=== PATIENT | male | born 1960 | race Caucasian/White ===

== ENCOUNTER 2024-05-13 05:55 | Emergency (ER) | payer OTHER, SELFPAY ==
[2024-05-13 05:58] VITALS: BP 131/62
[2024-05-13 06:08] VITALS: BMI 36.0
--- NOTE | 2024-05-13 06:24 | ED.GENMED ---
History of Present Illness
<Kal Mott MD, Resident - Last Filed: 05/13/24 13:54>
General
Chief Complaint: Abnormal Lab Value
Source: patient and spouse
Time Seen by Provider: 05/13/24 06:24
Nursing documentation reviewed up to this point in time: agreed with
Travel History
Have you traveled to any high risk areas for coronavirus over the past 14 days?: No
Have you had any contact with someone who has COVID-19?: No
Do you have any symptoms of coronavirus? Fever > 100 degrees, chills, cough, shortness of breath, sore throat, loss of taste or smell, muscle aches, or headache?: No
History of Present Illness
History of Present Illness:
63-year-old male with PMH of ESRD (on HD MWF), T2DM, HARMAN, essential hypertension, GERD, MDD who presented to the emergency department with complaints of left jaw pain rated 2/10. Patient describes a dull pain at the left mandibular joint, does not
radiate, worse with opening his mouth. He was seen by a nurse practitioner at [facility] and was directed to come to the ED due to concerns of GCA. Patient reports that symptoms started a long time ago, occurs once or twice a year and resolves
on its own without any intervention. Patient is anxious and wants to know the cause of the pain. He denies trauma, swelling, trouble breathing, fever, chills, headaches, chest pain, abdominal pain, urinary symptoms.
Past History
<Kal Mott MD, Resident - Last Filed: 05/13/24 13:54>
Past History
ED Past Medical History: Asthma, GERD, HTN, Hypercholesterolemia, IDDM, Renal failure and Psychiatric
Patient has exhibited threatening behavior?: No
Social History
Tobacco: Non-smoker
Alcohol: None
Drug: None
Personal:
Living: with family
Family History
Family History: Diabetes and Hypertension
Review of Systems
<Kal Mott MD, Resident - Last Filed: 05/13/24 13:54>
Review of Systems
All Other Systems: ROS reviewed and negative except as documented in HPI and ROS
Phy Exam
<Kal Mott MD, Resident - Last Filed: 05/13/24 13:54>
Physical Exam
Physical Exam:
GENERAL: Alert and oriented x 3, NAD. Afebrile
HEAD: NC/AT, mild tenderness in left temporomandibular joint
OROPHARYNX: no exudate or ulcers.
EYE: pupils equal and reactive extraocular muscles
NECK: Supple, no significant adenopathy.
CARDIAC: Regular rate and rhythm without any obvious murmurs.
LUNGS: Normal breath sounds,normal-no rhonchi. Not bronchospastic.
ABDOMEN: Soft, NT, ND, no peritoneal signs.
NEUROLOGICAL: Alert and oriented x 3. No focal neurological deficit.
SKIN: Warm and dry, no rash or lesion, no discoloration, skin intact.
MUSCULOSKELETAL: Full range of motion of extremities.
LYMPHATIC:No lymph nodes on his neck or supraclavicular area.
PSYCH: Normal and appropriate interaction.
General Physical Exam
General Presentation: well appearing and no apparent distress
General age: appears stated age
General Skin: warm and dry
ENT Exam
ENT Exam: EOMI, TM's normal and pharynx normal
Course
<Kal Mott MD, Resident - Last Filed: 05/13/24 13:54>
Orders/Labs/Results
Orders:
Orders
05/13/24 06:22
Complete Blood Count/With Diff Urgent
Comprehensive Metabolic Panel Urgent
ESR [Erythrocyte Sed Rate] Urgent
05/13/24 07:10
Vital Signs- Treatment ONCE
Frequency: Once
Abnormal Lab Results
05/13/24
06:22
WBC 13.8 H 10^3/uL
(4.8-10.8)
RBC 3.25 L 10^6/uL
(4.70-6.10)
Hgb 9.3 L g/dL
(13.0-18.0)
Hct 27.5 L %
(39.0-52.0)
Abs Immat Gran (auto) 0.2 H 10^3/uL
(0-0.05)
Absolute Neuts (auto) 12.3 H 10^3/uL
(1.4-6.5)
Absolute Lymphs (auto) 0.9 L 10^3/uL
(1.2-3.4)
Immature Gran % 1.1 H %
(0-0.5)
Neutrophils % 89.3 H %
(42.2-75.2)
Lymphocytes % 6.2 L %
(20.5-51.1)
ESR 86 H mm/hour
(0-20)
Sodium 134 L mmol/L
(135-145)
BUN 30 H mg/dl
(9-20)
Creatinine 1.8 H mg/dL
(0.7-1.3)
Glucose 307 H mg/dl
(70-99)
Albumin 3.1 L g/dl
(3.5-5.0)
05/13/24 06:22
05/13/24 06:22
Vital Signs
Initial and Last Documented VS:
Initial Vital Signs
Pulse BP Pulse Ox
50 131/62 97
05/13/24 05:58 05/13/24 05:58 05/13/24 05:58
Last Documented Vital Signs
Temp Pulse BP Pulse Ox
98.2 F 50 138/60 96
05/13/24 10:11 05/13/24 05:58 05/13/24 10:00 05/13/24 10:00
<James Arteaga, - Last Filed: 05/13/24 13:04>
Orders/Labs/Results
Orders:
Orders
05/13/24 06:22
Complete Blood Count/With Diff Urgent
Comprehensive Metabolic Panel Urgent
ESR [Erythrocyte Sed Rate] Urgent
05/13/24 07:10
Vital Signs- Treatment ONCE
Frequency: Once
Abnormal Lab Results
05/13/24
06:22
WBC 13.8 H 10^3/uL
(4.8-10.8)
RBC 3.25 L 10^6/uL
(4.70-6.10)
Hgb 9.3 L g/dL
(13.0-18.0)
Hct 27.5 L %
(39.0-52.0)
Abs Immat Gran (auto) 0.2 H 10^3/uL
(0-0.05)
Absolute Neuts (auto) 12.3 H 10^3/uL
(1.4-6.5)
Absolute Lymphs (auto) 0.9 L 10^3/uL
(1.2-3.4)
Immature Gran % 1.1 H %
(0-0.5)
Neutrophils % 89.3 H %
(42.2-75.2)
Lymphocytes % 6.2 L %
(20.5-51.1)
ESR 86 H mm/hour
(0-20)
Sodium 134 L mmol/L
(135-145)
BUN 30 H mg/dl
(9-20)
Creatinine 1.8 H mg/dL
(0.7-1.3)
Glucose 307 H mg/dl
(70-99)
Albumin 3.1 L g/dl
(3.5-5.0)
05/13/24 06:22
05/13/24 06:22
Vital Signs
Initial and Last Documented VS:
Initial Vital Signs
Pulse BP Pulse Ox
50 131/62 97
05/13/24 05:58 05/13/24 05:58 05/13/24 05:58
Last Documented Vital Signs
Temp Pulse BP Pulse Ox
98.2 F 50 138/60 96
05/13/24 10:11 05/13/24 05:58 05/13/24 10:00 05/13/24 10:00
<Kal Mott MD, Resident - Last Filed: 05/13/24 13:54>
MDM/Problems Addressed
MDM/Problems Addressed:
63-year-old male with PMH of ESRD, type II DM, HARMAN, GERD who presented to the emergency department with left jaw pain that started yesterday. Pain is rated 2/10 and does not radiate. Suspect temporomandibular joint dysfunction vs sialolithiasis,
eustachian tube dysfunction. Periodontal infection less likely given no fever or other systemic symptoms, glossopharyngeal neuralgia also less likely given the nature of the pain, GCA less likely in a 63-year-old male with no history of no headaches
or temporal arteritis. CBC, CMP, ESR pending. Patient not willing to take Tylenol, said pain not unbearable.
Chronic conditions affecting care: Kidney disease
<Kal Mott MD, Resident - Last Filed: 05/13/24 13:54>
*Critical Care Note
Total Time (30-74mins, 75-104mins- exclusive of procedures): Not Applicable
<Kal Mott MD, Resident - Last Filed: 05/13/24 13:54>
Update Note
Update Note:
7: 30 CBC with mild leukocytosis 13.8, Hb 9.3, ESR 86. Chemistry with sodium 134, glucose 307, BUN 30, creatinine 1.8, glucose 307. Patient reports he took 40 mg prednisone yesterday morning which explains his mild leukocytosis. He does not
remember if he took his long-acting insulin last night. An ESR of 86 may be expected in a patient on dialysis. He is due for dialysis today. He stated that his fasting glucose is usually in the 100s at home but did not remember if he got his
long-acting insulin last night. He will get his 40 units NovoLog with breakfast.
8: 10 patient reevaluated, reports no pain and minimal pain with mouth opening. Refused Tylenol seen pain is not unbearable. Patient is hemodynamically stable and is medically stable for discharge to follow-up with primary care physician.
Encouraged to attend his dialysis today.
ED Attending Note
<Kal Mott MD, Resident - Last Filed: 05/13/24 13:54>
-
Portions of this chart may have been created with voice recognition software.� Occasional wrong word or��sound alike� substitutions may have occurred due to the inherent limitations of voice recognition software.
<James Arteaga DO - Last Filed: 05/13/24 13:04>
ED Attending Note
Patient seen and examined by attending physician: Yes
I performed the substantive portion of visit, reviewed & personally made and approve the management plan that is documented in note by myself or LIGIA.: Yes
I performed a history and physical exam of patient and discussed management with resident, I reviewed resident's note and agree with documented findings and plan of care.: Yes
ED Attending Note:
63-year-old male with left jaw pain. My evaluation patient states pain is better. He was sent because of elevated CRP and sed rate. Denies fevers. Reports that he has had this pain 1-3 times a year. He states he did not think it was much of a
big deal. He is not sure if he grinds his teeth. Patient denies fevers. Is on dialysis. Exam: Very minor tenderness left noted the left TMJ. No left temporal artery tenderness. No signs of dental infection. No abscess. No signs of parotitis.
Patient advised to follow-up with [facility] if symptoms persist. Also advised to watch for fevers or swelling or any other symptoms.
Discharge Plan
Departure
Patient Disposition: Home (Routine Discharge)
Date of Disposition: 05/13/24
Time of Disposition: 10:09
Patient with high blood pressure during this ER visit?: Yes
Condition: Good
Covid-19: Not Applicable
Discharge Problem:
TMJ (temporomandibular joint disorder), End stage renal disease, Essential hypertension, Acute hyponatremia
Instructions: Dehydration, Adult (DC), Temporomandibular Joint (TMJ) Disorders (DC)
Prescriptions:
No Action
prednisone 20 mg Tablet
40 mg PO DAILY
povidone-iodine [Betadine] 10 % Solution
1 applic TOPICAL DAILY
atorvastatin [Lipitor] 40 mg Tablet
40 mg PO QPM
acetaminophen [Tylenol] 325 mg Tablet
650 mg PO Q6HPRN PRN (Reason: mild pain)
carvedilol [Coreg] 12.5 mg Tablet
12.5 mg PO BID
polyethylene glycol 3350 [Miralax] 17 gram Powder In Packet
17 g PO DAILY
sennosides-docusate sodium [Senna-S] 8.6-50 mg Tablet
2 tab-cap PO HS
cyanocobalamin (vitamin B-12) 1,000 mcg Tablet
1,000 mcg PO DAILY
clopidogrel [Plavix] 75 mg Tablet
75 mg PO DAILY
aspirin 81 mg Tablet,Delayed Release (Dr/Ec)
81 mg PO DAILY
acetaminophen [Tylenol Extra Strength] 500 mg Tablet
1,000 mg PO TID
oxycodone 15 mg Tablet
15 mg PO Q12H
amlodipine [Norvasc] 10 mg Tablet
10 mg PO DAILY
bisacodyl [Dulcolax (bisacodyl)] 10 mg Suppository
10 mg RI DAILYPRN PRN (Reason: if no bm aftr mom)
omeprazole 20 mg Capsule,Delayed Release(Dr/Ec)
20 mg PO DAILY
gabapentin 100 mg Capsule
100 mg PO TID
fluticasone propionate [Flonase] 50 mcg/actuation [place],Suspension
2 spray INTRANASAL DAILY
simethicone [Gas-X] 80 mg Tablet,Chewable
160 mg PO Q6HPRN PRN (Reason: gas pains)
insulin aspart U-100 [Novolog FlexPen U-100 Insulin] 100 unit/mL (3 mL) Insulin Pen
4 unit SC AC
insulin glargine [Lantus Solostar U-100 Insulin] 100 unit/mL (3 mL) Insulin Pen
8 unit SC HS
sevelamer carbonate 800 mg Tablet
800 mg PO TID
duloxetine 20 mg Capsule, Delayed Rel Sprinkle
20 mg PO BID
Referrals:
[facility] [Outside] - Follow up in 5-7 days
UNKNOWN - PT DOES,NOT KNOW [Family Provider] -
Activity Restrictions/Additional Instructions:
It was a pleasure meeting you and taking part in your care. We hope for your continued healing and wellness.
Please read discharge instructions in their entirety. However, they are for general education and may not describe your exact diagnosis at discharge. Information on your ER visit and medical conditions were discussed with you along with appropriate
follow up information.
You came to the emergency department with left jaw pain. Physical exam did not show any temporal artery tenderness. Your CBC and chemistry did not show any significant cause of your jaw pain and your ESR was a little bit elevated which may be
normal given to receiving hemodialysis. Your symptoms are most likely due to temporomandibular joint dysfunction. You may take Tylenol for pain. If pain persists, consider seeing an oral maxillofacial surgeon for further evaluation and possible
bite guards fitting.
Please follow up with your primary care provider and/or other healthcare provider involved in your care for any further adjustments to your medication regimen as necessary. Also follow-up with your hemodialysis as scheduled. Please schedule a
follow up appointment as directed. Call to schedule an appointment.
Please return to the emergency department with ANY change in, persisting, or worsening of symptoms. If any of your symptoms do not improve, or persist, or become more severe within 6-12 hours, please return to the emergency department for further
care. You may also return to the emergency department if you develop a headache, neck pain/stiffness, fever greater than 100.4F, chest pain, shortness of breath, persistent nausea, vomiting, slurred speech, difficulty walking, numbness/tingling,
weakness, signs of infection or any other symptoms that are worrisome to you.
If you have any questions or concerns please do not hesitate to call the Hospital at .
Interventions
Interventions:
*Risk Screen - Suicide Last Done: 05/13/24 05:59
*General Assessment Last Done: 05/13/24 05:59
*Neglect/Abuse Screening Last Done: 05/13/24 05:59
ED- Fall Risk Assessment Last Done: 05/13/24 11:08
*ED COVID-19 Vaccine History Last Done: 05/13/24 05:59
*Nursing Disposition Last Done: 05/13/24 11:08
Discharge Date and Time
Discharge Date/Time: 05/13/24 11:09
Print Language: IRISH
[2024-05-13 06:30] LABS: % Basophils 0.1 % (0-2); % Immature Granulocytes 1.1 % (0-0.5); % Lymphocytes 6.2 % (20.5-51.1); % Monocytes 3.3 % (1.7-9.3); % Neutrophils 89.3 % (42.2-75.2); Absolute Immature Granulocytes 0.2 10^3/uL (0-0.05); Absolute Lymphocytes 0.9 10^3/uL (1.2-3.4); Absolute Monocytes 0.5 10^3/uL (0.1-0.6); Absolute Neutrophils 12.3 10^3/uL (1.4-6.5); Hematocrit 27.5 % (39.0-52.0); Hemoglobin 9.3 g/dL (13.0-18.0); Mean Corp Hgb Conc. 33.8 g/dL (33.0-37.0); Mean Corpuscular Hgb 28.6 pg (27.0-31.0); Mean Corpuscular Volume 84.6 fL (80.0-94.0); Mean Platelet Volume 9.2 fL (7.4-10.4); Nucleated Red Blood Cells % 0 % (-); Platelet Count 331 10^3/uL (130-400); Red Blood Cell Count 3.25 10^6/uL (4.70-6.10); Red Cell Dist. Width 13.9 % (11.5-14.5); White Blood Cell Count 13.8 10^3/uL (4.8-10.8)
[2024-05-13 06:59] LABS: Erythrocyte Sed Rate 86 mm/hour (0-20)
[2024-05-13 07:00] VITALS: BP 129/61
[2024-05-13 07:01] LABS: ALT (SGPT) 29 U/L (0-50); AST (SGOT) 32 U/L (17-59); Albumin 3.1 g/dl (3.5-5.0); Alkaline Phosphatase 109 U/L (38-126); Blood Urea Nitrogen 30 mg/dl (9-20); Calcium 9.3 mg/dl (8.4-10.2); Carbon Dioxide 24 mmol/L (22-30); Chloride 101 mmol/L (98-107); Estimated Creatinine Clearance 47 ml/min; Glucose 307 mg/dl (70-99); Potassium 4.5 mmol/L (3.5-5.1); Sodium 134 mmol/L (135-145); Total Bilirubin 0.3 mg/dl (0.2-1.3); Total Protein 7.1 g/dl (6.3-8.2); eGFR 42.03
[2024-05-13 08:00] VITALS: BP 131/59
[2024-05-13 09:00] VITALS: BP 129/58
[2024-05-13 10:00] VITALS: BP 138/60
== END 2024-05-13 11:09 | disposition home or self-care (01) ==
LOC: EMR 05:55
PROVIDERS: EMERGENCY PHYSICIAN Emergency Medicine
DX: M26.609 Unspecified temporomandibular joint disorder, unspecified side (principal); E87.1 Hypo-osmolality and hyponatremia; I12.0 Hypertensive chronic kidney disease with stage 5 chronic kidney disease or end stage renal disease; N18.6 End stage renal disease
CPT/HCPCS: 99283; 80053; 85025; 85652

== ENCOUNTER 2024-05-30 18:22 | Inpatient (IN) | payer BC, SELFPAY ==
[2024-05-30] VITALS (29 sets, daily range): BP systolic 77–102; BP diastolic 45–74; BMI 37.3
[2024-05-30 15:32] LABS: Glucose - Point of Care 231 mg/dl (70-99)
--- NOTE | 2024-05-30 15:34 | ED.GENMED ---
History of Present Illness
General
Chief Complaint: Change Level of Consciousness
Source: patient and ambulance crew
Time Seen by Provider: 05/30/24 15:31
History of Present Illness
History of Present Illness:
This pt is a 64 yr old female who was brought to ED by medics after physical therapist noted pt to be drowsy (but not confused). Blood sugar approx 200. EMS was concerned re:?widened QRS, no prior for comparison. Pt typically get HD M/W/F, did
not get HD today. Pt denies any complaints except, when asked, mild sob. No cp, abd pain/vomiting/headache or other complaints.
Past History
Past History
ED Past Medical History: Asthma, GERD, HTN, Hypercholesterolemia, IDDM, Renal failure and Psychiatric
Patient has exhibited threatening behavior?: No
Social History
Tobacco: Non-smoker
Alcohol: None
Drug: None
Personal:
Living: with family
Family History
Family History: Diabetes and Hypertension
Phy Exam
Physical Exam
Physical Exam:
GENERAL: awake but drowsy, in no apparent distress
EYE: pupils equal and reactive
NECK: Supple, no significant adenopathy.
ENT: o/p clr, mmm.
CARDIAC: Regular rate and rhythm .
LUNGS: Clear breath sounds bilaterally, no acute respiratory distress, no wheezes/rales/rhonchi
ABDOMEN: Soft, diffuse nonspecific tenderness, no r/g
NEUROLOGICAL: awake but drowsy, oriented, le weakness but maee, neuro intact otherwise
SKIN: Warm and dry, skin intact.
MUSCULOSKELETAL: 1+ bilate le edema, well perfused. R foot with dressing intact
PSYCH: Normal and appropriate interaction.
Sepsis
Sepsis Screening
Sepsis Assessment: Severe Sepsis
Sepsis Screening: Hypotension, Worsening O2 Saturation and Vasopressor support required
Sepsis Screen
Sepsis Screen: Severe Sepsis
Date: 05/31/24
Time: 13:09
Course
Orders/Labs/Results
Orders:
Orders
05/30/24 15:27
Electrocardiogram (*1) Urgent
Reason for Study: Shortness of Breath
CXR [CR Chest Portable - 1 View] Urgent
Comment:
Reason For Exam: shortness of breath
Reason Study Needs to be Portable: Patient Unstable
05/30/24 15:28
EKG- Treatment ONCE
05/30/24 15:31
Complete Blood Count/With Diff Urgent
Comprehensive Metabolic Panel Urgent
Magnesium Urgent
NT-proBNP Urgent
Serum Osmolality Urgent
Comment: ADDON
Troponin I Urgent
Venous Blood Gas Urgent
%Oxygen/Room Air: 96% on 6L NC
05/30/24 15:32
Cardiac Monitoring- Treatment ONCE
Pulse Ox/cont/shift [RESP] Urgent
Quantity: 1
05/30/24 15:42
Lactic Acid Q4H
Comment: CANCEL 2nd LACTIC ACID IF 1st LACTIC ACID IS LESS THAN 2
Urinalysis Reflex To Culture Urgent
Date Specimen was Collected: 05/30/24
Time Specimen was Collected: 15:34
Urine Microscopic Reflex Cult Urgent
Blood Culture Q30M
LANRE Source: Blood/Venous
Specimen Description:
Blood Culture Q30M
LANRE Source: Blood/Venous
Specimen Description:
Influenza A+B Rapid Molecular Urgent
LANRE Source: Nasal Swab
Specimen Description:
Urine Culture Urgent
LANRE Source: U
Specimen Description:
Date Specimen was Collected: 05/30/24
Time Specimen was Collected: 15:34
05/30/24 15:49
Straight cath- Treatment ONCE
05/30/24 16:43
WOUND/OSTOMY CONSULT Routine
Reason for Consult: R foot wound
05/30/24 16:44
0.9% Sodium Chloride 250 ml [Nss] 250 ml IV BOLUS
Piperacillin/Tazo 4.5 Gram [Zosyn] 4.5 gram in 100 ml IV NOW
Vancomycin 1 Gram/200 ml [Vancocin] 1 gram in 200 ml IV NOW
05/30/24 16:46
Foot, Right 3 View [CR Foot - Right Min 3 Views] Urgent
Comment:
Reason For Exam: infection
US Abdomen Complete/Upper Urgent
Comment:
Reason For Exam: abd pain
05/30/24 16:52
COVID-19 Antigen Urgent
Source: Nasal Swab
Wound Culture [Wound/Abscess/Other Culture] Urgent
LANRE Source: Foot
Specimen Description: Right
Date Specimen was Collected: 05/30/24
Time Specimen was Collected: 16:46
05/30/24 17:21
0.9% Sodium Chloride 250 ml [Nss] 250 ml IV BOLUS
05/30/24 17:30
NORepinephrine 4 MG/250 ML [Levophed] 4 mg in 250 ml IV PER PROTOCOL
Initial dose in mcg/min, then titrate:: 4
Titrate to keep:: Other
Titrate to keep other:: MAP>60
Titrate by mcg/min:: 1-2 mcg/min
Frequency of titrations (minutes):: 5
Maximum dose in ICU in mcg/min:: 30
Maximum dose in IMU in mcg/min:: 8
Maximum dose in IVU in mcg/min:: 4
Begin to taper infusion when:: Remained at goal for 4hrs
Taper by mcg/min:: 1-2 mcg/min
Frequency of taper (minutes) if patient maintains goal:: 30
Taper to off?: Yes
If infusion off & no longer maintaining goal:: Contact Provider
05/30/24 17:42
Tree Farmer Consult Routine
Consulting Provider: Dalton Lopez
Was physician already notified: Yes
PODIATRY CONSULT Routine
Consulting Provider: Lopez Delgado
Was physician already notified: Yes
Vascular Surgery Consult Routine
Consulting Provider: Giorgi Wyatt
Was physician already notified: Yes
05/30/24 17:43
INFECTIOUS DISEASE CONSULT Routine
Consulting Provider: Pedro Ramos
Was physician already notified: Yes
05/30/24 17:44
NEPHROLOGY CONSULT Routine
Consulting Provider: Billy Hopkins V.
Was physician already notified: Yes
05/30/24 17:45
Admit/Transfer Patient As Directed
Co-Sign Provider:
Level of Care: Inpatient admission
Assign to:: ICU
Physician / Group: do
Diagnosis: septic shock
Reason for Hospitalization: septic shock
Expected length of stay greater than two midnights?: Yes
ELOS- Estimated Length of Stay in days: 3
I certify the patient meets the requirements for IP care: Yes
05/30/24 17:46
Records Request [Obtain Records] As Directed
Dates of Information to be Released: 04/06/23-present
Type of Information Requested: Consults
Discharge Summary
H&P
Radiology Results
Obtain Records from: [facility]
PRN Pain Medication Management As Directed
May give lesser potent ordered pain med per pt: Yes
preference::
Protocol:: Medication orders for pain may be administered in a
manner that supports deferring to patient preference
when the pt is:
- Requesting an ordered lesser potent pain medication.
Least to most potent pain medications are defined
as: acetaminophen < NSAID < tramadol < opioids
(morphine, oxycodone, hydromorphone).
- Requesting a lesser dose of the same medication IF
ORDERED.
- Requesting a less intrusive route of administration
if both routes are prescribed by the provider (PO <
IV).
05/30/24 17:48
Code Status As Directed
Resuscitation Status: Full Code
05/30/24 17:51
Urine Osmolality Random [Osmolality, Random Urine] Stat
Urine Sodium Stat
05/30/24 20:39
Acetaminophen [Tylenol/Feverall] 650 mg RECTAL Q4HPRN PRN
Acetaminophen [Tylenol] 650 mg PO Q4HPRN PRN
Dextrose 50%-Water [Dextrose 50% Syringe] 12.5 grams IV [id number] PRN
Glucagon [GlucaGen] 1 mg IM PRN PRN
Heparin 5,000 units SC Q12
VANCOMYCIN Pharmacy to Dose [VANCOCIN Pharmacy to Dose] 1 each Pharmacy To Prepare [Call Pharmacy To Prepare] 0 ml IV PER PROTOCOL
05/30/24 20:39
Activity As Directed
Activity Level: Out of Bed-Early Mobility
Bedside Glucose Monitoring As Directed
Frequency: Q6H
Additional Instructions:: Change to q6h if pt on TPN, tube feeding or not eating
Intake/ Output As Directed
Frequency: Per unit guidelines
Vital Signs As Directed
Frequency: Per unit guidelines
Ot Eval And Treat Routine
Pt Eval And Treat Routine
Activity Level: As Tolerated
DX Deep Vein Thrombosis Video Routine
05/30/24 20:43
Duloxetine Delayed Release [Cymbalta Delayed Release] 20 mg PO BID
05/30/24 22:00
Docusate W/Senna [Senokot-S] 2 tablet PO HS
Piperacillin/Tazo 3.375 Gram [Zosyn] 3.375 gram in 50 ml IV Q6H
05/31/24 00:00
Insulin Aspart Corrective Low [Novolog Flexpen-Low Resistance] See Protocol SC Q6
05/31/24 02:57
Basic Metabolic Panel IN AM
CRP [C-Reactive Protein] IN AM
Complete Blood Count/No Diff IN AM
Cortisol, Random IN AM
ESR [Erythrocyte Sed Rate] IN AM
Glycohemoglobin (HgbA1c) IN AM
TSH Reflex To Free T4 IN AM
05/31/24 08:00
Aspirin Low Dose EC [Aspir Low (Enteric Coated)] 81 mg PO DAILY
Pantoprazole [Protonix] 40 mg PO DAILY
Polyethylene Glycol Powder [Miralax] 17 grams PO DAILY
Sevelamer Carbonate [Renvela] 800 mg PO MEALS
06/01/24 06:00
Basic Metabolic Panel IN AM
Complete Blood Count/No Diff IN AM
06/02/24 06:00
Basic Metabolic Panel IN AM
Complete Blood Count/No Diff IN AM
06/03/24 06:00
Basic Metabolic Panel IN AM
Complete Blood Count/No Diff IN AM
06/04/24 06:00
Complete Blood Count/No Diff IN AM
Abnormal Lab Results
05/30/24 05/30/24
15:31 15:42
WBC 27.5 H 10^3/uL
(4.8-10.8)
RBC 3.07 L 10^6/uL
(4.70-6.10)
Hgb 8.6 L g/dL
(13.0-18.0)
Hct 26.8 L %
(39.0-52.0)
MCHC 32.1 L g/dL
(33.0-37.0)
RDW 15.1 H %
(11.5-14.5)
Abs Immat Gran (auto) 0.5 H 10^3/uL
(0-0.05)
Absolute Neuts (auto) 25.6 H 10^3/uL
(1.4-6.5)
Absolute Lymphs (auto) 0.7 L 10^3/uL
(1.2-3.4)
Immature Gran % 2.0 H %
(0-0.5)
Neutrophils % 93.0 H %
(42.2-75.2)
Lymphocytes % 2.7 L %
(20.5-51.1)
VBG pO2 62 H mmHg
(30-50)
Sodium 128 L mmol/L
(135-145)
Chloride 95 L mmol/L
(98-107)
BUN 47 H mg/dl
(9-20)
Creatinine 2.4 H mg/dL
(0.7-1.3)
Glucose 231 H mg/dl
(70-99)
Calcium 8.2 L mg/dl
(8.4-10.2)
AST 129 H U/L
(17-59)
ALT 91 H U/L
(0-50)
Alkaline Phosphatase 171 H U/L
(38-126)
Total Protein 5.8 L g/dl
(6.3-8.2)
Albumin 2.6 L g/dl
(3.5-5.0)
Leukocyte Esterase Rfl 1+ A
(Negative)
Urine Bacteria (Reflex) Moderate A
(Negative)
Urine Albumin (Reflex) 2+ A
(Neg - Trace)
POC Glucose 231 H mg/dl
(70-99)
05/30/24 15:31
05/30/24 15:31
Vital Signs
Initial and Last Documented VS:
Initial Vital Signs
Pulse Resp
85 25
05/30/24 15:48 05/30/24 15:48
Last Documented Vital Signs
Temp Pulse Resp BP Pulse Ox
97.8 F 62 13 125/61 95
05/31/24 11:30 05/31/24 11:00 05/31/24 11:00 05/31/24 11:00 05/31/24 11:00
*Critical Care Note
Total Time (30-74mins, 75-104mins- exclusive of procedures): 31
Update Note
Update Note:
Patient presents to the Emergency Department with ___drowsiness
Number and Complexity of Problems Addressed at the Encounter
� Chronic conditions affecting care:foot wound, HD
� Acute Exacerbation and/or Progression of Chronic Illness:
� Differential Diagnosis includes:but not limited electrolyte disorder, sepsis, medication reaction, etc etc etc.
Amount and/or Complexity of Data to be Reviewed and Analyzed
� I performed an independent evaluation of and my interpretation is:
EKG:read by me, nsr RBBB with LPFB, no aute ischemia (don't highly suspect hyperK as widened qrs most likey related to rbbb, not a sine wave appearance)
CT:
Xrays:soft tissue gas in R foot and ankle. cxr nad
Laboratory Studies: Marked white blood cell count elevation, moderate hyponatremia, nonspecific LFT elevation. Given patient's vague abdominal discomfort will obtain an ultrasound to evaluate gallbladder liver area. Chest
x-ray does not demonstrate specific pneumonia however limited study given low lung volumes.
Other:The gallbladder is distended and filled with stones and sludge. Mild gallbladder wall thickening raising the possibility for acute cholecystitis. However, no appreciable pericholecystic fluid and a reportedly negative
sonographic Bermeo's sign. Clinical correlation is recommended.
� Review of other/old records reveals:
� Clinical information was obtained by an independent historian:nivia harris RN
� Prescriptions/Medications Considered but not given:
� Further testing considered but not performed:
Risk of Complications and/or Morbidity or Mortality of Patient Management
� Social determinants of health affecting care:
� Discussion with other providers (PCP, Hospitalists, Consultants, etc):d/w hospitalist for admission, d/w irrigation pump installer when bedside
� Escalation of care including admission/observation vs risk of discharge considered: 448 pm Wound dressing removed R le...incision laterally noted to be open with purulent d/c (we cultured here)...suspect soruce of sepsis. Of
note, nonspec lft eval to be assessed with us (pending). Abx ordered. Limited IVf given HD. Pt has HD catheter, always possibility of potential source as well.
754pm Podiatry at bedside. Of note, us report with findnigs ?s/o cholecystitis...pt with nonspec abd ttp. Abx initiated, will need to follow closely as a potential compoundig factor to his illness.
ED Attending Note
-
Portions of this chart may have been created with voice recognition software.� Occasional wrong word or��sound alike� substitutions may have occurred due to the inherent limitations of voice recognition software.
Discharge Plan
Departure
Patient Disposition: Admit
Date of Disposition: 05/30/24
Time of Disposition: 16:51
Presentation/result/management discussed w/ accepting MD/DO: Hospitalist
Condition: Fair
Discharge Problem:
Severe sepsis
Interventions
Interventions:
*Risk Screen - Suicide Last Done: 05/30/24 21:19
*General Assessment Last Done: 05/30/24 15:49
*Neglect/Abuse Screening Last Done: 05/30/24 15:49
ED- Fall Risk Assessment Last Done: 05/30/24 15:49
*ED COVID-19 Vaccine History Last Done: 05/30/24 20:42
*Nursing Disposition Last Done: 05/30/24 20:35
ED- Cardiac Assessment Last Done: 05/30/24 15:49
ED- Neurological Assessment Last Done: 05/30/24 15:49
ED-Psychological Assessment Last Done: 05/30/24 15:49
ED- Pulmonary Assessment Last Done: 05/30/24 15:49
Discharge Date and Time
Discharge Date/Time: 05/30/24 20:36
[2024-05-30 15:42] LABS: Venous Blood Gas B.E. -1.3 mmol/L (-4 to +4); Venous Blood Gas HCO3 24.3 mmol/L (22-27); Venous Blood Gas O2 Sat % 91.1 %; Venous Blood Gas pCO2 44 mmHg (35-48); Venous Blood Gas pH 7.35 (7.32-7.43); Venous Blood Gas pO2 62 mmHg (30-50)
[2024-05-30 15:57] LABS: ALT (SGPT) 91 U/L (0-50); AST (SGOT) 129 U/L (17-59); Albumin 2.6 g/dl (3.5-5.0); Alkaline Phosphatase 171 U/L (38-126); Blood Urea Nitrogen 47 mg/dl (9-20); Calcium 8.2 mg/dl (8.4-10.2); Carbon Dioxide 25 mmol/L (22-30); Chloride 95 mmol/L (98-107); Estimated Creatinine Clearance 36 ml/min; Glucose 231 mg/dl (70-99); Magnesium 2.3 mg/dl (1.6-2.3); Sodium 128 mmol/L (135-145); Total Bilirubin 0.8 mg/dl (0.2-1.3); Total Protein 5.8 g/dl (6.3-8.2); eGFR 29.58
[2024-05-30 15:58] LABS: Hematocrit 26.8 % (39.0-52.0); Hemoglobin 8.6 g/dL (13.0-18.0); Mean Corp Hgb Conc. 32.1 g/dL (33.0-37.0); Mean Corpuscular Volume 87.3 fL (80.0-94.0); Mean Platelet Volume 9.5 fL (7.4-10.4); Platelet Count 349 10^3/uL (130-400); Red Blood Cell Count 3.07 10^6/uL (4.70-6.10); Red Cell Dist. Width 15.1 % (11.5-14.5); White Blood Cell Count 27.5 10^3/uL (4.8-10.8)
[2024-05-30 16:04] LABS: Urine Albumin 2+ (Neg - Trace); Urine Bilirubin Negative (Negative); Urine Character Cloudy (Clear); Urine Color Yellow; Urine Glucose Negative (Negative); Urine Ketone Negative (Negative); Urine Leukocyte 1+ (Negative); Urine Nitrite Negative (Negative); Urine Occult Blood Negative (Negative); Urine Urobilinogen Negative (Neg - 1+)
[2024-05-30 16:10] LABS: NT-proBNP 4060 pg/ml; Troponin I 0.016 ng/ml
[2024-05-30 16:17] LABS: Lactic Acid 1.2 mmol/L (0.7-2.0)
[2024-05-30 16:20] LABS: % Basophils 0.2 % (0-2); % Lymphocytes 2.7 % (20.5-51.1); % Monocytes 2.1 % (1.7-9.3); Absolute Basophils 0.1 10^3/uL (0-0.2); Absolute Immature Granulocytes 0.5 10^3/uL (0-0.05); Absolute Lymphocytes 0.7 10^3/uL (1.2-3.4); Absolute Monocytes 0.6 10^3/uL (0.1-0.6); Absolute Neutrophils 25.6 10^3/uL (1.4-6.5); Nucleated Red Blood Cells % 0 % (-)
--- NOTE | 2024-05-30 16:36 | EDRN ---
Dr. Holcomb currently at the [facility] bedside
[2024-05-30] MEDS: ZOSYN 100 IV (16:48)
[2024-05-30] MEDS: VANCOCIN 200 IV (16:48)
[2024-05-30] MEDS: NSS 250 IV ×2 (16:51→17:37)
--- NOTE | 2024-05-30 16:59 | HPS.HSE ---
Addendum entered and electronically signed by Pablo De La Torre MD 05/30/24 18:14:
64-year-old male with a past medical history of PVD, diabetes, hypertension, and hyperlipidemia presents with altered mental status, lethargy, and was found to have pus draining from his right TMA site. History is obtained from his due to
patient's lethargy. Patient had a recent TMA around March 27, 2024 at [facility]. It appears that it is infected. He is now hypotensive, with a blood pressure of 77/45. He has an HD tunneled catheter and is getting dialysis 3 times a
week.
He has received 250 cc normal saline and IV vancomycin/Zosyn.
Will give an additional 250 cc normal saline bolus, start Levophed to keep MAP greater than 65.
Continue IV antibiotics, consult education and outreach coordinator, ID, podiatry, vascular surgery, and nephrology.
Obtain records from [facility].
I have personally seen and examined the patient, and agree with the plan of care as documented by RENZO Ling.
Advance care planning discussed, patient is a full code.
All other issues as outlined by the advanced care practitioner.
Total time spent to see the patient on the floor, examine the patient, review data and lab results, discuss treatment plan with patient, nursing staff around 80 minutes.
Original Note:
Family Physician
-
Family Physician: Jorge Alberto Diaz
Chief Complaint
-
lethargy
confusion
History of Present Illness
64 yr old male with PMH for depression, end-stage renal disease next, type 2 diabetes, right foot wound, GERD, hypertension presented to us with short of breath, hallucination, confusion since this morning. saw him on Thursday. Patient was
noted very weak and tired. He did not have any appetite. he just wanted to sleep. Denied any fever or chills. Patient denied abdominal pain. Review of system is very limited as patient is very lethargic. History obtained from his . Patient
had fourth or fifth digit removed in November. He did have a wound VAC. . Patient was on antibiotics for a month. His wound got worse. He ended up getting transmetatarsal amputation on March 07. Since then he had multiple debridement. His
wounds were dehisced for which he underwent debridement again. He follows physicians from [facility].
Upon arrival he was noted in septic shock. Patient received normal saline in the ER. Miar in ER admitted for further management.
Medical History
Past Medical History
Past Medical History: Reports Other
Additional Past Medical History:
Depression
Obstructive sleep apnea
End-stage renal disease
Type 2 diabetes
Right foot wound
GERD
Hypertension
Past Surgical History: Reports None and Other
Additional Past Surgical History:
Transmetatarsal amputation
Social History
Tobacco: Non-smoker
Alcohol: None
Drug: None
Personal:
Family History
Family History: Not pertinent
Allergies / Home Medications
Allergies reflects when Allergies were last updated in [facility].
Home Medications with original date entered in [facility]
Allergy/Medication List:
Allergies
Allergy/AdvReac Type Severity Reaction Status Date / Time
No Known Allergies Allergy Unverified 05/13/24 05:59
Home Medications
acetaminophen 325 mg tablet (Tylenol) 650 mg PO Q6HPRN PRN mild pain 05/13/24
acetaminophen 500 mg tablet (Tylenol Extra Strength) 1,000 mg PO Q8HPRN PRN moderate pain 05/13/24
amlodipine 10 mg tablet (Norvasc) 10 mg PO DAILY 05/13/24
aspirin 81 mg tablet,delayed release 81 mg PO DAILY 05/13/24
atorvastatin 40 mg tablet (Lipitor) 40 mg PO HS 05/13/24
bisacodyl 10 mg rectal suppository (Dulcolax (bisacodyl)) 10 mg IN DAILYPRN PRN if no bm aftr mom 05/13/24
carvedilol 12.5 mg tablet (Coreg) 12.5 mg PO BID 05/13/24
clopidogrel 75 mg tablet (Plavix) 75 mg PO DAILY 05/13/24
cyanocobalamin (vitamin B-12) 1,000 mcg tablet 1,000 mcg PO DAILY 05/13/24
duloxetine 20 mg capsule,delayed release sprinkle 20 mg PO BID 05/13/24
fluticasone propionate 50 mcg/actuation nasal spray,suspension 2 spray intranasal DAILY 05/13/24
gabapentin 100 mg capsule 100 mg PO TID 05/13/24
insulin aspart U-100 100 unit/mL (3 mL) subcutaneous pen (Novolog FlexPen U-100 Insulin aspart) 4 unit SC AC 05/13/24
insulin glargine 100 unit/mL (3 mL) subcutaneous pen (Lantus Solostar U-100 Insulin) 10 unit SC HS 05/13/24
omeprazole 20 mg capsule,delayed release 20 mg PO DAILY 05/13/24
oxycodone 15 mg tablet 15 mg PO Q12H 05/13/24
polyethylene glycol 3350 17 gram oral powder packet (Miralax) 17 g PO DAILY 05/13/24
sennosides 8.6 mg-docusate sodium 50 mg tablet (Senna-S) 2 tab-cap PO HS 05/13/24
sevelamer carbonate 800 mg tablet 800 mg PO MEALS 05/13/24
simethicone 80 mg chewable tablet 160 mg PO Q6HPRN PRN flatulence 05/13/24
ondansetron HCl 4 mg tablet 4 mg PO Q6HPRN PRN nausea 05/30/24
oxycodone 5 mg tablet 5 mg PO Q8HPRN PRN breakthrough pain 05/30/24
Review of Systems
-
Constitutional: Reports Fatigue
EENT: Reports No Symptoms
Respiratory: Reports No Symptoms
Cardiac: Reports No Symptoms
Abdomen/GI: Reports No Symptoms
: Reports No Symptoms
Skin: Reports Other (Right metatarsal wound infection)
Neurological: Reports Weakness
Endocrine: Reports No Symptoms
Hematologic/Lymphatic: Reports No Symptoms
Psych: Reports No Symptoms
Physical Exam
Vital Signs
Vital Signs
Temp Pulse Resp BP Pulse Ox
98.5 F 66 16 102/58 96
05/30/24 15:49 05/30/24 15:49 05/30/24 15:49 05/30/24 15:49 05/30/24 15:49
Physical Exam
General: Well Developed, Well Nourished and No Apparent Distress
HEENT: NormoCephalic, Moist mucous membranes and Atraumatic
Respiratory: Clear
Cardiac: S1/S2 and Regular Rhythm; No Murmur or Rub
GI: Soft, Non Tender, Non Distended and Normal Bowel Sounds; No Organomegaly
Rectal: Deferred by Provider
Musculoskeletal: No Clubbing, No Cyanosis and No Edema
Skin: Rash and Other (right metatarsal wound )
Neuro: AO x 3 and Nonfocal/grossly intact
Psych: Calm
Laboratory Results
-
05/30/24 15:31
05/30/24 15:31
Laboratory Results
Lactic Acid Cancelled 05/30/24 19:45
Total Bilirubin 0.8 mg/dl (0.2-1.3) 05/30/24 15:31
AST 129 U/L (17-59) H 05/30/24 15:31
ALT 91 U/L (0-50) H 05/30/24 15:31
Alkaline Phosphatase 171 U/L (38-126) H 05/30/24 15:31
Troponin I 0.016 ng/ml 05/30/24 15:31
Data Reviewed
-
Diagnostic Radiology: Report Reviewed by me
Lab Data: Labs Reviewed by me
Impression/Plan
-
# Septic shock suspected from right foot wound
-WBCs 27.5, hypertension
-UA negative
-COVID negative
-Chest x-ray negative for acute disease
-Flu negative
-Wound and blood culture sent from ER
-X-ray of right foot pending
-Wound care consult
-IV Zosyn and Vanco
-ID, vascular, podiatry consulted
# Acute hypoxic respiratory failure unclear cause
Patient requiring 6 L of oxygen-
-continue supplemental oxygen
-Wean as tolerated.
-Chest x-ray, flu negative
-
# Anemia likely from chronic disease
-Hemoglobin stable at 8.6
-No active bleed
-Continue to monitor
# Acute hyponatremia/RAISSA on CKD stage IIIb
-Corrected sodium 131, creatinine 2.4
-Will obtain urine lites
# LFT elevation likely from septic shock
-AST 129, ALT 91, ALK 171
-Patient denies any abdominal pain
-Ultrasound abdomen pending
# History of hypertension
-Patient is hypotensive
-Hold Norvasc, Coreg
# Hyperlipidemia hold statin due to elevated LFTs
# Depression
-Duloxetine continued
# Neuropathy
-Gabapentin held due to lethargic
-oxy held due to lethargic
# Type 2 diabetes
-Sliding scale
-CHO diet
-Lantus 5 units at bedtime
# GERD
-PPI continued
# End-stage renal disease
-On dialysis Thursday
-Renagel continued
-hephro consulted
#hxt of PAD
-hold Plavix
-asa continued
# DVT prophylaxis
-heparin sq
# CODE STATUS
-Full code
[2024-05-30] MEDS: LEVOPHED 250 IV (17:20)
[2024-05-30 17:28] LABS: COVID-19 Antigen Negative (Negative)
[2024-05-30 17:58] LABS: Urine Bacteria Moderate (Negative); Urine Red Blood Cell 0-2 /HPF (0-2)
--- NOTE | 2024-05-30 18:32 | EDRN ---
ultrasound currently at the pts bedside
[2024-05-30] MEDS: VANCOCIN HCL 500 MG 100 IV (19:35)
--- NOTE | 2024-05-30 19:41 | EDRN ---
Report received, at bedside with nurse, we rolled and changed patient, he had a medium size soft bowl movement, replaced wound dressing on coccyx and wrapped his right foot, patient pulled up in bed and resting with family at bedside
[2024-05-30 20:29] LABS: Osmolality Serum 284 mOsm/kg (275-300)
--- NOTE | 2024-05-30 20:45 | CON.MD ---
Consultation - Medical
-
Called to the ED for urgent evaluation of 64 year old male with PMH of PAD, IDDM hypertension and hyperlipidemia presents with right foot pain and purulent drainage from right foot transmetatarsal amputation site. Patient exhibiting altered mental
status and lethargic as noted by his . Amputation was performed 03/27/24 at [facility] and he last saw the surgeon 2 weeks ago when the wound was found to be stable and granular.
PMH also includes RLE stent placement, HD scheduled M,W,F but did not have dialysis today.
On examination, pedal pulses absent bilaterally. Right TMA site with necrosis and purulent drainage. Dorsal wound new according to his locally edematous and boggy on palpation. This corresponds to radiographic finding right foot of gas in
the soft tissue dorsal aspect extending from forefoot to ankle joint. WBC 27.5 and patient is afebrile.
Purulence, necrosis and radiographic findings of gas in the dorsal foot requires immediate surgical incision and drainage of the right dorsal foot. Discussed urgency with patient as well as and daughter who are present. Explained the need for
surgical I and D and that additional surgery will be necessary. 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 Once local infection is debrided, vascular consult needed to assess
patient's distal arterial perfusion and affect on wound healing.
--- NOTE | 2024-05-30 21:00 | PTCARENOTE ---
Received pt via transfer from ED. Pt lethargic but able to answer questions appropriately. Afebrile, SR w/ palpable pulses in upper extremities, doppler in the left lower. 95% on 6L NC, diminished lung sounds throughout. Hypoactive bowel sounds in
all 4Q. Pt able to urinate in urinal. Skin CDI aside form right foot TMA. Levo gtt running see flowsheet. Call goetz and family at bedside.
--- NOTE | 2024-05-30 21:15 | PTCARENOTE ---
Pt transported to OR for I&D of right foot.
--- NOTE | 2024-05-30 22:14 | W.PN.UPDATE ---
Update Note
Progress Note Update
Incision and drainage of right foot performed. Distal surgical sight opened proximal and dorsal to the level of the talus. Significant amount of purulence expressed with malodor. Infection extended along the extensor tendons proximally as well as
laterally across the tarsometatarsal joint. Surrounding soft tissue non viable and distal metatarsal stump exposed. Poor arterial perfusion noted. Pulse lavage performed and wound packed open. Will continue to monitor and await vascular surgery
assessment.
[2024-05-30] MEDS: HEPARIN 5000 UNITS SC (22:19)
[2024-05-30 22:29] LABS: Glucose - Point of Care 290 mg/dl (70-99)
[2024-05-30] MEDS: LANTUS 0.05 UNITS SC (23:42)
[2024-05-30] MEDS: CYMBALTA DELAYED RELEASE 20 MG PO (23:43)
[2024-05-30] MEDS: SENOKOT-S 2 TABLET PO (23:43)
[2024-05-31] VITALS (60 sets, daily range): BP systolic 69–129; BP diastolic 36–68; BMI 36.6
[2024-05-31] MEDS: NOVOLOG FLEXPEN-HIGH RESISTANCE 10 UNITS SC (00:12)
[2024-05-31 00:22] LABS: Glucose - Point of Care 312 mg/dl (70-99)
[2024-05-31] MEDS: ZOSYN 50 IV ×3 (00:24→23:11)
--- NOTE | 2024-05-31 00:45 | PTCARENOTE ---
All systems reassessed. Pt returned from OR on NRB. Call goetz and family at bedside.
[2024-05-31] MEDS: LEVOPHED 250 IV ×6 (02:46→15:51)
[2024-05-31 03:15] LABS: Hematocrit 25.1 % (39.0-52.0); Mean Corp Hgb Conc. 31.9 g/dL (33.0-37.0); Mean Corpuscular Volume 87.8 fL (80.0-94.0); Mean Platelet Volume 9.8 fL (7.4-10.4); Platelet Count 398 10^3/uL (130-400); Red Blood Cell Count 2.86 10^6/uL (4.70-6.10); Red Cell Dist. Width 15.2 % (11.5-14.5)
[2024-05-31 03:23] LABS: Blood Urea Nitrogen 55 mg/dl (9-20); Calcium 8.2 mg/dl (8.4-10.2); Carbon Dioxide 22 mmol/L (22-30); Chloride 92 mmol/L (98-107); Estimated Creatinine Clearance 32 ml/min; Glucose 285 mg/dl (70-99); PT 17.4 Sec (11.4-14.6); Potassium 4.7 mmol/L (3.5-5.1); Sodium 129 mmol/L (135-145); eGFR 25.68
[2024-05-31 03:24] LABS: APTT 33.6 Sec (23.4-35.0)
[2024-05-31 03:28] LABS: Vancomycin Random 14.5 ug/ml
[2024-05-31 03:41] LABS: C-Reactive Protein > 270.00 mg/L (0.0-10.00)
[2024-05-31 03:58] LABS: TSH Reflex To Free T4 0.29 uIU/ml (0.47-4.68)
[2024-05-31 04:29] LABS: Free T4 1.36 ng/dl (0.78-2.19)
[2024-05-31 05:23] LABS: Cortisol, Random 64.1 ug/dl
--- NOTE | 2024-05-31 05:32 | PTCARENOTE ---
Pt bladder scanned for 31mLs.
[2024-05-31] MEDS: NSS 250 IV (05:48)
[2024-05-31] MEDS: NOVOLOG FLEXPEN-HIGH RESISTANCE 7 UNITS SC (05:52)
[2024-05-31 06:02] LABS: Glucose - Point of Care 298 mg/dl (70-99)
[2024-05-31 06:28] LABS: Erythrocyte Sed Rate 70 mm/hour (0-20)
[2024-05-31] MEDS: PROTONIX 40 MG PO (08:00)
[2024-05-31] MEDS: ASPIR LOW (ENTERIC COATED) 81 MG PO (08:00)
[2024-05-31] MEDS: CYMBALTA DELAYED RELEASE 20 MG PO (08:01)
[2024-05-31] MEDS: HEPARIN 5000 UNITS SC (08:02)
[2024-05-31] MEDS: ZOSYN IV (08:02)
--- NOTE | 2024-05-31 08:05 | W.CON.NEPH ---
Consultation
-
Date/Time Consultation Requested: 05/30/2024 6:00 PM
Date/Time Consultation Performed: 05/31/2024 8:00 AM
Requesting Provider: Dr. Aviles
Performing Provider: Dr. Hopkins
Reason for Consultation: ESRD/Sepsis
Medical History
-
Chief Complaint: ESRD/Sepsis
History of Present Illness:
64 yr old male with PMH for depression, end-stage renal disease (maintained on MWF HD via tunneled catheter), type 2 diabetes maintained on insulin, right foot wound, GERD (on PPI), hypertension presented to ER with shortness of breath,
hallucination, and confusion since morning. saw him on Thursday. Patient was noted very weak and tired. He did not have any appetite. he just wanted to sleep. Denied any fever or chills. Patient denied abdominal pain. History obtained
from his . Patient had fourth or fifth digit removed in November. He did have a wound VAC. . Patient was on antibiotics for a month. His wound got worse. He ended up getting transmetatarsal amputation in 03/29. Since then he had multiple
debridements. His wounds were dehisced for which he underwent debridement again. He follows physicians from [facility].
Upon arrival he was noted in septic shock and now in respiratory failure. Patient received normal saline in the ER as well as Vanco and Zosyn. The patient is now in the intensive care unit and nephrology was consulted for ESRD management in the
setting of sepsis.
Past Medical History
Depression
Obstructive sleep apnea
End-stage renal disease
Type 2 diabetes
Right foot wound
GERD
Hypertension
Past Surgical History: Reports None and Other
Additional Past Surgical History:
Transmetatarsal amputation
Social History
Tobacco: Non-Smoker
Alcohol: None
Living: Snf
Family History
no ESRD
Family History: Not Pertinent
Allergies / Home Medications
Allergy/AdvReac Type Severity Reaction Status Date / Time
No Known Allergies Allergy Unverified 05/13/24 05:59
�Medication �Instructions �Recorded �Confirmed �Type
acetaminophen 325 mg tablet 650 mg PO Q6HPRN PRN mild pain 05/13/24 05/30/24 History
(Tylenol)
acetaminophen 500 mg tablet 1,000 mg PO Q8HPRN PRN moderate 05/13/24 05/30/24 History
(Tylenol Extra Strength) pain
amlodipine 10 mg tablet (Norvasc) 10 mg PO DAILY 05/13/24 05/30/24 History
aspirin 81 mg tablet,delayed 81 mg PO DAILY 05/13/24 05/30/24 History
release
atorvastatin 40 mg tablet (Lipitor) 40 mg PO HS 05/13/24 05/30/24 History
bisacodyl 10 mg rectal suppository 10 mg [place] DAILYPRN PRN if no bm 05/13/24 05/30/24 History
(Dulcolax (bisacodyl)) aftr mom
carvedilol 12.5 mg tablet (Coreg) 12.5 mg PO BID 05/13/24 05/30/24 History
clopidogrel 75 mg tablet (Plavix) 75 mg PO DAILY 05/13/24 05/30/24 History
cyanocobalamin (vitamin B-12) 1,000 mcg PO DAILY 05/13/24 05/30/24 History
1,000 mcg tablet
duloxetine 20 mg capsule,delayed 20 mg PO BID 05/13/24 05/30/24 History
release sprinkle
fluticasone propionate 50 2 spray intranasal DAILY 05/13/24 05/30/24 History
mcg/actuation nasal
spray,suspension
gabapentin 100 mg capsule 100 mg PO TID 05/13/24 05/30/24 History
insulin aspart U-100 100 unit/mL 4 unit SC AC 05/13/24 05/30/24 History
(3 mL) subcutaneous pen (Novolog
FlexPen U-100 Insulin aspart)
insulin glargine 100 unit/mL (3 10 unit SC HS 05/13/24 05/30/24 History
mL) subcutaneous pen (Lantus
Solostar U-100 Insulin)
omeprazole 20 mg capsule,delayed 20 mg PO DAILY 05/13/24 05/30/24 History
release
oxycodone 15 mg tablet 15 mg PO Q12H 05/13/24 05/30/24 History
polyethylene glycol 3350 17 gram 17 g PO DAILY 05/13/24 05/30/24 History
oral powder packet (Miralax)
sennosides 8.6 mg-docusate sodium 2 tab-cap PO HS 05/13/24 05/30/24 History
50 mg tablet (Senna-S)
sevelamer carbonate 800 mg tablet 800 mg PO MEALS 05/13/24 05/30/24 History
simethicone 80 mg chewable tablet 160 mg PO Q6HPRN PRN flatulence 05/13/24 05/30/24 History
ondansetron HCl 4 mg tablet 4 mg PO Q6HPRN PRN nausea 05/30/24 05/30/24 History
oxycodone 5 mg tablet 5 mg PO Q8HPRN PRN breakthrough 05/30/24 05/30/24 History
pain
Review of Systems
-
Unable to obtain full review of systems at this time due to: Acuity
History Source: Patient
All other systems: Negative unless noted
Respiratory: Trouble Breathing
: Other (condom catheter)
Musculoskeletal: Edema
Neurological: Other (altered mental status)
Physical Exam
Vital Signs
Vital Signs
Temp Pulse Resp BP Pulse Ox
99.8 F 76 12 76/51 94
05/31/24 05:14 05/31/24 05:00 05/31/24 05:00 05/31/24 05:00 05/31/24 05:00
Lab Results
WBC 42.0 10^3/uL (4.8-10.8) H* 05/31/24 02:57
RBC 2.86 10^6/uL (4.70-6.10) L 05/31/24 02:57
Hgb 8.0 g/dL (13.0-18.0) L 05/31/24 02:57
Hct 25.1 % (39.0-52.0) L 05/31/24 02:57
Plt Count 398 10^3/uL (130-400) 05/31/24 02:57
Sodium 129 mmol/L (135-145) L 05/31/24 02:57
Potassium 4.7 mmol/L (3.5-5.1) 05/31/24 02:57
Chloride 92 mmol/L (98-107) L 05/31/24 02:57
Carbon Dioxide 22 mmol/L (22-30) 05/31/24 02:57
BUN 55 mg/dl (9-20) H 05/31/24 02:57
Creatinine 2.7 mg/dL (0.7-1.3) H 05/31/24 02:57
eGFR 25.68 05/31/24 02:57
Glucose 285 mg/dl (70-99) H 05/31/24 02:57
Calcium 8.2 mg/dl (8.4-10.2) L 05/31/24 02:57
Eho-A-Jkbiajhnkcl Pept 4060 pg/ml 05/30/24 15:31
Albumin 2.6 g/dl (3.5-5.0) L 05/30/24 15:31
Physical Exam
General: AOx3 and Other (appears acutely ill, lethargic, weakly answers questions)
HEENT: EOMI, Anicteric, Conjunctivae Clear, Ear/Nose Intact, Hearing Normal, Oropharynx Clear/Moist (dry), Dentition Intact, Facial Symmetry, Neck Supple, Trachea Midline, No JVD and No Thyromegaly
Respiratory: Other (Coarse breath sounds with labored respiratory excursion)
Cardiac: S1/S2 and Regular Rate/Rhythm
Breast: Deferred by me
Abdomen: Soft, Nontender, Nondistended, Normal Bowel Sounds and No Hepatosplenomegaly
Rectal: Deferred by Provider
Genito-urinary: No Costovertebral Tender, Clear Urine and Other (Condom catheter)
Musculoskeletal: Edema (+1 pretibial pitting edema) and Other (Right TMA site surgically dressed)
Skin: No Rash, Warm and Dry
Neuro: Other (Difficult to ascertain as patient has compromised mental status but moves all 4 extremities independently and attempts to answer question)
Hematologic/Lymphatic: No Cervical Lymphadenopathy, No Submandibular Lymphadenopathy and No Supraclavicular Lymphadenopathy
Psych: Other (Lethargic attempts to answer questions oriented to self and time)
Vascular Access: CVC (right IJ)
Data Reviewed
-
Radiology: Image Personally Visualized and interpreted (Chest x-ray personally reviewed tunneled right IJ catheter low lung volumes possible bilateral interstitial changes)
Medical Tests (Nuc Med, Echo etc): Other (EKG report reviewed sinus rhythm with first-degree AV block right bundle branch block left posterior fascicular block inferior infarct at 65 bpm per report)
Labs: Labs Reviewed by me (BMP CBC)
Old Records: Requested (Dialysis records from [facility] dialysis unit)
Assessment/Plan
-
Impression:
ESRD MWF ([facility])
Sepsis/leukocytosis with hemodynamic compromise
Hypoxic Respiratory failure
Diabetes
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
History of hypertension
Anemia
PAD
Plan:
-Will attempt conventional dialysis as hemodynamically tolerated,orders provided
-May need to change to CRRT modality as patient already on 2 pressor support (levophed, added tor) to maintain MAP of 65 or greater
-Zosyn and vancomycin renally dosed
-KATHIE provided for anemia
-HD again tomorrow as hemodynamically tolerated
-Cultures pending but suspect infection locus likely related to right TMA site
-Patient is critically ill with hypoxic respiratory failure hemodynamic instability on 2 pressor support in the setting of evolving sepsis
Total Time Spent with Patient (in minutes): 40 minutes critical care time spent with patient
--- NOTE | 2024-05-31 08:24 | CON.VAS ---
Addendum entered and electronically signed by Juanpablo Holcomb III, MD 05/31/24 14:25:
This patient was seen and examined in collaboration with RENZO Gray. I agree with the history and physical exam as well as the assessment and plan. I have the following additions:
Patient was seen and examined earlier this morning in the ICU as well as in follow-up just now with and daughter at bedside
He has significant leukocytosis and extensive necrotic tissue involving the right foot.
Has a chronic nonhealing transmetatarsal amputation wound
Significant medical comorbidities as detailed.
Clinically he is septic appearing. Hypotensive and on pressors
He is lethargic
Right foot with extensive tissue loss
Foul-smelling necrotic tissue throughout the mid and forefoot
Boggy soft tissue circumferentially
He is nontender at the distal calf
There does not appear to be any ascending cellulitis at the calf or ankle
I do not believe we have adequate source control
My recommendation is for guillotine amputation of the right lower extremity above the ankle for aggressive source control
I explained my recommendation to his and his daughter as well as the patient in detail
The technical aspects of guillotine amputation were discussed with them in detail. The benefits and rationale for this approach were discussed with them in detail. Operative risks were discussed with them in detail including but not limited to
bleeding, infection, need for additional surgery (at a minimum formal below the knee amputation), wound healing complications, heart attack, stroke, .
They expressed a clear understanding of our conversation and agreed to proceed with surgery as detailed above.
Signed:
Juanpablo Holcomb III, MD
[facility] V[facility] Surgery
[phone] (cnly)
Original Note:
Consultation
Consultation Request
Date/Time Consultation Performed: 05/31/24 0820
Requesting Provider: Hospitalist
Performing Provider: Melissa Wylie, MODELING DIRECTOR-C for Juanpablo Holcomb III, MD
Reason for Consultation: Right lower extremity foot wound
Medical History
-
Chief Complaint: Right lower extremity foot wound
History of Present Illness:
This is a 64-year-old male with significant past medical history for ESRD (MWF HD via tunneled catheter), diabetes, right foot wound, GERD, hypertension, and peripheral arterial disease who presented to [place] ED on 07/28/2024 with reports of
shortness of breath, hallucinations, confusion, and lethargy per chart review. Patient currently lethargic and minimally responsive to questions, he is arousable but only moans thus HPI is contributed by chart review. Per EMS records patient was
at physical therapy when therapist noted that he was drowsy prompting EMS activation. ED evaluation significant for marked leukocytosis, radiographic finding of gas in the dorsal foot, lethargy, and foul-smelling odor from recently amputated site
of right foot prompting admission for sepsis and urgent OR by podiatry for incision and drainage. Currently patient is in intensive care unit requiring Levophed infusion for hemodynamic stability, he does moan and can move bilateral upper and lower
extremities spontaneously. He does moan and state yes to pain at right foot and indicated pain with palpation to right foot area with dressing change. There is a mention of right lower extremity endovascular intervention via chart review but
patient currently cannot recall any history.
Past Medical History
Past Medical History: GERD, HTN, IDDM, Renal Failure (HD via tunneled catheter MWF, obstructive sleep apnea) and Other (Right foot wound, peripheral arterial disease)
Past Surgical History: Other (Transmetatarsal amputation)
Social History
Tobacco: Non-Smoker
Alcohol: None
Allergies / Home Medications
Allergy/AdvReac Type Severity Reaction Status Date / Time
No Known Allergies Allergy Unverified 05/13/24 05:59
�Medication �Instructions �Recorded �Confirmed �Type
acetaminophen 325 mg tablet 650 mg PO Q6HPRN PRN mild pain 05/13/24 05/30/24 History
(Tylenol)
acetaminophen 500 mg tablet 1,000 mg PO Q8HPRN PRN moderate 05/13/24 05/30/24 History
(Tylenol Extra Strength) pain
amlodipine 10 mg tablet (Norvasc) 10 mg PO DAILY 05/13/24 05/30/24 History
aspirin 81 mg tablet,delayed 81 mg PO DAILY 05/13/24 05/30/24 History
release
atorvastatin 40 mg tablet (Lipitor) 40 mg PO HS 05/13/24 05/30/24 History
bisacodyl 10 mg rectal suppository 10 mg [place] DAILYPRN PRN if no bm 05/13/24 05/30/24 History
(Dulcolax (bisacodyl)) aftr mom
carvedilol 12.5 mg tablet (Coreg) 12.5 mg PO BID 05/13/24 05/30/24 History
clopidogrel 75 mg tablet (Plavix) 75 mg PO DAILY 05/13/24 05/30/24 History
cyanocobalamin (vitamin B-12) 1,000 mcg PO DAILY 05/13/24 05/30/24 History
1,000 mcg tablet
duloxetine 20 mg capsule,delayed 20 mg PO BID 05/13/24 05/30/24 History
release sprinkle
fluticasone propionate 50 2 spray intranasal DAILY 05/13/24 05/30/24 History
mcg/actuation nasal
spray,suspension
gabapentin 100 mg capsule 100 mg PO TID 05/13/24 05/30/24 History
insulin aspart U-100 100 unit/mL 4 unit SC AC 05/13/24 05/30/24 History
(3 mL) subcutaneous pen (Novolog
FlexPen U-100 Insulin aspart)
insulin glargine 100 unit/mL (3 10 unit SC HS 05/13/24 05/30/24 History
mL) subcutaneous pen (Lantus
Solostar U-100 Insulin)
omeprazole 20 mg capsule,delayed 20 mg PO DAILY 05/13/24 05/30/24 History
release
oxycodone 15 mg tablet 15 mg PO Q12H 05/13/24 05/30/24 History
polyethylene glycol 3350 17 gram 17 g PO DAILY 05/13/24 05/30/24 History
oral powder packet (Miralax)
sennosides 8.6 mg-docusate sodium 2 tab-cap PO HS 05/13/24 05/30/24 History
50 mg tablet (Senna-S)
sevelamer carbonate 800 mg tablet 800 mg PO MEALS 05/13/24 05/30/24 History
simethicone 80 mg chewable tablet 160 mg PO Q6HPRN PRN flatulence 05/13/24 05/30/24 History
ondansetron HCl 4 mg tablet 4 mg PO Q6HPRN PRN nausea 05/30/24 05/30/24 History
oxycodone 5 mg tablet 5 mg PO Q8HPRN PRN breakthrough 05/30/24 05/30/24 History
pain
Review of Systems
-
Unable to obtain full review of systems at this time due to: Acuity
Physical Exam
Vital Signs
Temp Pulse Resp BP Pulse Ox
98.6 F 76 12 76/51 94
05/31/24 08:09 05/31/24 05:00 05/31/24 05:00 05/31/24 05:00 05/31/24 05:00
Lab Results
05/31/24 02:57
05/31/24 02:57
Troponin I 0.016 ng/ml 05/30/24 15:31
Izy-H-Smfflftaeyf Pept 4060 pg/ml 05/30/24 15:31
Physical Exam
General: No Apparent Distress
HEENT: Normocephalic, Anicteric and Atraumatic
Respiratory: Non Labored Respirations
Cardiac: Negative JVD
GI: Soft and Non Distended
Musculoskeletal: Edema (Trace edema bilateral lower extremities)
Skin: Other (Open transmetatarsal amputation of right foot, evidence of necrosis and malodorous)
Neuro: Other (Moves bilateral upper extremity and lower extremity spontaneously and moans indicating pain at right foot)
Pulses: Bilateral Femoral: +1 (Unable to palpate distal bilateral DP or PT pulse)
Assessment / Plan
-
Assessment: 64-year-old male with sepsis and right foot infected wound, status post incision and drainage urgently of right TMA site by podiatry
Plan:
Given ongoing sepsis, leukocytosis, and confusion suspect patient requires better source control of infection would recommend urgent right lower extremity guillotine ankle amputation today with eventual plans for below the knee amputation
Will plan for OR following HD
Dr. Juanpablo Holcomb III to update
Plan relayed to hospitalist and wire products inspector via [place] text
I performed this shared service with the attending. I evaluated the patient [id number] and have entered clinical documentation as shown in the encounter note. I performed the following component(s):�history and physical exam. Note that medical
decision making is not final until attested by vascular attending.
--- NOTE | 2024-05-31 08:26 | PTCARENOTE ---
pt sats dropping while in report, pt had pulled off oxygen connection to simple mask.
[2024-05-31] MEDS: NEO-SYNEPHRINE 250 IV ×2 (08:29→13:24)
--- NOTE | 2024-05-31 08:40 | W.PN.NEPH.HD ---
Assessment
-
Patient seen on hemodialysis
Systolic blood pressure of 100 on 2 pressor support
Will attempt UF 1 to 2 kg as hemodynamically tolerated given hypoxic respiratory failure
Progress Note - Hemodialysis
-
Date of Service: May 31, 2024
Duration: 45 minutes and 3 hours
Potassium Bath: 2
Calcium Bath: 2.5
Opti-Dialyzer: 160
Ultrafiltration: Other (1 to 2 kg as hemodynamically tolerated on 2 pressor support)
Blood Flow: 400
Dialysate Flow: 600
Heparin: None
EPO: 10,000
[2024-05-31] MEDS: MANNITOL 25% 12.5 GRAMS IV (08:52)
--- NOTE | 2024-05-31 08:52 | PTCARENOTE ---
Received pt on levo gtt as charted. Pt voice a whisper, c/o sob this morning with sats low 90s when placed on 4lnc from simple mask s/p OR overnight. Pt advanced to 8lmidflow and sats improved to mid 90s. Lungs decreased t/o with poor inspiratory
effort. Pt also orthopneic. Abdomen obese. C/o discomfort R abdomen, but no guarding/rebound noted. Only discomfort when moving r leg noted. Pt sbp 80s with map 60s prior to initiating HD this am. Dr Hopkins ordered to start Jarvis as well.
Peripheral sites patent. Vascular team at bedside and took down dressing to R foot and it was determined that pt would probably need amputation. They were going to call for consent. Otherwise please refer to worklist
[2024-05-31] MEDS: RETACRIT 10000 UNITS IV (08:56)
--- NOTE | 2024-05-31 08:59 | PHA.VAN.IN ---
Assessment
- Assessment
Renal Function: Patient has ESRD, on chronic Hemodialysis
Hemodialysis Schedule: MWF
Concomitant Antimicrobials: pipearcillin/tazobactam
Plan
- Plan
Initial / Loading Dose: 1500mg 05/30 (1g at 16:48 Plus 500mg at 19:35)
Maintenance Regimen: dosing by level / HD
Monitorin06/01 599
Laboratory Tests
05/31/24
02:57
Random Vancomycin 14.5
Current plan for HD today and tomorrow as tolerated
Will give 500mg at end of HD today to maintain levels since HD tentatively planned again tomorrow
Patient may require higher dosing for longer intervals in between HD
Follow plans by nephrology
Pharmacokinetics Vancomycin I
- -
Patient Age: 64
Patient Sex: Male
Vancomycin Day #: 1
Indication: Skin And Soft Tissue
Requesting Provider: Christen Hurley
Pertinent Antimicrobial Allergies:
NKDA
Height / Weight:
Height 5 ft 6 in
Actual Weight 102.9 kg
Pertinent Past Medical History: BMI ~37, ESRD on HD MWF, DM 2, PAD
- Vital Signs / Lab Results
Temp Pulse Resp BP Pulse Ox
98.6 F 60 14 84/66 94
05/31/24 08:09 05/31/24 08:45 05/31/24 08:45 05/31/24 08:45 05/31/24 08:45
Lab Results - Hematology
05/30/24 05/31/24
15:31 02:57
WBC 27.5 H 42.0 H*
Lab Results - Chemistry
05/30/24 05/31/24
15:31 02:57
BUN 47 H 55 H
Creatinine 2.4 H 2.7 H
Estimated Creat Clear 36 32
Albumin 2.6 L
05/30/24 05/30/24
15:42 19:45
Lactic Acid 1.2 Cancelled
Lab Results - Urine
05/30/24
15:42
Urine Nitrite (Reflex) Negative
Leukocyte Esterase Rfl 1+ A
Urine WBC (Reflex) 3-5
Ur Squamous Epith Cells 3-5
Urine Bacteria (Reflex) Moderate A
Microbiology Results
05/30/24 15:42 Influenza Types A & B (HOLDEN) - Final
Nasal Swab Negative for Influenza A & B, NAAT
Negative results must be combined with clinical observations
and patient history.
Nucleic Acid Amplification test (NAAT)performed on the
[employer] platform.
--- NOTE | 2024-05-31 09:09 | W.PN.ANS.POP ---
Anesthesia Post Operative
- Anesthesia Post Op Note
Vital Signs Stable-See Nursing Note: Yes (pressors)
Airway Patent: Yes
Adequate Pain Control: Yes
Change in Mental Status: No
Current Postoperative Nausea & Vomiting: No
Anesthesia Complications: No
General Anesthetic Recall: No
Unplanned Admission: No
Post Op Hydration Adequate: Yes (dialysis)
--- NOTE | 2024-05-31 09:12 | CON.INTV ---
Consultation
Consultation Request
Date/Time Consultation Requested: 05/31/2024
Date/Time Consultation Performed: 05/31/2024
Medical History
-
Chief Complaint: Septic shock requiring pressors
History of Present Illness:
Patient is a 64-year-old male with past medical history of diabetes on insulin, hypertension, CKD on hemodialysis (MWF), hyperlipidemia, PAD s/p right lower extremity stent, GERD who was brought to the ED with altered mental status and lethargy for
several days noticed by physical therapist in rehab. He was found to have purulent drainage from the right transmetatarsal amputation site (TMA was performed in March 29, 2024 in [facility]). wbc 27.5, lactic 1.2. Patient was septic in
the ED, received 500 cc normal saline bolus and was started on Vanco, Zosyn and Levophed for hemodynamic stability. Right foot x-ray showed large amount of gas in the residual soft tissues of the foot with some extension into the anterior ankle, no
osseous destructive changes, no acute fractures. Podiatry was consulted, I&D was performed.
Past Medical History
Past Medical History: GERD, HTN, Hypercholesterolemia, IDDM, Renal Failure and Valvular Disease (PAD)
Past Surgical History: Other (Right TMA, right lower extremity stent)
Social History
Tobacco: Non-smoker
Living: With Family
Allergies / Home Medications
Allergies
Allergy/AdvReac Type Severity Reaction Status Date / Time
No Known Allergies Allergy Unverified 05/13/24 05:59
Home Medications
�Medication �Instructions �Recorded �Confirmed �Last Taken �Type
acetaminophen 325 mg tablet 650 mg PO Q6HPRN PRN mild pain 05/13/24 05/30/24 Unknown History
(Tylenol)
acetaminophen 500 mg tablet 1,000 mg PO Q8HPRN PRN moderate 05/13/24 05/30/24 Unknown History
(Tylenol Extra Strength) pain
amlodipine 10 mg tablet (Norvasc) 10 mg PO DAILY 05/13/24 05/30/24 Unknown History
aspirin 81 mg tablet,delayed 81 mg PO DAILY 05/13/24 05/30/24 Unknown History
release
atorvastatin 40 mg tablet (Lipitor) 40 mg PO HS 05/13/24 05/30/24 Unknown History
bisacodyl 10 mg rectal suppository 10 mg [place] DAILYPRN PRN if no bm 05/13/24 05/30/24 Unknown History
(Dulcolax (bisacodyl)) aftr mom
carvedilol 12.5 mg tablet (Coreg) 12.5 mg PO BID 05/13/24 05/30/24 Unknown History
clopidogrel 75 mg tablet (Plavix) 75 mg PO DAILY 05/13/24 05/30/24 Unknown History
cyanocobalamin (vitamin B-12) 1,000 mcg PO DAILY 05/13/24 05/30/24 Unknown History
1,000 mcg tablet
duloxetine 20 mg capsule,delayed 20 mg PO BID 05/13/24 05/30/24 Unknown History
release sprinkle
fluticasone propionate 50 2 spray intranasal DAILY 05/13/24 05/30/24 Unknown History
mcg/actuation nasal
spray,suspension
gabapentin 100 mg capsule 100 mg PO TID 05/13/24 05/30/24 Unknown History
insulin aspart U-100 100 unit/mL 4 unit SC AC 05/13/24 05/30/24 Unknown History
(3 mL) subcutaneous pen (Novolog
FlexPen U-100 Insulin aspart)
insulin glargine 100 unit/mL (3 10 unit SC 05/13/24 05/30/24 Unknown History
mL) subcutaneous pen (Lantus
Solostar U-100 Insulin)
omeprazole 20 mg capsule,delayed 20 mg PO DAILY 05/13/24 05/30/24 Unknown History
release
oxycodone 15 mg tablet 15 mg PO Q12H 05/13/24 05/30/24 Unknown History
polyethylene glycol 3350 17 gram 17 g PO DAILY 05/13/24 05/30/24 Unknown History
oral powder packet (Miralax)
sennosides 8.6 mg-docusate sodium 2 tab-cap PO HS 05/13/24 05/30/24 Unknown History
50 mg tablet (Senna-S)
sevelamer carbonate 800 mg tablet 800 mg PO MEALS 05/13/24 05/30/24 Unknown History
simethicone 80 mg chewable tablet 160 mg PO Q6HPRN PRN flatulence 05/13/24 05/30/24 Unknown History
ondansetron HCl 4 mg tablet 4 mg PO Q6HPRN PRN nausea 05/30/24 05/30/24 Unknown History
oxycodone 5 mg tablet 5 mg PO Q8HPRN PRN breakthrough 05/30/24 05/30/24 Unknown History
pain
Review of Systems
-
History Source: Patient and Physician
Constitutional: No Symptoms
EENT: No Symptoms
Respiratory: Trouble Breathing
Cardiac: No Symptoms
Abdomen/GI: No Symptoms
: No Symptoms
Musculoskeletal: Other (Right foot pain)
Skin: No Symptoms
Neuro: No Symptoms
Endocrine: No Symptoms
Hematologic/Lymphatic: No Symptoms
Vitals / Labs / Diagnostic Testing
Vital Signs
Temp Pulse Resp BP Pulse Ox
98.6 F 60 14 84/66 94
05/31/24 08:09 05/31/24 08:45 05/31/24 08:45 05/31/24 08:45 05/31/24 08:45
Lab Data
05/31/24 02:57
05/31/24 02:57
Laboratory Results
05/31/24
02:57
PT 17.4 H
INR 1.40
APTT 33.6
Microbiology
05/30/24 15:42 Nasal Swab Influenza Types A & B (HOLDEN) - Final
Negative for Influenza A & B, NAAT
Negative results must be combined with clinical observations
and patient history.
Nucleic Acid Amplification test (NAAT)performed on the
[employer] platform.
Diagnostic Testing:
Physical Exam
-
HEENT: Normocephalic
Cardiovascular: S1/S2 and Regular Rhythm
Respiratory: Clear, Wheeze (n), Rales (n) and Other (Labored breathing)
GI: Soft, Non Distended and Tender (Diffusely tender more pronounced on the right upper quadrant, no rebound or guarding)
Neurology: Awake and Other (Lethargic but arousable to voice)
Skin: Warm and Good Color
General: Comfortable
Exam:
Bilateral lower extremity distal pulses not palpated. Femoral pulses full on both sides. Right TMA surgically dressed. Left foot not well-perfused. Bilateral pitting edema, right greater than left.
Assessment
-
64-year-old male with past medical history of PAD, diabetes, hypertension, CKD on HD, hyperlipidemia, GERD presenting with septic shock likely secondary to right foot infected wound requiring pressors.
#Septic shock secondary to right foot infected wound
- Patient had recent right TMA in March 2024 complicated by wound dehiscence requiring several debridements since then. In the ED, he was found to have purulent drainage from the TMA site. Right foot x-ray showed soft tissue gas in the foot and
ankle. He was taken to the OR for I&D, infection extended along the extensor tendons proximally as well as laterally across the tarsometatarsal joint was noted. Patient is critically ill requiring 2 pressors (levo and jarvis) for hemodynamic
stability.
- Vascular surgery is on board, plan for urgent right lower extremity ankle amputation today with eventual plans for below the knee amputation.
- wbc elevated 42.0, lactic acid normal, VBG normal
- Patient is on Zosyn and vancomycin, awaiting wound and blood cultures
- ESR and CRP elevated
#Acute hypoxic respiratory failure
- Patient is currently on 8 L oxygen nasal cannula, is not on oxygen at baseline.
- No wheezing or crackles heard on auscultation
#RAISSA on CKD
- Likely prerenal in the setting of sepsis
- Creatinine 2.7 today
- Plan for hemodialysis today and if hemodynamically stable, tomorrow
#Lower extremity pitting edema, right greater than left
- Bedside ultrasound showed a noncompressible vein superior to the right common femoral vein and a noncompressible right popliteal vein concerning for DVT
#Elevated liver enzymes
- Abdominal ultrasound showed distended gallbladder, filled with stones and sludge, mild gallbladder wall thickening concerning for acute cholecystitis, negative sonographic Bermeo sign and no pericholecystic fluid.
- Abdomen diffusely tender on exam (more pronounced on the right upper quadrant), guarding/tenderness.
- Patient is afebrile, not complaining of nausea, vomiting, abdominal pain.
#Hyponatremia
-Hemodialysis today
#Leukocytosis
- Likely secondary to sepsis
#Asymptomatic urinary tract infection
- UA showed moderate bacteria, esterase 1+, wbc 3-5
- Blood cultures pending
#Hyperglycemia
- Blood sugars elevated >200, currently on sliding scale insulin
- Patient is on 10 units insulin glargine at bedtime and 4 units aspart at home
- Hemoglobin A1c 7.8
#Anemia
- Likely in the setting of chronic kidney disease
- No active bleeding
#Abnormal thyroid function
- TSH low, T4 within normal limits
- No history of thyroid disease
- Likely in the setting of acute infection, sick euthyroid syndrome
Conditions present prior to admission
Hypertension -- Home meds currently on hold
Hyperlipidemia -- statin held due to elevated LFTs
Diabetes -- on insulin
GERD -- continue Protonix
PAD s/p right lower extremity stent
CKD -- on hemodialysis
Neuropathy -- patient takes gabapentin and oxycodone 15mg every 12h at home, currently held
Depression -- on duloxetine
Obesity due to excess calories
Plan:
RASS score -2, arousable to voice. Continue Tylenol as needed.
Currently on Levophed and Jarvis-Synephrine, MAPs in the 70s now. Wean pressors as able.
Continue to hold home meds (Coreg and Norvasc).
Patient is requiring 8 L oxygen via nasal cannula, wean as able. Maintain SpO2 > 92-94%
LFTs are elevated, abdominal ultrasound concerning for acute cholecystitis, tender on exam without rebound/guarding. Will need follow-up after right foot infection controlled. Can consider percutaneous drainage if no improvement.
Continue Protonix given history of GERD. Remains n.p.o.
Hemodialysis today. Replete lytes as needed.
Continue Zosyn and vancomycin (renally dosed) for right foot infection. Cultures pending.
Vascular surgery is on board, plan for urgent right lower extremity ankle amputation today with eventual plans for below the knee amputation. Continue to hold Plavix.
Patient is on heparin subcu every 12h for DVT prophylaxis.
Concern for right-sided DVT according to bedside ultrasound findings. If DVT is confirmed on duplex, will start heparin drip.
Trend H&H and transfuse if needed for Hb<7g/dL or plt<20k, unless there is concern for bleeding.
Trend wbc and monitor for fevers.
Glucose levels are elevated, patient was given 2 units aspart this morning. Will reassess and start insulin drip if needed. Maintain euglycemia with goal BG 140�180.
[2024-05-31 09:14] LABS: Glycohemoglobin (HgbA1c) 7.8 % (4.0-5.6)
--- NOTE | 2024-05-31 09:16 | W.PN.HOSP.TC ---
Today's Communication/Plan
-
see bold
Assessment / Plan
Assessment / Plan
HPI: 64-year-old male with a past medical history of PVD, diabetes, hypertension, and hyperlipidemia presents with altered mental status, lethargy, and was found to have pus draining from his right TMA site. History is obtained from his due to
patient's lethargy. Patient had a recent TMA around March 27, 2024 at [facility]. It appears that it is infected. He is now hypotensive, with a blood pressure of 77/45. He has an HD tunneled catheter and is getting dialysis 3 times a
week.
#Septic shock
Possible sources include right TMA infection and cholecystitis, treat as below
Appreciate computer project manager/nephro input, currently requiring both Levophed and Jarvis-Synephrine to maintain MAP greater than 65
Trend fever and white count
#Right TMA infection
#Severe PVD
Records requested from [facility] where his original surgery was done in March 2024
Plavix held for surgical intervention, continue aspirin
Appreciate podiatry, vascular surgery, ID input
Status post I&D in OR by podiatry on 05/30
Plan for right ankle amputation today 05/31
Continue IV antibiotics as per ID
#Acute hypoxic respiratory failure
Currently requiring 8 L of oxygen
Patient getting dialyzed today, wean oxygen as tolerated
#End-stage renal failure on dialysis at [place] [facility] Thursday/Thursday/Thursday
#Hyponatremia
Appreciate nephrology input, for dialysis today
Continue dialysis as per nephrology
#Possible cholecystitis
#Right upper quadrant abdominal pain
Ultrasound shows distended gallbladder with stones and sludge with mild gallbladder wall thickening
Check CT abdomen and pelvis with IV contrast
May need surgical consult
#History of essential hypertension
Hold amlodipine, hold Coreg secondary to septic shock
#Type 2 diabetes
A1C 7.8
Continue Lantus, sliding scale insulin
#Gastroesophageal reflux disease
Continue PPI
#Constipation
Continue laxatives
#Anxiety/depression
Continue duloxetine 20 mg twice a day
#Obesity due to excess calories
Affects all aspects of care
DVT prophylaxis�subcu heparin
Full code
Called to give her an update, she did not cotton picking machine operator 05/31
Total time spent to see the patient on the floor, examine the patient, review data and lab results, discuss treatment plan with patient, nursing staff around 55 minutes.
Physical Exam
General: Lethargic, no acute distress
HEENT: Normocephalic, Atraumatic, EOMI, MMM
+Hoarse voice
Respiratory: Clear to Auscultation bilaterally
Cardiac: Normal S1/S2, Regular Rate and Rhythm
GI: Soft, diffusely tender, especially at the right upper quadrant
Extremities: No Clubbing, Cyanosis
Right TMA dressed, bilateral lower extremity edema noted
Anticipated Discharge: > 48 hours
Subjective/Interval History
-
Date of Service: May 31, 2024
Patient complains of abdominal pain and right foot pain. States abdominal pain is worse. He is severely weak and lethargic. No fever, no vomiting.
Objective Data
-
Labs:
Laboratory Results
05/31/24
02:57
WBC 42.0 H*
Hgb 8.0 L
Hct 25.1 L
Plt Count 398
PT 17.4 H
INR 1.40
APTT 33.6
Sodium 129 L
Potassium 4.7
Chloride 92 L
Carbon Dioxide 22
BUN 55 H
Creatinine 2.7 H
Glucose 285 H
Calcium 8.2 L
Vital Signs:
Vital Signs
Temp Pulse Resp BP Pulse Ox
98.6 F 60 14 84/66 94
05/31/24 08:09 05/31/24 08:45 05/31/24 08:45 05/31/24 08:45 05/31/24 08:45
I&O
05/30/24 05/31/24 06/01/24
06:59 06:59 06:59
Intake Total 420.0 / 420.0
Balance 420.0 / 420.0
--- NOTE | 2024-05-31 10:35 | CON.ID ---
Consultation
-
Date/Time Consultation Requested: May 30, 2024 1743
Date/Time Consultation Performed: May 31, 2024 1040
Requesting Provider: RENZO Ling
Performing Provider: Dr. Melissa Yeboah
Reason for Consultation: Septic shock likely from foot wound
Chief Complaint / Past History
Chief Complaint
Weakness
History of Present Illness
History obtained from review medical records since patient is currently lethargic and very poor historian. He is a 64-year-old male with type 2 diabetes, end-stage renal disease on hemodialysis via HD catheter, peripheral artery disease status post
right lower extremity stent, recent right foot TMA March 27, 2024 at [facility] complicated by wound dehiscence requiring several debridement who was brought to the hospital yesterday due to several day history of weakness, confusion,
hallucination. In the ER patient's TMA site noted to have purulent drainage. His white count was 27.5, hypotensive systolic blood pressure 69 requiring 2 pressors. Right foot x-ray showed gas in the foot and ankle. He was taken to the OR right
away yesterday underwent debridement with findings of significant purulence, infection extending along the extensor tendons and tarsometatarsal joint with necrosis and distal metatarsal stump exposed. Patient remains feeling unwell. No headache.
No nausea or vomiting. No diarrhea. No cough or shortness of breath.
Past History
Additional Past Medical History:
Type 2 diabetes mellitus
End-stage renal disease on hemodialysis
Hypertension
PAD s/p RLE stent
HLD
Obstructive sleep apnea
Depression
Right foot TMA 03/27/24 [facility]
Allergy History:
No Known Allergies Allergy (Unverified 05/13/24 05:59)
Medications Reviewed: Yes
Current Antibiotics:
Zosyn
vancomycin
Social History
Tobacco: Non-Smoker
Alcohol: None
Drug: None
Personal:
Family History
Family History: Not Pertinent
Review of Systems
Review of Systems
General: Chills and Change in Appetite
HEENT: Negative Sinus Problems or Headache
Cardiovascular: Negative Chest Pain
Respiratory: Negative Dyspnea or Cough
Gasteroenterology: Negative Nausea, Vomiting or Diarrhea
Endocrine: Weakness and Fatigue
Neurological: Negative Dizziness
All systems: All other systems were reviewed and were negative
Vital Signs
Temp Pulse Resp BP Pulse Ox
98.6 F 60 14 106/60 93
05/31/24 08:09 05/31/24 09:21 05/31/24 09:21 05/31/24 09:21 05/31/24 09:21
Physical Exam
Physical Exam
Constitutional: Acutely Ill
Head: Other (No frontal or max or sinus tenderness.)
Eyes: No Conjunctival Hemorrhage and Sclera Anicteric
Cardiovascular: Regular Rate and S1/S2
Pulmonary: Clear
Gastrointestinal: Soft and Tender (Diffuse, more so RUQ)
Extremities: Edema (RLE) and Erythema (RLE above dressing)
Wound: Other (Right foot post-op dressing dry)
Neurological: Other (lethargic)
Lines: HD Cath (RCW no erythema)
Lab / Diagnostic Study Results
05/31/24 02:57
05/31/24 02:57
Abs Immat Gran (auto) 0.5 10^3/uL (0-0.05) H 05/30/24 15:31
Absolute Neuts (auto) 25.6 10^3/uL (1.4-6.5) H 05/30/24 15:31
Absolute Lymphs (auto) 0.7 10^3/uL (1.2-3.4) L 05/30/24 15:31
Absolute Monos (auto) 0.6 10^3/uL (0.1-0.6) 05/30/24 15:31
Absolute Basos (auto) 0.1 10^3/uL (0-0.2) 05/30/24 15:31
Immature Gran % 2.0 % (0-0.5) H 05/30/24 15:31
Neutrophils % 93.0 % (42.2-75.2) H 05/30/24 15:31
Lymphocytes % 2.7 % (20.5-51.1) L 05/30/24 15:31
Monocytes % 2.1 % (1.7-9.3) 05/30/24 15:31
Eosinophils % 0.0 % (0-6) 05/30/24 15:31
Basophils % 0.2 % (0-2) 05/30/24 15:31
ESR 70 mm/hour (0-20) H 05/31/24 02:57
PT 17.4 Sec (11.4-14.6) H 05/31/24 02:57
INR 1.40 05/31/24 02:57
Lactic Acid Cancelled 05/30/24 19:45
C-Reactive Protein > 270.00 mg/L (0.0-10.00) H 05/31/24 02:57
Ur Squamous Epith Cells 3-5 /LPF (Few) 05/30/24 15:42
Microbiology Results
Micro:
05/30/24 21:41 Anaerobic Culture - Pending
Abscess
05/30/24 21:41 Wound Culture - Pending
Abscess Gram Stain - Pending
05/30/24 16:52 Wound Culture - Pending
Foot - Right Gram Stain - Pending
05/30/24 15:42 Influenza Types A & B (HOLDEN) - Final
Nasal Swab Negative for Influenza A & B, NAAT
Negative results must be combined with clinical observations
and patient history.
Nucleic Acid Amplification test (NAAT)performed on the
[employer] platform.
05/30/24 15:42 Urine Culture - Pending
Urine
05/30/24 15:42 Blood Culture - Pending
Blood/Venous
05/30/24 15:42 Blood Culture - Pending
Blood/Venous
05/30/24 CXR: No acute cardiopulmonary process within the limitations of very low lung volumes.
05/30/24 ABD US: The gallbladder is distended and filled with stones and sludge. Mild gallbladder wall thickening raising the possibility for acute cholecystitis. However, no appreciable pericholecystic fluid and a reportedly negative sonographic
Bermeo's sign.
05/30/24 Foot XRAY: Soft tissue gas in the right foot and ankle most suggestive of infection
Assessment / Plan
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
# Septic shock on 2 pressors
Leukocytosis trending up
# PAD
-OR cx pending
-For BKA today per Vascular
-Follow blood cx's
- Continue Zosyn and Vancomycin
-Trend WBC/temps/BP
# Suspect acute cholecystitis
# Elevated transaminases
- ABD US: gallbladder is distended and filled with stones and sludge with gallbladder wall thickening
- RUQ abdomen tender on exam
- On Zosyn
- Consider perc nay if no improvement.
# Conditions TRIAGE CLINICIAN
Type 2 diabetes mellitus
End-stage renal disease on hemodialysis
Hypertension
PAD s/p RLE stent
HLD
Obstructive sleep apnea
Depression
Right foot TMA 03/27/24 [facility]
Care Review
Plan reviewed with: Physician (Dr. Jessica De La Torre)
--- NOTE | 2024-05-31 11:04 | PTOTSP ---
Received order for PT from the ED and reviewed chart. S/w RN and pt is currently being dialyzed then going to OR for amputation by vascular service. Pt is not appropriate for PT services today. Will need new orders for PT and OT post-op when stable
to begin activity.
[2024-05-31] MEDS: NOVOLOG FLEXPEN-HIGH RESISTANCE 2 UNITS SC (11:13)
[2024-05-31 11:14] LABS: Glucose - Point of Care 174 mg/dl (70-99)
[2024-05-31] MEDS: VANCOCIN HCL 500 MG 100 IV (11:25)
--- NOTE | 2024-05-31 11:28 | WOUNDNOTE ---
PRESTON RN NOTE: Patient admitted for severe sepsis, see chart for past medical history. Per nurse Blossom dressing changed this morning on R TMA site, patient for OR today. Reviewed Dr. Villa's note, Vascular and I&D also on consult. Will follow along
peripherally and assist as needed.
--- NOTE | 2024-05-31 12:21 | W.PN.UPDATE ---
Update Note
Progress Note Update
Bedside US performed to assess peripheral IVs to prepare for possible CVC. Upon looking at right femoral region, I saw a non-compressible vein superior to the right CFV. I looked at the right popliteal vein, and again showed a non-compressible
vein suspicious for a DVT. Hosptialist made aware, and stat LE duplex ordered. We will start heparin gtt after DVT confirmed.
--- NOTE | 2024-05-31 12:25 | PTCARENOTE ---
us made aware of order for stat US LE
[2024-05-31] MEDS: HEPARIN 4000 UNITS INTRACATH (12:28)
--- NOTE | 2024-05-31 12:35 | PTCARENOTE ---
Systems reviewed. No new changes. Attempting to wean pressors as able. Pt c/o pain to r abdomen when repositioning on that side. Once turned to L pain was improved. Otherwise please see worklist
--- NOTE | 2024-05-31 12:44 | PTCARENOTE ---
Pt has finished, HD. US currently at bedside.
--- NOTE | 2024-05-31 13:42 | PTCARENOTE ---
IV team at bedside attempting PICC
[2024-05-31 14:17] LABS: Hepatitis B Surface Antigen Negative (Negative)
--- NOTE | 2024-05-31 15:53 | VATNOTE ---
Vat: Attempted to place picc in left arm. Picc tip coiled back upon itself due to HDC. Ir consulted to redirect under fluoroscopy. Primary RN made aware.
[2024-05-31 15:57] LABS: Glucose - Point of Care 242 mg/dl (70-99)
[2024-05-31] MEDS: NOVOLIN R INSULIN INFUSION 100 IV (16:13)
[2024-05-31] MEDS: NOVOLIN R 4 UNITS IV (16:18)
--- NOTE | 2024-05-31 16:29 | PTCARENOTE ---
Addendum entered by Susan Mensah RN 05/31/24 18:36:
PICC line redirected in IR, All tubing changed per protocol. Pressors now double concentrated.
Original Note:
upon return from IR/CT anesthesia at bedside and currently attempting arterial line. Blood sugar also elevated, Glycemic protocol initiated. Report also given to Lynne in vascular OR.
[2024-05-31] MEDS: NEO-SYNEPHRINE 1% 260 MG IV ×2 (16:38→23:04)
[2024-05-31] MEDS: LEVOPHED 258 MG IV ×2 (16:43→20:43)
--- NOTE | 2024-05-31 16:50 | CM ---
Patient from [facility] with Hx ESRD on HD with Dx septic shock,s/p OR 05/30 for I&D, Plan right ankle amputation today. O2 8L. Receiving IV Abx, Levophed and Jarvis-Synephrine gtts.
Spoke with Giana, the patient resided with his in a 2 story house with 3 JOSE.
Patient has not been home since Feb 2024.
He went to [facility] in Mar for TMA then to [facility], back to [facility] then to [facility].
The patient has had HD since Mar 2024.
DME - RW, SPC, knee scooter, Dexcom
says she will not allow patient to return to [facility] for rehab.
CM continuing to follow for d/c needs.
Plan probable SNF for rehab and wound care when medically ready.
[2024-05-31] MEDS: PITRESSIN 100 IV (17:21)
--- NOTE | 2024-05-31 17:25 | PTCARENOTE ---
Systems reviewed. Periods of confusion and restlessness. 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 Oxygen high 80s on simple mask, placed on 8lmidflow with improvement to low to mid 90s. Had been weaning pressors, but maida pressures decreased. Dr Lopez
aware and orders obtained to initiate vasopressin. Otherwise please refer to worklist.
[2024-05-31 17:48] LABS: Glucose - Point of Care 229 mg/dl (70-99)
--- NOTE | 2024-05-31 18:20 | W.PN.ANS.LIN ---
Anesthesia IV & A-Line Note
- IV/Arterial Line
Left Radial Arrow 20 (06/07)
Diagnosis: hypotension
IV Line Comments: Uneventful Procedure
Allens test completed pre-procedure: Yes
A-Line Comments: Sterile technique as per standard protocol, Uneventful procedure, Seldinger technique used, Ultrasound guided insertion, Biopatch applied
A-line Insertion Start Time: 16:30
A-line Insertion Stop Time: 16:40
--- NOTE | 2024-05-31 18:28 | W.SUR.PREOP ---
Pre-Operative Surgical Note
-
I have examined this patient prior to the performance of the scheduled procedure.
The patient's condition is unchanged from the time of the current History and
Physical and the patient is able to undergo the scheduled procedure.
--- NOTE | 2024-05-31 18:31 | PTCARENOTE ---
Pt to OR for r leg amputation and nay tube.
--- NOTE | 2024-05-31 19:00 | W.IMMPOSTOP ---
Surgical Immed Post Op Note
-
Primary Surgeon: Zhang
Assisting Surgeon: Gabriela
Pre-op Diagnosis: Sepsis with necrotic R amputation
Post-op Diagnosis: Sepsis with necrotic R amputation
Procedure Performed: R below knee guillotine amputation
Anesthesia Type: General
Specimen / Cultures: None
Estimated Blood Loss: 20 cc
Complications: None
Operative Findings: R guillotine below knee amputation
[2024-05-31 19:15] LABS: Glucose - Point of Care 167 mg/dl (70-99)
--- NOTE | 2024-05-31 19:21 | W.PN.UPDATE ---
Update Note
Progress Note Update
- 8.5F nay tube placed in OR with US guidance. US images showed distended gb with mild wall thickening and gas within the fundus.
- Immediate drainage of high pressure/dark green bilious fluid. Samples sent for c/s.
- Left to gravity drainage. If output low overnight will add flushes.
-
--- NOTE | 2024-05-31 19:30 | OR.RPT ---
Operative Report
Operative Report
Date of Operation: 05/31/2024
Pre Op Diagnosis:
1. Necrotic infected right foot wound
2. Sepsis
Post Op Diagnosis:
1. Necrotic infected right foot wound
2. Sepsis
Procedure: Guillotine amputation of the right lower extremity above the ankle
Surgeon: Juanpablo Holcomb III, MD
Rn Supplemental: Glenroy Ochoa MD PGY1
Anesthesia: General
Complications: None
Estimated Blood Loss: 50 cc
History and Indications for Procedure: 64-year-old male with chronic nonhealing right foot wound. He presented to [facility] with sepsis. Physical exam revealed a severe necrotic right foot wound with associated infection.
Procedure in Detail: Samir Eason was correctly identified and placed supine on the operating table. After adequate induction of anesthesia his right lower extremity and foot below the knee were prepped and draped in the usual sterile fashion. He
received preoperative antibiotics. A timeout procedure was performed with the nursing and anesthesia staff confirming the patient's identity as well as the nature and laterality of the procedure.
I made a circumferential incision at the distal calf just above the ankle using electrocautery. This was carried down through the soft tissue. I then used a Gigli saw to amputate the lower extremity at this location. The ankle and foot were
passed off the table to be sent to pathology. Hemostasis was achieved in the wound bed using a combination of electrocautery and silk suture ligatures. Once hemostasis had been achieved we then irrigated the wound. No gross purulence was
identified at the amputation site. The muscle appeared pink and viable at this location. Sterile dressings were applied.
I then handed the case over to Dr. Tim to place a percutaneous cholecystostomy tube.
Attestation: I was present and responsible for the entire procedure
Signed:
Juanpablo Holcomb III, MD
[facility]
[phone] (echq)
[2024-05-31] MEDS: HEPARIN 25000 UNITS/250 ML IV (19:44)
[2024-05-31] MEDS: SUBLIMAZE 50 MCG IV ×3 (19:52→22:04)
[2024-05-31] MEDS: DIPRIVAN 100 IV (19:52)
[2024-05-31] MEDS: SUBLIMAZE 100 IV (19:53)
[2024-05-31 20:20] LABS: B.E. -0.8 mmol/L; HCO3 24.3 mmol/L (21-28); O2 Saturation % 96.3 % (94-98); PCO2 41 mmHg (35-48); PO2 66 mmHg (83-108); pH 7.38 (7.35-7.45)
--- NOTE | 2024-05-31 20:20 | W.PN.SEPSIS ---
Sepsis
Vital Signs
Temp Pulse Resp BP Pulse Ox
97.7 F 67 18 97/62 91
05/31/24 15:58 05/31/24 18:15 05/31/24 18:15 05/31/24 16:00 05/31/24 19:42
Physical Exam
Physical Exam:
A focused exam was performed after fluid resuscitation.
Capillary Refill
Bilateral Upper Extremity:
Renetta Time: Less than 3 sec
Pulse Evaluation
Bilateral Radial:
Pulse Evaluation: Present
Bilateral Popliteal:
Pulse Evaluation: Present
[2024-05-31 20:26] LABS: Hematocrit 25.5 % (39.0-52.0); Hemoglobin 8.2 g/dL (13.0-18.0); Mean Corp Hgb Conc. 32.2 g/dL (33.0-37.0); Mean Corpuscular Hgb 27.9 pg (27.0-31.0); Mean Corpuscular Volume 86.7 fL (80.0-94.0); Mean Platelet Volume 9.4 fL (7.4-10.4); Platelet Count 404 10^3/uL (130-400); Red Blood Cell Count 2.94 10^6/uL (4.70-6.10); Red Cell Dist. Width 15.4 % (11.5-14.5); White Blood Cell Count 39.8 10^3/uL (4.8-10.8)
[2024-05-31 20:29] LABS: Glucose - Point of Care 167 mg/dl (70-99)
[2024-05-31 20:32] LABS: APTT 39.2 Sec (23.4-35.0)
[2024-05-31 20:38] LABS: Triglycerides 123 mg/dl (10-149)
--- NOTE | 2024-05-31 21:00 | PTCARENOTE ---
1945- received pt from OR to recover. pt intubated with #8.0 ETT, 24 at lip. tube gonsalez replaced. pt on levo/tor/vaso/insulin gtts. R BKA with surgical dressing and roberto wrap c/d/i. perc nay drain to R abdomen, dressing c/d/i. L nare NGT placed
and connected to LIS, CXR done for ETT and NGT. sedation initiated with prop and fent. heparin gtt started. pressors remain maxed with MAP goal >60. pt arouses to verbal stimuli, follows commands, nods appropriately. b/l soft wrist restraints
applied. SB on monitor with BBB and 1st degree HB. vent settings AC 16/450/5/100%. CC replaced, #25 short put on, pt with no UOP, bladder scan for 99ml. L radial arterial line leveled and zeroed. R subclavian HD cath intact. GP continues. labs sent.
CHG bath and oral care provided. and daughter at bedside and updated. care continues.
[2024-05-31] MEDS: CYMBALTA DELAYED RELEASE PO (21:17)
[2024-05-31 21:22] LABS: Glucose - Point of Care 156 mg/dl (70-99)
[2024-05-31] MEDS: SENOKOT-S PO (21:46)
[2024-05-31 23:17] LABS: Glucose - Point of Care 166 mg/dl (70-99)
--- NOTE | 2024-05-31 23:54 | PTCARENOTE ---
pt reassessed. ETT pulled back to 22 cm per CXR and ICU [facility]. FiO2 decreased to 80%. pressors remain maxed. perc drain emptied for 100ml. care ongoing.
[2024-06-01] MEDS: ADRENALIN 250 IV (00:21)
--- NOTE | 2024-06-01 00:22 | PTCARENOTE ---
MAPs <60, SBP dipping into 80s continuously, ICU BUSINESS OFFICE TECHNICIAN aware, epi gtt ordered
[2024-06-01] MEDS: LEVOPHED 258 MG IV ×6 (00:38→21:49)
[2024-06-01] MEDS: PITRESSIN 100 IV ×3 (00:38→19:14)
[2024-06-01 00:47] VITALS: BP 88/41
[2024-06-01 00:52] LABS: Hematocrit 24.3 % (39.0-52.0); Hemoglobin 7.9 g/dL (13.0-18.0)
[2024-06-01 00:54] LABS: Glucose - Point of Care 163 mg/dl (70-99)
[2024-06-01 01:37] LABS: Blood Urea Nitrogen 33 mg/dl (9-20); Calcium 7.6 mg/dl (8.4-10.2); Carbon Dioxide 24 mmol/L (22-30); Chloride 96 mmol/L (98-107); Estimated Creatinine Clearance 37 ml/min; Glucose 151 mg/dl (70-99); Potassium 3.7 mmol/L (3.5-5.1); Sodium 128 mmol/L (135-145); eGFR 31.13
[2024-06-01 02:56] VITALS: BMI 36.8
[2024-06-01 03:09] LABS: B.E. -0.3 mmol/L; HCO3 23.9 mmol/L (21-28); O2 Saturation % 96.1 % (94-98); PCO2 36 mmHg (35-48); PO2 63 mmHg (83-108); pH 7.43 (7.35-7.45)
[2024-06-01 03:13] LABS: Glucose - Point of Care 147 mg/dl (70-99)
--- NOTE | 2024-06-01 03:19 | PTCARENOTE ---
AM labs sent. pt remains maxed on 3 pressors, epi gtt started and increased to maintain MAP goal. BP remains low, SR on monitor, HR 50-60s. ICU FURNACE REPAIRER HELPER aware. GP continues. repeat bladder scan for 83 ml. care ongoing.
[2024-06-01 03:30] LABS: Hematocrit 24.4 % (39.0-52.0); Hemoglobin 7.9 g/dL (13.0-18.0); Mean Corp Hgb Conc. 32.4 g/dL (33.0-37.0); Mean Corpuscular Hgb 27.6 pg (27.0-31.0); Mean Corpuscular Volume 85.3 fL (80.0-94.0); Mean Platelet Volume 9.6 fL (7.4-10.4); Platelet Count 424 10^3/uL (130-400); Red Blood Cell Count 2.86 10^6/uL (4.70-6.10); Red Cell Dist. Width 15.5 % (11.5-14.5); White Blood Cell Count 38.3 10^3/uL (4.8-10.8)
[2024-06-01 03:38] LABS: APTT 119.9 Sec (23.4-35.0)
[2024-06-01 03:44] LABS: O2 Therapy VENT
[2024-06-01] MEDS: DIPRIVAN 100 IV (03:49)
[2024-06-01 03:51] LABS: ALT (SGPT) 115 U/L (0-50); AST (SGOT) 252 U/L (17-59); Albumin 2.1 g/dl (3.5-5.0); Alkaline Phosphatase 205 U/L (38-126); Blood Urea Nitrogen 34 mg/dl (9-20); Calcium 7.5 mg/dl (8.4-10.2); Carbon Dioxide 23 mmol/L (22-30); Chloride 96 mmol/L (98-107); Direct Bilirubin 0.8 mg/dl (0.0-0.4); Estimated Creatinine Clearance 36 ml/min; Glucose 137 mg/dl (70-99); Phosphorus 3.3 mg/dl (2.5-4.5); Potassium 3.8 mmol/L (3.5-5.1); Sodium 131 mmol/L (135-145); Total Bilirubin 1.1 mg/dl (0.2-1.3); Total Protein 5.2 g/dl (6.3-8.2); eGFR 29.58
[2024-06-01] MEDS: SUBLIMAZE 50 MCG IV ×6 (03:57→22:33)
[2024-06-01 04:02] LABS: Vancomycin Random 11.8 ug/ml
[2024-06-01 05:13] LABS: Glucose - Point of Care 129 mg/dl (70-99)
[2024-06-01] MEDS: NEO-SYNEPHRINE 1% 260 MG IV ×3 (06:16→22:08)
[2024-06-01 07:20] LABS: Glucose - Point of Care 137 mg/dl (70-99)
[2024-06-01] MEDS: HEPARIN 25000 UNITS/250 ML IV ×2 (07:46→23:38)
[2024-06-01] MEDS: ZOSYN 50 IV ×4 (07:49→23:38)
--- NOTE | 2024-06-01 08:06 | W.PN.NEPH.PH ---
Today's Communication / Plan
-
CRRT
Assessment/Plan
-
Impression:
ESRD MWF ([place])
Sepsis/leukocytosis with hemodynamic compromise
Hypoxic Respiratory failure
Diabetes
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
History of hypertension
Anemia
PAD
Plan:
CRRT today
will try to keep relatively even with some UF
abx per primary team
supportive care at this time
prognosis is guarded
critical care time 35 minutes
-
-
Date of Service: June 01, 2024
CC / HPI / ROS
-
Chief Complaint:
ESRD
History of Present Illness:
remains hypotense on 4 pressors in ICU
on vent high O2 requirements
s/p right foot amputation 05/31
s/p cholecystotomy tube 05/31
Hgb low 7.9
Na low 131
Review of Systems:
intubate/sedated
Labs
-
Labs:
WBC 38.3 10^3/uL (4.8-10.8) H 06/01/24 03:00
RBC 2.86 10^6/uL (4.70-6.10) L 06/01/24 03:00
Hgb 7.9 g/dL (13.0-18.0) L 06/01/24 03:00
Hct 24.4 % (39.0-52.0) L 06/01/24 03:00
Plt Count 424 10^3/uL (130-400) H 06/01/24 03:00
Sodium 131 mmol/L (135-145) L 06/01/24 03:00
Potassium 3.8 mmol/L (3.5-5.1) 06/01/24 03:00
Chloride 96 mmol/L (98-107) L 06/01/24 03:00
Carbon Dioxide 23 mmol/L (22-30) 06/01/24 03:00
BUN 34 mg/dl (9-20) H 06/01/24 03:00
Creatinine 2.4 mg/dL (0.7-1.3) H 06/01/24 03:00
eGFR 29.58 06/01/24 03:00
Glucose 137 mg/dl (70-99) H 06/01/24 03:00
Calcium 7.5 mg/dl (8.4-10.2) L 06/01/24 03:00
Phosphorus 3.3 mg/dl (2.5-4.5) 06/01/24 03:00
Tjl-Z-Sfjordcochs Pept 4060 pg/ml 05/30/24 15:31
Albumin 2.1 g/dl (3.5-5.0) L 06/01/24 03:00
Physical Exam
-
Vital Signs:
Vital Signs
Temp Pulse Resp BP Pulse Ox
98.6 F 58 16 97/62 98
06/01/24 07:32 06/01/24 07:00 06/01/24 07:00 05/31/24 16:00 06/01/24 07:19
Cardiovascular:: Regular rate and rhythm
Respiratory:: Bilateral: Coarse
Lung Excursion:: Normal
Abdomen:: Soft and Tender
Bowel Sounds:: None
Extremity Edema:: None: Bilateral:
--- NOTE | 2024-06-01 08:07 | PN.DE.MGMTRT ---
Insulin Management
- -
06/01/2024 Diabetes Management Consult Patient on Critical Care Glycemic Protocol
Patient admitted 05/30 with change in level of consciousness. PMH PVD, asthma, GERD, HTN, HCL, diabetes, renal failure (HD 3 x per week). Patient found to be in severe sepsis with R foot wound with purulent drainage. Patient has since gone to OR
for amputation of R foot 05/31.
Prior to admission was taking 4 units novolog AC with lantus 10 units @ hs. A1C 7.8%, cr 2.4, eGFR 29.58.
Patient is intubated, critically ill. All information obtained from chart and patient nurse.
Glucose on admission as high as 312, patient started on glycemic protocol requiring 1.5 to 3 units of insulin. Glucose range 298 to 137 this AM. Will continue glycemic protocol at this time. Evaluate as needed for readiness to transition off of
insulin infusion.
Will follow
Discussed with nurse.
Diabetes History
- -
Type of Diabetes: 2
Pre-Admission Diabetes Regimen
06/01/24 06/01/24
00:43 03:00
Creatinine 2.3 H 2.4 H
Lab Results
Hemoglobin A1c 7.8 % (4.0-5.6) H 05/31/24 02:57
Insulin Pump Settings
IP Diabetes Regimen
05/31/24 05/31/24 05/31/24
11:03 15:46 17:30
Glucose
POC Glucose 174 H 242 H 229 H
05/31/24 05/31/24 05/31/24
19:03 20:13 21:11
Glucose
POC Glucose 167 H 167 H 156 H
05/31/24 06/01/24 06/01/24
23:06 00:43 03:00
Glucose 151 H 137 H
POC Glucose 166 H 163 H
06/01/24 06/01/24 06/01/24
03:01 05:02 07:09
Glucose
POC Glucose 147 H 129 H 137 H
Patient Education
[2024-06-01] MEDS: CYMBALTA DELAYED RELEASE PO (08:24)
[2024-06-01] MEDS: PROTONIX PO (08:24)
[2024-06-01] MEDS: ASPIR LOW (ENTERIC COATED) PO (08:25)
--- NOTE | 2024-06-01 08:33 | W.PN.VS ---
Addendum entered and electronically signed by Juanpablo Holcomb III, MD 06/01/24 10:24:
This patient was seen and examined in collaboration with RENZO Gray. I agree with the history and physical exam as well as the assessment and plan. I have the following additions:
Sedated but able to follow commands
Right guillotine amputation is clean and dry
WBC down compared to yesterday
Continues to be critically ill and on pressors
Continue antibiotics
Daily dressing changes to right guillotine amputation site
We will follow clinical trajectory and decide on timing for formal below-knee amputation.
Continue anticoagulation for DVT
Signed:
Juanpablo Holcomb III, MD
[facility]
[phone] (kimd)
Original Note:
Today's Communication / Plan
-
Patient seen and examined at bedside with Dr. Juanpablo Holcomb III, below plan reviewed with attending
Assessment/Plan
-
Assessment: 64-year-old male POD #1 Guillotine amputation of the right lower extremity above the ankle
Plan:
Will return tomorrow to change dressing of right lower extremity amputation site
Subjective Data
-
Date of Service: June 01, 2024
Patient intubated and sedated.
Objective Data
-
Vital Signs
Temp Pulse Resp BP Pulse Ox
98.6 F 58 16 97/62 98
06/01/24 07:32 06/01/24 07:00 06/01/24 07:00 05/31/24 16:00 06/01/24 08:00
Intake and Output
05/31/24 06/01/24 06/02/24
06:59 06:59 06:59
Intake Total 420.0 / 502.5 3096.6 / 3255.4 158.8 / 158.8
Output Total 100 / 100 0 / 0
Balance 420.0 / 502.5 2996.6 / 3155.4 158.8 / 158.8
Intake:
IV fluids (Total) 420.0 / 502.5 3016.6 / 3175.4 158.8 / 158.8
Levophed 420.0 / 502.5 1641.4 / 1697.7 56.3 / 56.3
epi 154.0 / 187.8 33.8 / 33.8
fent 60.0 / 65.0 5 / 5
heparin 203 / 220
insulin 22.7 / 24.2 1.5 / 1.5
tor 750 / 780
prop 77.5 / 83.7 6.2 / 6.2
vasopressin 108 / 117
IV piggybacks 50 / 50
Amount instilled into GI Tube (
Total)
Twiggs Sump
Output:
Urinary Drain Output (Total) 100 / 100
Right A 100 / 100
Urine, Voided 0 / 0 0 / 0
Other:
Number of approximated SMALL 1
amounts of urine
Number of approximated MODERATE 1
amounts of urine
Lab Results
06/01/24 03:00
06/01/24 03:00
Calcium 7.5 mg/dl (8.4-10.2) L 06/01/24 03:00
Phosphorus 3.3 mg/dl (2.5-4.5) 06/01/24 03:00
Magnesium 2.0 mg/dl (1.6-2.3) 06/01/24 03:00
Total Bilirubin 1.1 mg/dl (0.2-1.3) 06/01/24 03:00
Direct Bilirubin 0.8 mg/dl (0.0-0.4) H 06/01/24 03:00
AST 252 U/L (17-59) H 06/01/24 03:00
ALT 115 U/L (0-50) H 06/01/24 03:00
Alkaline Phosphatase 205 U/L (38-126) H 06/01/24 03:00
Total Protein 5.2 g/dl (6.3-8.2) L 06/01/24 03:00
Albumin 2.1 g/dl (3.5-5.0) L 06/01/24 03:00
Physical Exam
-
Patient is currently intubated and sedated appears in no distress
No tachycardia
Tolerating ventilator
Right lower extremity guillotine amp dressing CDI, no evidence of bleeding, surrounding skin intact
--- NOTE | 2024-06-01 08:35 | W.PN.INTV ---
Today's Communication / Plan
Recommendations
As above
Assessment
-
64-year-old male with past medical history of PAD, diabetes, hypertension, CKD on HD, hyperlipidemia, GERD presenting with septic shock likely secondary to right foot infected wound requiring pressors.
#Septic shock secondary to right foot infected wound
- Patient had recent right TMA in March 2024 complicated by wound dehiscence requiring several debridements since then. In the ED, he was found to have purulent drainage from the TMA site. Right foot x-ray showed soft tissue gas in the foot and
ankle. He was taken to the OR for I&D, infection extended along the extensor tendons proximally as well as laterally across the tarsometatarsal joint was noted. Patient is critically ill requiring 4 pressors (levo, vaso, jarvis and epinephrine) for
hemodynamic stability.
- Vascular surgery is on board, status post guillotine amputation of the right lower extremity above the ankle. Will decide on timing for formal below-knee amputation.
- ESR and CRP elevated
- wbc continues to be elevated 38.3, lactic acid normal, AB.43/36/63/23.9
- Patient is on Zosyn and vancomycin, awaiting wound culture, blood culture negative
#Acute hypoxic respiratory failure
- No wheezing or rhonchi heard on auscultation.
- Patient was intubated in the OR yesterday. Day 2 on ventilator. Ventilator settings (CMV): 16/450/5/80%
- Chest x-ray 06/01/2024: Persistent left basilar opacification, likely combination of small left effusion and adjacent atelectasis/consolidation.
#RAISSA on CKD
- Likely prerenal in the setting of sepsis
- Creatinine downtrending, 2.4 today
- Status post hemodialysis yesterday, plan for CRRT today
#Lower extremity pitting edema, right greater than left
- Bedside ultrasound showed a noncompressible vein superior to the right common femoral vein and a noncompressible right popliteal vein concerning for DVT
- Lower extremity ultrasound showed bilateral extensive DVT. Patient was started on heparin drip after OR yesterday.
#Elevated liver enzymes, emphysematous cholecystitis
- Abdominal ultrasound showed distended gallbladder, filled with stones and sludge, mild gallbladder wall thickening concerning for acute cholecystitis, negative sonographic Bermeo sign and no pericholecystic fluid.
- Abdomen diffusely tender on exam (more pronounced on the right upper quadrant), without guarding/tenderness.
- Patient is afebrile, not complaining of nausea, vomiting, abdominal pain.
- Likely due to septic shock and acute cholecystitis.
- Abdomen pelvis CT (05/31/2024) was concerning for emphysematous cholecystitis. IR was consulted, placed percutaneous nay tube. Bile Cx pending. Low output from the nya tube since last night.
#Hyponatremia
- Likely chronic
- CRRT today
#Leukocytosis
- Likely secondary to sepsis
- Continues to downtrend, 38.3 today
#Asymptomatic urinary tract infection
- UA showed moderate bacteria, esterase 1+, wbc 3-5
- Urine culture negative
- Blood cultures negative
#Hyperglycemia
- Blood sugars elevated (>200) yesterday, patient was started on insulin drip (1.5 units/h). Will continue to monitor Accu-Cheks and transition off insulin infusion as needed.
- Patient is on 10 units insulin glargine at bedtime and 4 units aspart at home
- Hemoglobin A1c 7.8
#Anemia
- Likely in the setting of chronic kidney disease
- No active bleeding, hemoglobin stable
#Abnormal thyroid function
- TSH low, T4 within normal limits
- No history of thyroid disease
- Likely in the setting of acute infection, sick euthyroid syndrome
#Hypoalbuminemia
Conditions present prior to admission
Hypertension -- Home meds currently on hold
Hyperlipidemia -- statin held due to elevated LFTs
Diabetes -- on insulin
GERD -- continue Protonix --> transition to IV Protonix
PAD s/p right lower extremity stent
CKD -- on hemodialysis
Neuropathy -- patient takes gabapentin and oxycodone 15mg every 12h at home, can restart gabapentin
Depression -- on duloxetine
Obesity due to excess calories
Plan:
RASS score -1, opens eyes spontaneously and follows commands. Sedated on propofol and fentanyl, wean as able. Continue Tylenol as needed and restart gabapentin.
Patient remains critically ill, currently on 4 pressors, Levophed, Jarvis-Synephrine, vasopressin and epinephrine. MAPs in the low-mid 60s. Wean pressors as able. Maintain MAP>60 or SBP>90.
Continue to hold home meds (Coreg and Norvasc).
Patient is day 2 on ventilator. Nonlabored breathing. Ventilator settings adjusted. Wean as able. Maintain SpO2 > 92-94%
s/p percutaneous nay tube, tender on exam without rebound/guarding. Minimal output on nay tube, will discuss with IR for further plans.
History of GERD. Switch po Protonix to IV given npo and no formula available via tube.
CRRT today. Replete lytes as needed.
Continue Zosyn and vancomycin (renally dosed) for right foot infection. Cultures pending.
Vascular surgery is on board, s/p guillotine of the right lower extremity above the ankle. Vascular surgery to decide on timing of formal below-knee amputation. Surgical dressings to be changed daily. Continue to hold Plavix.
Bilateral lower extremity DVT, continue heparin drip. PTT mildly elevated at 119.9, recheck and monitor closely.
Trend H&H and transfuse if needed for Hb<7g/dL or plt<20k, unless there is concern for bleeding.
Trend wbc and monitor for fevers.
Continue insulin drip, can consider transition off of insulin infusion if needed. Maintain euglycemia with goal BG 140�180, avoid hypoglycemia.
Subjective Dataa
Subjective Data
Date of Service:
Date of Service: June 01, 2024
Review of Systems
General: Fever (n), Bleeding (n) and Unobtainable - Sedation
Objective Data
Data Reviewed
Vital Signs / I&O / Oxygen:
Vital Signs
Temp Pulse Resp BP Pulse Ox
98.6 F 58 16 97/62 98
06/01/24 07:32 06/01/24 07:00 06/01/24 07:00 05/31/24 16:00 06/01/24 08:00
Intake and Output
05/31/24 06/01/24 06/02/24
06:59 06:59 06:59
Intake Total 420.0 / 502.5 3096.6 / 3255.4 158.8 / 158.8
Output Total 100 / 100 0 / 0
Balance 420.0 / 502.5 2996.6 / 3155.4 158.8 / 158.8
SaO2 [A/C] 98
SaO2 98
Nasal Cannula flow liters per 8
minute
Physical Exam
General: Comfortable and Fever (n)
HEENT: Normocephalic and Thrush
Cardiovascular: S1-S2, Regular Rhythm and Peripheral Edema
Respiratory: Crackles, Non-Labored Respirations, Accessory Resp Muscle Use (n) and Other (Intubated and mechanically ventilated)
GI: Soft and Tender (Diffusely tender without guarding or rebound)
Neurology: Awake and Other (Sedated on ventilation, follows commands and opens eyes spontaneously)
Skin: Warm and Other (Left lower extremity not well-perfused. 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 No signs of bleeding.)
Labs/Micro/Reports
Lab Data
06/01/24 03:00
06/01/24 03:00
Laboratory Results
05/31/24 05/31/24 06/01/24
20:10 20:14 03:00
APTT 39.2 H 119.9 H
pH Cancelled 7.38 7.43
pCO2 Cancelled 41 36
pO2 Cancelled 66 L 63 L
HCO3 Cancelled 24.3 23.9
O2 Delivery Level Cancelled Not Reportable Vent
Microbiology
05/30/24 15:42 Blood/Venous Blood Culture - Preliminary
No Growth in 24 hours- Final report to follow
05/30/24 15:42 Blood/Venous Blood Culture - Preliminary
No Growth in 24 hours- Final report to follow
05/30/24 21:41 Abscess Gram Stain - Preliminary
05/30/24 16:52 Foot - Right Wound Culture - Preliminary
05/30/24 16:52 Foot - Right Gram Stain - Preliminary
05/30/24 15:42 Urine Urine Culture - Final
NO GROWTH
05/30/24 15:42 Nasal Swab Influenza Types A & B (HOLDEN) - Final
Negative for Influenza A & B, NAAT
Negative results must be combined with clinical observations
and patient history.
Nucleic Acid Amplification test (NAAT)performed on the
[employer] platform.
[2024-06-01] MEDS: ADRENALIN 258 MG IV ×2 (08:47→20:17)
--- NOTE | 2024-06-01 08:55 | PHA.VAN.FU ---
Vancomycin Assessment / Plan
- Assessment
Hemodialysis Schedule: Other (patient being transitioned to CVVHD at 1.5 L/H)
WBC's are: Trending Down
In the past 24 hrs, patient has been: Afebrile
Concomitant Antimicrobials: piperacillin/tazobactam
- Assessment - Therapeutic Drug Monitoring
Random Level: 11.8 - drawn ~15.5H after previous dose of 500mg
- Dosing Plan
Dosing by Level: Re-dose today (Vanc 1250mg)
- Monitoring Plan
Random Level: 06/02 0600
- Follow Up
Pharmacy will continue to follow.
Vancomycin Follow UP
- -
Patient Age: 64
Patient Sex: Male
Vancomycin Day #: 2
Indication: Skin And Soft Tissue
Requesting Provider: Christen Hurley / Dr. Yeboah
Pertinent Antimicrobial Allergies:
NKDA
Height / Weight:
Height 5 ft 6 in
Actual Weight 103.5 kg
Pertinent Past Medical History: BMI ~37, ESRD on HD MWF, DM 2, PAD
- Vital Signs / Lab Results
Temp Pulse Resp BP Pulse Ox
98.6 F 58 16 97/62 98
06/01/24 07:32 06/01/24 07:00 06/01/24 07:00 05/31/24 16:00 06/01/24 08:00
Lab Results - Hematology
05/30/24 05/31/24 05/31/24
15:31 02:57 20:14
WBC 27.5 H 42.0 H* 39.8 H
06/01/24
03:00
WBC 38.3 H
Lab Results - Chemistry
05/30/24 05/31/24 06/01/24
15:31 02:57 00:43
BUN 47 H 55 H 33 H
Creatinine 2.4 H 2.7 H 2.3 H
Estimated Creat Clear 36 32 37
Albumin 2.6 L
06/01/24
03:00
BUN 34 H
Creatinine 2.4 H
Estimated Creat Clear 36
Albumin 2.1 L
05/30/24 05/30/24
15:42 19:45
Lactic Acid 1.2 Cancelled
Microbiology Results
05/30/24 15:42 Blood Culture - Preliminary
Blood/Venous No Growth in 24 hours- Final report to follow
05/30/24 15:42 Blood Culture - Preliminary
Blood/Venous No Growth in 24 hours- Final report to follow
05/30/24 21:41 Gram Stain - Preliminary
Abscess
05/30/24 16:52 Wound Culture - Preliminary
Foot - Right Gram Stain - Preliminary
05/30/24 15:42 Urine Culture - Final
Urine NO GROWTH
05/30/24 15:42 Influenza Types A & B (HOLDEN) - Final
Nasal Swab Negative for Influenza A & B, NAAT
Negative results must be combined with clinical observations
and patient history.
Nucleic Acid Amplification test (NAAT)performed on the
[employer] platform.
Therapeutic Drug Monitoring
Random Vancomycin 11.8 ug/ml 06/01/24 03:00
--- NOTE | 2024-06-01 09:06 | W.PN.ANS.POP ---
Anesthesia Post Operative
- Anesthesia Post Op Note
Vital Signs Stable-See Nursing Note: Yes
Airway Patent: Yes
Adequate Pain Control: Yes
Change in Mental Status: No
Current Postoperative Nausea & Vomiting: No
Anesthesia Complications: No
General Anesthetic Recall: No
Unplanned Admission: No
Post Op Hydration Adequate: Yes
[2024-06-01 09:12] LABS: Glucose - Point of Care 136 mg/dl (70-99)
[2024-06-01] MEDS: RFP-401 HD Soln (K+ 4 mEq/L) 15000 ML CRRT-IRR ×2 (09:15→17:36)
[2024-06-01] MEDS: SUBLIMAZE 100 IV ×2 (10:14→19:57)
[2024-06-01] MEDS: FLEXBUMIN 50 IV (10:19)
[2024-06-01 10:26] LABS: APTT 97.5 Sec (23.4-35.0)
[2024-06-01 11:16] LABS: Glucose - Point of Care 119 mg/dl (70-99)
--- NOTE | 2024-06-01 11:35 | PTCARENOTE ---
called in and was given update. will be in to visit in a couple of hours
[2024-06-01] MEDS: VANCOCIN 275 MG IV (11:45)
--- NOTE | 2024-06-01 11:53 | W.PN.ID1 ---
Date of Service
Date of Service: June 01, 2024
Today's Communication
Continue Zosyn/Vanco.
Assessment / Plan
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
s/p I+D 05/30
s/p guillotine amp 05/31
# Acute cholecystitis
s/p perc nay 05/31
# Septic shock
Now on 4 pressors
Significant leukocytosis
# VDRF
# ESRD on HD. Currently on CRRT
# Extensive BLE DVT
Plan:
-OR foot cx: GNR, diptheroids
- Bile cx pending
- Blood cx's neg to date
- Continue Zosyn and Vancomycin, adjust for CRRT
-Trend vitals/wbc
-Prognosis guarded
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
Type 2 diabetes mellitus
End-stage renal disease on hemodialysis
Hypertension
PAD s/p RLE stent
HLD
Obstructive sleep apnea
Depression
Right foot TMA 03/27/24 [facility]
Chief Complaint
-: Clinical Sepsis
Subjective / Review of Systems
Critically ill on vent and pressors.
Vital Signs / Physical Exam
Vital Signs
Vital Signs
Temp Pulse Resp BP Pulse Ox
97.6 F 56 21 97/62 97
06/01/24 11:18 06/01/24 11:00 06/01/24 11:00 05/31/24 16:00 06/01/24 11:30
Physical Exam
Constitutional: Acutely Ill
Eyes: Sclera Anicteric
Cardiovascular: S1/S2 and Other (bradycardic)
Pulmonary: Clear (anterior)
Gastrointestinal: Soft, Tender (RUQ), Non Distended and Other (Perc nay with brown bile)
Extremities: Negative Edema
Wound: Other (R BKA dressing dry)
Lines: PICC (LUE) and HD Cath
Objective Data
Lab Data
Lab Results
06/01/24 03:00
ESR 70 mm/hour (0-20) H 05/31/24 02:57
PT 17.4 Sec (11.4-14.6) H 05/31/24 02:57
INR 1.40 05/31/24 02:57
APTT 97.5 Sec (23.4-35.0) H 06/01/24 09:58
Estimated Creat Clear 36 ml/min 06/01/24 03:00
Lactic Acid Cancelled 05/30/24 19:45
Total Bilirubin 1.1 mg/dl (0.2-1.3) 06/01/24 03:00
AST 252 U/L (17-59) H 06/01/24 03:00
ALT 115 U/L (0-50) H 06/01/24 03:00
Alkaline Phosphatase 205 U/L (38-126) H 06/01/24 03:00
C-Reactive Protein > 270.00 mg/L (0.0-10.00) H 05/31/24 02:57
Amylase Cancelled 06/01/24 06:00
Most recent labs reviewed.
Micro Results:
05/30/24 21:41 Anaerobic Culture - Preliminary
Abscess Culture pending. Anaerobic cultures are examined after 3
days incubation. Additional information to follow.
05/30/24 21:41 Wound Culture - Preliminary
Abscess Gram Stain - Preliminary
05/30/24 16:52 Wound Culture - Preliminary
Foot - Right Gram negative bacilli
Diptheroids
Gram Stain - Preliminary
05/31/24 18:46 Body Fluid Culture - Pending
Bile Gram Stain - Pending
05/30/24 15:42 Blood Culture - Preliminary
Blood/Venous No Growth in 24 hours- Final report to follow
05/30/24 15:42 Blood Culture - Preliminary
Blood/Venous No Growth in 24 hours- Final report to follow
05/30/24 15:42 Urine Culture - Final
Urine NO GROWTH
05/30/24 15:42 Influenza Types A & B (HOLDEN) - Final
Nasal Swab Negative for Influenza A & B, NAAT
Negative results must be combined with clinical observations
and patient history.
Nucleic Acid Amplification test (NAAT)performed on the
[employer] platform.
05/30/24 CXR: No acute cardiopulmonary process within the limitations of very low lung volumes.
05/30/24 ABD US: The gallbladder is distended and filled with stones and sludge. Mild gallbladder wall thickening raising the possibility for acute cholecystitis. However, no appreciable pericholecystic fluid and a reportedly negative sonographic
Bermeo's sign.
05/30/24 Foot XRAY: Soft tissue gas in the right foot and ankle most suggestive of infection
05/31/24 Periph Vasc US: Extensive bilateral lower extremity deep venous thrombosis
Care Review
Plan reviewed with: Nurse (Emma)
--- NOTE | 2024-06-01 12:16 | PTCARENOTE ---
Systems reviewed. Pt continues of pressors/insulin/heparin/fentanyl as charted. Terry, follows commands. Otherwise please see worklist
[2024-06-01 12:17] VITALS: BMI 36.8
[2024-06-01] MEDS: LOW STRENGTH ASPIRIN 81 MG TUBE (12:55)
[2024-06-01] MEDS: NSS (PRESERVATIVE FREE) 10 ML IV (12:56)
[2024-06-01] MEDS: MYCOSTATIN ORAL SUSPENSION 5 ML PO ×3 (12:56→21:09)
[2024-06-01] MEDS: PROTONIX IV 40 MG IV (12:56)
[2024-06-01 13:20] LABS: Glucose - Point of Care 135 mg/dl (70-99)
--- NOTE | 2024-06-01 13:40 | W.PN.UPDATE ---
Update Note
Progress Note Update
RTSP. CRRT in progress. UF limited. VSS, BP improved off propofol and increased vasopressin
less O2 requirements 50% on vent
clinical status remains tenuous
--- NOTE | 2024-06-01 14:09 | CM ---
Addendum entered by Corey Soto 06/01/24 15:47:
CM met with pt's spouse who is RN and pt's daughter and had a long conversation regarding pt's current health condition and next level of care. Per spouse, pt started HD treatment at [facility] and was discharged to [facility] for a
short term rehab and HD treatment onsite. per spouse, [facility] did not initiate securing a chair at outpatient HD treatment center. Pt's spouse stated she and the pt live in [place] area and they requested a help with setting up
outpatient HD treatment in [place] area.
Both pt's spouse and daughter are aware that pt will needs a short term rehab with HD treatment onsite when medically stable. A list of SNFs with onsite HD treatment provided to pt's spouse and daughter and they will tour those SNFs. Both pt's
spouse and pt's daughter made it very clear they do not want pt returns back to [facility].
At this point, CM will make a referral to [facility] when pt is medically stable to secure an outpatient HD treatment in [place] area. Also, CM will make a referral to a preferred SNF with HD treatment onsite when pt is medically stable.
Both pt's spouse and pt's daughter are aware of pt's current health condition, prognosis and pt's spouse went to tears. Emotional support offered and provided.
D/C plan: uncertain at this time and will depend on pt's progresses.
CM will follow with discharge plan updates as hospitalization progresses
Original Note:
CM following re: discharge planning.
Discussed in rounds, reviewed pt's chart, met with pt.
Per Rounds meeting, pt is POD #1 Guillotine amputation of the right lower extremity above the ankle, remains intubated, continue supportive care. Per Surgery, return to OR tomorrow.
Per CM note, pt admitted from [facility] and family does not want pt returns back there. Pt is on HD. No potential new SNF options have been discussed and PT/OT have been recommending SNF level of care.
CM will review with the pt and his family a list of SNFs when clinically appropriate.
D/C plan: new SNF.
CM will follow to assist pt with discharge to a new preferred SNF.
[2024-06-01] MEDS: NEURONTIN 100 MG TUBE ×2 (15:05→21:08)
[2024-06-01 15:06] LABS: Glucose - Point of Care 151 mg/dl (70-99)
[2024-06-01 15:48] LABS: Ionized Calcium 1.07 mMOL/L (1.15-1.33)
[2024-06-01 15:56] LABS: APTT 130.2 Sec (23.4-35.0)
[2024-06-01 16:12] LABS: Blood Urea Nitrogen 35 mg/dl (9-20); Calcium 7.3 mg/dl (8.4-10.2); Carbon Dioxide 21 mmol/L (22-30); Chloride 98 mmol/L (98-107); Estimated Creatinine Clearance 37 ml/min; Glucose 148 mg/dl (70-99); Potassium 3.8 mmol/L (3.5-5.1); Sodium 131 mmol/L (135-145); eGFR 31.13
--- NOTE | 2024-06-01 16:15 | PTCARENOTE ---
Systems reviewed. Pt with increased pain to abdomen when laying flat to reposition, otherwise has been comfortable. Have been able to increased uf but not able to be negative given blood pressure requirement. and daughter at bedside and
updated by myself and Dr Lopez. Emotional support provided.
--- NOTE | 2024-06-01 16:17 | CHAP ---
request relayed to Monsignor Carranza. Awaiting call back. If he cannot come today we will call Fr. Robles tomorrow.
[2024-06-01] MEDS: CALCIUM GLUCONATE 130 MG IV ×2 (16:19→22:34)
--- NOTE | 2024-06-01 17:30 | W.PN.HOSP.TC ---
Today's Communication/Plan
-
see bold
Assessment / Plan
Assessment / Plan
HPI: 64-year-old male with a past medical history of PVD, diabetes, hypertension, and hyperlipidemia presents with altered mental status, lethargy, and was found to have pus draining from his right TMA site. History is obtained from his due to
patient's lethargy. Patient had a recent TMA around March 27, 2024 at [facility]. It appears that it is infected. He is now hypotensive, with a blood pressure of 77/45. He has an HD tunneled catheter and is getting dialysis 3 times a
week.
#Septic shock
Possible sources include right TMA infection and cholecystitis, treat as below
Appreciate family preservation caseworker/nephro input, currently requiring Levophed, Jarvis-Synephrine, vassopressin, and epineprhine to maintain MAP greater than 65
Trend fever and white count
#Right TMA infection
#Severe PVD
Records requested from [facility] where his original surgery was done in March 2024
Plavix held for surgical intervention, continue aspirin
Appreciate podiatry, vascular surgery, ID input
Status post I&D in OR by podiatry on 05/30
Status post right ankle amputation 05/31
Continue IV antibiotics as per ID
#Acute hypoxic respiratory failure
Remains intubated after his surgery on 05/31
Continue vent management as per nephrology
Patient getting CRRT today
#End-stage renal failure on dialysis at [facility] Thursday/Thursday/Thursday
#Hyponatremia
Appreciate nephrology input, continue CRRT as per nephrology
#Acute emphysematous cholecystitis
#Right upper quadrant abdominal pain
Ultrasound shows distended gallbladder with stones and sludge with mild gallbladder wall thickening
CT abdomen pelvis shows enlarged gallbladder with stones, sludge, air-fluid level, suspicious for emphysematous cholecystitis
Status post percutaneous cholecystostomy tube by IR on 05/31
#Incidence of bilateral deep vein thrombosis
IV heparin drip
#Thrush
Nystatin
#History of essential hypertension
Hold amlodipine, hold Coreg secondary to septic shock
#Type 2 diabetes
A1C 7.8
Continue insulin drip, Accu-Cheks
#Gastroesophageal reflux disease
Continue PPI
#Constipation
Continue laxatives when able
#Anxiety/depression
Continue duloxetine 20 mg twice a day
#Obesity due to excess calories
Affects all aspects of care
DVT prophylaxis�IV heparin
Full code
Total time spent to see the patient on the floor, examine the patient, review data and lab results, discuss treatment plan with patient, nursing staff around 54 minutes.
Physical Exam
General: Lethargic, intubated
HEENT: Normocephalic, Atraumatic, EOMI
+Hoarse voice
Respiratory: Clear to Auscultation bilaterally
Cardiac: Normal S1/S2, Regular Rate and Rhythm
GI: Soft, diffusely tender, especially at the right upper quadrant
+biliary drain
Extremities: No Clubbing, Cyanosis
Right ankle amputation dressed, bilateral lower extremity edema noted
Anticipated Discharge: > 48 hours
Subjective/Interval History
-
Date of Service: June 01, 2024
Overnight events noted. Patient remains intubated. Fever resolved. No vomiting.
Objective Data
-
Labs:
Laboratory Results
06/01/24 06/01/24 06/01/24
09:58 15:35 22:00
APTT 97.5 H 130.2 H Pending
Sodium 131 L Pending
Potassium 3.8 Pending
Chloride 98 Pending
Carbon Dioxide 21 L Pending
BUN 35 H Pending
Creatinine 2.3 H Pending
Glucose 148 H Pending
Calcium 7.3 L Pending
Vital Signs:
Vital Signs
Temp Pulse Resp BP Pulse Ox
97.6 F 49 16 97/62 96
06/01/24 16:30 06/01/24 17:15 06/01/24 17:15 05/31/24 16:00 06/01/24 17:15
I&O
05/31/24 06/01/24 06/02/24
06:59 06:59 06:59
Intake Total 420.0 / 502.5 3096.6 / 3255.4 2452.9 / 2452.9
Output Total 100 / 100 346 / 346
Balance 420.0 / 502.5 2996.6 / 3155.4 2106.9 / 2106.9
[2024-06-01 17:31] LABS: Glucose - Point of Care 152 mg/dl (70-99)
[2024-06-01 19:21] LABS: Glucose - Point of Care 134 mg/dl (70-99)
--- NOTE | 2024-06-01 20:00 | PTCARENOTE ---
rec'd patient, family at bedside and updated. pt intubated with 8.0 ETT, 22 at lip, adjusted to R side. AC 16/450/5/50%. pt with b/l wrist restraints, noddying appropriately, following commands, denies pain at this time. SB on monitor with BBB and
1st degree HB. BP maintained with pressors x4. afebrile. NGT to LIS. CC in place, no UOP. perc nay drain intact, dressing clean and dry. RLE guillotine amp with roberto wrap, no drainage noted. CRRT ongoing, 4k bath, TFR 1.5, BFR currently at 200,
running net neg 25. q6h labs. heparin gtt, glycemic protocol, fent gtt infusing. care continues.
[2024-06-01] MEDS: SENNA SYRUP 17.6 MG TUBE (21:08)
[2024-06-01] MEDS: CYMBALTA DELAYED RELEASE 20 MG TUBE (21:08)
[2024-06-01] MEDS: COLACE LIQUID 200 MG TUBE (21:08)
[2024-06-01 21:11] LABS: Glucose - Point of Care 119 mg/dl (70-99)
[2024-06-01 22:04] LABS: Ionized Calcium 1.13 mMOL/L (1.15-1.33)
[2024-06-01 22:21] LABS: APTT 149.4 Sec (23.4-35.0)
[2024-06-01 23:02] LABS: Blood Urea Nitrogen 30 mg/dl (9-20); Calcium 7.9 mg/dl (8.4-10.2); Carbon Dioxide 21 mmol/L (22-30); Chloride 102 mmol/L (98-107); Estimated Creatinine Clearance 43 ml/min; Glucose 129 mg/dl (70-99); Phosphorus 2.7 mg/dl (2.5-4.5); Potassium 3.8 mmol/L (3.5-5.1); Sodium 133 mmol/L (135-145); eGFR 36.81
[2024-06-01 23:31] LABS: Glucose - Point of Care 134 mg/dl (70-99)
[2024-06-02] VITALS (9 sets, daily range): BP systolic 95–121; BP diastolic 42–56; BMI 37.7
[2024-06-02] MEDS: SUBLIMAZE 50 MCG IV ×2 (00:28→20:59)
--- NOTE | 2024-06-02 00:30 | PTCARENOTE ---
pt reassessed. neuro status unchanged. FiO2 decreased to 40%. remains q2h on GP. CHG bath complete, bladder scan for 114ml, pt with no UOP, CC removed at this time. extremities elevated. care continues
[2024-06-02 01:23] LABS: Glucose - Point of Care 117 mg/dl (70-99)
[2024-06-02] MEDS: LEVOPHED 258 MG IV ×6 (02:11→23:24)
[2024-06-02] MEDS: PITRESSIN 100 IV ×3 (02:12→19:21)
[2024-06-02] MEDS: RFP-401 HD Soln (K+ 4 mEq/L) 15000 ML CRRT-IRR ×3 (03:10→21:59)
[2024-06-02 03:14] LABS: Glucose - Point of Care 104 mg/dl (70-99)
[2024-06-02 04:22] LABS: B.E. -1.8 mmol/L; O2 Saturation % 97.3 % (94-98); PCO2 38 mmHg (35-48); PO2 71 mmHg (83-108); pH 7.39 (7.35-7.45)
[2024-06-02 04:23] LABS: O2 Therapy VENT
[2024-06-02 04:25] LABS: Ionized Calcium 1.26 mMOL/L (1.15-1.33)
--- NOTE | 2024-06-02 04:30 | PTCARENOTE ---
AM labs sent. pressors x4 continue. small amount of serosanguineous drainage noted underneath R BKA site. CRRT ongoing. care continues
[2024-06-02 04:50] LABS: APTT 111.8 Sec (23.4-35.0)
[2024-06-02 04:56] LABS: Hematocrit 22.5 % (39.0-52.0); Hemoglobin 7.5 g/dL (13.0-18.0); Mean Corp Hgb Conc. 33.3 g/dL (33.0-37.0); Mean Corpuscular Hgb 28.1 pg (27.0-31.0); Mean Corpuscular Volume 84.3 fL (80.0-94.0); Mean Platelet Volume 9.5 fL (7.4-10.4); Platelet Count 418 10^3/uL (130-400); Red Blood Cell Count 2.67 10^6/uL (4.70-6.10); Red Cell Dist. Width 15.4 % (11.5-14.5); White Blood Cell Count 33.7 10^3/uL (4.8-10.8)
[2024-06-02] MEDS: ZOSYN 50 IV ×4 (05:07→23:24)
[2024-06-02] MEDS: SUBLIMAZE 100 IV ×2 (05:07→16:20)
[2024-06-02 05:10] LABS: Vancomycin Random 14.1 ug/ml
[2024-06-02 05:27] LABS: Glucose - Point of Care 108 mg/dl (70-99)
[2024-06-02 05:47] LABS: Blood Urea Nitrogen 28 mg/dl (9-20); Calcium 8.5 mg/dl (8.4-10.2); Carbon Dioxide 22 mmol/L (22-30); Chloride 103 mmol/L (98-107); Estimated Creatinine Clearance 45 ml/min; Glucose 101 mg/dl (70-99); Phosphorus 2.7 mg/dl (2.5-4.5); Potassium 3.9 mmol/L (3.5-5.1); Sodium 135 mmol/L (135-145); eGFR 39.15
[2024-06-02] MEDS: NEO-SYNEPHRINE 1% 260 MG IV ×2 (06:11→14:21)
[2024-06-02 07:25] LABS: Glucose - Point of Care 101 mg/dl (70-99)
--- NOTE | 2024-06-02 07:35 | PN.DE.MGMTRT ---
Insulin Management
- -
06/02/2024 Diabetes Management Consult Patient on Critical Care Glycemic Protocol
Patient admitted 05/30 with change in level of consciousness. PMH PVD, asthma, GERD, HTN, HCL, diabetes, renal failure (HD 3 x per week). Patient found to have severe sepsis with R foot wound with purulent drainage most likely source. Patient has
since gone to OR for amputation of R foot 05/31.
Prior to admission was taking 4 units novolog AC with lantus 10 units @ hs. A1C 7.8%, cr 2.4, eGFR 29.58.
Patient is intubated, remains critically ill. All information obtained from chart and patient nurse.
Patient remained on glycemic protocol overnight requiring .7 to 1.7 units of insulin per hour. Glucose range 117 to 151 06/01, 101 this AM. Will continue glycemic protocol at this time. Evaluate as needed for readiness to transition off of insulin
infusion.
Will follow
Discussed with nurse
Diabetes History
- -
Type of Diabetes: 2 requiring insulin
Pre-Admission Diabetes Regimen
06/01/24 06/01/24 06/02/24
15:35 21:53 04:12
Creatinine 2.3 H 2.0 H Cancelled
06/02/24
04:12
Creatinine 1.9 H
Lab Results
Hemoglobin A1c 7.8 % (4.0-5.6) H 05/31/24 02:57
Insulin Pump Settings
IP Diabetes Regimen
06/01/24 06/01/24 06/01/24
09:00 11:04 13:09
Glucose
POC Glucose 136 H 119 H 135 H
06/01/24 06/01/24 06/01/24
14:54 15:35 17:20
Glucose 148 H
POC Glucose 151 H 152 H
06/01/24 06/01/24 06/01/24
19:09 21:00 21:53
Glucose 129 H
POC Glucose 134 H 119 H
06/01/24 06/02/24 06/02/24
23:19 01:12 03:03
Glucose
POC Glucose 134 H 117 H 104 H
06/02/24 06/02/24 06/02/24
04:12 04:12 05:16
Glucose Cancelled 101 H
POC Glucose 108 H
06/02/24
07:13
Glucose
POC Glucose 101 H
Patient Education
--- NOTE | 2024-06-02 07:52 | W.PN.INTV ---
Today's Communication / Plan
Recommendations
As above
Assessment
-
64-year-old male with past medical history of PAD, diabetes, hypertension, CKD on HD, hyperlipidemia, GERD presenting with septic shock likely secondary to right foot infected wound requiring pressors.
#Septic shock secondary to right foot infected wound
- Patient had recent right TMA in March 2024 complicated by wound dehiscence requiring several debridements since then. In the ED, he was found to have purulent drainage from the TMA site. Right foot x-ray showed soft tissue gas in the foot and
ankle. He was taken to the OR for I&D, infection extended along the extensor tendons proximally as well as laterally across the tarsometatarsal joint was noted. Patient is critically ill requiring 4 pressors (levo, vaso, jarvis and epinephrine) for
hemodynamic stability.
- Vascular surgery is on board, status post guillotine amputation of the right lower extremity above the ankle. Will decide on timing for formal below-knee amputation.
- ESR and CRP elevated
- wbc continues to downtrend 33.7, lactic acid normal, AB.39/38/71/23
- Patient is on Zosyn and vancomycin, awaiting final wound culture, blood culture negative
#Acute hypoxic respiratory failure
- No wheezing or rhonchi heard on auscultation.
- Patient was intubated in the OR. Day 3 on ventilator. Ventilator settings (CMV): 16/450/5/40%
- Chest x-ray 06/01/2024: Persistent left basilar opacification, likely combination of small left effusion and adjacent atelectasis/consolidation.
#RAISSA on CKD
- Likely prerenal in the setting of sepsis
- Creatinine downtrending, 1.9 today
- Status post hemodialysis, continue CRRT given hemodynamic instability
#Lower extremity pitting edema, right greater than left
- Bedside ultrasound showed a noncompressible vein superior to the right common femoral vein and a noncompressible right popliteal vein concerning for DVT
- Lower extremity ultrasound showed bilateral extensive DVT. Patient was started on heparin drip after OR 05/31/2024.
#Elevated liver enzymes, emphysematous cholecystitis
- Abdominal ultrasound showed distended gallbladder, filled with stones and sludge, mild gallbladder wall thickening concerning for acute cholecystitis, negative sonographic Bermeo sign and no pericholecystic fluid.
- Abdomen diffusely tender on exam (more pronounced on the right upper quadrant), without guarding/tenderness.
- Patient is afebrile, not complaining of nausea, vomiting, abdominal pain.
- Likely due to septic shock and acute cholecystitis.
- Abdomen pelvis CT (05/31/2024) was concerning for emphysematous cholecystitis. IR was consulted, placed percutaneous nay tube. Bile Cx gram-negative. Low output from the nay tube since last night. Will need eventual outpatient follow-up with
surgery for cholecystectomy.
#Hyponatremia
- Likely chronic
- CRRT today
#Leukocytosis
- Likely secondary to sepsis
- Continues to downtrend, 33.7 today
#Asymptomatic urinary tract infection
- UA showed moderate bacteria, esterase 1+, wbc 3-5
- Urine culture negative
- Blood cultures negative
#Hyperglycemia
- Blood sugars elevated (>200), patient was started on insulin drip. Will continue to monitor Accu-Cheks and transition off insulin infusion as needed.
- Patient is on 10 units insulin glargine at bedtime and 4 units aspart at home
- Hemoglobin A1c 7.8
#Anemia
- Likely in the setting of chronic kidney disease
- No active bleeding, hemoglobin stable, 7.5 today
#Abnormal thyroid function
- TSH low, T4 within normal limits
- No history of thyroid disease
- Likely in the setting of acute infection, sick euthyroid syndrome
#Hypoalbuminemia
- s/p albumin infusion
Conditions present prior to admission
Hypertension -- Home meds currently on hold
Hyperlipidemia -- statin held due to elevated LFTs
Diabetes -- on insulin
GERD -- continue Protonix --> transition to IV Protonix
PAD s/p right lower extremity stent
CKD -- on hemodialysis
Neuropathy -- patient takes gabapentin and oxycodone 15mg every 12h at home, can restart gabapentin
Depression -- on duloxetine
Obesity due to excess calories
Plan:
RASS score -1, opens eyes spontaneously and follows commands. Sedated on fentanyl (100), wean as able. Continue Tylenol as needed and gabapentin.
Patient remains critically ill, currently on 4 pressors, Levophed 30, Jarvis-Synephrine 200, vasopressin 0.04 and epinephrine 4 mcg/min. Systolic pressures >90, diastolic pressures in the 40s -- likely in the setting of sepsis and PAD. Wean pressors
as able. Maintain MAP>60 or SBP>90.
Continue to hold home meds (Coreg and Norvasc).
Patient is day 3 on ventilator. Nonlabored breathing. Ventilator settings adjusted. Can consider trying SBT/SAT later today if hemodynamically stable. Maintain SpO2 > 92-94%
s/p percutaneous nay tube, tender on exam without rebound/guarding. Minimal output on nay tube, will discuss with IR for further plans.
History of GERD. Continue IV Protonix.
Continue CRRT. Replete lytes as needed.
Continue Zosyn and vancomycin (renally dosed) for right foot infection. Cultures pending.
Vascular surgery is on board, s/p guillotine of the right lower extremity above the ankle. Vascular surgery to decide on timing of formal below-knee amputation. Surgical dressings to be changed daily. Continue to hold Plavix.
Bilateral lower extremity DVT, continue heparin drip. PTT in the therapeutic range, continue to monitor closely.
Hemoglobin 7.5 today, can consider 1 unit PRBC transfusion. Trend H&H and transfuse if needed for Hb<7g/dL or plt<20k, unless there is concern for bleeding.
Trend wbc and monitor for fevers.
Continue insulin drip (1 unit/h), consider transition off of insulin infusion as able. Maintain euglycemia with goal BG 140�180, avoid hypoglycemia.
Subjective Dataa
Subjective Data
Date of Service:
Date of Service: June 02, 2024
Objective Data
Data Reviewed
Vital Signs / I&O / Oxygen:
Vital Signs
Temp Pulse Resp BP Pulse Ox
97.8 F 52 16 97/62 95
06/02/24 03:39 06/02/24 07:15 06/02/24 07:15 05/31/24 16:00 06/02/24 07:15
Intake and Output
06/01/24 06/02/24 06/03/24
06:59 06:59 06:59
Intake Total 3096.6 / 3255.4 4693.0 / 4813.2 120.2 / 120.2
Output Total 100 / 100 2622 / 2752 130 / 130
Balance 2996.6 / 3155.4 2071.0 / 2061.2 -9.8 / -9.8
SaO2 [A/C] 95
SaO2 95
Nasal Cannula flow liters per 8
minute
Physical Exam
General: Comfortable and Fever (n)
HEENT: Normocephalic and Thrush
Cardiovascular: S1-S2, Regular Rhythm and Peripheral Edema
Respiratory: Crackles, Non-Labored Respirations, Accessory Resp Muscle Use (n) and Other (Intubated and mechanically ventilated)
GI: Soft and Tender (Diffusely tender without guarding or rebound)
Neurology: Awake and Other (Sedated on ventilation, follows commands and opens eyes spontaneously)
Skin: Warm and Other (Left lower extremity not well-perfused. 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 No signs of bleeding.)
Labs/Micro/Reports
Lab Data
06/02/24 04:12
Laboratory Results
06/01/24 06/01/24 06/01/24
09:58 15:35 21:53
APTT 97.5 H 130.2 H 149.4 H
pH
pCO2
pO2
HCO3
O2 Delivery Level
06/02/24
04:12
APTT 111.8 H
pH 7.39
pCO2 38
pO2 71 L
HCO3 23.0
O2 Delivery Level Vent
Microbiology
05/30/24 15:42 Blood/Venous Blood Culture - Preliminary
No Growth in 48 hours- Final report to follow
05/30/24 15:42 Blood/Venous Blood Culture - Preliminary
No Growth in 48 hours- Final report to follow
05/31/24 18:46 Bile Gram Stain - Preliminary
05/30/24 21:41 Abscess Anaerobic Culture - Preliminary
Culture pending. Anaerobic cultures are examined after 3
days incubation. Additional information to follow.
05/30/24 21:41 Abscess Wound Culture - Preliminary
05/30/24 21:41 Abscess Gram Stain - Preliminary
05/30/24 16:52 Foot - Right Wound Culture - Preliminary
Gram negative bacilli
Diptheroids
05/30/24 16:52 Foot - Right Gram Stain - Preliminary
05/30/24 15:42 Urine Urine Culture - Final
NO GROWTH
05/30/24 15:42 Nasal Swab Influenza Types A & B (HOLDEN) - Final
Negative for Influenza A & B, NAAT
Negative results must be combined with clinical observations
and patient history.
Nucleic Acid Amplification test (NAAT)performed on the
[employer] platform.
[2024-06-02] MEDS: TYLENOL ORAL SOLUTION 650 MG TUBE ×3 (07:54→16:29)
[2024-06-02] MEDS: CYMBALTA DELAYED RELEASE 20 MG TUBE ×2 (07:54→21:13)
[2024-06-02] MEDS: LOW STRENGTH ASPIRIN 81 MG TUBE (07:54)
[2024-06-02] MEDS: MYCOSTATIN ORAL SUSPENSION 5 ML PO ×4 (07:54→21:13)
[2024-06-02] MEDS: NEURONTIN 100 MG TUBE ×3 (07:55→21:13)
[2024-06-02] MEDS: NSS (PRESERVATIVE FREE) 10 ML IV (07:55)
[2024-06-02] MEDS: PROTONIX IV 40 MG IV (07:55)
--- NOTE | 2024-06-02 08:32 | PHA.VAN.FU ---
Vancomycin Assessment / Plan
- Assessment
Hemodialysis Schedule: Other ([facility] at 1.5 L/H)
WBC's are: Trending Down
Concomitant Antimicrobials: piperacillin/tazobactam
- Assessment - Therapeutic Drug Monitoring
Random Level: 14.1 - drawn ~16.5H after previous dose of 1250mg
- Dosing Plan
Dosing by Level: Re-dose today (Vanc 1500mg)
Since level was drawn < 18H after prior dose, patient may have additional clearance with CRRT
However, patient may also have accumulation with repeated dosing
Will trial slightly increased dosing today and trend levels
- Monitoring Plan
Random Level: 06/03 06
- Follow Up
Pharmacy will continue to follow.
Vancomycin Follow UP
- -
Patient Age: 64
Patient Sex: Male
Vancomycin Day #: 3
Indication: Skin And Soft Tissue
Requesting Provider: Christen Hurley / Dr. Yeboah
Pertinent Antimicrobial Allergies:
NKDA
Height / Weight:
Height 5 ft 6 in
Actual Weight 105.9 kg
Pertinent Past Medical History: BMI ~37, ESRD on HD MWF, DM 2, PAD
- Vital Signs / Lab Results
Temp Pulse Resp BP Pulse Ox
97.8 F 52 16 97/62 93
06/02/24 03:39 06/02/24 07:15 06/02/24 07:15 05/31/24 16:00 06/02/24 08:00
Lab Results - Hematology
05/30/24 05/31/24 05/31/24
15:31 02:57 20:14
WBC 27.5 H 42.0 H* 39.8 H
06/01/24 06/02/24
03:00 04:12
WBC 38.3 H 33.7 H
Lab Results - Chemistry
05/30/24 05/31/24 06/01/24
15:31 02:57 00:43
BUN 47 H 55 H 33 H
Creatinine 2.4 H 2.7 H 2.3 H
Estimated Creat Clear 36 32 37
Albumin 2.6 L
06/01/24 06/01/24 06/01/24
03:00 15:35 21:53
BUN 34 H 35 H 30 H
Creatinine 2.4 H 2.3 H 2.0 H
Estimated Creat Clear 36 37 43
Albumin 2.1 L
06/02/24 06/02/24 06/02/24
04:12 04:12 04:12
BUN Cancelled 28 H
Creatinine Cancelled 1.9 H
Estimated Creat Clear Cancelled
Albumin
06/02/24
04:12
BUN
Creatinine
Estimated Creat Clear 45
Albumin
05/30/24 05/30/24
15:42 19:45
Lactic Acid 1.2 Cancelled
Microbiology Results
05/30/24 15:42 Blood Culture - Preliminary
Blood/Venous No Growth in 48 hours- Final report to follow
05/30/24 15:42 Blood Culture - Preliminary
Blood/Venous No Growth in 48 hours- Final report to follow
05/31/24 18:46 Gram Stain - Preliminary
Bile
05/30/24 21:41 Anaerobic Culture - Preliminary
Abscess Culture pending. Anaerobic cultures are examined after 3
days incubation. Additional information to follow.
05/30/24 21:41 Wound Culture - Preliminary
Abscess Gram Stain - Preliminary
05/30/24 16:52 Wound Culture - Preliminary
Foot - Right Gram negative bacilli
Diptheroids
Gram Stain - Preliminary
05/30/24 15:42 Urine Culture - Final
Urine NO GROWTH
Therapeutic Drug Monitoring
Random Vancomycin 14.1 ug/ml 06/02/24 04:12
--- NOTE | 2024-06-02 08:43 | W.PN.NEPH.PH ---
Today's Communication / Plan
-
CRRT
Assessment/Plan
-
Impression:
ESRD MWF ([place])
Sepsis/leukocytosis with hemodynamic compromise
Hypoxic Respiratory failure
Diabetes
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
History of hypertension
Anemia
PAD
Plan:
CRRT continues
will try to keep relatively even with some UF
abx per primary team
supportive care at this time
transfuse 1 unit PRBC
continues on heparin gtt fro bilateral DVT, also helping CRRT
prognosis remains guarded
critical care time 31 minutes
-
-
Date of Service: June 02, 2024
CC / HPI / ROS
-
Chief Complaint:
ESRD
History of Present Illness:
remains hypotense on 4 pressors in ICU
on vent O2 requirements better 40%
s/p right foot amputation 05/31
s/p cholecystotomy tube 05/31
Hgb lower 7.5
WBC slowly improving
Na better 135
Review of Systems:
intubated
awake. no complaints.
Labs
-
Labs:
WBC 33.7 10^3/uL (4.8-10.8) H 06/02/24 04:12
RBC 2.67 10^6/uL (4.70-6.10) L 06/02/24 04:12
Hgb 7.5 g/dL (13.0-18.0) L 06/02/24 04:12
Hct 22.5 % (39.0-52.0) L 06/02/24 04:12
Plt Count 418 10^3/uL (130-400) H 06/02/24 04:12
eGFR 39.15 06/02/24 04:12
eGFR Cancelled 06/02/24 04:12
Bgq-P-Wcnsxydvinw Pept 4060 pg/ml 05/30/24 15:31
Albumin 2.1 g/dl (3.5-5.0) L 06/01/24 03:00
Physical Exam
-
Vital Signs:
Vital Signs
Temp Pulse Resp BP Pulse Ox
97.8 F 52 16 97/62 93
06/02/24 03:39 06/02/24 07:15 06/02/24 07:15 05/31/24 16:00 06/02/24 08:00
Cardiovascular:: Regular rate and rhythm
Respiratory:: Bilateral: Coarse
Lung Excursion:: Normal
Abdomen:: Nontender and Soft
Bowel Sounds:: Normal
Extremity Edema:: +2: Bilateral:
--- NOTE | 2024-06-02 08:45 | W.PN.UPDATE ---
Update Note
Progress Note Update
CRRT in progress. no clotting issues while on heparin gtt
continue 4K bath
goal UF 25ml/hr
wean pressors as allowed
--- NOTE | 2024-06-02 09:08 | W.PN.ID1 ---
Date of Service
Date of Service: June 02, 2024
Today's Communication
Continue Vanco/Zosyn.
Assessment / Plan
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
s/p I+D 05/30. OR cx: GNR
s/p guillotine amp 05/31
# Acute cholecystitis
s/p perc nay 05/31
Gram stain: GNR, cx pending
# Septic shock
Remain on 4 pressors
Significant leukocytosis - slight improvement today
# VDRF
# ESRD on HD. Currently on CRRT
# Extensive BLE DVT
Plan:
- Blood cx's neg to date
- Continue Zosyn and Vancomycin, adjusted for CRRT per Pharmacy
-Trend vitals/wbc
-Prognosis guarded. Pt critically ill.
# Conditions OR ASSISTANT
Type 2 diabetes mellitus
End-stage renal disease on hemodialysis
Hypertension
PAD s/p RLE stent
HLD
Obstructive sleep apnea
Depression
Right foot TMA 03/27/24 [facility]
Chief Complaint
-: Clinical Sepsis
Subjective / Review of Systems
+ abd pain
Vital Signs / Physical Exam
Vital Signs
Vital Signs
Temp Pulse Resp BP Pulse Ox
98.0 F 52 16 97/62 93
06/02/24 08:00 06/02/24 07:15 06/02/24 07:15 05/31/24 16:00 06/02/24 08:00
Physical Exam
Constitutional: Acutely Ill
Eyes: Sclera Anicteric
Cardiovascular: Regular Rate and S1/S2
Pulmonary: Clear (anteriorly)
Gastrointestinal: Soft, Tender (right abd), Non Distended, Normal Bowel Sounds and Other (Perc nay dark brown bile)
Genito-Urinary: Negative CVA Tenderness
Extremities: Edema (left stump dressing clean)
Neurological: Awake
Lines: PICC (RUE) and HD Cath (No erythema)
Objective Data
Lab Data
Lab Results
06/02/24 04:12
ESR 70 mm/hour (0-20) H 05/31/24 02:57
PT 17.4 Sec (11.4-14.6) H 05/31/24 02:57
INR 1.40 05/31/24 02:57
APTT 111.8 Sec (23.4-35.0) H 06/02/24 04:12
Estimated Creat Clear 45 ml/min 06/02/24 04:12
Estimated Creat Clear Cancelled 06/02/24 04:12
Lactic Acid Cancelled 05/30/24 19:45
Total Bilirubin 1.1 mg/dl (0.2-1.3) 06/01/24 03:00
AST 252 U/L (17-59) H 06/01/24 03:00
ALT 115 U/L (0-50) H 06/01/24 03:00
Alkaline Phosphatase 205 U/L (38-126) H 06/01/24 03:00
C-Reactive Protein > 270.00 mg/L (0.0-10.00) H 05/31/24 02:57
Amylase Cancelled 06/01/24 06:00
Most recent labs reviewed.
Micro Results:
05/30/24 15:42 Blood Culture - Preliminary
Blood/Venous No Growth in 48 hours- Final report to follow
05/30/24 15:42 Blood Culture - Preliminary
Blood/Venous No Growth in 48 hours- Final report to follow
05/31/24 18:46 Body Fluid Culture - Pending
Bile Gram Stain - Preliminary
05/30/24 21:41 Anaerobic Culture - Preliminary
Abscess Culture pending. Anaerobic cultures are examined after 3
days incubation. Additional information to follow.
05/30/24 21:41 Wound Culture - Preliminary
Abscess Gram Stain - Preliminary
05/30/24 16:52 Wound Culture - Preliminary
Foot - Right Gram negative bacilli
Diptheroids
Gram Stain - Preliminary
05/30/24 15:42 Urine Culture - Final
Urine NO GROWTH
05/30/24 15:42 Influenza Types A & B (HOLDEN) - Final
Nasal Swab Negative for Influenza A & B, NAAT
Negative results must be combined with clinical observations
and patient history.
Nucleic Acid Amplification test (NAAT)performed on the
[employer] platform.
05/30/24 CXR: No acute cardiopulmonary process within the limitations of very low lung volumes.
05/30/24 ABD US: The gallbladder is distended and filled with stones and sludge. Mild gallbladder wall thickening raising the possibility for acute cholecystitis. However, no appreciable pericholecystic fluid and a reportedly negative sonographic
Bermeo's sign.
05/30/24 Foot XRAY: Soft tissue gas in the right foot and ankle most suggestive of infection
05/31/24 Periph Vasc US: Extensive bilateral lower extremity deep venous thrombosis
Care Review
Plan reviewed with: Nurse (ICU nurse Renetta)
--- NOTE | 2024-06-02 09:09 | W.PN.VS ---
Addendum entered and electronically signed by Juanpablo Holcomb III, MD 06/02/24 11:25:
This patient was seen and examined in collaboration with RENZO Gray. I agree with the history and physical exam as well as the assessment and plan. I have the following additions:
Remains critically ill
Right guillotine amputation stump clean and dry with no gross infection identified
Appears to have source control with respect to the right leg
Will follow along with medical team and determine when suitable for formal below the knee amputation based on his clinical trajectory
If wound is stable may plan for VAC dressing placement tomorrow
Signed:
Juanpablo Holcomb III, MD
[facility] Surgery
[phone] (cell)
Addendum entered and electronically signed by RENZO Wright 06/02/24 09:41:
Amputation site
Addendum entered and electronically signed by RENZO Gray 06/02/24 09:21:
Additionally we ordered 2 units packed red blood cells for drifting hemoglobin of 7.5, will continue to monitor with repeat labs
Original Note:
Today's Communication / Plan
-
Patient seen and examined at bedside with Dr. Juanpablo Holcomb III, below plan reviewed with attending.
Assessment/Plan
-
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
Plan:
Will replace dressing tomorrow with VAC dressing
Subjective Data
-
Date of Service: June 02, 2024
Patient intubated and sedated, does move bilateral upper extremities and lower extremities to command and gives thumbs up or nods head yes or no to questions appropriately.
Objective Data
-
Vital Signs
Temp Pulse Resp BP Pulse Ox
98.0 F 52 16 97/62 93
06/02/24 08:00 06/02/24 07:15 06/02/24 07:15 05/31/24 16:00 06/02/24 08:00
Intake and Output
06/01/24 06/02/24 06/03/24
06:59 06:59 06:59
Intake Total 3096.6 / 3255.4 4693.0 / 4813.2 387.3 / 387.3
Output Total 100 / 100 2622 / 2752 270 / 270
Balance 2996.6 / 3155.4 2071.0 / 2061.2 117.3 / 117.3
Intake:
IV fluids (Total) 3016.6 / 3175.4 3344.0 / 3464.2 357.3 / 357.3
Levophed 1641.4 / 1697.7 1330.0 / 1384.5 162.0 / 162.0
epi 154.0 / 187.8 406.8 / 412.1 15.0 / 15.0
fent 60.0 / 65.0 221.3 / 230.8 28.6 / 28.6
heparin 203 / 220 355.6 / 365.3 28.8 / 28.8
insulin 22.7 / 24.2 30.1 / 31.1 2.4 / 2.4
tor 750 / 780 706.0 / 734.9 86.3 / 86.3
prop 77.5 / 83.7 23.1 / 23.1
vasopressin 108 / 117 271.1 / 282.4 34.2 / 34.2
IV piggybacks 50 / 50 1020.0 / 1020.0
Feeding tube flush amount 100 / 100
Amount instilled into Drain ( 10 / 10
Total)
Right Abdomen 10 / 10
Amount instilled into GI Tube ( 30 / 30 140 / 140 30 / 30
Total)
Cassia Sump 30 / 30 140 / 140 30 / 30
Blood Products 79 / 79
Albumin 25% / 79
Output:
Drain Output (Total) 20 / 20
Right Abdomen 20 / 20
Urinary Drain Output (Total) 100 / 100 10 / 10
Right A 100 / 100 10 / 10
Gastrointestinal tube output ( 0 / 0
Total)
Cassia Sump 0 / 0
Urine, Voided 0 / 0 0 / 0 0 / 0
CRRT - Actual ultrafiltration 2592 / 2722 270 / 270
volume
Lab Results
06/02/24 04:12
Calcium 8.5 mg/dl (8.4-10.2) 06/02/24 04:12
Calcium Cancelled 06/02/24 04:12
Phosphorus 2.7 mg/dl (2.5-4.5) 06/02/24 04:12
Magnesium 2.0 mg/dl (1.6-2.3) 06/02/24 04:12
Total Bilirubin 1.1 mg/dl (0.2-1.3) 06/01/24 03:00
Direct Bilirubin 0.8 mg/dl (0.0-0.4) H 06/01/24 03:00
AST 252 U/L (17-59) H 06/01/24 03:00
ALT 115 U/L (0-50) H 06/01/24 03:00
Alkaline Phosphatase 205 U/L (38-126) H 06/01/24 03:00
Total Protein 5.2 g/dl (6.3-8.2) L 06/01/24 03:00
Albumin 2.1 g/dl (3.5-5.0) L 06/01/24 03:00
Physical Exam
-
Patient is currently intubated and sedated appears in no distress
No tachycardia
Tolerating ventilator
Right lower extremity guillotine amp dressing CDI, no evidence of bleeding, surrounding skin intact, dressing removed viable tissue, no evidence of necrosis, no evidence of active bleeding, dressing changed by this provider
--- NOTE | 2024-06-02 09:26 | W.PN.HOSP.TC ---
Today's Communication/Plan
-
see bold
Assessment / Plan
Assessment / Plan
HPI: 64-year-old male with a past medical history of PVD, diabetes, hypertension, and hyperlipidemia presents with altered mental status, lethargy, and was found to have pus draining from his right TMA site. History is obtained from his due to
patient's lethargy. Patient had a recent TMA around March 27, 2024 at [facility]. It appears that it is infected. He is now hypotensive, with a blood pressure of 77/45. He has an HD tunneled catheter and is getting dialysis 3 times a
week.
#Septic shock
Possible sources include right TMA infection and cholecystitis, treat as below
Appreciate appeals board referee/nephro input, currently requiring Levophed, Jarvis-Synephrine, vassopressin, and epineprhine to maintain MAP greater than 65
Weaning off epinephrine now, hopeful to be weaned off of vasopressin today as well
Trend fever and white count
#Right TMA infection
#Severe PVD
Records requested from [facility] where his original surgery was done in March 2024
Plavix held for surgical intervention, continue aspirin
Appreciate podiatry, vascular surgery, ID input
Status post I&D in OR by podiatry on 05/30
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
Vascular surgery plans for VAC dressing tomorrow
Continue IV vancomycin and Zosyn as per ID
#Acute hypoxic respiratory failure
Remains intubated after his surgery on 05/31
Continue vent management as per appeals board referee
Continue CRRT as per nephrology
#End-stage renal failure on dialysis at [place] [facility] Thursday/Thursday/Thursday
#Hyponatremia
Appreciate nephrology input, continue CRRT as per nephrology
#Acute emphysematous cholecystitis
#Right upper quadrant abdominal pain
Ultrasound shows distended gallbladder with stones and sludge with mild gallbladder wall thickening
CT abdomen pelvis shows enlarged gallbladder with stones, sludge, air-fluid level, suspicious for emphysematous cholecystitis
Status post percutaneous cholecystostomy tube by IR on 05/31
#Incidence of bilateral deep vein thrombosis
IV heparin drip
#Thrush
Nystatin
#History of essential hypertension
Hold amlodipine, hold Coreg secondary to septic shock
#Type 2 diabetes
A1C 7.8
Continue insulin drip, Accu-Cheks
#Gastroesophageal reflux disease
Continue PPI
#Constipation
Continue laxatives when able
#Anxiety/depression
Continue duloxetine 20 mg twice a day
#Obesity due to excess calories
Affects all aspects of care
DVT prophylaxis�IV heparin
Full code
Total time spent to see the patient on the floor, examine the patient, review data and lab results, discuss treatment plan with patient, nursing staff around 52 minutes.
Physical Exam
General: Lethargic, intubated
HEENT: Normocephalic, Atraumatic, EOMI
+Hoarse voice
Respiratory: Clear to Auscultation bilaterally
Cardiac: Normal S1/S2, Regular Rate and Rhythm
GI: Soft, diffusely tender, especially at the right upper quadrant
+biliary drain
Extremities: No Clubbing, Cyanosis
Right ankle amputation dressed, bilateral lower extremity edema noted
Anticipated Discharge: > 48 hours
Subjective/Interval History
-
Date of Service: June 02, 2024
Patient reports abdominal pain and right ankle pain. Remains intubated. No fever, no vomiting.
Objective Data
-
Labs:
Laboratory Results
06/01/24 06/02/24 06/02/24
21:53 04:12 04:12
WBC 33.7 H
Hgb 7.5 L
Hct 22.5 L
Plt Count 418 H
APTT 149.4 H 111.8 H
HCO3 23.0
Sodium 133 L Cancelled 135
Potassium 3.8 Cancelled
Chloride 102
Carbon Dioxide 21 L
BUN 30 H
Creatinine 2.0 H
Glucose 129 H
Calcium 7.9 L
06/02/24 06/02/24 06/02/24
04:12 04:12 04:12
WBC
Hgb
Hct
Plt Count
APTT
HCO3
Sodium
Potassium 3.9
Chloride Cancelled 103
Carbon Dioxide Cancelled 22
BUN Cancelled
Creatinine
Glucose
Calcium
06/02/24 06/02/24 06/02/24
04:12 04:12 04:12
WBC
Hgb
Hct
Plt Count
APTT
HCO3
Sodium
Potassium
Chloride
Carbon Dioxide
BUN 28 H
Creatinine Cancelled 1.9 H
Glucose Cancelled 101 H
Calcium Cancelled
06/02/24 06/02/24 06/02/24
04:12 10:00 16:00
WBC
Hgb
Hct
Plt Count
APTT Pending
HCO3
Sodium Pending Pending
Potassium Pending Pending
Chloride Pending Pending
Carbon Dioxide Pending Pending
BUN Pending Pending
Creatinine Pending Pending
Glucose Pending Pending
Calcium 8.5 Pending Pending
06/02/24
22:00
WBC
Hgb
Hct
Plt Count
APTT
HCO3
Sodium Pending
Potassium Pending
Chloride Pending
Carbon Dioxide Pending
BUN Pending
Creatinine Pending
Glucose Pending
Calcium Pending
Vital Signs:
Vital Signs
Temp Pulse Resp BP Pulse Ox
98.0 F 52 16 97/62 93
06/02/24 08:00 06/02/24 07:15 06/02/24 07:15 05/31/24 16:00 06/02/24 08:00
I&O
06/01/24 06/02/24 06/03/24
06:59 06:59 06:59
Intake Total 3096.6 / 3255.4 4693.0 / 4813.2 387.3 / 387.3
Output Total 100 / 100 2622 / 2752 412 / 412
Balance 2996.6 / 3155.4 2071.0 / 2061.2 -24.7 / -24.7
[2024-06-02 09:31] LABS: Glucose - Point of Care 109 mg/dl (70-99)
--- NOTE | 2024-06-02 09:34 | PTCARENOTE ---
recd 0715 handoff in room, CRRT continues, ETT to vent tolerating current settings, awakens easily, interactive, calm. art line zeroed, titrating epi for MAP >60, see intervention. turned, positioned for comfort. skin care. vascular team here,
dressing changed R upper ankle, open, minimal bloody drainage, wrapped with roberto, no further drainage at this time. heparin, fentanyl, glycemic continues as noted/ordered, see intervention. rests when undisturbed. daughter Sonia updated by phone.
oral care.
[2024-06-02] MEDS: VANCOCIN 530 MG IV (10:08)
[2024-06-02 10:15] LABS: Ionized Calcium 0.91 mMOL/L (1.15-1.33)
[2024-06-02 10:18] LABS: Glucose - Point of Care 123 mg/dl (70-99)
[2024-06-02 10:24] LABS: APTT 99.6 Sec (23.4-35.0)
[2024-06-02 10:43] LABS: Carbon Dioxide 22 mmol/L (22-30); Chloride 103 mmol/L (98-107); Estimated Creatinine Clearance 48 ml/min; Potassium 3.9 mmol/L (3.5-5.1); eGFR 41.77
[2024-06-02] MEDS: CALCIUM GLUCONATE 130 MG IV ×2 (11:12→16:50)
--- NOTE | 2024-06-02 11:53 | PTCARENOTE ---
per blood bank, [facility] is requesting sparing use of O neg blood, will release 1 unit and the second after HH/increased need. Maria E Ramos NP from vascular team aware. no other change, gently titrating epi as noted. CRRT continues.
[2024-06-02 12:05] LABS: Blood Urea Nitrogen 26 mg/dl (9-20); Calcium 8.2 mg/dl (8.4-10.2); Glucose 125 mg/dl (70-99); Phosphorus 2.5 mg/dl (2.5-4.5); Sodium 133 mmol/L (135-145)
[2024-06-02 12:13] LABS: Glucose - Point of Care 113 mg/dl (70-99)
[2024-06-02] MEDS: SODIUM PHOSPHATE 260 MEQ IV (13:22)
--- NOTE | 2024-06-02 14:04 | CHAP ---
Fr.Timothy Robles of [facility] in [place] anointed Samir, gave him Last Rites and an Apostolic Pardon.
[2024-06-02 14:24] LABS: Glucose - Point of Care 135 mg/dl (70-99)
--- NOTE | 2024-06-02 14:48 | PTCARENOTE ---
see titrations, new therapy fluid hung, resting unless disturbed, more relaxed after tylenol earlier. awaiting second unit PC, per vascular they spoke with blood bank and 2nd unit to be given with no required HH prior.
--- NOTE | 2024-06-02 14:52 | CM ---
CM following re: discharge planning.
Discussed in rounds, reviewed pt's chart, met with pt.
Per Rounds meeting, pt is POD #2 Guillotine amputation of the right lower extremity above the ankle, remains intubated, remains critically ill, continue supportive care.
Pt admitted from [facility] and family does not want pt returns back there. Pt is on HD.
D/C plan: uncertain at this time and will de[end on pt's progress.
CM will follow to assist pt with discharge to a new preferred SNF.
--- NOTE | 2024-06-02 15:24 | PTCARENOTE ---
second unit blood infusing. restarted vaso for continuing MAP <60 with almost immed effect.
[2024-06-02 16:23] LABS: Ionized Calcium 1.19 mMOL/L (1.15-1.33)
[2024-06-02 16:29] LABS: Glucose - Point of Care 137 mg/dl (70-99)
[2024-06-02] MEDS: NOVOLIN R INSULIN INFUSION 100 IV (17:01)
[2024-06-02 17:09] LABS: APTT 107.5 Sec (23.4-35.0)
[2024-06-02 17:19] LABS: Blood Urea Nitrogen 21 mg/dl (9-20); Calcium 8.1 mg/dl (8.4-10.2); Carbon Dioxide 20 mmol/L (22-30); Chloride 108 mmol/L (98-107); Estimated Creatinine Clearance 57 ml/min; Glucose 124 mg/dl (70-99); Magnesium 1.8 mg/dl (1.6-2.3); Phosphorus 3.5 mg/dl (2.5-4.5); Potassium 3.6 mmol/L (3.5-5.1); Sodium 136 mmol/L (135-145); eGFR 51.99
[2024-06-02] MEDS: MAGNESIUM SULFATE 100 IV (17:34)
--- NOTE | 2024-06-02 18:07 | PTCARENOTE ---
continuing care, labs resulting, repletions in progress or completed, see MAR. I/O tallied. R ankle now with drainage, covidien changed underneath. family bedside. repositioned. A line tubing changed.
[2024-06-02 18:25] LABS: Glucose - Point of Care 133 mg/dl (70-99)
--- NOTE | 2024-06-02 19:30 | PTCARENOTE ---
rec'd patient, family at bedside and updated. pt intubated with 8.0 ETT, 22 at lip, adjusted to center. AC 16/450/5/60%. pt with b/l wrist restraints, nodding appropriately, following commands, denies pain at this time. SB on monitor with BBB and
1st degree HB. BP maintained with pressors x3. afebrile. NGT to LIS. no UOP x multiple days. perc nay drain intact, dressing clean and dry. RLE guillotine amp with roberto wrap, dressing changed today per vascular, drainage noted. CRRT ongoing, 4k
bath, TFR 1.5, BFR currently at 270, running net neg 25. q6h labs. heparin gtt, glycemic protocol, fent gtt infusing. care continues.
[2024-06-02 20:23] LABS: Glucose - Point of Care 107 mg/dl (70-99)
[2024-06-02] MEDS: COLACE LIQUID 200 MG TUBE (21:13)
[2024-06-02] MEDS: SENNA SYRUP 17.6 MG TUBE (21:13)
[2024-06-02] MEDS: HEPARIN 25000 UNITS/250 ML IV (21:47)
[2024-06-02 22:02] LABS: Ionized Calcium 1.27 mMOL/L (1.15-1.33)
[2024-06-02 22:07] LABS: Glucose - Point of Care 110 mg/dl (70-99)
[2024-06-02 22:30] LABS: Blood Urea Nitrogen 20 mg/dl (9-20); Calcium 8.8 mg/dl (8.4-10.2); Carbon Dioxide 22 mmol/L (22-30); Chloride 104 mmol/L (98-107); Estimated Creatinine Clearance 54 ml/min; Glucose 108 mg/dl (70-99); Magnesium 2.7 mg/dl (1.6-2.3); Phosphorus 3.3 mg/dl (2.5-4.5); Potassium 3.9 mmol/L (3.5-5.1); Sodium 135 mmol/L (135-145); eGFR 48.11
--- NOTE | 2024-06-03 00:16 | PTCARENOTE ---
pt reassessed. family remains at bedside. FiO2 down to 50%. CHG bath complete. titrating pressors as able. no UOP, bladder scan for 112 ml. insulin gtt currently on hold per GP, BGM 93. care continues
[2024-06-03 00:25] LABS: Glucose - Point of Care 93 mg/dl (70-99)
[2024-06-03 01:12] LABS: Glucose - Point of Care 97 mg/dl (70-99)
[2024-06-03] MEDS: SUBLIMAZE 100 IV ×2 (01:26→17:30)
[2024-06-03 02:18] LABS: Glucose - Point of Care 114 mg/dl (70-99)
[2024-06-03] MEDS: PITRESSIN 100 IV ×3 (03:07→20:06)
[2024-06-03] MEDS: LEVOPHED 258 MG IV ×5 (03:07→21:45)
[2024-06-03 03:18] LABS: Glucose - Point of Care 127 mg/dl (70-99)
[2024-06-03 04:25] LABS: Glucose - Point of Care 144 mg/dl (70-99)
[2024-06-03 04:26] LABS: B.E. -2.8 mmol/L; HCO3 21.8 mmol/L (21-28); O2 Saturation % 96.3 % (94-98); PCO2 36 mmHg (35-48); PO2 67 mmHg (83-108); pH 7.39 (7.35-7.45)
[2024-06-03] MEDS: SUBLIMAZE 50 MCG IV ×4 (04:27→23:57)
[2024-06-03 04:28] LABS: Ionized Calcium 1.28 mMOL/L (1.15-1.33)
[2024-06-03] MEDS: ZOSYN 50 IV (04:31)
[2024-06-03 04:35] VITALS: BMI 37.6
[2024-06-03 04:40] LABS: Hematocrit 26.8 % (39.0-52.0); Hemoglobin 8.7 g/dL (13.0-18.0); Mean Corp Hgb Conc. 32.5 g/dL (33.0-37.0); Mean Corpuscular Hgb 27.9 pg (27.0-31.0); Mean Corpuscular Volume 85.9 fL (80.0-94.0); Mean Platelet Volume 9.5 fL (7.4-10.4); Platelet Count 354 10^3/uL (130-400); Red Blood Cell Count 3.12 10^6/uL (4.70-6.10)
[2024-06-03 04:48] LABS: APTT 97.7 Sec (23.4-35.0)
[2024-06-03 05:00] LABS: ALT (SGPT) 45 U/L (0-50); AST (SGOT) 125 U/L (17-59); Albumin 2.2 g/dl (3.5-5.0); Alkaline Phosphatase 478 U/L (38-126); Blood Urea Nitrogen 19 mg/dl (9-20); Carbon Dioxide 20 mmol/L (22-30); Chloride 101 mmol/L (98-107); Direct Bilirubin 0.6 mg/dl (0.0-0.4); Estimated Creatinine Clearance 51 ml/min; Glucose 143 mg/dl (70-99); Magnesium 2.4 mg/dl (1.6-2.3); Phosphorus 2.9 mg/dl (2.5-4.5); Potassium 4.1 mmol/L (3.5-5.1); Sodium 135 mmol/L (135-145); Total Protein 5.2 g/dl (6.3-8.2); eGFR 44.74
[2024-06-03] MEDS: RFP-401 HD Soln (K+ 4 mEq/L) 15000 ML CRRT-IRR (05:08)
--- NOTE | 2024-06-03 05:15 | PTCARENOTE ---
AM labs sent. no CRRT lyte repletions needed overnight. ETT gonsalez changed. remains on 50% FiO2. tor gtt currently off, titrating levo per MAP goal. perc nay drain flushed per order. care continues
[2024-06-03 05:20] LABS: Vancomycin Random 18.1 ug/ml
[2024-06-03 06:14] LABS: Glucose - Point of Care 151 mg/dl (70-99)
--- NOTE | 2024-06-03 07:52 | W.PN.NEPH.PH ---
Today's Communication / Plan
-
CRRT
pressors
Assessment/Plan
-
Impression:
ESRD MWF ([place])
Sepsis/leukocytosis with hemodynamic compromise
Hypoxic Respiratory failure
Diabetes
History of right TMA with purulent drainage from site, status post ankle amputation 05/31/2024
History of hypertension
Anemia
PAD
Plan:
CRRT continues
lytes and acidosis stable on CRRT
will try to keep relatively even with some UF ,weights unchanged
abx per primary team (renally dosed)
supportive care at this time
Maintain multiple pressors to keep MAP at 65 or greater
Anemia improved after 1 unit blood transfusion
continues on heparin gtt fro bilateral DVT, also helping CRRT
prognosis remains guarded
critical care time 31 minutes
-
-
Date of Service: June 03, 2024
CC / HPI / ROS
-
Chief Complaint:
ESRD
History of Present Illness:
remains hypotense on pressors in ICU
on vent O2 requirements better 40%
s/p right foot amputation 05/31
s/p cholecystotomy tube 05/31
Hgb >8 after transfusion
WBC slowly improving
Na better 135
Review of Systems:
no fevers
intubated on stable fio2 40%.
Labs
-
Labs:
WBC 30.0 10^3/uL (4.8-10.8) H 06/03/24 04:16
RBC 3.12 10^6/uL (4.70-6.10) L 06/03/24 04:16
Hgb 8.7 g/dL (13.0-18.0) L 06/03/24 04:16
Hct 26.8 % (39.0-52.0) L 06/03/24 04:16
Plt Count 354 10^3/uL (130-400) 06/03/24 04:16
eGFR 44.74 06/03/24 04:16
Qhl-D-Ugotghzduym Pept 4060 pg/ml 05/30/24 15:31
Albumin 2.2 g/dl (3.5-5.0) L 06/03/24 04:16
Physical Exam
-
Vital Signs:
Vital Signs
Temp Pulse Resp BP Pulse Ox
98.1 F 55 16 121/43 94
06/03/24 03:08 06/03/24 06:30 06/03/24 06:30 06/02/24 17:09 06/03/24 07:30
Cardiovascular:: Regular rate and rhythm
Respiratory:: Bilateral: Coarse
Lung Excursion:: Normal
Abdomen:: Nontender and Soft
Bowel Sounds:: Decreased
Extremity Edema:: +1: Bilateral: and None: Right: (ankle amp)
Holcomb Catheter: No
--- NOTE | 2024-06-03 08:01 | W.PN.UPDATE ---
Update Note
Progress Note Update
CRRT note
Patient seen on CRRT
Systolic blood pressure 110 on multiple pressor support
Replacement rate 1.5 L/h
4K bath
UF 25 cc/h
Remains on heparin drip
[2024-06-03 08:30] LABS: Glucose - Point of Care 168 mg/dl (70-99)
[2024-06-03] MEDS: NEURONTIN 100 MG TUBE ×3 (08:31→21:46)
[2024-06-03] MEDS: PROTONIX IV 40 MG IV (08:32)
[2024-06-03] MEDS: NSS (PRESERVATIVE FREE) 10 ML IV (08:32)
[2024-06-03] MEDS: MYCOSTATIN ORAL SUSPENSION 5 ML PO ×4 (08:32→21:46)
[2024-06-03] MEDS: LOW STRENGTH ASPIRIN 81 MG TUBE (08:32)
[2024-06-03] MEDS: CYMBALTA DELAYED RELEASE 20 MG TUBE ×2 (08:33→20:06)
--- NOTE | 2024-06-03 08:37 | PN.DE.MGMTRT ---
Insulin Management
- -
06/03/2024: Diabetes Management follow up
Patient admitted 05/30 with change in level of consciousness. PMH PVD, asthma, GERD, HTN, HCL, diabetes, renal failure (HD 3 x per week). Patient found to have severe sepsis with R foot wound with purulent drainage most likely source. Patient has
since gone to OR for amputation of R foot 05/31.
Prior to admission was taking 4 units NovoLog AC with Lantus 10 units @ hs. A1C 7.8%, cr 2.4, eGFR 29.58.
Patient remains intubated, critically ill, unable to interview at this time. All information obtained from chart and patient nurse.
He is POD #3 s/p Guillotine amputation of the right lower extremity above the ankle
Patient remained on glycemic protocol overnight requiring no insulin infusion, glucose range 93 to 168.
Will transition off glycemic protocol to low corrective insulin Q6 hrs. Give Lantus 10 units at 18:00. pt on Lantus 10 units @ hs and NovoLog 4 units AC.
Will cont to follow and add meal time insulin coverage if necessary. .
Discussed with nurse
Diabetes History
- -
Type of Diabetes: 2 requiring insulin
Pre-Admission Diabetes Regimen
06/02/24 06/02/24 06/02/24
10:01 16:13 21:55
Creatinine 1.8 H 1.5 H 1.6 H
06/03/24
04:16
Creatinine 1.7 H
Lab Results
Hemoglobin A1c 7.8 % (4.0-5.6) H 05/31/24 02:57
Insulin Pump Settings
IP Diabetes Regimen
06/02/24 06/02/24 06/02/24
09:19 09:59 10:01
Glucose 125 H
POC Glucose 109 H 123 H
06/02/24 06/02/24 06/02/24
12:01 14:07 16:13
Glucose 124 H
POC Glucose 113 H 135 H
06/02/24 06/02/24 06/02/24
16:15 18:14 20:11
Glucose
POC Glucose 137 H 133 H 107 H
06/02/24 06/03/24 06/03/24
21:55 00:14 01:00
Glucose 108 H
POC Glucose 110 H 93 97
06/03/24 06/03/24 06/03/24
02:07 03:06 04:13
Glucose
POC Glucose 114 H 127 H 144 H
06/03/24 06/03/24 06/03/24
04:16 06:03 08:19
Glucose 143 H
POC Glucose 151 H 168 H
Patient Education
--- NOTE | 2024-06-03 08:53 | W.PN.VS ---
Addendum entered and electronically signed by Juanpablo Holcomb III, MD 06/03/24 15:51:
This patient was seen and examined in collaboration with RENZO Wright. I agree with the history and physical exam as well as the assessment and plan. I have the following additions:
Will follow along and determine timing for formal below the knee amputation
Continue VAC
Please call with questions or concerns
Signed:
Juanpablo Holcomb III, MD
[facility]
[phone] (cypu)
Addendum entered and electronically signed by RENZO Wright 06/03/24 14:27:
Wound size: 9x9x0
adaptic and black foam
Original Note:
Today's Communication / Plan
-
Seen and assessed with Dr. Holcomb
Assessment/Plan
-
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
Plan:
VAC applied this morning, next dressing change Thursday
Wound care consult
Subjective Data
-
Date of Service: June 03, 2024
Patient seen at bedside this a.m. with Dr. Holcomb. Patient alert and intubated. Denies pain at this time. No events overnight. Requiring less pressors this morning
Objective Data
-
Vital Signs
Temp Pulse Resp BP Pulse Ox
98.1 F 55 16 121/43 94
06/03/24 03:08 06/03/24 06:30 06/03/24 06:30 06/02/24 17:09 06/03/24 07:30
Intake and Output
06/02/24 06/03/24 06/04/24
06:59 06:59 06:59
Intake Total 4693.0 / 4813.2 4754.0 / 4841.6 87.6 / 87.6
Output Total 2622 / 2752 5342 / 5453 224 / 224
Balance 2071.0 / 2061.2 -588.0 / -611.4 -136.4 / -136.4
Intake:
IV fluids (Total) 3344.0 / 3464.2 2586.8 / 2674.4 87.6 / 87.6
Levophed 1330.0 / 1384.5 1336.2 / 1390.7 54.5 / 54.5
epi 406.8 / 412.1 34.8 / 34.8
fent 221.3 / 230.8 237.2 / 247.6 10.4 / 10.4
heparin 355.6 / 365.3 239.4 / 249.6 10.2 / 10.2
insulin 30.1 / 31.1 21.5 / 21.5 0 / 0
tor 706.0 / 734.9 449.4 / 449.4 0 / 0
prop 23.1 / 23.1
vasopressin 271.1 / 282.4 268.3 / 280.8 12.5 / 12.5
IV piggybacks 1020.0 / 1020.0 1537.2 / 1537.2
Feeding tube flush amount 100 / 100
Amount instilled into Drain (
Total)
Right Abdomen
Amount instilled into GI Tube ( 140 / 140 120 / 120
Total)
Barton Sump 140 / 140 120 / 120
Blood Products 79 / 79
Albumin 25% 79 / 79
Blood Product Amount Infused ( 500 / 500
mL)
Packed Rbc Leukoreduced Unit 250 / 250
[id number]
Packed Rbc Leukoreduced Unit 250 / 250
[id number]
Output:
Drain Output (Total)
Right Abdomen
Urinary Drain Output (Total)
Right A 10 / 10
Gastrointestinal tube output ( 0 / 0
Total)
Barton Sump 0 / 0
Urine, Voided 0 / 0 0 / 0
CRRT - Actual ultrafiltration 2592 / 2722 5317 / 5428 224 / 224
volume
Lab Results
06/03/24 04:16
Calcium 9.0 mg/dl (8.4-10.2) 06/03/24 04:16
Phosphorus 2.9 mg/dl (2.5-4.5) 06/03/24 04:16
Magnesium 2.4 mg/dl (1.6-2.3) H 06/03/24 04:16
Total Bilirubin 1.0 mg/dl (0.2-1.3) 06/03/24 04:16
Direct Bilirubin 0.6 mg/dl (0.0-0.4) H 06/03/24 04:16
AST 125 U/L (17-59) H 06/03/24 04:16
ALT 45 U/L (0-50) 06/03/24 04:16
Alkaline Phosphatase 478 U/L (38-126) H 06/03/24 04:16
Total Protein 5.2 g/dl (6.3-8.2) L 06/03/24 04:16
Albumin 2.2 g/dl (3.5-5.0) L 06/03/24 04:16
Physical Exam
-
Remains intubated and sedated appears in no distress
No tachycardia
Tolerating ventilator
Right lower extremity guillotine amp dressing CDI, no evidence of bleeding, surrounding skin intact, dressing removed viable tissue, no evidence of necrosis, no evidence of active bleeding, dressing changed by this provider
--- NOTE | 2024-06-03 09:00 | PTCARENOTE ---
pt on vent , fentanyl for pain control , he is awake and cooperative, SB to NSR on monitor , pt on vasopressin and Levophed at 28mcg , his blood pressure goal is a map on 60 , he continues to have no urine output , he is positive for Enterobacter
and was placed on contact isolation , Obinna Rojas , he is now on Meropenem IV , he continues with CRRT as ordered
--- NOTE | 2024-06-03 09:11 | W.PN.HOSP.TC ---
Today's Communication/Plan
-
see bold
Assessment / Plan
Assessment / Plan
HPI: 64-year-old male with a past medical history of PVD, diabetes, hypertension, and hyperlipidemia presents with altered mental status, lethargy, and was found to have pus draining from his right TMA site. History is obtained from his due to
patient's lethargy. Patient had a recent TMA around March 27, 2024 at [facility]. It appears that it is infected. He is now hypotensive, with a blood pressure of 77/45. He has an HD tunneled catheter and is getting dialysis 3 times a
week.
#Septic shock
Possible sources include right TMA infection and cholecystitis, treat as below
Appreciate consultant rn/nephro input, currently requiring Levophed, and vassopressin, now off epineprhine & Jarvis-Synephrine, to maintain MAP greater than 60 as per nephro
Continue to wean pressors as tolerated
Trend fever and white count
#Right TMA infection
#Severe PVD
Records requested from [facility] where his original surgery was done in March 2024
Plavix held for surgical intervention, continue aspirin
Appreciate podiatry, vascular surgery, ID input
Status post I&D in OR by podiatry on 05/30
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
VAC applied 06/03
Bile culture and wound culture growing Enterobacter, resistant to Zosyn
Antibiotics changed to Merrem 06/03
#Acute hypoxic respiratory failure
Remains intubated after his surgery on 05/31
Continue vent management as per consultant rn
Continue CRRT as per nephrology
#End-stage renal failure on dialysis at [place] [facility] Thursday/Thursday/Thursday
#Hyponatremia
Appreciate nephrology input, continue CRRT as per nephrology
#Acute emphysematous cholecystitis
#Right upper quadrant abdominal pain
Ultrasound shows distended gallbladder with stones and sludge with mild gallbladder wall thickening
CT abdomen pelvis shows enlarged gallbladder with stones, sludge, air-fluid level, suspicious for emphysematous cholecystitis
Status post percutaneous cholecystostomy tube by IR on 05/31
#Acute on chronic anemia
#Acute blood loss anemia from surgery
Status post 2 units packed red blood cells on 06/02
Trend hemoglobin
#Incidence of bilateral deep vein thrombosis
IV heparin drip
#Thrush
Nystatin
#History of essential hypertension
Hold amlodipine, hold Coreg secondary to septic shock
#Type 2 diabetes
A1C 7.8
Off insulin drip 06/03, Accu-Cheks
#Gastroesophageal reflux disease
Continue PPI
#Constipation
Continue laxatives when able
#Anxiety/depression
Continue duloxetine 20 mg twice a day
#Obesity due to excess calories
Affects all aspects of care
DVT prophylaxis�IV heparin
Full code
Total time spent to see the patient on the floor, examine the patient, review data and lab results, discuss treatment plan with patient, nursing staff around 50 minutes.
Physical Exam
General: Lethargic, intubated
HEENT: Normocephalic, Atraumatic, EOMI
+Hoarse voice
Respiratory: Clear to Auscultation bilaterally
Cardiac: Normal S1/S2, Regular Rate and Rhythm
GI: Soft, diffusely tender, especially at the right upper quadrant
+biliary drain
Extremities: No Clubbing, Cyanosis
Right ankle amputation dressed, bilateral lower extremity edema noted
Anticipated Discharge: > 48 hours
Subjective/Interval History
-
Date of Service: June 03, 2024
Patient is alert and awake while being intubated. No fever, no vomiting.
Objective Data
-
Labs:
Laboratory Results
06/02/24 06/03/24 06/03/24
21:55 04:16 10:00
WBC 30.0 H
Hgb 8.7 L
Hct 26.8 L
Plt Count 354
APTT 97.7 H
HCO3 21.8
Sodium 135 135 Pending
Potassium 3.9 4.1 Pending
Chloride 104 101 Pending
Carbon Dioxide 22 20 L Pending
BUN 20 19 Pending
Creatinine 1.6 H 1.7 H Pending
Glucose 108 H 143 H Pending
Calcium 8.8 9.0 Pending
Total Bilirubin 1.0
AST 125 H
ALT 45
Alkaline Phosphatase 478 H
Vital Signs:
Vital Signs
Temp Pulse Resp BP Pulse Ox
98.1 F 55 16 121/43 94
06/03/24 03:08 06/03/24 06:30 06/03/24 06:30 06/02/24 17:09 06/03/24 07:30
I&O
06/02/24 06/03/24 06/04/24
06:59 06:59 06:59
Intake Total 4693.0 / 4813.2 4754.0 / 4841.6 87.6 / 87.6
Output Total 2622 / 2752 5342 / 5453 337 / 337
Balance 2071.0 / 2061.2 -588.0 / -611.4 -249.4 / -249.4
--- NOTE | 2024-06-03 09:24 | W.PN.INTV ---
Today's Communication / Plan
Recommendations
As above
Assessment
-
64-year-old male with past medical history of PAD, diabetes, hypertension, CKD on HD, hyperlipidemia, GERD presenting with septic shock likely secondary to right foot infected wound requiring pressors.
#Septic shock secondary to right foot infected wound
- Patient had recent right TMA in March 2024 complicated by wound dehiscence requiring several debridements since then. In the ED, he was found to have purulent drainage from the TMA site. Right foot x-ray showed soft tissue gas in the foot and
ankle. He was taken to the OR for I&D, infection extended along the extensor tendons proximally as well as laterally across the tarsometatarsal joint was noted. Patient is critically ill requiring 2 pressors (levo, and vaso) for hemodynamic
stability.
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 Will decide on timing for formal below-knee amputation.
- ESR and CRP elevated
- wbc continues to downtrend 30.0, lactic acid normal, AB.39/36/67/21.8
- Patient is currently on Zosyn and vancomycin, Wound culture Enterobacter cloacae multidrug-resistant resistant, blood culture negative
#Acute hypoxic respiratory failure
- No wheezing on auscultation. Coarse sounds more pronounced on the right side
- Patient was intubated in the OR. Day 4 on ventilator. Ventilator settings (CMV): 16/450/5/40%
- Chest x-ray 06/01/2024: Persistent left basilar opacification, likely combination of small left effusion and adjacent atelectasis/consolidation.
#RAISSA on CKD
- Likely prerenal in the setting of sepsis
- Creatinine downtrending, 1.7 today
- Status post hemodialysis, continue CRRT given hemodynamic instability
#Lower extremity pitting edema, right greater than left
- Bedside ultrasound showed a noncompressible vein superior to the right common femoral vein and a noncompressible right popliteal vein concerning for DVT
- Lower extremity ultrasound showed bilateral extensive DVT. Patient was started on heparin drip after OR on 05/31/2024.
#Elevated liver enzymes, emphysematous cholecystitis
- Abdominal ultrasound showed distended gallbladder, filled with stones and sludge, mild gallbladder wall thickening concerning for acute cholecystitis, negative sonographic Bermeo sign and no pericholecystic fluid.
- Abdomen diffusely tender on exam (more pronounced on the right upper quadrant), without guarding/tenderness.
- Patient is afebrile, not complaining of nausea, vomiting, abdominal pain.
- Likely due to septic shock and acute cholecystitis.
- Abdomen pelvis CT (05/31/2024) was concerning for emphysematous cholecystitis. IR was consulted, placed percutaneous nay tube. Bile Cx Enterobacter cloacae multidrug-resistant resistant. Low output from the nay tube since last night. Will
need eventual outpatient follow-up with surgery for cholecystectomy.
#Hyponatremia
- Likely chronic
- Continue CRRT
#Leukocytosis
- Likely secondary to sepsis
- Continues to downtrend, 30.0 today
#Asymptomatic urinary tract infection
- UA showed moderate bacteria, esterase 1+, wbc 3-5
- Urine culture negative
- Blood cultures negative
#Hyperglycemia
- Blood sugars elevated (>200), patient was started on insulin drip. Will continue to monitor Accu-Cheks and transition off insulin infusion as needed.
- Patient is on 10 units insulin glargine at bedtime and 4 units aspart at home
- Hemoglobin A1c 7.8
#Anemia
- Likely in the setting of chronic kidney disease
- No active bleeding, hemoglobin stable, 8.7 today status post 2 units PRBC
#Abnormal thyroid function
- TSH low, T4 within normal limits
- No history of thyroid disease
- Likely in the setting of acute infection, sick euthyroid syndrome
#Hypoalbuminemia
- s/p albumin infusion
Conditions present prior to admission
Hypertension -- Home meds currently on hold
Hyperlipidemia -- statin held due to elevated LFTs
Diabetes -- on insulin
GERD -- continue Protonix --> transition to IV Protonix
PAD s/p right lower extremity stent
CKD -- on hemodialysis
Neuropathy -- patient takes gabapentin and oxycodone 15mg every 12h at home, continue gabapentin
Depression -- on duloxetine
Obesity due to excess calories
Plan:
RASS score -1, opens eyes spontaneously and follows commands. Sedated on fentanyl (100), wean as able. Continue Tylenol as needed and gabapentin.
Patient remains critically ill, currently on 2 pressors, Levophed 28, and vasopressin 0.04 mcg/min. Systolic pressures >90, diastolic pressures in the 40s -- likely in the setting of sepsis and PAD. Wean pressors as able. Maintain MAP>60 or SBP>90.
Continue to hold home meds (Coreg and Norvasc).
Patient is day 4 on ventilator. Nonlabored breathing. Ventilator settings adjusted. Will try SBT/SAT later today if hemodynamically stable. Maintain SpO2 > 92-94%
s/p percutaneous nay tube, decreased abdominal tenderness on exam, without rebound/guarding. Minimal output on nay tube. Outpatient follow-up for eventual cholecystectomy. Bile culture Enterobacter cloacae multidrug-resistant resistant was
noted.
History of GERD. Continue IV Protonix.
Continue CRRT. Replete lytes as needed.
Wound culture and bile culture Enterobacter cloacae multidrug-resistant resistant, rivas Fan and Malia, start meropenem (dose renally adjusted)
Vascular surgery is on board, s/p guillotine of the right lower extremity above the ankle. Vascular surgery to decide on timing of formal below-knee amputation. Applied VAC this a.m. surgical dressings to be changed on Thursday. Continue to hold
Plavix.
Bilateral lower extremity DVT, continue heparin drip. PTT in the therapeutic range, continue to monitor closely.
Hemoglobin stable, 8.7 today s/p 2 units PRBC. No evidence of active bleeding. Trend H&H and transfuse if needed for Hb<7g/dL or plt<20k, unless there is concern for bleeding.
Trend wbc and monitor for fevers.
Off insulin infusion today. Maintain euglycemia with goal BG 140�180, avoid hypoglycemia.
Subjective Dataa
Subjective Data
Date of Service:
Date of Service: June 03, 2024
Objective Data
Data Reviewed
Vital Signs / I&O / Oxygen:
Vital Signs
Temp Pulse Resp BP Pulse Ox
98.1 F 55 16 121/43 94
06/03/24 03:08 06/03/24 06:30 06/03/24 06:30 06/02/24 17:09 06/03/24 07:30
Intake and Output
06/02/24 06/03/24 06/04/24
06:59 06:59 06:59
Intake Total 4693.0 / 4813.2 4754.0 / 4841.6 87.6 / 87.6
Output Total 2622 / 2752 5342 / 5453 337 / 337
Balance 2071.0 / 2061.2 -588.0 / -611.4 -249.4 / -249.4
SaO2 [A/C] 93
SaO2 94
Nasal Cannula flow liters per 8
minute
Physical Exam
General: Comfortable and Fever (n)
HEENT: Normocephalic and Thrush
Cardiovascular: S1-S2, Regular Rhythm and Peripheral Edema
Respiratory: Crackles, Non-Labored Respirations, Accessory Resp Muscle Use (n) and Other (Intubated and mechanically ventilated)
GI: Soft and Tender (Diffusely tender without guarding or rebound)
Neurology: Awake and Other (Sedated on ventilation, follows commands and opens eyes spontaneously)
Skin: Warm and Other (Left lower extremity not well-perfused. 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 No signs of bleeding.)
Labs/Micro/Reports
Lab Data
06/03/24 04:16
Laboratory Results
06/02/24 06/02/24 06/03/24
10:01 16:13 04:16
APTT 99.6 H 107.5 H 97.7 H
pH 7.39
pCO2 36
pO2 67 L
HCO3 21.8
O2 Delivery Level
Microbiology
05/31/24 18:46 Bile Body Fluid Culture - Final
Enterobacter cloacae
05/31/24 18:46 Bile Gram Stain - Final
05/30/24 21:41 Abscess Wound Culture - Preliminary
Enterobacter cloacae
Enterobacter cloacae#2
Yeast
05/30/24 21:41 Abscess Gram Stain - Preliminary
05/30/24 15:42 Blood/Venous Blood Culture - Preliminary
No Growth in 72 hours- Final report to follow
05/30/24 15:42 Blood/Venous Blood Culture - Preliminary
No Growth in 72 hours- Final report to follow
05/30/24 16:52 Foot - Right Wound Culture - Preliminary
Gram negative bacilli
Diptheroids
05/30/24 16:52 Foot - Right Gram Stain - Preliminary
05/30/24 21:41 Abscess Anaerobic Culture - Preliminary
Culture pending. Anaerobic cultures are examined after 3
days incubation. Additional information to follow.
05/30/24 15:42 Urine Urine Culture - Final
NO GROWTH
--- NOTE | 2024-06-03 10:18 | W.PN.ID1 ---
Date of Service
Date of Service: June 03, 2024
Today's Communication
DC Zosyn/Vanc.
Start meropenem.
Assessment / Plan
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
s/p I+D 05/30. OR cx: Enterobacter, yeast
s/p guillotine amp 05/31
# Acute cholecystitis
s/p perc nay 05/31
Gram stain: GNR, cx Enterobacter
# Septic shock
Off 2 of 4 pressors
Significant leukocytosis - trending down
# VDRF
# ESRD on HD. On CRRT prn
# Extensive BLE DVT
Plan:
- Blood cx's neg to date
-Enterobacter resistant to cephalosporins and beta-lactams.
- DC Zosyn.
-Start meropenem IV, renally adjust by pharmacy.
-DC Vancomycin.
-Trend vitals/wbc
-Pt remains critically ill.
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
Type 2 diabetes mellitus
End-stage renal disease on hemodialysis
Hypertension
PAD s/p RLE stent
HLD
Obstructive sleep apnea
Depression
Right foot TMA 03/27/24 [facility]
Chief Complaint
-: Clinical Sepsis
Subjective / Review of Systems
Abd pain better.
Vital Signs / Physical Exam
Vital Signs
Vital Signs
Temp Pulse Resp BP Pulse Ox
98.1 F 55 16 121/43 94
06/03/24 03:08 06/03/24 06:30 06/03/24 06:30 06/02/24 17:09 06/03/24 07:30
Physical Exam
Constitutional: Acutely Ill
Cardiovascular: Regular Rate and S1/S2
Pulmonary: Clear and Other (on vent)
Gastrointestinal: Soft, Tender (now mild RUQ ), Non Distended and Other (Perc nay brown bile)
Extremities: Negative Edema
Wound: Other (left BKA stump with wound vac)
Neurological: Awake
Lines: PICC (no erythema) and HD Cath (no erythema)
Objective Data
Lab Data
ESR 70 mm/hour (0-20) H 05/31/24 02:57
PT 17.4 Sec (11.4-14.6) H 05/31/24 02:57
INR 1.40 05/31/24 02:57
APTT 97.7 Sec (23.4-35.0) H 06/03/24 04:16
Estimated Creat Clear 51 ml/min 06/03/24 04:16
Lactic Acid Cancelled 05/30/24 19:45
Total Bilirubin 1.0 mg/dl (0.2-1.3) 06/03/24 04:16
AST 125 U/L (17-59) H 06/03/24 04:16
ALT 45 U/L (0-50) 06/03/24 04:16
Alkaline Phosphatase 478 U/L (38-126) H 06/03/24 04:16
C-Reactive Protein > 270.00 mg/L (0.0-10.00) H 05/31/24 02:57
Amylase Cancelled 06/01/24 06:00
Most recent labs reviewed.
Micro Results:
05/30/24 16:52 Wound Culture - Final
Foot - Right Enterobacter cloacae
Diptheroids
Yeast
Gram Stain - Final
05/31/24 18:46 Body Fluid Culture - Final
Bile Enterobacter cloacae
Gram Stain - Final
05/30/24 21:41 Wound Culture - Preliminary
Abscess Enterobacter cloacae
Enterobacter cloacae#2
Yeast
Gram Stain - Preliminary
05/30/24 15:42 Blood Culture - Preliminary
Blood/Venous No Growth in 72 hours- Final report to follow
05/30/24 15:42 Blood Culture - Preliminary
Blood/Venous No Growth in 72 hours- Final report to follow
05/30/24 21:41 Anaerobic Culture - Preliminary
Abscess Culture pending. Anaerobic cultures are examined after 3
days incubation. Additional information to follow.
05/30/24 15:42 Urine Culture - Final
Urine NO GROWTH
05/30/24 15:42 Influenza Types A & B (HOLDEN) - Final
Nasal Swab Negative for Influenza A & B, NAAT
Negative results must be combined with clinical observations
and patient history.
Nucleic Acid Amplification test (NAAT)performed on the
[employer] platform.
05/30/24 CXR: No acute cardiopulmonary process within the limitations of very low lung volumes.
05/30/24 ABD US: The gallbladder is distended and filled with stones and sludge. Mild gallbladder wall thickening raising the possibility for acute cholecystitis. However, no appreciable pericholecystic fluid and a reportedly negative sonographic
Bermeo's sign.
05/30/24 Foot XRAY: Soft tissue gas in the right foot and ankle most suggestive of infection
05/31/24 Periph Vasc US: Extensive bilateral lower extremity deep venous thrombosis
Care Review
Plan reviewed with: Nurse (ICU nurse Reggie) and Physician (Dr. Lopez)
[2024-06-03 10:29] LABS: Glucose - Point of Care 163 mg/dl (70-99)
[2024-06-03 10:57] LABS: Ionized Calcium 1.22 mMOL/L (1.15-1.33)
[2024-06-03 11:08] LABS: Blood Urea Nitrogen 19 mg/dl (9-20); Calcium 8.5 mg/dl (8.4-10.2); Carbon Dioxide 18 mmol/L (22-30); Chloride 103 mmol/L (98-107); Estimated Creatinine Clearance 54 ml/min; Glucose 160 mg/dl (70-99); Magnesium 2.4 mg/dl (1.6-2.3); Phosphorus 3.1 mg/dl (2.5-4.5); Potassium 4.1 mmol/L (3.5-5.1); Sodium 136 mmol/L (135-145); eGFR 48.11
[2024-06-03 11:13] VITALS: BP_SYST 107
[2024-06-03] MEDS: MERREM 500 MG IV ×3 (11:37→23:27)
[2024-06-03] MEDS: STERILE WATER FOR INJECTION 10 ML IV ×3 (11:37→23:27)
[2024-06-03] MEDS: NOVOLOG FLEXPEN-MODERATE RESISTANCE 1 UNITS SC (12:41)
[2024-06-03 12:51] LABS: Glucose - Point of Care 187 mg/dl (70-99)
--- NOTE | 2024-06-03 13:24 | CM ---
CM following re: discharge planning.
Discussed in rounds, reviewed pt's chart, met with pt.
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
Pt admitted from [facility] and family does not want pt returns back there. Pt is on HD.
D/C plan: uncertain at this time and will depend on pt's progress.
CM will follow to assist pt with discharge to a new preferred SNF.
[2024-06-03 13:34] LABS: Hemoglobin 8.1 g/dL (13.0-18.0)
--- NOTE | 2024-06-03 14:56 | PTCARENOTE ---
pt was placed on a vent wean from 11:00 to 12:00 he was doing well from a pulmonary standpoint but his vasopressor requirements increased for goal map of 60 , he was placed back on tor-synepherine , his current dose is 160mcg of , he is on maximum
dose of Levophed , and he continues on vasopressin as ordered, hes wound vac drained 250 out of serosanguineous fluid , a HH was drawn and his repeat hemoglobin 8.1 from 8.7 , his glycemic protocol was DC at 11:00 and he is now on Q6 hour accu
checks with sliding scale
[2024-06-03] MEDS: NEO-SYNEPHRINE 1% 260 MG IV ×2 (15:07→23:26)
[2024-06-03 17:07] LABS: Ionized Calcium 1.22 mMOL/L (1.15-1.33)
[2024-06-03] MEDS: RFP-401 HD Soln (K+ 4 mEq/L) 5000 ML CRRT-IRR (17:22)
[2024-06-03] MEDS: NOVOLOG FLEXPEN-MODERATE RESISTANCE 3 UNITS SC (17:53)
[2024-06-03] MEDS: LANTUS 0.1 UNITS SC (17:54)
[2024-06-03 18:04] LABS: Glucose - Point of Care 200 mg/dl (70-99)
[2024-06-03 18:17] LABS: Blood Urea Nitrogen 22 mg/dl (9-20); Calcium 8.5 mg/dl (8.4-10.2); Carbon Dioxide 14 mmol/L (22-30); Chloride 102 mmol/L (98-107); Estimated Creatinine Clearance 48 ml/min; Glucose 191 mg/dl (70-99); Magnesium 2.3 mg/dl (1.6-2.3); Phosphorus 3.6 mg/dl (2.5-4.5); Potassium 4.4 mmol/L (3.5-5.1); Sodium 134 mmol/L (135-145); eGFR 41.77
[2024-06-03 18:55] LABS: B.E. -8.7 mmol/L; HCO3 16.2 mmol/L (21-28); O2 Saturation % 98.9 % (94-98); PCO2 30 mmHg (35-48); PO2 87 mmHg (83-108); pH 7.34 (7.35-7.45)
[2024-06-03 18:56] LABS: O2 Therapy %Oxygen/Room Air 40%
[2024-06-03 18:59] LABS: Hematocrit 23.6 % (39.0-52.0); Hemoglobin 7.6 g/dL (13.0-18.0); Mean Corp Hgb Conc. 32.2 g/dL (33.0-37.0); Mean Corpuscular Hgb 27.9 pg (27.0-31.0); Mean Corpuscular Volume 86.8 fL (80.0-94.0); Mean Platelet Volume 9.3 fL (7.4-10.4); Platelet Count 332 10^3/uL (130-400); Red Blood Cell Count 2.72 10^6/uL (4.70-6.10); Red Cell Dist. Width 16.4 % (11.5-14.5); White Blood Cell Count 31.2 10^3/uL (4.8-10.8)
--- NOTE | 2024-06-03 19:37 | PTCARENOTE ---
both Dr Lopez and Kellie notified of recent labs ABG 7.34/30/87/16.2 and c02 on chemistry down to 14 from 18 , no new orders given , pt is currently drowsy and follows commands , his and son are at bedside
--- NOTE | 2024-06-03 20:30 | PTCARENOTE ---
Wound vac on RLE constantly alarming, saying blockage. Canister changed, site assessed. Order noted to utilize wet to dry dressings if VAC malfunctioning. Dressing applied as ordered. updated at bedside. hgb 7.6, 1 unit PRBC transfused without
adverse reaction. CRRT at ordered. Triple pressors maxed. Labs q6h. Will monitor.
[2024-06-03] MEDS: HEPARIN 25000 UNITS/250 ML IV (20:57)
[2024-06-03 21:12] VITALS: BP 105/41
[2024-06-03 21:29] VITALS: BP 117/43
[2024-06-03] MEDS: SENNA SYRUP 17.6 MG TUBE (21:46)
[2024-06-03] MEDS: COLACE LIQUID 200 MG TUBE (21:46)
[2024-06-03] MEDS: RFP-401 HD Soln (K+ 4 mEq/L) 2000 ML CRRT-IRR (23:46)
[2024-06-04 00:31] LABS: Blood Urea Nitrogen 23 mg/dl (9-20); Calcium 8.3 mg/dl (8.4-10.2); Carbon Dioxide 17 mmol/L (22-30); Chloride 104 mmol/L (98-107); Estimated Creatinine Clearance 54 ml/min; Glucose 207 mg/dl (70-99); Magnesium 2.2 mg/dl (1.6-2.3); Phosphorus 3.8 mg/dl (2.5-4.5); Potassium 4.3 mmol/L (3.5-5.1); Sodium 137 mmol/L (135-145); eGFR 48.11
[2024-06-04] MEDS: DIPRIVAN 100 IV ×2 (00:36→12:59)
[2024-06-04 01:00] VITALS: BP 107/41
[2024-06-04] MEDS: NOVOLOG FLEXPEN-MODERATE RESISTANCE 3 UNITS SC (01:00)
--- NOTE | 2024-06-04 01:08 | PTCARENOTE ---
Pt bucking vent & desatting, shaking head yes that he is uncomfortable. Fent bolus given and drip increased. Resp at bedside to evaluate tube/vent. No issues noted. Propofol ordered and started for comfort. Pulse ox now 98%. Pt resting comfortably.
Will monitor.
[2024-06-04] MEDS: PITRESSIN 100 IV ×3 (02:23→19:51)
[2024-06-04] MEDS: SUBLIMAZE 100 IV ×3 (02:24→23:50)
[2024-06-04] MEDS: LEVOPHED 258 MG IV ×5 (02:24→20:57)
[2024-06-04 05:20] VITALS: BMI 37.7
[2024-06-04] MEDS: MERREM 500 MG IV ×4 (05:21→23:50)
[2024-06-04] MEDS: STERILE WATER FOR INJECTION 10 ML IV ×4 (05:21→23:50)
[2024-06-04 05:40] LABS: Ionized Calcium 1.19 mMOL/L (1.15-1.33)
[2024-06-04] MEDS: RFP-401 HD Soln (K+ 4 mEq/L) 15000 ML CRRT-IRR ×2 (05:42→13:10)
[2024-06-04 06:04] LABS: APTT 106.4 Sec (23.4-35.0)
[2024-06-04 06:14] LABS: Triglycerides 155 mg/dl (10-149)
[2024-06-04 06:18] LABS: Hematocrit 25.8 % (39.0-52.0); Hemoglobin 8.4 g/dL (13.0-18.0); Mean Corp Hgb Conc. 32.6 g/dL (33.0-37.0); Mean Corpuscular Hgb 27.8 pg (27.0-31.0); Mean Corpuscular Volume 85.4 fL (80.0-94.0); Mean Platelet Volume 9.3 fL (7.4-10.4); Platelet Count 337 10^3/uL (130-400); Red Blood Cell Count 3.02 10^6/uL (4.70-6.10); Red Cell Dist. Width 16.6 % (11.5-14.5); White Blood Cell Count 37.6 10^3/uL (4.8-10.8)
[2024-06-04] MEDS: CALCIUM GLUCONATE 130 MG IV (06:23)
[2024-06-04 06:44] LABS: Blood Urea Nitrogen 22 mg/dl (9-20); Calcium 8.1 mg/dl (8.4-10.2); Carbon Dioxide 21 mmol/L (22-30); Chloride 105 mmol/L (98-107); Estimated Creatinine Clearance 57 ml/min; Glucose 161 mg/dl (70-99); Magnesium 2.1 mg/dl (1.6-2.3); Phosphorus 2.7 mg/dl (2.5-4.5); Sodium 136 mmol/L (135-145); eGFR 51.99
[2024-06-04] MEDS: NEO-SYNEPHRINE 1% 260 MG IV ×2 (07:00→16:46)
[2024-06-04] MEDS: NOVOLOG FLEXPEN-MODERATE RESISTANCE 1 UNITS SC ×3 (07:20→17:22)
--- NOTE | 2024-06-04 07:43 | W.PN.NEPH.PH ---
Today's Communication / Plan
-
Maintain CRRT
Maintain 3 pressor support to keep MAP at 65 or greater
Assessment/Plan
-
Impression:
ESRD MWF ([place])
Sepsis/leukocytosis with hemodynamic compromise
Hypoxic Respiratory failure
Diabetes
History of right TMA with purulent drainage from site, status post ankle amputation 05/31/2024
History of hypertension
Anemia
PAD
Plan:
CRRT continues
lytes and acidosis stable on CRRT
Adjusted replacement rate to 2 L/h for worsening metabolic acidosis which is now improving
will try to keep relatively even with some UF ,weights unchanged, currently at 25cc/hr negative
abx per primary team (renally dosed)
supportive care at this time
Maintain multiple pressors (3) to keep MAP at 65 or greater
continues on heparin gtt fro bilateral DVT, also helping CRRT
prognosis remains guarded
critical care time 31 minutes
-
-
Date of Service: June 04, 2024
CC / HPI / ROS
-
Chief Complaint:
ESRD
History of Present Illness:
remains hypotense on 3 pressors in ICU
on vent O2 requirements better 40%
s/p right foot amputation 05/31
s/p cholecystotomy tube 05/31
Hgb >8 after transfusion
WBC increased
=
Review of Systems:
no fevers
intubated on stable fio2 40%.
Labs
-
Labs:
WBC 37.6 10^3/uL (4.8-10.8) H 06/04/24 05:27
RBC 3.02 10^6/uL (4.70-6.10) L 06/04/24 05:27
Hgb 8.4 g/dL (13.0-18.0) L 06/04/24 05:27
Hct 25.8 % (39.0-52.0) L 06/04/24 05:27
Plt Count 337 10^3/uL (130-400) 06/04/24 05:27
eGFR 51.99 06/04/24 05:27
Zqy-Y-Rbovjzhcwda Pept 4060 pg/ml 05/30/24 15:31
Albumin 2.2 g/dl (3.5-5.0) L 06/03/24 04:16
Physical Exam
-
Vital Signs:
Vital Signs
Temp Pulse Resp BP Pulse Ox
99.2 F 59 16 107/41 97
06/04/24 07:35 06/04/24 07:15 06/04/24 07:15 06/04/24 01:00 06/04/24 07:24
Cardiovascular:: Regular rate and rhythm
Respiratory:: Bilateral: Coarse
Lung Excursion:: Normal
Abdomen:: Nontender and Soft
Bowel Sounds:: Decreased
Extremity Edema:: +1: Bilateral: and None: Right: (ankle amp)
Holcomb Catheter: No
Other Findings::
gen:intubated and sedated
[2024-06-04] MEDS: SUBLIMAZE 50 MCG IV ×2 (07:49→11:30)
[2024-06-04] MEDS: CYMBALTA DELAYED RELEASE 20 MG TUBE ×2 (07:51→21:13)
[2024-06-04] MEDS: NEURONTIN 100 MG TUBE ×3 (07:51→23:16)
[2024-06-04] MEDS: LOW STRENGTH ASPIRIN 81 MG TUBE (07:51)
[2024-06-04] MEDS: NSS (PRESERVATIVE FREE) 10 ML IV (07:51)
[2024-06-04] MEDS: PROTONIX IV 40 MG IV (07:52)
[2024-06-04] MEDS: MYCOSTATIN ORAL SUSPENSION 5 ML PO ×4 (07:52→23:16)
--- NOTE | 2024-06-04 07:52 | W.PN.UPDATE ---
Update Note
Progress Note Update
CRRT note:
Patient seen on CRRT
Systolic blood pressure around 100 and UF of 25 cc/h net negative
Patient with drops in blood pressure earlier this a.m.
Remains on 3 pressor support
Replacement fluid increased to 2 L/h for worsening metabolic acidosis
QB 300
4K bath
Catheter with good function
--- NOTE | 2024-06-04 07:55 | W.PN.INTV ---
Today's Communication / Plan
Recommendations
CRRT
CXR tomorrow
Hopefully can do SBT again tomorrow
Pain control
Antibiotics
Patient is critically ill, guarded prognosis
Assessment
-
64-year-old male with past medical history of PAD, diabetes, hypertension, CKD on HD, hyperlipidemia, GERD presenting with septic shock secondary to right foot infected wound requiring pressors.
Impression:
#Septic shock due to infected right foot s/p I&D on 05/30/2024 by podiatry as well as acute cholecystitis and possibly UTI + LLL PNA
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
#Left basilar opacification likely due to small pleural effusion versus atelectasis/pneumonia
#RUQ abdominal pain with gallstones/sludge and gallbladder distention and air-fluid levels due to suspected emphysematous acute cholecystitis
#Bilateral DVT now on heparain gtt
#Anemia
#Hypochloremic, hyponatremia - resolved
#Subclinical hyperthyroidism
#Abnormal urinalysis with + leukocyte esterase and cloudy urine suspicious for UTI
#Transaminitis likely due to cholecystitis with possible obstructive cystic duct
#PAD with history of RLE stent
#ESRD on HD via right sided chest wall permacath now on CRRT as of 06/01/2024
#DM type II c/b hyperglycemia requiring insulin gtt (now off as of 06/03)
Plan:
- Continue broad spectrum ABx --> change to meropenem s/p vanc/zosyn given the bile fluid cultures and wound cultures show MDR-Enterobacter cloacae, and has resistance to Zosyn; ID consulted --> defer Abx to them
- Follow up cultures (blood Cx X2 from 05/30 - shows NGTD; urine Cx from 05/30: NGTD; Wound Cx (R-foot 05/30: Grew diphtheroids, yeast + Enterobacter cloacae; Wound Cx (from I&D - 05/30): Enterobacter cloacae + yeast; Bile Cx 05/31: Enterobacter cloacae
- Wound care consulted
- Went to the OR on 05/31 for guillotine amputation of the right lower extremity above the ankle for a necrotic infected right foot wound with septic shock --> post-operative management as per vascular surgery
-Pain control
- Keep MAP>65 and wean down vasopressors as tolerated
- patient has acute emphysematous cholecystitis --> underwent IR perc nay on 05/31 --> follow up output and once vasopressor requirements improve then would consult general surgery to discuss cholecystectomy; of note bile culture is grew
Enterobacter cloacae a which is multidrug-resistant, including to Zosyn � changing antibiotics on 06/03 to meropenem
- Now off insulin gtt --> on 06/03 transitioned to basal�bolus insulin SQ dosing; maintain BG goal 140-180mg/dL
-Trend H/H and transfuse if needed to keep Hb>7,plt>50k (given post-operative status)-->was transfused 2 units PRBC on 06/02 and 1 U on 06/03
- Continue mechanical ventilation with daily SAT/SBT if clinically indicated; titrate PEEP + FiO2 to maintain SpO2 >90-94%
-Did not tolerate pressure support trial on 06/03/2024
- Maintain plateau pressure <30
- Continue aspiration precautions; keep HOB>30-45�
- Trend sNa with goal 135-145
- Trend LFTs
- DVT ppx: Heparin gtt
Guarded prognosis: He remains full code
IV access: PICC line
Continue ICU level of care for this critically ill patient.
Critical care statement: A total of 37 minutes of critical care time was provided for this patient today. This includes management of unstable vital signs, evaluation of the patient at bedside, reviewing the patient's pertinent medical records
including radiographs, microbiology, laboratory evaluations, and discussion with primary team, consultants, pharmacy, nutrition, physical therapy, case management, charge nurse, critical care nursing, and respiratory therapy.
Subjective Dataa
Subjective Data
Date of Service:
Date of Service: June 04, 2024
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
Subjective:
Patient seen and evaluated this morning. Remains intubated on AC/CMV at 16/450/5/40%, PIP 19 cmH2O, VTe 442 mL and breathing at 16 breaths/min. Remains on CRRT with UF 160 mL/h. Heart rate 58, BP via A-line: 107/45, and saturating 94%. Currently
on vasopressin 0.04 units/min, tor at 200mcg/min, levo at 30mcg/min. Sedated on fentanyl at 100 mcg/hr + propofol 5mcg/kg/min. He awakens when prompted.
Review of Systems
General: Unobtainable - Sedation
Objective Data
Data Reviewed
Vital Signs / I&O / Oxygen:
Vital Signs
Temp Pulse Resp BP Pulse Ox
99.2 F 64 20 107/41 96
06/04/24 07:35 06/04/24 09:00 06/04/24 09:00 06/04/24 01:00 06/04/24 09:00
Intake and Output
06/03/24 06/04/24 06/05/24
06:59 06:59 06:59
Intake Total 4754.0 / 4841.6 3259.5 / 3418.7 484.1 / 484.1
Output Total 5342 / 5453 2771 / 2873 510 / 510
Balance -588.0 / -611.4 488.5 / 545.7 -25.9 / -25.9
SaO2 [CPAP/PSV] 98
SaO2 [A/C] 97
SaO2 96
Nasal Cannula flow liters per 8
minute
Physical Exam
General: Respiratory Distress (n), Comfortable and Fever (n)
HEENT: Normocephalic, Anicteric and Thrush
Cardiovascular: S1-S2 and Peripheral Edema (+2 LLE, +1 RLE)
Respiratory: Wheeze (n), Crackles (bilateral), Rhonchi (bilateral), Non-Labored Respirations, Accessory Resp Muscle Use (n), ET Tube (Mechanical breath sounds heard bilaterally) and Other (Intubated and mechanically ventilated)
GI: Soft, Distended (Abdominal obesity) and Tender (TTP in RUQ)
Neurology: Tremors (n) and Other (Sedated on ventilation, follows commands and opens eyes spontaneously)
Skin: Warm, Dry, Cyanosis (n), Jaundice (n) and Other (Guillotine amputation of the right lower extremity above the ankle, surgical dressing intact. No signs of bleeding.)
Labs/Micro/Reports
Lab Data
06/04/24 05:27
Laboratory Results
06/03/24 06/04/24
18:48 05:27
APTT 106.4 H
pH 7.34 L
pCO2 30 L
pO2 87
HCO3 16.2 L
O2 Delivery Level %oxygen/room air 40%
Microbiology
05/30/24 21:41 Abscess Anaerobic Culture - Preliminary
Culture pending. Anaerobic cultures are examined after 3
days incubation. Additional information to follow.
05/30/24 15:42 Blood/Venous Blood Culture - Preliminary
No Growth in 4 days- Final report to follow
05/30/24 15:42 Blood/Venous Blood Culture - Preliminary
No Growth in 4 days- Final report to follow
05/30/24 16:52 Foot - Right Wound Culture - Final
Enterobacter cloacae
Diptheroids
Yeast
05/30/24 16:52 Foot - Right Gram Stain - Final
05/31/24 18:46 Bile Body Fluid Culture - Final
Enterobacter cloacae
05/31/24 18:46 Bile Gram Stain - Final
05/30/24 21:41 Abscess Wound Culture - Preliminary
Enterobacter cloacae
Enterobacter cloacae#2
Yeast
05/30/24 21:41 Abscess Gram Stain - Preliminary
--- NOTE | 2024-06-04 08:00 | W.PN.ID1 ---
Date of Service
Date of Service: June 04, 2024
Today's Communication
Continue antibiotics
Assessment / Plan
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
s/p I+D 05/30. OR cx: Enterobacter, yeast
s/p guillotine amp 05/31
# Acute cholecystitis
s/p perc nay 05/31
Gram stain: GNR, cx Enterobacter
# Septic shock
Remains on 3 pressors
Significant leukocytosis - trending down
# VDRF
# ESRD on HD. On CRRT prn
# Extensive BLE DVT
Plan:
- Blood cx's neg to date
- Enterobacter resistant to cephalosporins and beta-lactams.
- Continue meropenem IV, renally adjust by pharmacy.
-Trend vitals/wbc
-Pt remains critically ill, on vent, in ICU
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
Type 2 diabetes mellitus
End-stage renal disease on hemodialysis
Hypertension
PAD s/p RLE stent
HLD
Obstructive sleep apnea
Depression
Right foot TMA 03/27/24 [facility]
Chief Complaint
-: Clinical Sepsis
Subjective / Review of Systems
Patient seen and examined. Remains intubated at this time. Remains on CRRT. Remains on triple pressors at this time.
Review of Systems: No Fever
Vital Signs / Physical Exam
Vital Signs
Vital Signs
Temp Pulse Resp BP Pulse Ox
99.2 F 59 16 107/41 97
06/04/24 07:35 06/04/24 07:15 06/04/24 07:15 06/04/24 01:00 06/04/24 07:24
Physical Exam
Constitutional: Acutely Ill
Head: Other (ET tube in place.)
Eyes: Sclera Anicteric
Cardiovascular: Regular Rate and S1/S2; Negative S3/S4
Pulmonary: Clear and Other (on vent)
Gastrointestinal: Soft, Tender (now mild RUQ ), Non Distended, Decreased Bowel Sounds and Other (Cholecystostomy tube with brown bile in gravity bag)
Extremities: Negative Edema
Wound: Other (left BKA stump with bloody drainage. Vac now off.)
Neurological: Other (Responsive to voice and touch.)
Lines: PICC (no erythema) and HD Cath (no erythema)
Objective Data
Lab Data
Lab Results
06/04/24 05:27
ESR 70 mm/hour (0-20) H 05/31/24 02:57
PT 17.4 Sec (11.4-14.6) H 05/31/24 02:57
INR 1.40 05/31/24 02:57
APTT 106.4 Sec (23.4-35.0) H 06/04/24 05:27
Estimated Creat Clear 57 ml/min 06/04/24 05:27
Lactic Acid Cancelled 05/30/24 19:45
Total Bilirubin 1.0 mg/dl (0.2-1.3) 06/03/24 04:16
AST 125 U/L (17-59) H 06/03/24 04:16
ALT 45 U/L (0-50) 06/03/24 04:16
Alkaline Phosphatase 478 U/L (38-126) H 06/03/24 04:16
C-Reactive Protein > 270.00 mg/L (0.0-10.00) H 05/31/24 02:57
Amylase Cancelled 06/01/24 06:00
Most recent labs reviewed.
Micro Results:
05/30/24 15:42 Blood Culture - Preliminary
Blood/Venous No Growth in 4 days- Final report to follow
05/30/24 15:42 Blood Culture - Preliminary
Blood/Venous No Growth in 4 days- Final report to follow
05/30/24 21:41 Anaerobic Culture - Preliminary
Abscess Culture pending. Anaerobic cultures are examined after 3
days incubation. Additional information to follow.
06/03/24 11:41 MRSA Screen - Pending
Nose
05/30/24 16:52 Wound Culture - Final
Foot - Right Enterobacter cloacae
Diptheroids
Yeast
Gram Stain - Final
05/31/24 18:46 Body Fluid Culture - Final
Bile Enterobacter cloacae
Gram Stain - Final
05/30/24 21:41 Wound Culture - Preliminary
Abscess Enterobacter cloacae
Enterobacter cloacae#2
Yeast
Gram Stain - Preliminary
05/30/24 15:42 Urine Culture - Final
Urine NO GROWTH
05/30/24 15:42 Influenza Types A & B (HOLDEN) - Final
Nasal Swab Negative for Influenza A & B, NAAT
Negative results must be combined with clinical observations
and patient history.
Nucleic Acid Amplification test (NAAT)performed on the
[employer] platform.
05/30/24 CXR: No acute cardiopulmonary process within the limitations of very low lung volumes.
05/30/24 ABD US: The gallbladder is distended and filled with stones and sludge. Mild gallbladder wall thickening raising the possibility for acute cholecystitis. However, no appreciable pericholecystic fluid and a reportedly negative sonographic
Bermeo's sign.
05/30/24 Foot XRAY: Soft tissue gas in the right foot and ankle most suggestive of infection
05/31/24 Periph Vasc US: Extensive bilateral lower extremity deep venous thrombosis
Care Review
Plan reviewed with: Physician (Nephrology)
--- NOTE | 2024-06-04 09:11 | PTCARENOTE ---
Rec'd pt at 0700. Pt on vent, opens eyes spontaneously, nods head to questions. Pt grimacing and restless, CPOT-5, PRN Fentanyl given. SBP dropped into mid 80's after bolus given, Propofol placed on hold ~40min until SBP >100/RASS +1. Monitor SBR/SR
with 1st degree AVB. Levo/Jarvis/Vaso gtts via MICHAEL PICC for BP maintenance. Left radial a-line in place, fluid bag changed and zeroed. Lungs sct coarse, pox 95% on 40% fio2. Abd large/round, minimal bowel sounds. [place] to LIWS, clamped for 1hr after am
meds given. FMS draining liquid barrios stool. Pt anuric, CRRT continued at bedside-see flowsheet. Heparin gtts at 1000units/hr via as per protocol. Wet to dry dressing in place to RLE.
--- NOTE | 2024-06-04 09:20 | W.PN.HOSP.TC ---
Today's Communication/Plan
-
see bold
Assessment / Plan
Assessment / Plan
HPI: 64-year-old male with a past medical history of PVD, diabetes, hypertension, and hyperlipidemia presents with altered mental status, lethargy, and was found to have pus draining from his right TMA site. History is obtained from his due to
patient's lethargy. Patient had a recent TMA around March 27, 2024 at [facility]. It appears that it is infected. He is now hypotensive, with a blood pressure of 77/45. He has an HD tunneled catheter and is getting dialysis 3 times a
week.
#Septic shock
Possible sources include right TMA infection and cholecystitis, treat as below
Appreciate copyist/nephro input, currently requiring Levophed, Jarvis-Synephrine and vassopressin, off epineprhine, to maintain MAP greater than 60 as per nephro
Continue to wean pressors as tolerated
Trend fever and white count
#Right TMA infection
#Severe PVD
Records requested from [facility] where his original surgery was done in March 2024
Plavix held for surgical intervention, continue aspirin
Appreciate podiatry, vascular surgery, ID input
Status post I&D in OR by podiatry on 05/30
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 VAC applied 06/03
Bile culture and wound culture growing Enterobacter, resistant to Zosyn
Antibiotics changed to Merrem 06/03
#Acute hypoxic respiratory failure
Remains intubated after his surgery on 05/31
Continue vent management as per copyist
Continue CRRT as per nephrology
#End-stage renal failure on dialysis at [place] Thursday/Thursday/Thursday
#Hyponatremia
Appreciate nephrology input, continue CRRT as per nephrology
#Acute emphysematous cholecystitis
#Right upper quadrant abdominal pain
Ultrasound shows distended gallbladder with stones and sludge with mild gallbladder wall thickening
CT abdomen pelvis shows enlarged gallbladder with stones, sludge, air-fluid level, suspicious for emphysematous cholecystitis
Status post percutaneous cholecystostomy tube by IR on 05/31
#Acute on chronic anemia
#Acute blood loss anemia from surgery
Status post 2 units packed red blood cells on 06/02
Trend hemoglobin
#Incidence of bilateral deep vein thrombosis
IV heparin drip
#Thrush
Nystatin
#History of essential hypertension
Hold amlodipine, hold Coreg secondary to septic shock
#Type 2 diabetes
A1C 7.8
Off insulin drip 06/03, Accu-Cheks
#Gastroesophageal reflux disease
Continue PPI
#Constipation
Continue laxatives when able
#Anxiety/depression
Continue duloxetine 20 mg twice a day
#Obesity due to excess calories
Affects all aspects of care
DVT prophylaxis�IV heparin
Full code
Total time spent to see the patient on the floor, examine the patient, review data and lab results, discuss treatment plan with patient, nursing staff around 51 minutes.
Physical Exam
General: Lethargic, intubated
HEENT: Normocephalic, Atraumatic, EOMI
+Hoarse voice
Respiratory: Clear to Auscultation bilaterally
Cardiac: Normal S1/S2, Regular Rate and Rhythm
GI: Soft, diffusely tender, especially at the right upper quadrant
+biliary drain
Extremities: No Clubbing, Cyanosis
Right ankle amputation dressed, bilateral lower extremity edema noted
Anticipated Discharge: > 48 hours
Subjective/Interval History
-
Date of Service: June 04, 2024
Patient is still intubated, now requiring 3 pressors. No fever, no vomiting.
Objective Data
-
Labs:
Laboratory Results
06/03/24 06/04/24 06/04/24
23:28 05:27 11:30
WBC 37.6 H
Hgb 8.4 L
Hct 25.8 L
Plt Count 337
APTT 106.4 H
Sodium 137 136 Pending
Potassium 4.3 4.0 Pending
Chloride 104 105 Pending
Carbon Dioxide 17 L 21 L Pending
BUN 23 H 22 H Pending
Creatinine 1.6 H 1.5 H Pending
Glucose 207 H 161 H Pending
Calcium 8.3 L 8.1 L Pending
06/04/24 06/04/24
17:30 23:30
WBC
Hgb
Hct
Plt Count
APTT
Sodium Pending Pending
Potassium Pending Pending
Chloride Pending Pending
Carbon Dioxide Pending Pending
BUN Pending Pending
Creatinine Pending Pending
Glucose Pending Pending
Calcium Pending Pending
Vital Signs:
Vital Signs
Temp Pulse Resp BP Pulse Ox
99.2 F 58 16 107/41 93
06/04/24 07:35 06/04/24 08:45 06/04/24 08:45 06/04/24 01:00 06/04/24 08:50
I&O
06/03/24 06/04/24 06/05/24
06:59 06:59 06:59
Intake Total 4754.0 / 4841.6 3259.5 / 3418.7 484.1 / 484.1
Output Total 5342 / 5453 2771 / 2873 510 / 510
Balance -588.0 / -611.4 488.5 / 545.7 -25.9 / -25.9
--- NOTE | 2024-06-04 10:26 | PTCARENOTE ---
Notified Dr. Bocanegra of wound vac being removed overnight, to continue with wet to dry dressings until thursday when new wound vac will be applied per MD. RLE dressing removed and new wet to dry dressing applied.
--- NOTE | 2024-06-04 10:57 | PTCARENOTE ---
Vent alarming-pt coughing and thrashing arms up, SBP dropped into 70's and Pox in high 80's. Pt suctioned for large thick creamy barrios mucous plug. SBP returned into 100's, pt appears calm. Pt with moderate recovery time for pox to return into mid
90's.
[2024-06-04 11:28] LABS: Glucose - Point of Care 172 mg/dl (70-99)
[2024-06-04 11:47] LABS: Ionized Calcium 1.25 mMOL/L (1.15-1.33)
--- NOTE | 2024-06-04 12:17 | PTCARENOTE ---
1130-pt banging fist on siderail, nodded head 'yes' to having pain, CPOT-7, PRN Fentanyl given and gtts adjusted. ETT repositioned with resp therapist. No changes in assessment. Awaiting lab results.
[2024-06-04 12:23] LABS: Blood Urea Nitrogen 21 mg/dl (9-20); Calcium 8.8 mg/dl (8.4-10.2); Carbon Dioxide 20 mmol/L (22-30); Chloride 103 mmol/L (98-107); Estimated Creatinine Clearance 57 ml/min; Glucose 180 mg/dl (70-99); Magnesium 2.1 mg/dl (1.6-2.3); Phosphorus 2.8 mg/dl (2.5-4.5); Potassium 4.1 mmol/L (3.5-5.1); Sodium 135 mmol/L (135-145); eGFR 51.99
--- NOTE | 2024-06-04 14:17 | PTCARENOTE ---
Pt's family in to visit, updated on condition and plan of care.
[2024-06-04 17:32] LABS: Glucose - Point of Care 183 mg/dl (70-99)
[2024-06-04 17:38] LABS: Ionized Calcium 1.24 mMOL/L (1.15-1.33)
[2024-06-04 17:52] LABS: Blood Urea Nitrogen 21 mg/dl (9-20); Calcium 8.6 mg/dl (8.4-10.2); Carbon Dioxide 21 mmol/L (22-30); Chloride 104 mmol/L (98-107); Estimated Creatinine Clearance 57 ml/min; Glucose 181 mg/dl (70-99); Magnesium 2.1 mg/dl (1.6-2.3); Potassium 4.2 mmol/L (3.5-5.1); Sodium 134 mmol/L (135-145); eGFR 51.99
--- NOTE | 2024-06-04 17:55 | PTCARENOTE ---
at bedside, no changes in assessment.
[2024-06-04] MEDS: HEPARIN 25000 UNITS/250 ML IV (20:41)
[2024-06-04] MEDS: RFP-401 HD Soln (K+ 4 mEq/L) 5000 ML CRRT-IRR (20:41)
[2024-06-04] MEDS: ADRENALIN 258 MG IV (21:02)
--- NOTE | 2024-06-04 22:14 | PTCARENOTE ---
Assumed care of pt. approx 1900.
CVVHD running w.o issues, 4K bath, pulling net -25 off/hr. No current filter/Access issues at this time.
Tolerating ventilator settings, see flow sheets for setting details.
MAPS running low 60s, X2 Epi started, remains maxed on x2 Norepi, Vasopressin, X2 Phenylephrine. All titration metrics utilized through arterial line, waveform appropriate.
Normocephalic, Anicteric, responding to simple commands, calm on minimal sedation, Diprivan turned off due to decreasing maps remains on fentanyl.
Sinus Tu, moderate ectopic beats noted, pulses present w. signal, normothermic.
Anuric, Blanca drain in place w. minimal output. Hypoactive bowels, FMS in place minimal output.
Surgical site redressed per WOC orders when wound vac not in use.
bedside, all questions answered, plan of care explained.
[2024-06-04] MEDS: COLACE LIQUID TUBE (22:38)
[2024-06-04] MEDS: SENNA SYRUP TUBE (22:39)
[2024-06-04] MEDS: LANTUS 0.1 UNITS SC (23:18)
[2024-06-04 23:28] LABS: Ionized Calcium 1.19 mMOL/L (1.15-1.33)
--- NOTE | 2024-06-04 23:48 | PTCARENOTE ---
PT now maxed on Norepi, Phenyl, Epi, Vasopressin 0.04. ICU LIGIA notified.
Surgical dressing saturated, STAT H/H sent.
Rplt labs per CRRT protocol set.
[2024-06-04 23:58] LABS: Hematocrit 22.3 % (39.0-52.0); Hemoglobin 7.3 g/dL (13.0-18.0)
[2024-06-05] VITALS (7 sets, daily range): BP systolic 95–136; BP diastolic 39–51; BMI 37.7
[2024-06-05] MEDS: NEO-SYNEPHRINE 1% 260 MG IV ×3 (00:04→14:16)
[2024-06-05] MEDS: CALCIUM GLUCONATE 130 MG IV (00:04)
[2024-06-05] MEDS: LEVOPHED 258 MG IV ×6 (00:06→21:19)
[2024-06-05 00:23] LABS: Blood Urea Nitrogen 22 mg/dl (9-20); Calcium 8.5 mg/dl (8.4-10.2); Carbon Dioxide 17 mmol/L (22-30); Chloride 104 mmol/L (98-107); Estimated Creatinine Clearance 72 ml/min; Glucose 185 mg/dl (70-99); Potassium 4.4 mmol/L (3.5-5.1); Sodium 135 mmol/L (135-145); eGFR > 60.00
--- NOTE | 2024-06-05 00:42 | PTCARENOTE ---
1 G HGB drop, 1 UPRBC ordered.
[2024-06-05] MEDS: NOVOLOG FLEXPEN-MODERATE RESISTANCE 1 UNITS SC ×3 (02:07→17:13)
[2024-06-05] MEDS: PITRESSIN 100 IV ×3 (03:59→19:30)
--- NOTE | 2024-06-05 04:10 | PTCARENOTE ---
Remains quad maxed on all vasopressor therapies.
Issues maintaining map goals despite mentioned above, ICU LIGIA notified, albumin ordered.
No further changes in pt. assessment.
[2024-06-05 04:33] LABS: B.E. -7.2 mmol/L; HCO3 17.8 mmol/L (21-28); PCO2 33 mmHg (35-48); PO2 138 mmHg (83-108); pH 7.34 (7.35-7.45)
[2024-06-05 04:40] LABS: Ionized Calcium 1.32 mMOL/L (1.15-1.33)
[2024-06-05] MEDS: FLEXBUMIN 100 IV ×4 (05:00→22:19)
[2024-06-05 05:01] LABS: Hematocrit 24.8 % (39.0-52.0); Mean Corp Hgb Conc. 32.3 g/dL (33.0-37.0); Mean Corpuscular Hgb 27.9 pg (27.0-31.0); Mean Corpuscular Volume 86.4 fL (80.0-94.0); Mean Platelet Volume 9.2 fL (7.4-10.4); Platelet Count 265 10^3/uL (130-400); Red Blood Cell Count 2.87 10^6/uL (4.70-6.10); Red Cell Dist. Width 16.2 % (11.5-14.5); White Blood Cell Count 34.4 10^3/uL (4.8-10.8)
[2024-06-05 05:03] LABS: APTT 96.6 Sec (23.4-35.0)
[2024-06-05 05:45] LABS: Albumin 2.1 g/dl (3.5-5.0); Blood Urea Nitrogen 22 mg/dl (9-20); Calcium 8.8 mg/dl (8.4-10.2); Carbon Dioxide 19 mmol/L (22-30); Chloride 105 mmol/L (98-107); Estimated Creatinine Clearance 72 ml/min; Glucose 201 mg/dl (70-99); Phosphorus 3.4 mg/dl (2.5-4.5); Potassium 4.5 mmol/L (3.5-5.1); Sodium 135 mmol/L (135-145); eGFR > 60.00
--- NOTE | 2024-06-05 05:56 | PTCARENOTE ---
EPI titrated off.
No further change in pt. assessment.
[2024-06-05] MEDS: NOVOLOG FLEXPEN-MODERATE RESISTANCE 3 UNITS SC (05:57)
[2024-06-05] MEDS: MERREM 500 MG IV ×3 (05:58→17:13)
[2024-06-05] MEDS: STERILE WATER FOR INJECTION 10 ML IV ×3 (05:59→17:13)
[2024-06-05] MEDS: SUBLIMAZE 100 IV ×3 (06:13→22:20)
[2024-06-05] MEDS: CYMBALTA DELAYED RELEASE 20 MG TUBE ×2 (07:25→19:31)
[2024-06-05] MEDS: LOW STRENGTH ASPIRIN 81 MG TUBE (07:25)
[2024-06-05] MEDS: MYCOSTATIN ORAL SUSPENSION 5 ML PO ×4 (07:25→22:18)
[2024-06-05] MEDS: NEURONTIN 100 MG TUBE ×3 (07:25→22:18)
[2024-06-05] MEDS: PROTONIX IV 40 MG IV (07:26)
[2024-06-05] MEDS: NSS (PRESERVATIVE FREE) 10 ML IV (07:26)
--- NOTE | 2024-06-05 07:50 | W.PN.NEPH.PH ---
Today's Communication / Plan
-
Maintain CRRT
Increase UF to 50 cc/h as hemodynamically tolerate
Maintain multiple pressor support to keep MAP at 65 or greater or systolic 90 or greater
Assessment/Plan
-
Impression:
ESRD MWF ([place])
Sepsis/leukocytosis with hemodynamic compromise
Hypoxic Respiratory failure
Diabetes
History of right TMA with purulent drainage from site, status post ankle amputation 05/31/2024
History of hypertension
Anemia
PAD
Plan:
CRRT continues
lytes and acidosis stable on CRRT
Adjusted replacement rate to 2 L/h for worsening metabolic acidosis which is now improving
need to decrease weights will increase u/f to 50cc/hr
abx per primary team (renally dosed)
supportive care at this time
Maintain multiple pressors (3) to keep MAP at 65 or greater
continues on heparin gtt fro bilateral DVT, also helping CRRT
prognosis remains guarded
Patient critically ill on ventilator and multiple pressor support on CRRT
critical care time 31 minutes
-
-
Date of Service: June 05, 2024
CC / HPI / ROS
-
Chief Complaint:
ESRD
History of Present Illness:
remains hypotense on 3 pressors in ICU
on vent O2 requirements better 40%
s/p right foot amputation 05/31
s/p cholecystotomy tube 05/31
Hgb >8 after transfusion
WBC increased
=
Review of Systems:
no fevers
intubated on stable fio2 40%.
Weights unchanged
Labs
-
Labs:
WBC 34.4 10^3/uL (4.8-10.8) H 06/05/24 04:24
RBC 2.87 10^6/uL (4.70-6.10) L 06/05/24 04:24
Hgb 8.0 g/dL (13.0-18.0) L 06/05/24 04:24
Hct 24.8 % (39.0-52.0) L 06/05/24 04:24
Plt Count 265 10^3/uL (130-400) D 06/05/24 04:24
eGFR > 60.00 06/05/24 04:24
Zyu-J-Xerivyuhzze Pept 4060 pg/ml 05/30/24 15:31
Albumin 2.1 g/dl (3.5-5.0) L 06/05/24 04:24
Physical Exam
-
Vital Signs:
Vital Signs
Temp Pulse Resp BP Pulse Ox
96 F L 54 14 113/44 99
06/05/24 07:24 06/05/24 06:45 06/05/24 06:45 06/05/24 01:19 06/05/24 07:44
Cardiovascular:: Regular rate and rhythm
Respiratory:: Bilateral: Coarse
Lung Excursion:: Normal
Abdomen:: Nontender and Soft
Bowel Sounds:: Decreased
Extremity Edema:: +1: Bilateral: and None: Right: (ankle amp)
Holcomb Catheter: No
Other Findings::
gen:intubated and sedated
--- NOTE | 2024-06-05 07:55 | W.PN.UPDATE ---
Update Note
Progress Note Update
CRRT note
Patient seen on CRRT
Remains hemodynamically labile on multiple pressor support
Adjusting UF to 50 cc/hr negative
2 L replacement fluid
QB 300
4K bath
--- NOTE | 2024-06-05 08:07 | W.PN.INTV ---
Today's Communication / Plan
Recommendations
CRRT
Hopefully can do SBT again Thursday (06/06)
Keep MAP >60, SBP >90 with vasopressors, weaning down as tolerated
Check echo given his persistent hypotension with high pulse pressure (which I presume is due to PAD, however need to rule out concomitant cardiomyopathy/valvular heart disease)
Give additional albumin today given his albumin level was 2.1 and he usually has a favorable hemodynamic response when he receives albumin
Pain control
Antibiotics per ID
Discussed his clinical status today with his (Giana) + son (Gm) -they understand that he is very ill and they want to continue full medical management this time. They are not sure if he would want tracheostomy. This is an ongoing
discussion
Patient is critically ill, guarded prognosis
Continue ICU level of care for this critically ill patient
Assessment
-
64-year-old male with past medical history of PAD, diabetes, hypertension, CKD on HD, hyperlipidemia, GERD presenting with septic shock secondary to right foot infected wound requiring pressors.
Impression:
#Septic shock due to infected right foot s/p I&D on 05/30/2024 by podiatry as well as acute cholecystitis and possibly UTI + LLL PNA
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
#Left basilar opacification likely due to small pleural effusion versus atelectasis/pneumonia with parapneumonic effusion
#RUQ abdominal pain with gallstones/sludge and gallbladder distention and air-fluid levels due to emphysematous acute cholecystitis
#Bilateral DVT now on heparain gtt
#Anemia
#Hypochloremic, hyponatremia - resolved
#Subclinical hyperthyroidism
#Abnormal urinalysis with + leukocyte esterase and cloudy urine suspicious for UTI
#Transaminitis likely due to cholecystitis with possible obstructive cystic duct
#PAD with history of RLE stent
#ESRD on HD via right sided chest wall permacath now on CRRT as of 06/01/2024
#DM type II c/b hyperglycemia requiring insulin gtt (now off as of 06/03)
Plan:
- Continue broad spectrum ABx --> continue meropenem s/p vanc/zosyn given the bile fluid cultures and OR + I&D + abscess cultures grew MDR-Enterobacter cloacae, and has resistance to Zosyn; ID consulted --> defer Abx to them
- I&D Cx from abscess is now growing Finegoldia magna on anaerobic Cx (collected 05/30/2024)
- Follow up cultures (blood Cx X2 from 05/30 - shows NGTD; urine Cx from 05/30: NGTD; Wound Cx (R-foot 05/30: Grew diphtheroids, yeast + Enterobacter cloacae; Abscess Cx (during I&D - 05/30): Enterobacter cloacae + yeast + Finegoldia magna; Bile Cx
05/31: Enterobacter cloacae
- Wound care consulted
- Went to the OR on 05/31 for guillotine amputation of the right lower extremity above the ankle for a necrotic infected right foot wound with septic shock --> post-operative management as per vascular surgery
- There was bleeding seen overnight from 06/04 - 06/05/2024, with the dressings soaked in blood. Stat H&H showed Hb 7.3 and he was given 1 unit PRBC with improvement in Hb to 8. He also had worsening hemodynamics requiring maximum amount on Levophed,
Jarvis-Synephrine, epi + vasopressin. As of this morning on 06/05, he is now off the epinephrine and the bleeding from right postoperative site has stopped
- With next blood draw, check PT/INR, PTT and fibrinogen
- Pain control
- Keep MAP>65 and wean down vasopressors as tolerated
- Check echo to assess LV function and assess valve function, right sided pressures
- Patient has acute emphysematous cholecystitis --> underwent IR perc nay on 05/31 --> follow up output;; if vasopressor requirements improve then would consult general surgery at that time to discuss cholecystectomy; of note bile culture grew
Enterobacter cloacae, which is multidrug-resistant, including to Zosyn � changed antibiotics on 06/03 to meropenem
- Now off insulin gtt since 06/03 --> transitioned to basal�bolus insulin SQ dosing; maintain BG goal 140-180mg/dL
-Trend H/H and transfuse if needed to keep Hb>7,plt>50k (given post-operative status)-->was transfused 2 units PRBC on 06/02 and 1 U on 06/03 and 1 U PRBC this AM on 06/05/2024
- Continue mechanical ventilation with daily SAT/SBT if clinically indicated; titrate PEEP + FiO2 to maintain SpO2 >90-94%
- Did not tolerate pressure support trial on 06/03/2024
- Maintain plateau pressure <30
- Keep HOB >30-45�
- Adjust ventilator daily as per blood gas
- CXR tomorrow to assess ETT position and to assess retrocardiac opacification
- ETT with subglottic suctioning as needed
- Monitor ETT secretions
- prn albuterol MDI - not currently bronchospastic
- Trend sNa with goal 135-145
- Trend LFTs
- DVT ppx: Heparin gtt --> continue trending H&H and if Hb continues to drop requiring blood transfusions then we will need to reassess the risk versus benefit of heparin drip and discuss with family given he has bilateral LE DVTs, and would
consider lowering therapeutic PTT range at least at that point
Guarded prognosis: He remains full code
IV access: PICC line
Continue ICU level of care for this critically ill patient.
Critical care statement: A total of 42 minutes of critical care time was provided for this patient today. This includes management of unstable vital signs, evaluation of the patient at bedside, reviewing the patient's pertinent medical records
including radiographs, microbiology, laboratory evaluations, and discussion with primary team, consultants, pharmacy, nutrition, physical therapy, case management, charge nurse, critical care nursing, and respiratory therapy.
Data:
CXR 06/05/2024:
Probable elevated right hemidiaphragm with a small right pleural effusion. The effusion is progressed.
Obscuration of the left hemidiaphragm concerning for left lower lobe pneumonia and/or pleural fluid. Stable
Cardiomegaly. Stable
Subjective Dataa
Subjective Data
Date of Service:
Date of Service: June 05, 2024
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
Subjective:
Patient was seen and evaluated this morning. Patient's , Giana, and son, Gm, both at bedside. All questions were answered. Bleeding seen overnight from right lower extremity postoperative site, and Hb last night was 7.3. He was given 1
unit PRBC --> this AM Hb is 8. He is currently on Jarvis-Synephrine at 120mcg/min, Levophed at 30mcg/min, vasopressin at 0.04 units/min. Sedated on fentanyl at 125mcg/hr. Currently intubated on AC/CMV at 16/450/40%/5, with PIP: 20 cmH2O, VTe 409 mL
and breathing at 16 breaths/min. He saturating 99% with heart rate 51, BP via A-line: 107/42 and end-tidal CO2: 33. He is easily arousable, following commands and denies any pain.
Review of Systems
General: Other (Unobtainable - intubated/sedated)
Objective Data
Data Reviewed
Vital Signs / I&O / Oxygen:
Vital Signs
Temp Pulse Resp BP Pulse Ox
96 F L 53 16 113/44 99
06/05/24 07:24 06/05/24 09:45 06/05/24 09:45 06/05/24 01:19 06/05/24 09:45
Intake and Output
06/04/24 06/05/24 06/06/24
06:59 06:59 06:59
Intake Total 3259.5 / 3418.7 4068.0 / 4185.8 376.7 / 376.7
Output Total 2771 / 2873 4152 / 4277 470 / 470
Balance 488.5 / 545.7 -84.0 / -91.2 -93.3 / -93.3
SaO2 [CPAP/PSV] 98
SaO2 [A/C] 99
SaO2 99
Nasal Cannula flow liters per 8
minute
Physical Exam
General: Respiratory Distress (n), Comfortable and Fever (n)
HEENT: Normocephalic, Anicteric and Thrush
Cardiovascular: S1-S2 and Peripheral Edema (+2 left lower extremity edema, trace edema on right lower extremity)
Respiratory: Wheeze (n), Crackles (bilateral), Rhonchi (negative), Non-Labored Respirations, Accessory Resp Muscle Use (n), Stridor (negative) and ET Tube (Mechanical breath sounds heard bilaterally)
GI: Soft, Distended (Abdominal obesity), Non Tender, NG Tube (on LIWS) and Other (hypoactive BS)
Neurology: Tremors (n) and Other (Sedated but easily arousable to voice and following all commands)
Skin: Warm, Dry, Cyanosis (n), Jaundice (n) and Other (Guillotine amputation of the right lower extremity above the ankle with operative site covered with bandage --> surgical dressing intact. No signs of bleeding currently)
Labs/Micro/Reports
Lab Data
06/05/24 04:24
Laboratory Results
06/05/24
04:24
APTT 96.6 H
pH 7.34 L
pCO2 33 L
pO2 138 H
HCO3 17.8 L
O2 Delivery Level
Microbiology
05/30/24 15:42 Blood/Venous Blood Culture - Final
No Growth - Final Report
05/30/24 15:42 Blood/Venous Blood Culture - Final
No Growth - Final Report
06/03/24 11:41 Nose MRSA Screen - Final
No Methicillin Resistant Staphylococcus aureus isolated.
05/30/24 21:41 Abscess Anaerobic Culture - Preliminary
Culture pending. Anaerobic cultures are examined after 3
days incubation. Additional information to follow.
05/30/24 16:52 Foot - Right Wound Culture - Final
Enterobacter cloacae
Diptheroids
Yeast
05/30/24 16:52 Foot - Right Gram Stain - Final
05/31/24 18:46 Bile Body Fluid Culture - Final
Enterobacter cloacae
05/31/24 18:46 Bile Gram Stain - Final
05/30/24 21:41 Abscess Wound Culture - Preliminary
Enterobacter cloacae
Enterobacter cloacae#2
Yeast
05/30/24 21:41 Abscess Gram Stain - Preliminary
--- NOTE | 2024-06-05 09:07 | W.PN.HOSP.TC ---
Today's Communication/Plan
-
see bold
Assessment / Plan
Assessment / Plan
HPI: 64-year-old male with a past medical history of PVD, diabetes, hypertension, and hyperlipidemia presents with altered mental status, lethargy, and was found to have pus draining from his right TMA site. History is obtained from his due to
patient's lethargy. Patient had a recent TMA around March 27, 2024 at [facility]. It appears that it is infected. He is now hypotensive, with a blood pressure of 77/45. He has an HD tunneled catheter and is getting dialysis 3 times a
week.
#Septic shock
Possible sources include right TMA infection and cholecystitis, treat as below
Appreciate cardiovascular tech/nephro input, currently requiring Levophed, Jarvis-Synephrine and vassopressin, off epineprhine, to maintain MAP greater than 65 as per nephro
Continue to wean pressors as tolerated
Trend fever and white count
#Right TMA gas gangrene
#Severe PVD
Records requested from [facility] where his original surgery was done in March 2024
Plavix held for surgical intervention, continue aspirin
Appreciate podiatry, vascular surgery, ID input
Status post I&D in OR by podiatry on 05/30
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 VAC applied 06/03
Bile culture and wound culture growing Enterobacter, resistant to Zosyn
Antibiotics changed to Merrem 06/03
#Acute hypoxic respiratory failure
Remains intubated after his surgery on 05/31
Continue vent management as per cardiovascular tech
Continue CRRT as per nephrology
#End-stage renal failure on dialysis at [facility] Thursday/Thursday/Thursday
#Hyponatremia
Appreciate nephrology input, continue CRRT as per nephrology
#Acute emphysematous cholecystitis
#Right upper quadrant abdominal pain
Ultrasound shows distended gallbladder with stones and sludge with mild gallbladder wall thickening
CT abdomen pelvis shows enlarged gallbladder with stones, sludge, air-fluid level, suspicious for emphysematous cholecystitis
Status post percutaneous cholecystostomy tube by IR on 05/31
#Acute on chronic anemia
#Acute blood loss anemia from surgery
Status post 4 units of packed RBC total this admission (according to MAR)
Trend hemoglobin
#Incidence of bilateral deep vein thrombosis
IV heparin drip
#Thrush
Nystatin
#History of essential hypertension
Hold amlodipine, hold Coreg secondary to septic shock
#Type 2 diabetes
A1C 7.8
Off insulin drip 06/03
Continue subcu insulin, Accu-Cheks
#Gastroesophageal reflux disease
Continue PPI
#Constipation
Continue laxatives when able
#Anxiety/depression
Continue duloxetine 20 mg twice a day
#Obesity due to excess calories
Affects all aspects of care
DVT prophylaxis�IV heparin
Full code
Updated at bedside 06/05
Total time spent to see the patient on the floor, examine the patient, review data and lab results, discuss treatment plan with patient, nursing staff around 50 minutes.
Physical Exam
General: Lethargic, intubated
HEENT: Normocephalic, Atraumatic, EOMI
+Hoarse voice
Respiratory: Clear to Auscultation bilaterally
Cardiac: Normal S1/S2, Regular Rate and Rhythm
GI: Soft, diffusely tender, especially at the right upper quadrant
+biliary drain
Extremities: No Clubbing, Cyanosis
Right ankle amputation w/ wound VAC, bilateral lower extremity edema noted
Anticipated Discharge: > 48 hours
Subjective/Interval History
-
Date of Service: June 05, 2024
Patient remains intubated on 3 pressors. No fever, no vomiting.
Objective Data
-
Labs:
Laboratory Results
06/04/24 06/04/24 06/05/24
23:19 23:44 04:24
WBC 34.4 H
Hgb 7.3 L 8.0 L
Hct 22.3 L 24.8 L
Plt Count 265 D
APTT 96.6 H
HCO3 17.8 L
Sodium 135 135
Potassium 4.4 4.5
Chloride 104 105
Carbon Dioxide 17 L 19 L
BUN 22 H 22 H
Creatinine 1.2 1.2
Glucose 185 H 201 H
Calcium 8.5 8.8
06/05/24
10:30
WBC
Hgb
Hct
Plt Count
APTT
HCO3
Sodium Pending
Potassium Pending
Chloride Pending
Carbon Dioxide Pending
BUN Pending
Creatinine Pending
Glucose Pending
Calcium Pending
Vital Signs:
Vital Signs
Temp Pulse Resp BP Pulse Ox
96 F L 52 16 113/44 100
06/05/24 07:24 06/05/24 08:00 06/05/24 08:00 06/05/24 01:19 06/05/24 08:00
I&O
06/04/24 06/05/24 06/06/24
06:59 06:59 06:59
Intake Total 3259.5 / 3418.7 4068.0 / 4185.8 376.7 / 376.7
Output Total 2771 / 2873 4152 / 4277 269 / 269
Balance 488.5 / 545.7 -84.0 / -91.2 107.7 / 107.7
--- NOTE | 2024-06-05 09:14 | W.PN.ID1 ---
Date of Service
Date of Service: June 05, 2024
Today's Communication
Continue current antibiotics.
Assessment / Plan
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
s/p I+D 05/30. OR cx: Enterobacter, yeast
s/p guillotine amp 05/31
# Acute cholecystitis
s/p perc nay 05/31
Gram stain: GNR, cx Enterobacter
# Septic shock
Remains on 3 pressors
Significant leukocytosis - trending down
# VDRF
# ESRD on HD. On CRRT prn
# Extensive BLE DVT
Plan:
- Blood cx's neg to date
- Enterobacter resistant to cephalosporins and beta-lactams.
--> Continue meropenem IV, renally adjust by pharmacy.
- Trend vitals/wbc
-Pt remains critically ill, on vent, requiring triple pressor therapy, in ICU. Prognosis guarded.
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
Type 2 diabetes mellitus
End-stage renal disease on hemodialysis
Hypertension
PAD s/p RLE stent
HLD
Obstructive sleep apnea
Depression
Right foot TMA 03/27/24 [facility]
Chief Complaint
-: Clinical Sepsis
Subjective / Review of Systems
Patient seen and examined. Remains on multiple pressors (4 earlier this morning, now down to 3). Remains on vent.
Vital Signs / Physical Exam
Vital Signs
Vital Signs
Temp Pulse Resp BP Pulse Ox
96 F L 53 16 113/44 99
06/05/24 07:24 06/05/24 09:00 06/05/24 09:00 06/05/24 01:19 06/05/24 09:00
Physical Exam
Constitutional: Acutely Ill and Toxic
Head: Other (ET tube in place.)
Eyes: Sclera Anicteric
Cardiovascular: Regular Rate and S1/S2; Negative S3/S4
Pulmonary: Clear and Other (on vent)
Gastrointestinal: Soft, Tender (now mild RUQ ), Non Distended, Decreased Bowel Sounds and Other (Cholecystostomy tube with brown bile in gravity bag)
Extremities: Negative Edema
Wound: Other (left BKA stump with bloody drainage.)
Neurological: Other (Responsive to voice and touch.)
Lines: PICC (no erythema) and HD Cath (no erythema)
Objective Data
Lab Data
Lab Results
06/05/24 04:24
ESR 70 mm/hour (0-20) H 05/31/24 02:57
PT 17.4 Sec (11.4-14.6) H 05/31/24 02:57
INR 1.40 05/31/24 02:57
APTT 96.6 Sec (23.4-35.0) H 06/05/24 04:24
Estimated Creat Clear 72 ml/min 06/05/24 04:24
Lactic Acid Cancelled 05/30/24 19:45
Total Bilirubin 1.0 mg/dl (0.2-1.3) 06/03/24 04:16
AST 125 U/L (17-59) H 06/03/24 04:16
ALT 45 U/L (0-50) 06/03/24 04:16
Alkaline Phosphatase 478 U/L (38-126) H 06/03/24 04:16
C-Reactive Protein > 270.00 mg/L (0.0-10.00) H 05/31/24 02:57
Amylase Cancelled 06/01/24 06:00
Most recent labs reviewed.
Micro Results:
05/30/24 15:42 Blood Culture - Final
Blood/Venous No Growth - Final Report
05/30/24 15:42 Blood Culture - Final
Blood/Venous No Growth - Final Report
06/03/24 11:41 MRSA Screen - Final
Nose No Methicillin Resistant Staphylococcus aureus isolated.
05/30/24 21:41 Anaerobic Culture - Preliminary
Abscess Culture pending. Anaerobic cultures are examined after 3
days incubation. Additional information to follow.
05/30/24 16:52 Wound Culture - Final
Foot - Right Enterobacter cloacae
Diptheroids
Yeast
Gram Stain - Final
05/31/24 18:46 Body Fluid Culture - Final
Bile Enterobacter cloacae
Gram Stain - Final
05/30/24 21:41 Wound Culture - Preliminary
Abscess Enterobacter cloacae
Enterobacter cloacae#2
Yeast
Gram Stain - Preliminary
05/30/24 15:42 Urine Culture - Final
Urine NO GROWTH
05/30/24 15:42 Influenza Types A & B (HOLDEN) - Final
Nasal Swab Negative for Influenza A & B, NAAT
Negative results must be combined with clinical observations
and patient history.
Nucleic Acid Amplification test (NAAT)performed on the
[employer] platform.
05/30/24 CXR: No acute cardiopulmonary process within the limitations of very low lung volumes.
05/30/24 ABD US: The gallbladder is distended and filled with stones and sludge. Mild gallbladder wall thickening raising the possibility for acute cholecystitis. However, no appreciable pericholecystic fluid and a reportedly negative sonographic
Bermeo's sign.
05/30/24 Foot XRAY: Soft tissue gas in the right foot and ankle most suggestive of infection
05/31/24 Periph Vasc US: Extensive bilateral lower extremity deep venous thrombosis
[2024-06-05] MEDS: RFP-401 HD Soln (K+ 4 mEq/L) 15000 ML CRRT-IRR ×2 (09:22→16:58)
--- NOTE | 2024-06-05 09:50 | PTCARENOTE ---
Rec'd pt at 0700. Pt drowsy on vent, spontaneously opens eyes, nods head appropriately. Follows simple commands, pt assisting more this am with turning in bed. Monitor SBR with 1st degree AVB. Jarvis/Levo/Vaso gtts via MICHAEL PICC for BP maintenance. Left
radial a-line in place, zeroed. Lungs dim/sct coarse, pox 97-100% on 40% fio2. Abd large/round, few bowel sounds. [place] to LIWS with minimal drainage. FMS draining liquid barrios stool, flushed. Pt anuric. CRRT continuing at bedside without issue,
adjusted to keep pt net loss 50ml/hr at 0800 per orders. Pt repositioned/linens changed. RLE wound care/dressing change performed. Fentanyl gtts for pain/sedation management. at bedside, updated.
[2024-06-05 11:15] LABS: Glucose - Point of Care 167 mg/dl (70-99)
[2024-06-05 11:16] LABS: Ionized Calcium 1.33 mMOL/L (1.15-1.33)
--- NOTE | 2024-06-05 12:25 | PTCARENOTE ---
No changes in assessment, remains at bedside. Awaiting 1100 labs to be resulted.
[2024-06-05 12:59] LABS: Blood Urea Nitrogen 19 mg/dl (9-20); Calcium 8.6 mg/dl (8.4-10.2); Carbon Dioxide 16 mmol/L (22-30); Chloride 108 mmol/L (98-107); Estimated Creatinine Clearance 78 ml/min; Glucose 159 mg/dl (70-99); Phosphorus 2.7 mg/dl (2.5-4.5); Potassium 4.1 mmol/L (3.5-5.1); Sodium 136 mmol/L (135-145); eGFR > 60.00
--- NOTE | 2024-06-05 16:24 | PTCARENOTE ---
~1450 SBP dropping into 80-90's with MAP mid 50's. Jarvis increased to max 200mcg/min, remains on max Levo and Vaso. Dr. Lopez aware, albumin ordered and infusing at this time. SBP now up to 120's with MAP 70's.
[2024-06-05 17:12] LABS: Ionized Calcium 1.25 mMOL/L (1.15-1.33)
[2024-06-05 17:15] LABS: Glucose - Point of Care 154 mg/dl (70-99)
[2024-06-05 17:18] LABS: Hematocrit 20.7 % (39.0-52.0); Hemoglobin 6.8 g/dL (13.0-18.0); Mean Corp Hgb Conc. 32.9 g/dL (33.0-37.0); Mean Corpuscular Hgb 27.9 pg (27.0-31.0); Mean Corpuscular Volume 84.8 fL (80.0-94.0); Mean Platelet Volume 8.8 fL (7.4-10.4); Platelet Count 202 10^3/uL (130-400); Red Blood Cell Count 2.44 10^6/uL (4.70-6.10); Red Cell Dist. Width 16.9 % (11.5-14.5); White Blood Cell Count 29.1 10^3/uL (4.8-10.8)
[2024-06-05 17:26] LABS: INR 1.18; PT 15.3 Sec (11.4-14.6)
[2024-06-05 17:27] LABS: Fibrinogen 398 MG/DL (199-459)
[2024-06-05 17:28] LABS: APTT 102.1 Sec (23.4-35.0)
[2024-06-05 17:49] LABS: Blood Urea Nitrogen 18 mg/dl (9-20); Calcium 8.8 mg/dl (8.4-10.2); Carbon Dioxide 19 mmol/L (22-30); Chloride 106 mmol/L (98-107); Estimated Creatinine Clearance 72 ml/min; Glucose 147 mg/dl (70-99); Magnesium 1.9 mg/dl (1.6-2.3); Phosphorus 2.6 mg/dl (2.5-4.5); Sodium 137 mmol/L (135-145); eGFR > 60.00
[2024-06-05] MEDS: MAGNESIUM SULFATE 100 IV (18:07)
--- NOTE | 2024-06-05 18:24 | PTCARENOTE ---
Repeat HGB 6.8, Dr. Lopez notified. 1 unit PRBCs ordered. PRN Mag and Phos IVPB infusing per protocol on assessment of 1700 labs. Daughter at bedside, updated.
[2024-06-05] MEDS: SODIUM PHOSPHATE 260 MEQ IV (18:27)
--- NOTE | 2024-06-05 20:43 | PTCARENOTE ---
Addendum entered by Gordo Guerrero RN 06/05/24 21:49:
VAMP set added to arterial access due to anemia.
Original Note:
Assumed care of pt. 1900.
CVVHD running w.o issues. net -50 per hr, 4K bath remains. Lytes rplt per protocol.
Triple pressed, weaning phenylephrine down as tolerated see titration flowsheets for details.
Arterial line dampened, setup changed, now has appropriate waveforms, all titration metrics made from arterial line.
Recently discovered wound on R side of lip, WOC cunsulted, RT notified, ET gonsalez set up changed, wound care provided.
H/H 6.8 for day team, Blood products infusing.
Family bedside, all care explained, plan of care agreed upon, no further questions at this time.
[2024-06-05] MEDS: SUBLIMAZE 50 MCG IV (22:08)
[2024-06-05] MEDS: SENNA SYRUP 17.6 MG TUBE (22:18)
[2024-06-05] MEDS: COLACE LIQUID 200 MG TUBE (22:18)
[2024-06-05] MEDS: HEPARIN 25000 UNITS/250 ML IV (22:20)
[2024-06-05] MEDS: RFP-401 HD Soln (K+ 4 mEq/L) 5000 ML CRRT-IRR (22:21)
[2024-06-05] MEDS: LANTUS 0.1 UNITS SC (23:04)
[2024-06-05 23:07] LABS: Ionized Calcium 1.23 mMOL/L (1.15-1.33)
--- NOTE | 2024-06-05 23:36 | PTCARENOTE ---
Phenylephrine titrated off.
Repeat H/H pending.
No further change in pt. assessment.
[2024-06-06 00:29] LABS: Blood Urea Nitrogen 15 mg/dl (9-20); Calcium 8.1 mg/dl (8.4-10.2); Carbon Dioxide 15 mmol/L (22-30); Chloride 110 mmol/L (98-107); Estimated Creatinine Clearance 96 ml/min; Glucose 155 mg/dl (70-99); Magnesium 2.5 mg/dl (1.6-2.3); Phosphorus 3.4 mg/dl (2.5-4.5); Potassium 3.7 mmol/L (3.5-5.1); Sodium 138 mmol/L (135-145); eGFR > 60.00
[2024-06-06 00:33] LABS: Hematocrit 21.3 % (39.0-52.0)
--- NOTE | 2024-06-06 01:01 | PTCARENOTE ---
H/H repeat back at 7.0, another unit PRBC ordered.
Jarvis remains off.
No further change in assessment.
[2024-06-06] MEDS: MERREM 500 MG IV ×5 (01:14→23:49)
[2024-06-06] MEDS: STERILE WATER FOR INJECTION 10 ML IV ×5 (01:14→23:49)
[2024-06-06] MEDS: LEVOPHED 258 MG IV ×3 (01:15→16:57)
[2024-06-06] MEDS: NOVOLOG FLEXPEN-MODERATE RESISTANCE 1 UNITS SC ×2 (01:16→06:08)
[2024-06-06 02:27] VITALS: BP 140/40
--- NOTE | 2024-06-06 02:43 | PTCARENOTE ---
CRRT circuit changed.
[2024-06-06 02:44] VITALS: BP 141/40
[2024-06-06] MEDS: SUBLIMAZE 50 MCG IV ×5 (02:49→19:56)
[2024-06-06] MEDS: PITRESSIN 100 IV (03:06)
--- NOTE | 2024-06-06 04:11 | PTCARENOTE ---
Jarvis remains off, Norepi titrating down.
CRRT circuit changed, running w.o issues.
Increased RASS scores fentanyl gtt uptitrated.
No further change in assessment.
[2024-06-06 04:43] LABS: Ionized Calcium 1.15 mMOL/L (1.15-1.33)
[2024-06-06 04:45] LABS: B.E. -7.7 mmol/L; HCO3 17.1 mmol/L (21-28); O2 Saturation % 98.5 % (94-98); PCO2 31 mmHg (35-48); PO2 89 mmHg (83-108); pH 7.35 (7.35-7.45)
[2024-06-06 04:50] VITALS: BP 150/42
[2024-06-06] MEDS: SUBLIMAZE 100 IV ×3 (04:52→19:56)
[2024-06-06 05:02] VITALS: BMI 37.7
--- NOTE | 2024-06-06 05:02 | PTCARENOTE ---
R wound amputation dressing saturated, dressing changed x2 during this 12 hour period.
[2024-06-06 05:07] LABS: APTT 100.7 Sec (23.4-35.0)
[2024-06-06] MEDS: CALCIUM GLUCONATE 130 MG IV (05:20)
[2024-06-06 05:54] LABS: ALT (SGPT) 34 U/L (0-50); AST (SGOT) 76 U/L (17-59); Albumin 2.8 g/dl (3.5-5.0); Alkaline Phosphatase 533 U/L (38-126); Blood Urea Nitrogen 16 mg/dl (9-20); Calcium 8.5 mg/dl (8.4-10.2); Carbon Dioxide 13 mmol/L (22-30); Chloride 105 mmol/L (98-107); Direct Bilirubin 0.6 mg/dl (0.0-0.4); Estimated Creatinine Clearance 78 ml/min; Glucose 155 mg/dl (70-99); Magnesium 2.4 mg/dl (1.6-2.3); Phosphorus 3.2 mg/dl (2.5-4.5); Potassium 3.9 mmol/L (3.5-5.1); Sodium 136 mmol/L (135-145); Total Bilirubin 1.1 mg/dl (0.2-1.3); Total Protein 5.1 g/dl (6.3-8.2); eGFR > 60.00
[2024-06-06] MEDS: SODIUM BICARBONATE 50 MEQ IV (06:06)
--- NOTE | 2024-06-06 07:14 | W.PN.INTV ---
Today's Communication / Plan
Recommendations
-Hold aspirin and continue heparin. This is done in view of recurrent need for blood transfusion and intermittent bleeding
-Continue to wean pressors as tolerated, continue current UF with the goal of 1 to 1.5 L negative
-Start tube feeding considering pressor requirement is coming down
-Start sodium bicarbonate 650 3 times daily via tube feeding
-Continue daily SAT. Will attempt SBT once pressor need further down, otherwise on minimal vent settings
Assessment
-
64-year-old male with past medical history of PAD, diabetes, hypertension, CKD on HD, hyperlipidemia, GERD presented with septic shock secondary to right foot infected wound requiring pressors. In view of severe septic shock, patient required
intubation and mechanical ventilation. 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
#1. Septic shock due to gas gangrene of right foot & acute emphysematous cholecystitis
-Currently on Levophed and vasopressin, titrate down as tolerated, A-line in place
-PICC line in place for pressor infusion
-Patient does not appear to be hypovolemic however very low albumin puts him at risk of intravascular hypovolemia. -860 over last 24 hours, continue CRRT with UF at 200/h
-Await ECHO with wide pulse pressure
#2. 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 Patient had I&D on 05/30 and subsequent guillotine amputation on 05/2024.
-Wound cultures growing Enterobacter (resistant to cephalosporins and beta-lactam's )and yeast, currently on meropenem. ID service on case
- There was bleeding seen overnight from 06/04 - 06/05/2024, with the dressings soaked in blood. Patient required blood transfusion most recent overnight.
-Hemoglobin 7.9 this morning
-In view of intermittent bleeding, dropping hemoglobin and need for transfusion, will hold aspirin for now and continue heparin
#3. Emphysematous acute cholecystitis, status post percutaneous cholecystostomy 05/31. Also contributing to septic shock
-c/s Enterobacter, continue meropenem
#4. Acute hypoxic respiratory failure, related to severe septic shock. Currently intubated and mechanically ventilated
-ABG, 06/06, 7.35, 31, 89
-Continue current vent settings, PEEP of 5, FiO2 40%
-Daily SAT. Will start SBT once pressor need further down, failed SBT on 06/03
-No significant ET tube secretions noted
-Peak pressure 23, blood pressure 18.
#5. End-stage renal disease, on chronic hemodialysis.
-Currently on CRRT, nephrology service on case
-Access, permacath right upper chest
-Started Bicitra oral sodium bicarbonate
#6. Diabetes mellitus,
-Currently off insulin infusion.
-On glargine 12 units nightly and Aspart q 6 hrs
#4. Bilateral DVT
-Continue heparin infusion,
-If continued need for blood transfusion noted after stopping aspirin, will aim for lower target PTT goal
#5. Pyuria.
-Final urine culture do not show any growth
#6. Anemia
-Anemia multifactorial with acute critical illness, underlying end-stage renal disease on renal replacement therapy. Patient also has been on aspirin and heparin with supratherapeutic PTT
-Status post blood transfusion 06/06
-Continue to monitor
-Fibrinogen 398 on 06/05
- Trend sNa with goal 135-145
- Trend LFTs
- DVT ppx: Heparin gtt
Guarded prognosis: He remains full code
IV access: PICC line
Continue ICU level of care for this critically ill patient.
Critical care statement: A total of 42 minutes of critical care time was provided for this patient today. This includes management of unstable vital signs, evaluation of the patient at bedside, reviewing the patient's pertinent medical records
including radiographs, microbiology, laboratory evaluations, and discussion with primary team, consultants, pharmacy, nutrition, physical therapy, case management, charge nurse, critical care nursing, and respiratory therapy.
Data:
CXR 06/06/2024:
P unchanged with small bilateral pleural effusions and likely bibasilar atelectasis.
Subjective Dataa
Subjective Data
Date of Service:
Date of Service: June 06, 2024
Chief Complaint: Screw Remover Follow Up
Objective Data
Data Reviewed
Vital Signs / I&O / Oxygen:
Vital Signs
Temp Pulse Resp BP Pulse Ox
98.3 F 58 16 150/42 96
06/06/24 04:50 06/06/24 06:00 06/06/24 06:00 06/06/24 04:50 06/06/24 06:00
Intake and Output
06/05/24 06/06/24 06/07/24
06:59 06:59 06:59
Intake Total 4068.0 / 4185.8 4570.4 / 4570.4
Output Total 4152 / 4277 5066 / 5066
Balance -84.0 / -91.2 -495.6 / -495.6
SaO2 [CPAP/PSV] 98
SaO2 [A/C] 98
SaO2 96
Nasal Cannula flow liters per 8
minute
Physical Exam
General: Respiratory Distress (n), Comfortable and Fever (n)
HEENT: Normocephalic, Anicteric and Thrush
Cardiovascular: S1-S2 and Peripheral Edema (+2 left lower extremity edema, trace edema on right lower extremity)
Respiratory: Wheeze (n), Crackles (bilateral), Rhonchi (negative), Non-Labored Respirations, Accessory Resp Muscle Use (n), Stridor (negative) and ET Tube (Mechanical breath sounds heard bilaterally)
GI: Soft, Distended (Abdominal obesity), Non Tender, NG Tube (on LIWS) and Other (hypoactive BS)
Neurology: Tremors (n) and Other (Sedated but easily arousable to voice and following all commands)
Skin: Warm, Dry, Cyanosis (n), Jaundice (n) and Other (Guillotine amputation of the right lower extremity above the ankle with operative site covered with bandage --> surgical dressing intact. No signs of bleeding currently)
Labs/Micro/Reports
Laboratory Results
06/05/24 06/06/24
17:04 04:31
PT 15.3 H
INR 1.18
APTT 102.1 H 100.7 H
pH 7.35
pCO2 31 L
pO2 89
HCO3 17.1 L
O2 Delivery Level
Microbiology
05/30/24 21:41 Abscess Wound Culture - Final
Enterobacter cloacae
Enterobacter cloacae#2
Yeast
05/30/24 21:41 Abscess Gram Stain - Final
05/30/24 21:41 Abscess Anaerobic Culture - Final
Finegoldia magna
05/30/24 15:42 Blood/Venous Blood Culture - Final
No Growth - Final Report
05/30/24 15:42 Blood/Venous Blood Culture - Final
No Growth - Final Report
06/03/24 11:41 Nose MRSA Screen - Final
No Methicillin Resistant Staphylococcus aureus isolated.
05/30/24 16:52 Foot - Right Wound Culture - Final
Enterobacter cloacae
Diptheroids
Yeast
05/30/24 16:52 Foot - Right Gram Stain - Final
05/31/24 18:46 Bile Body Fluid Culture - Final
Enterobacter cloacae
05/31/24 18:46 Bile Gram Stain - Final
--- NOTE | 2024-06-06 08:03 | W.PN.HOSP.TC ---
Today's Communication/Plan
-
Wean pressors as able
SBT per [employer]
Await labs
Continue antibiotics
Assessment / Plan
Assessment / Plan
Gen-intubated, sedated, NAD
HEENT-NC, AT, anicteric
Neck-supple
CV-reg, no M, +S1/S2
Lungs-clear B/L
Abd-soft, NT, ND
Ext-right upper extremity diffuse edema, right lower extremity amputation at ankle
Musculoskeletal-no cyanosis, clubbing. Right lower extremity Asael wrap around amputation site
Skin-warm and dry
Septic shock -due to infected right TMA wound, acute calculus emphysematous cholecystitis. WBCs pending for today. Remains afebrile.
Remains on 2 vasopressors, Levophed and vasopressin. Wean down as able. Last recorded blood pressure 150/42.
Continue IV meropenem per infectious disease.
Blood cultures negative. Fluid culture from gallbladder and right TMA site both positive for Enterobacter cloacae.
Right TMA gas gangrene
Records from [facility] reviewed. Admitted 03/23/2024, discharged 04/08/2024. Primary discharge diagnosis was ESRD requiring dialysis. Secondary diagnoses included PAD and right foot infection. Primary reason for admission was for
worsening right foot wound in the setting of recent right foot gangrene, right lower extremity tibial/peroneal angioplasty, and right foot fourth metatarsal resection and bone biopsies. Podiatry performed right TMA on 03/27/2024. Postoperatively
developed acute kidney failure requiring initiation of hemodialysis. Discharged to SNF on 04/08/2024.
Plavix held for surgical intervention, continue aspirin
Status post I&D in OR by podiatry on 05/30
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 VAC applied 06/03
Acute hypoxic respiratory failure
Remains intubated after his surgery on 05/31
Continue vent management as per [employer]
ESRD - on dialysis at [place] [facility] Thursday/Thursday/Thursday. Currently getting CRRT per nephrology.
High anion gap metabolic acidosis noted, bicarbonate 13 this morning. Anion gap 18. Given 1 amp of IV sodium bicarbonate this morning. Defer to nephrology further management.
Hyponatremia -resolved.
Acute calculus emphysematous cholecystitis -Status post percutaneous cholecystostomy tube by IR on 05/31.
Ultrasound shows distended gallbladder with stones and sludge with mild gallbladder wall thickening
CT abdomen pelvis shows enlarged gallbladder with stones, sludge, air-fluid level, suspicious for emphysematous cholecystitis
Acute on chronic anemia -Acute blood loss anemia from surgery. Has had 6 units of blood transfused so far.
Acute bilateral lower extremity DVT -currently on IV heparin. Plavix discontinued.
Thrush
Nystatin
Essential hypertension -amlodipine and Coreg on hold due to septic shock.
DM2 without hyperglycemia -glucose 155 this morning. Hemoglobin A1c 7.8%. Off insulin drip 06/03. Prior to admission he was on Lantus 10 units at bedtime, NovoLog 4 units AC.
Currently on Lantus 10 units at bedtime, moderate resistance aspart scale. Diabetes [employer] managing glucoses.
Gastroesophageal reflux disease
Continue PPI
Constipation
Continue laxatives when able
Anxiety/depression
Continue duloxetine 20 mg twice a day
Obesity due to excess calories
DVT prophylaxis�IV heparin
Full code
Anticipated Discharge: > 48 hours
Subjective/Interval History
-
Date of Service: June 06, 2024
Patient seen and examined. Remains sedated, intubated. Looks comfortable.
Objective Data
-
Labs:
Laboratory Results
06/05/24 06/06/24 06/06/24
22:56 00:02 04:31
WBC
Hgb 7.0 L
Hct 21.3 L
Plt Count
APTT 100.7 H
HCO3 17.1 L
Sodium 138 136
Potassium 3.7 3.9
Chloride 110 H 105
Carbon Dioxide 15 L 13 L*
BUN 15 16
Creatinine 0.9 1.1
Glucose 155 H 155 H
Calcium 8.1 L 8.5
Total Bilirubin 1.1
AST 76 H
ALT 34
Alkaline Phosphatase 533 H
06/06/24 06/06/24
07:57 11:00
WBC Pending
Hgb Pending
Hct Pending
Plt Count Pending
APTT
HCO3
Sodium Pending
Potassium Pending
Chloride Pending
Carbon Dioxide Pending
BUN Pending
Creatinine Pending
Glucose Pending
Calcium Pending
Total Bilirubin
AST
ALT
Alkaline Phosphatase
Vital Signs:
Vital Signs
Temp Pulse Resp BP Pulse Ox
97.5 F 58 16 150/42 96
06/06/24 07:00 06/06/24 06:00 06/06/24 06:00 06/06/24 04:50 06/06/24 07:51
I&O
06/05/24 06/06/24 06/07/24
06:59 06:59 06:59
Intake Total 4068.0 / 4185.8 4570.4 / 4620.4 50.0 / 50.0
Output Total 4152 / 4277 5066 / 5394 328 / 328
Balance -84.0 / -91.2 -495.6 / -773.6 -278.0 / -278.0
Review of Systems
-
Unable to obtain full review of systems at this time due to: Acuity and Patient Intubation
--- NOTE | 2024-06-06 08:12 | PN.DE.MGMTRT ---
Insulin Management
- -
06/06/2024: Diabetes Management follow up
Patient admitted 05/30 with change in level of consciousness. PMH PVD, asthma, GERD, HTN, HCL, diabetes, renal failure (HD 3 x per week). Patient found to have severe sepsis with R foot wound with purulent drainage most likely source. Patient has
since gone to OR for amputation of R foot 05/31.
Prior to admission was taking 4 units NovoLog AC with Lantus 10 units @ hs. A1C 7.8%, cr 1.1, eGFR>60
Patient remains intubated, critically ill, unable to interview at this time. All information obtained from chart and patient nurse.
He is POD #6 s/p Guillotine amputation of the right lower extremity above the ankle
Was transitioned off insulin infusion on 06/03. Glucose stable and in range 147 to 159. FBG 155 this AM.
He has been started on tube feeds today @20cc/hr, goal 45cc/hr.
Will start NovoLog 4 units Q6 hrs and increase Lantus to 12 units daily in AM. Cont moderate corrective insulin Q6 hrs.
Will cont to follow and make further adjustments if necessary
Discussed with nurse and ICU Pharm team.
Diabetes History
- -
Type of Diabetes: 2 requiring insulin
Pre-Admission Diabetes Regimen
06/05/24 06/05/24 06/05/24
11:03 17:04 22:56
Creatinine 1.1 1.2 0.9
06/06/24
04:31
Creatinine 1.1
Lab Results
Hemoglobin A1c 7.8 % (4.0-5.6) H 05/31/24 02:57
Insulin Pump Settings
IP Diabetes Regimen
06/05/24 06/05/24 06/05/24
11:02 11:03 17:03
Glucose 159 H
POC Glucose 167 H 154 H
06/05/24 06/05/24 06/06/24
17:04 22:56 04:31
Glucose 147 H 155 H 155 H
POC Glucose
Patient Education
--- NOTE | 2024-06-06 08:13 | W.PN.VS ---
Today's Communication / Plan
-
See below.
Assessment/Plan
-
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
Plan:
Wet-to-dry dressing reapplied
Wound care consult
Will follow along and determine timing for formal below the knee amputation
Subjective Data
-
Date of Service: June 06, 2024
Patient remains intubated and sedated.
Objective Data
-
Vital Signs
Temp Pulse Resp BP Pulse Ox
97.5 F 58 16 150/42 97
06/06/24 07:00 06/06/24 06:00 06/06/24 06:00 06/06/24 04:50 06/06/24 08:00
Intake and Output
06/05/24 06/06/24 06/07/24
06:59 06:59 06:59
Intake Total 4068.0 / 4185.8 4570.4 / 4620.4 100.4 / 100.4
Output Total 4152 / 4277 5066 / 5394 436 / 436
Balance -84.0 / -91.2 -495.6 / -773.6 -335.6 / -335.6
Intake:
Oral fluids 0 / 0 0 / 0 0 / 0
IV fluids (Total) 3071.7 / 3189.5 2463.0 / 2513.0 100.4 / 100.4
Levophed 1351.3 / 1411.0 1265.2 / 1280.0 29.3 / 29.3
epi 140.9 / 140.9
fent 278.2 / 291.7 304.2 / 318.5 28.9 / 28.9
heparin 238.9 / 249.8 241.3 / 250.9 19.3 / 19.3
tor 721.0 / 742.2 365.9 / 365.9
prop 66.9 / 66.9
vasopressin 274.5 / 287.0 286.4 / 297.7 22.9 / 22.9
IV piggybacks 296.3 / 296.3 617.4 / 617.4 0 / 0
Amount instilled into GI Tube ( 100 / 100 /
Total)
Ceiba Sump 100 / 100 /
Blood Products 350 / 350 900 / 900
Albumin 25% 100 / 100 200 / 200
Packed red blood cells 250 / 250 700 / 700
Blood Product Amount Infused ( 250 / 250 500 / 500
mL)
Packed Rbc Leukoreduced Unit 250 / 250
[id number]
Packed Rbc Leukoreduced Unit 250 / 250
[id number]
Packed Rbc Leukoreduced Unit 250 / 250
[id number]
Output:
Drain Output (Total) 0 / 0
Right Abdomen 0 / 0
Gastrointestinal tube output ( 400 / 400
Total)
Ceiba Sump 400 / 400
Urine, Voided 0 / 0 0 / 0 0 / 0
CRRT - Actual ultrafiltration 4112 / 4237 4601 / 4929 436 / 436
volume
Calcium 8.5 mg/dl (8.4-10.2) 06/06/24 04:31
Phosphorus 3.2 mg/dl (2.5-4.5) 06/06/24 04:31
Magnesium 2.4 mg/dl (1.6-2.3) H 06/06/24 04:31
Total Bilirubin 1.1 mg/dl (0.2-1.3) 06/06/24 04:31
Direct Bilirubin 0.6 mg/dl (0.0-0.4) H 06/06/24 04:31
AST 76 U/L (17-59) H 06/06/24 04:31
ALT 34 U/L (0-50) 06/06/24 04:31
Alkaline Phosphatase 533 U/L (38-126) H 06/06/24 04:31
Total Protein 5.1 g/dl (6.3-8.2) L 06/06/24 04:31
Albumin 2.8 g/dl (3.5-5.0) L 06/06/24 04:31
Physical Exam
-
Remains intubated and sedated appears in no distress
No tachycardia
Tolerating ventilator
Right lower extremity guillotine amp dressing CDI, no evidence of active bleeding, surrounding skin intact, dressing removed, viable tissue, no evidence of necrosis, dressing changed by this provider
[2024-06-06] MEDS: NSS (PRESERVATIVE FREE) 10 ML IV (08:14)
[2024-06-06] MEDS: NEURONTIN 100 MG TUBE ×3 (08:14→21:03)
[2024-06-06] MEDS: CYMBALTA DELAYED RELEASE 20 MG TUBE ×2 (08:14→21:02)
[2024-06-06] MEDS: MYCOSTATIN ORAL SUSPENSION 5 ML PO (08:14)
[2024-06-06] MEDS: PROTONIX IV 40 MG IV (08:15)
[2024-06-06] MEDS: LOW STRENGTH ASPIRIN 81 MG TUBE (08:15)
--- NOTE | 2024-06-06 08:52 | W.PN.INTV ---
Today's Communication / Plan
Recommendations
As above
Assessment
-
64-year-old male with past medical history of PAD, diabetes, hypertension, CKD on HD, hyperlipidemia, GERD presented with septic shock secondary to right foot infected wound requiring pressors, intubation and mechanical ventilation.
#Septic shock secondary to right foot infected wound
- Patient had recent right TMA in March 2024 complicated by wound dehiscence requiring several debridements since then. In the ED, he was found to have purulent drainage from the TMA site. Right foot x-ray showed soft tissue gas in the foot and
ankle. He was taken to the OR for I&D, infection extended along the extensor tendons proximally as well as laterally across the tarsometatarsal joint was noted. Patient is critically ill requiring pressors (levo 14 mcg/min) for hemodynamic
stability.
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 Will decide on timing for formal below-knee amputation.
- ESR and CRP elevated
- wbc trended up over the weekend, downtrending today, 29 --> 18, AB.35/31/89/17.1, lactic acid pending
- Patient is currently on meropenem, I&D culture: Finegoldia magna, wound culture: Enterobacter cloacae multidrug-resistant resistant, blood culture negative
#Acute hypoxic respiratory failure
- No wheezing on auscultation. Decreased breath sounds bilaterally in the lung bases
- Patient was intubated in the OR. Day 7 on ventilator. Ventilator settings (CMV): 16/450/5/40%. Satting at > 96%
- Chest x-ray 06/06/2024: Low lung volumes with small bilateral pleural effusion and likely bibasilar atelectasis.
#RAISSA on CKD
- Likely prerenal in the setting of sepsis
- Creatinine continues to downtrend, 1.1 today
- Status post hemodialysis, continue CRRT given hemodynamic instability
#Lower extremity pitting edema, right greater than left
- Bedside ultrasound showed a noncompressible vein superior to the right common femoral vein and a noncompressible right popliteal vein concerning for DVT
- Lower extremity ultrasound showed bilateral extensive DVT. Patient was started on heparin drip after OR on 05/31/2024.
#Right upper extremity swelling
- Continue to monitor
- Patient is on heparin drip for bilateral LE DVT
# Metabolic acidosis, anion gap
- Patient developed metabolic acidosis over the weekend
- Likely in the setting of sepsis, lactic acid pending, bicarb 13 this a.m., repeat bicarb pending
#Elevated liver enzymes, emphysematous cholecystitis
- Abdominal ultrasound showed distended gallbladder, filled with stones and sludge, mild gallbladder wall thickening concerning for acute cholecystitis, negative sonographic Bermeo sign and no pericholecystic fluid.
- Abdomen diffusely tender on exam (more pronounced on the right upper quadrant), without guarding/tenderness.
- Patient is afebrile, not complaining of nausea, vomiting, abdominal pain.
- Likely due to septic shock and acute cholecystitis.
- Abdomen pelvis CT (05/31/2024) was concerning for emphysematous cholecystitis. IR was consulted, placed percutaneous nay tube. Bile Cx Enterobacter cloacae multidrug-resistant resistant. Low output from the nay tube since last night. Will
need eventual outpatient follow-up with surgery for cholecystectomy.
#Leukocytosis
- Likely secondary to sepsis
- wbc trended up over the weekend, downtrending today, 29 --> 18,
#Asymptomatic urinary tract infection
- UA showed moderate bacteria, esterase 1+, wbc 3-5
- Urine culture negative
- Blood cultures negative
#Hyperglycemia
- Blood sugars elevated (>200), patient was started on insulin drip. Will continue to monitor Accu-Cheks and transition off insulin infusion as needed.
- Patient is on 10 units insulin glargine at bedtime and 4 units aspart at home
- Hemoglobin A1c 7.8
#Anemia
- Likely multifactorial, in the setting of chronic kidney disease and bleeding from amputation site
- On chart review, bleeding from amputation site was noted overnight from 06/04/24 - 06/05/24, hemoglobin dropped to 6.8, s/p 6 units PRBC total
- No active bleeding currently from the amputation site/IV lines
- Hemoglobin stable at 7.9 today
#Abnormal thyroid function
- TSH low, T4 within normal limits
- No history of thyroid disease
- Likely in the setting of acute infection, sick euthyroid syndrome
#Hypoalbuminemia
- s/p albumin infusion
Conditions present prior to admission
Hypertension -- Home meds currently on hold
Hyperlipidemia -- statin held due to elevated LFTs
Diabetes -- on insulin
GERD -- continue Protonix --> transition to IV Protonix
PAD s/p right lower extremity stent
CKD -- on hemodialysis
Neuropathy -- patient takes gabapentin and oxycodone 15mg every 12h at home, continue gabapentin
Depression -- on duloxetine
Obesity due to excess calories
Plan:
RASS score -1, opens eyes spontaneously, arousable to voice and follows commands. Sedated on fentanyl (150), wean as able. Continue Tylenol as needed and gabapentin. Will try SAT today.
Patient remains critically ill, was on 2 pressors this a.m., Levophed 8 and vaso 0.04 mcg/minute. Now off vaso, on Levophed 14 mcg/min. Systolic pressures 140-150, diastolic pressures in the 40s -- wide pulse pressure likely in the setting of sepsis
and PAD. Echo ordered to rule out possible heart pathology contributing to wide pulse pressure. Wean pressors as able. Maintain MAP>60 or SBP>90.
Continue to hold home meds (Coreg and Norvasc).
Patient is day 7 on ventilator. Nonlabored breathing. Ventilator settings adjusted. Can consider SBT later today if hemodynamically stable. Maintain SpO2 > 92-94%
Chest x-ray today shows small bilateral pleural effusions and likely bibasilar atelectasis. Will repeat chest x-ray tomorrow morning.
s/p percutaneous any tube, no abdominal tenderness/rebound/guarding on exam. Minimal output on nay tube (<100cc). Outpatient follow-up for eventual cholecystectomy. Bile culture Enterobacter cloacae multidrug-resistant resistant was noted.
History of GERD. Continue IV Protonix.
Start tube feeds for nutrition.
Continue CRRT. Replete lytes as needed. Anion gap metabolic acidosis noted, continue sodium bicarb. Monitor bicarb. Lactic acid pending.
I&D culture Finegoldia magna. Wound culture and bile culture Enterobacter cloacae multidrug-resistant resistant, continue meropenem 500 mg every 6h (dose renally adjusted)
Vascular surgery is on board, s/p guillotine of the right lower extremity above the ankle. Vascular surgery to decide on timing of formal below-knee amputation. Surgical dressings changed today. Continue to hold Plavix. No active bleeding on exam.
Bilateral lower extremity DVT, continue heparin drip. PTT in therapeutic range, continue to monitor closely.
Hemoglobin 7.9 today s/p 6 units PRBC total. No evidence of active bleeding from amputation site/IV lines. Trend H&H and transfuse if needed for Hb<7g/dL or plt<20k, unless there is concern for bleeding. Fibrinogen and INR within normal limits.
Hold aspirin and consider lowering PTT target given concern for bleeding in the setting of recent hemoglobin drops.
Trend wbc and monitor for fevers.
Continue insulin aspart and Lantus at bedtime. Maintain euglycemia with goal BG 140�180, avoid hypoglycemia.
Subjective Dataa
Subjective Data
Date of Service:
Date of Service: June 06, 2024
Chief Complaint: Safe Expert Follow Up
Review of Systems
General: Unobtainable - Sedation
Cardiopulmonary: Chest Pain (n)
GI: Abdominal Pain (n)
Objective Data
Data Reviewed
Vital Signs / I&O / Oxygen:
Vital Signs
Temp Pulse Resp BP Pulse Ox
97.5 F 58 16 150/42 97
06/06/24 07:00 06/06/24 08:45 06/06/24 08:45 06/06/24 04:50 06/06/24 08:45
Intake and Output
06/05/24 06/06/24 06/07/24
06:59 06:59 06:59
Intake Total 4068.0 / 4185.8 4570.4 / 4620.4 100.4 / 100.4
Output Total 4152 / 4277 5066 / 5394 436 / 436
Balance -84.0 / -91.2 -495.6 / -773.6 -335.6 / -335.6
SaO2 [CPAP/PSV] 98
SaO2 [A/C] 97
SaO2 97
Nasal Cannula flow liters per 8
minute
Physical Exam
General: Respiratory Distress (n), Comfortable and Fever (n)
HEENT: Normocephalic, Anicteric and Thrush
Cardiovascular: Peripheral Edema (+2 left lower extremity edema, trace edema on right lower extremity, right upper extremity swelling (new)) and Other (Heart sounds are difficult to hear)
Respiratory: Wheeze (n), Crackles (bilateral), Rhonchi (n), Non-Labored Respirations, Accessory Resp Muscle Use (n), Stridor (n), ET Tube (Mechanical breath sounds heard bilaterally) and Other (Decreased breath sounds on bilateral lung bases)
GI: Soft, Distended (Abdominal obesity), Non Tender and NG Tube
Neurology: Awake, Tremors (n) and Other (Sedated, opens eyes spontaneously, arousable to voice and follows all commands)
Skin: Warm, Dry, Cyanosis (n), Jaundice (n) and Other (Guillotine amputation of the right lower extremity above the ankle with operative site covered with bandage --> surgical dressing intact. No signs of active bleeding.)
Labs/Micro/Reports
Laboratory Results
06/05/24 06/06/24
17:04 04:31
PT 15.3 H
INR 1.18
APTT 102.1 H 100.7 H
pH 7.35
pCO2 31 L
pO2 89
HCO3 17.1 L
O2 Delivery Level
Microbiology
05/30/24 21:41 Abscess Wound Culture - Final
Enterobacter cloacae
Enterobacter cloacae#2
Yeast
05/30/24 21:41 Abscess Gram Stain - Final
05/30/24 21:41 Abscess Anaerobic Culture - Final
Finegoldia magna
05/30/24 15:42 Blood/Venous Blood Culture - Final
No Growth - Final Report
05/30/24 15:42 Blood/Venous Blood Culture - Final
No Growth - Final Report
06/03/24 11:41 Nose MRSA Screen - Final
No Methicillin Resistant Staphylococcus aureus isolated.
05/30/24 16:52 Foot - Right Wound Culture - Final
Enterobacter cloacae
Diptheroids
Yeast
05/30/24 16:52 Foot - Right Gram Stain - Final
05/31/24 18:46 Bile Body Fluid Culture - Final
Enterobacter cloacae
05/31/24 18:46 Bile Gram Stain - Final
--- NOTE | 2024-06-06 08:53 | W.PN.NEPH.PH ---
Today's Communication / Plan
-
CRRT
Assessment/Plan
-
Impression:
ESRD MWF ([place])
Sepsis/leukocytosis with hemodynamic compromise
Hypoxic Respiratory failure
Diabetes
History of right TMA with purulent drainage from site, status post ankle amputation 05/31/2024
History of hypertension
Anemia
PAD
Plan:
CRRT continues
Adjusted replacement rate at 2 L/h for worsening metabolic acidosis which is now improving
u/f at 50cc/hr
abx per primary team (renally dosed)
supportive care at this time
wean vasopressin first today
continues on heparin gtt fro bilateral DVT, also helping CRRT
prognosis remains guarded
will need to consider TF
Bicarb FT
Patient critically ill on ventilator and multiple pressor support on CRRT
critical care time 31 minutes
-
-
Date of Service: June 06, 2024
CC / HPI / ROS
-
Chief Complaint:
ESRD
History of Present Illness:
remains hypotense on 2 pressors in ICU
on vent O2 requirements better = 40%
s/p right foot amputation 05/31
s/p cholecystotomy tube 05/31
Hgb stable low
worsening acidosis
Review of Systems:
no fevers
intubated on stable fio2 40%.
awake
Labs
-
Labs:
eGFR > 60.00 06/06/24 04:31
Rth-X-Gmgtexntqlx Pept 4060 pg/ml 05/30/24 15:31
Albumin 2.8 g/dl (3.5-5.0) L 06/06/24 04:31
Physical Exam
-
Vital Signs:
Vital Signs
Temp Pulse Resp BP Pulse Ox
97.5 F 58 16 150/42 97
06/06/24 07:00 06/06/24 08:45 06/06/24 08:45 06/06/24 04:50 06/06/24 08:45
Cardiovascular:: Regular rate and rhythm
Respiratory:: Bilateral: Coarse
Lung Excursion:: Normal
Abdomen:: Nontender and Soft
Bowel Sounds:: Decreased
Extremity Edema:: +3: Right:
[2024-06-06 08:56] LABS: Hematocrit 23.1 % (39.0-52.0); Hemoglobin 7.9 g/dL (13.0-18.0); Mean Corp Hgb Conc. 34.2 g/dL (33.0-37.0); Mean Corpuscular Hgb 29.2 pg (27.0-31.0); Mean Corpuscular Volume 85.2 fL (80.0-94.0); Mean Platelet Volume 9.3 fL (7.4-10.4); Platelet Count 126 10^3/uL (130-400); Red Blood Cell Count 2.71 10^6/uL (4.70-6.10); Red Cell Dist. Width 15.6 % (11.5-14.5); White Blood Cell Count 18.1 10^3/uL (4.8-10.8)
--- NOTE | 2024-06-06 08:56 | W.PN.UPDATE ---
Update Note
Progress Note Update
CRRT in progress
2L, 200Qb, UF 50ml/hr
4K
on heparin gtt for DVT
more acidosis, add po bicarb
--- NOTE | 2024-06-06 09:15 | PTCARENOTE ---
Assumed care of pt at 0700. Pt drowsy on vent, spontaneously opens eyes, nods head appropriately. Follows simple commands, pt trying to assist with turning in bed. Monitor SBR with 1deg AVB and BBB. Levo/Vaso gtts via MICHAEL PICC for BP maintenance.
Heparin gtt at therapeuticlevel. Left radial a-line in place, zeroed. Lungs dim/sct rhonchi, spontaneous cough present. SpO2 97% on 40% fio2. Abd large/round, hypoactive bowel sounds. [place] to LIWS with minimal drainage. FMS draining liquid barrios
stool, flushed. Pt anuric. CRRT continuing at bedside without issue, adjusted to keep pt net loss 50ml/hr at 0800 per orders. Pt repositioned. RLE wound care/dressing change performed by vascular NICKER. Fentanyl gtt for pain/sedation management.
[employer] Developer at bedside requesting vasopressin off and maintain BP with levophed and tor-synephrine.
[2024-06-06] MEDS: NOVOLOG FLEXPEN-MODERATE RESISTANCE SC ×2 (10:59→18:09)
[2024-06-06 11:12] LABS: Ionized Calcium 1.26 mMOL/L (1.15-1.33)
[2024-06-06 11:13] LABS: Glucose - Point of Care 131 mg/dl (70-99)
[2024-06-06 11:20] LABS: Lactic Acid < 0.5 mmol/L (0.7-2.0)
[2024-06-06 11:44] LABS: Blood Urea Nitrogen 13 mg/dl (9-20); Carbon Dioxide 15 mmol/L (22-30); Chloride 109 mmol/L (98-107); Estimated Creatinine Clearance 86 ml/min; Glucose 119 mg/dl (70-99); Magnesium 2.1 mg/dl (1.6-2.3); Phosphorus 2.2 mg/dl (2.5-4.5); Potassium 3.4 mmol/L (3.5-5.1); Sodium 139 mmol/L (135-145); eGFR > 60.00
--- NOTE | 2024-06-06 12:16 | W.PN.UPDATE ---
Update Note
Progress Note Update
Called to bedside by RN for noted saturated dressing that was changed earlier this morning, took dressing completely down and noted 2 small areas of scant venous oozing, no active evidence of bleeding. Placed pressure and hemostatic agent to 2
areas, observe for some time and noted no additional bleeding. Redressed with wet-to-dry, Randy, and Asael wrap, CDI.
[2024-06-06] MEDS: POTASSIUM PHOSPHATE 259.0909 MEQ IV (12:34)
[2024-06-06] MEDS: MYCOSTATIN ORAL SUSPENSION PO ×3 (12:43→21:04)
--- NOTE | 2024-06-06 12:49 | PTCARENOTE ---
Awaiting TF from kitchen to start TF as ordered. Diabetic LEAD HANDLER notified of TF start and insulin orders changed. Dressing on RLE saturated. Vascular LEAD HANDLER to bedside and dressing changed with surgicel added. Patient currently maintained on Levophed
only. Heparin gtt decreased as ordered to maintain patient at lower end of therapeutic rate. Assessment unchanged.
--- NOTE | 2024-06-06 12:55 | W.PN.ID1 ---
Date of Service
Date of Service: June 06, 2024
Today's Communication
Continue meropenem.
Assessment / Plan
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
s/p I+D 05/30. OR cx: Enterobacter, yeast
s/p guillotine amp 05/31
# Acute cholecystitis
s/p perc nay 05/31
cx Enterobacter
# Septic shock
Remains on 3 pressors
Significant leukocytosis - trending down
# VDRF
# ESRD on HD. On CRRT prn
# Extensive BLE DVT
Plan:
- Blood cx's neg
- Enterobacter resistant to cephalosporins and beta-lactams.
- Continue meropenem (d4), renally adjust by pharmacy.
- Trend vitals/wbc
-Pt remains critically ill, on vent, requiring triple pressor therapy, in ICU. Prognosis guarded.
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
Type 2 diabetes mellitus
End-stage renal disease on hemodialysis
Hypertension
PAD s/p RLE stent
HLD
Obstructive sleep apnea
Depression
Right foot TMA 03/27/24 [facility]
Chief Complaint
-: Clinical Sepsis
Subjective / Review of Systems
Remains on vent.
Vital Signs / Physical Exam
Vital Signs
Vital Signs
Temp Pulse Resp BP Pulse Ox
97.5 F 66 16 150/42 93
06/06/24 07:00 06/06/24 12:15 06/06/24 12:15 06/06/24 04:50 06/06/24 12:15
Physical Exam
Constitutional: Acutely Ill and Toxic
Head: Other (ET tube in place.)
Eyes: Sclera Anicteric
Cardiovascular: Regular Rate and S1/S2; Negative S3/S4
Pulmonary: Clear and Other (on vent)
Gastrointestinal: Soft, Tender (now mild RUQ ), Non Distended, Decreased Bowel Sounds and Other (Cholecystostomy tube with brown bile in gravity bag)
Extremities: Negative Edema
Skin: Negative Jaundice
Neurological: Other (Responsive to voice and touch.)
Lines: PICC (no erythema) and HD Cath (no erythema)
Objective Data
Lab Data
Lab Results
06/06/24 07:57
ESR 70 mm/hour (0-20) H 05/31/24 02:57
PT 15.3 Sec (11.4-14.6) H 06/05/24 17:04
INR 1.18 06/05/24 17:04
APTT 100.7 Sec (23.4-35.0) H 06/06/24 04:31
Estimated Creat Clear 86 ml/min 06/06/24 10:54
Lactic Acid < 0.5 mmol/L (0.7-2.0) L 06/06/24 10:54
Total Bilirubin 1.1 mg/dl (0.2-1.3) 06/06/24 04:31
AST 76 U/L (17-59) H 06/06/24 04:31
ALT 34 U/L (0-50) 06/06/24 04:31
Alkaline Phosphatase 533 U/L (38-126) H 06/06/24 04:31
C-Reactive Protein > 270.00 mg/L (0.0-10.00) H 05/31/24 02:57
Amylase Cancelled 06/01/24 06:00
Most recent labs reviewed.
Micro Results:
05/30/24 21:41 Wound Culture - Final
Abscess Enterobacter cloacae
Enterobacter cloacae#2
Yeast
Gram Stain - Final
05/30/24 21:41 Anaerobic Culture - Final
Abscess Finegoldia magna
05/30/24 15:42 Blood Culture - Final
Blood/Venous No Growth - Final Report
05/30/24 15:42 Blood Culture - Final
Blood/Venous No Growth - Final Report
06/03/24 11:41 MRSA Screen - Final
Nose No Methicillin Resistant Staphylococcus aureus isolated.
05/30/24 16:52 Wound Culture - Final
Foot - Right Enterobacter cloacae
Diptheroids
Yeast
Gram Stain - Final
05/31/24 18:46 Body Fluid Culture - Final
Bile Enterobacter cloacae
Gram Stain - Final
05/30/24 15:42 Urine Culture - Final
Urine NO GROWTH
05/30/24 15:42 Influenza Types A & B (HOLDEN) - Final
Nasal Swab Negative for Influenza A & B, NAAT
Negative results must be combined with clinical observations
and patient history.
Nucleic Acid Amplification test (NAAT)performed on the
[employer] platform.
05/30/24 CXR: No acute cardiopulmonary process within the limitations of very low lung volumes.
05/30/24 ABD US: The gallbladder is distended and filled with stones and sludge. Mild gallbladder wall thickening raising the possibility for acute cholecystitis. However, no appreciable pericholecystic fluid and a reportedly negative sonographic
Bermeo's sign.
05/30/24 Foot XRAY: Soft tissue gas in the right foot and ankle most suggestive of infection
05/31/24 Periph Vasc US: Extensive bilateral lower extremity deep venous thrombosis
[2024-06-06] MEDS: RFP-401 HD Soln (K+ 4 mEq/L) 15000 ML CRRT-IRR ×2 (13:14→19:43)
--- NOTE | 2024-06-06 13:38 | PTCARENOTE ---
Pt having echo at bedside.
--- NOTE | 2024-06-06 13:47 | WOUNDNOTE ---
WON RN: Confirmed with vascular [employer] FORCES SPECIALIST Melissa Dejan that no longer needs wound vac to R amputation. Will follow peripherally and assist as needed. Will register used wound vac machine in [facility] [employer] and asked nurse Brandon to place in soiled utility rm.
for pickup.
[2024-06-06] MEDS: SILVER NITRATE APPLICATOR 2 EACH TOPICAL (15:46)
--- NOTE | 2024-06-06 15:48 | W.PN.UPDATE ---
Addendum entered and electronically signed by RENZO Gray 06/06/24 15:58:
Instructed nursing staff to notify on-call vascular surgeon if noted to have continued drainage via right lower extremity dressing site.
Original Note:
Update Note
Progress Note Update
Reevaluated right lower extremity ankle guillotine amputation dressing site, noted some serosanguineous shadowing at base of dressing. Redressed and noted continued small area of scant oozing at surface, towards the medial middle area of open
amputation site. Applied silver nitrate stick x 2 to area and achieved hemostasis, to be cautious also applied topical Surgicel and redressed with wet-to-dry dressing. Reviewed physical exam and plan with on-call vascular surgeon Dr. Juanpablo Holcomb
III, who agreed with plan. Vascular surgical team will reevaluate and redress tomorrow. To be cautious we will obtain repeat hemoglobin at 6 PM with other scheduled lab draws, given patient's tenuous status. However, at this time no concern for
any form of severe or active bleeding given appearance of drainage to be serosanguineous and patient with decreasing needs of hemodynamic support via vasopressor medications.
[2024-06-06] MEDS: SODIUM BICARBONATE 650 MG TUBE ×2 (15:51→21:04)
--- NOTE | 2024-06-06 16:12 | PTCARENOTE ---
3rd dressing changed performed by [facility] BIS[employer] KILN PLACER with [employer]cel. Assessment unchanged. Family at bedside and updated about status and plan of care.
[2024-06-06 18:07] LABS: Hematocrit 23.3 % (39.0-52.0); Mean Corp Hgb Conc. 34.3 g/dL (33.0-37.0); Mean Corpuscular Volume 84.4 fL (80.0-94.0); Mean Platelet Volume 9.2 fL (7.4-10.4); Platelet Count 151 10^3/uL (130-400); Red Blood Cell Count 2.76 10^6/uL (4.70-6.10); Red Cell Dist. Width 15.7 % (11.5-14.5); White Blood Cell Count 22.3 10^3/uL (4.8-10.8)
[2024-06-06] MEDS: NOVOLOG FLEXPEN 4 UNITS SC (18:09)
[2024-06-06 18:21] LABS: Glucose - Point of Care 149 mg/dl (70-99)
[2024-06-06 18:22] LABS: Blood Urea Nitrogen 14 mg/dl (9-20); Calcium 8.9 mg/dl (8.4-10.2); Carbon Dioxide 17 mmol/L (22-30); Chloride 103 mmol/L (98-107); Estimated Creatinine Clearance 78 ml/min; Glucose 150 mg/dl (70-99); Magnesium 2.1 mg/dl (1.6-2.3); Phosphorus 3.6 mg/dl (2.5-4.5); Potassium 4.3 mmol/L (3.5-5.1); Sodium 136 mmol/L (135-145); eGFR > 60.00
[2024-06-06] MEDS: NSS (PRESERVATIVE FREE) 0.25 ML IV (19:28)
[2024-06-06] MEDS: ATIVAN 0.5 MG IV (19:28)
--- NOTE | 2024-06-06 20:30 | PTCARENOTE ---
rec'd patient, family at bedside and updated. pt intubated with 8.0 ETT, 22 at lip, adjusted to center. AC 16/450/5/40%. pt with b/l wrist restraints, nodding appropriately, following commands. SR on monitor with BBB and 1st degree HB. BP maintained
with norepi gtt. NGT with TF infusing. anuric. perc nay drain intact, dressing clean and dry. RLE guillotine amp with dressing, C/D/I, elevated. CRRT ongoing, 4k bath, TFR 2.0, running net neg 50. q6h labs. heparin gtt and fent gtt infusing.
Ativan x1 for increased anxiety and restlessness. CHG bath and oral care given. care continues.
[2024-06-06] MEDS: HEPARIN 25000 UNITS/250 ML IV (21:01)
[2024-06-06] MEDS: COLACE LIQUID 200 MG TUBE (21:02)
[2024-06-06] MEDS: SENNA SYRUP 17.6 MG TUBE (21:02)
[2024-06-06] MEDS: TYLENOL ORAL SOLUTION 650 MG TUBE (21:03)
[2024-06-06] MEDS: LANTUS 0.12 UNITS SC (22:03)
[2024-06-06 22:13] LABS: Glucose - Point of Care 138 mg/dl (70-99)
[2024-06-07] MEDS: NOVOLOG FLEXPEN-MODERATE RESISTANCE 3 UNITS SC
[2024-06-07] MEDS: NOVOLOG FLEXPEN 4 UNITS SC ×3 (00:01→11:59)
[2024-06-07 00:03] LABS: Ionized Calcium 1.26 mMOL/L (1.15-1.33)
[2024-06-07 00:09] LABS: Glucose - Point of Care 209 mg/dl (70-99)
[2024-06-07 00:18] LABS: APTT 101.8 Sec (23.4-35.0)
[2024-06-07 00:39] LABS: Blood Urea Nitrogen 14 mg/dl (9-20); Calcium 8.4 mg/dl (8.4-10.2); Carbon Dioxide 20 mmol/L (22-30); Chloride 106 mmol/L (98-107); Estimated Creatinine Clearance 86 ml/min; Glucose 199 mg/dl (70-99); Magnesium 1.9 mg/dl (1.6-2.3); Phosphorus 2.4 mg/dl (2.5-4.5); Potassium 3.9 mmol/L (3.5-5.1); Sodium 138 mmol/L (135-145); eGFR > 60.00
--- NOTE | 2024-06-07 00:44 | PTCARENOTE ---
labs sent. heparin gtt adjusted. oral care done. otherwise assessment unchanged
[2024-06-07] MEDS: MAGNESIUM SULFATE 100 IV (01:12)
[2024-06-07] MEDS: RFP-401 HD Soln (K+ 4 mEq/L) 15000 ML CRRT-IRR ×3 (01:13→17:30)
[2024-06-07] MEDS: SODIUM PHOSPHATE 260 MEQ IV (01:14)
[2024-06-07] MEDS: SUBLIMAZE 100 IV (02:06)
[2024-06-07 02:08] VITALS: BMI 36.8
[2024-06-07] MEDS: LEVOPHED 258 MG IV ×2 (03:01→22:05)
[2024-06-07] MEDS: MERREM 500 MG IV ×4 (05:18→23:08)
[2024-06-07] MEDS: STERILE WATER FOR INJECTION 10 ML IV ×4 (05:18→23:08)
[2024-06-07 05:41] LABS: Glucose - Point of Care 149 mg/dl (70-99)
[2024-06-07 05:42] LABS: B.E. 2.4 mmol/L; HCO3 26.2 mmol/L (21-28); O2 Saturation % 98.9 % (94-98); PCO2 36 mmHg (35-48); PO2 88 mmHg (83-108); pH 7.47 (7.35-7.45)
[2024-06-07] MEDS: NOVOLOG FLEXPEN-MODERATE RESISTANCE SC ×2 (05:44→17:42)
[2024-06-07 05:45] LABS: Ionized Calcium 1.27 mMOL/L (1.15-1.33)
[2024-06-07 05:54] LABS: APTT 81.4 Sec (23.4-35.0)
[2024-06-07 06:09] VITALS: BP_SYST 132
--- NOTE | 2024-06-07 06:10 | PTCARENOTE ---
AM labs sent. no changes in assessment noted. levo gtt titrated to maintain MAP goal. TF at goal. care ongoing
[2024-06-07 06:33] LABS: Hematocrit 22.2 % (39.0-52.0); Hemoglobin 7.6 g/dL (13.0-18.0); Mean Corp Hgb Conc. 34.2 g/dL (33.0-37.0); Mean Corpuscular Hgb 29.3 pg (27.0-31.0); Mean Corpuscular Volume 85.7 fL (80.0-94.0); Mean Platelet Volume 9.6 fL (7.4-10.4); Platelet Count 157 10^3/uL (130-400); Red Blood Cell Count 2.59 10^6/uL (4.70-6.10); Red Cell Dist. Width 15.7 % (11.5-14.5)
[2024-06-07 06:52] LABS: ALT (SGPT) 28 U/L (0-50); AST (SGOT) 55 U/L (17-59); Albumin 2.5 g/dl (3.5-5.0); Alkaline Phosphatase 599 U/L (38-126); Blood Urea Nitrogen 13 mg/dl (9-20); Calcium 8.5 mg/dl (8.4-10.2); Carbon Dioxide 25 mmol/L (22-30); Chloride 104 mmol/L (98-107); Estimated Creatinine Clearance 85 ml/min; Glucose 141 mg/dl (70-99); Magnesium 2.6 mg/dl (1.6-2.3); Phosphorus 3.8 mg/dl (2.5-4.5); Potassium 3.8 mmol/L (3.5-5.1); Sodium 138 mmol/L (135-145); Total Bilirubin 0.9 mg/dl (0.2-1.3); Total Protein 5.1 g/dl (6.3-8.2); Triglycerides 230 mg/dl (10-149); eGFR > 60.00
[2024-06-07] MEDS: SODIUM BICARBONATE 650 MG TUBE (07:45)
[2024-06-07] MEDS: NSS (PRESERVATIVE FREE) 10 ML IV (07:45)
[2024-06-07] MEDS: NEURONTIN 100 MG TUBE (07:46)
[2024-06-07] MEDS: PROTONIX IV 40 MG IV (07:46)
[2024-06-07] MEDS: CYMBALTA DELAYED RELEASE 20 MG TUBE (07:46)
[2024-06-07] MEDS: MYCOSTATIN ORAL SUSPENSION PO (07:46)
--- NOTE | 2024-06-07 08:06 | PN.DE.MGMTRT ---
Insulin Management
- -
06/07/2024: Diabetes Management follow up
Patient admitted 05/30 with change in level of consciousness. PMH PVD, asthma, GERD, HTN, HCL, diabetes, renal failure (HD 3 x per week). Patient found to have severe sepsis with R foot wound with purulent drainage most likely source. Patient has
since gone to OR for amputation of R foot 05/31.
Prior to admission was taking 4 units NovoLog AC with Lantus 10 units @ hs. A1C 7.8%, cr 1.1, eGFR>60
Patient remains intubated, critically ill, unable to interview at this time. All information obtained from chart and patient nurse.
He is POD #7 s/p Guillotine amputation of the right lower extremity above the ankle
Was transitioned off insulin infusion on 06/03. Glucose stable and in range 131 to 149. FBG 149 this AM up to 198 @ 12 noon.
He has been started on tube feeds @20cc/hr, now at goal 45cc/hr.
Currently receiving NovoLog 4 units Q6 hrs will increase to 6 units Q 6 hours and Lantus to 12 units daily @ HS with moderate corrective insulin Q6 hrs.
Will cont to follow and make further adjustments if necessary
Discussed with nurse.
Diabetes History
- -
Type of Diabetes: 2 requiring insulin
Pre-Admission Diabetes Regimen
06/06/24 06/06/24 06/06/24
10:54 17:58 23:58
Creatinine 1.0 1.1 1.0
06/07/24
05:31
Creatinine 1.0
Lab Results
Hemoglobin A1c 7.8 % (4.0-5.6) H 05/31/24 02:57
Insulin Pump Settings
IP Diabetes Regimen
06/06/24 06/06/24 06/06/24
10:54 10:57 17:58
Glucose 119 H 150 H
POC Glucose 131 H
06/06/24 06/06/24 06/06/24
18:04 22:02 23:57
Glucose
POC Glucose 149 H 138 H 209 H
06/06/24 06/07/24 06/07/24
23:58 05:30 05:31
Glucose 199 H 141 H
POC Glucose 149 H
Patient Education
--- NOTE | 2024-06-07 08:13 | W.PN.UPDATE ---
Update Note
Progress Note Update
Dressing clean and dry
Continues to make clinical improvement
Continue local wound care to RLE be stump
Will sort out appropriate timing of return to OR for formal BKA with primary team
Juanpablo Holcomb III, MD
[facility] V[facility] Surgery
[phone] (tbzz)
--- NOTE | 2024-06-07 08:15 | PTCARENOTE ---
Assumed care of pt at 0700. Pt drowsy on vent, spontaneously opens eyes, nods head appropriately. Follows simple commands, pt trying to assist with turning in bed. Monitor SR with 1deg AVB and BBB. Levo gtt via MICHAEL PICC for BP maintenance. Heparin
gtt at therapeutic\\level. Left radial a-line in place, zeroed. Lungs scattered rhonchi, spontaneous cough present. SpO2 99% on 40% fio2. Attempted SBT however volumes too small. Turned down fentanyl and will retry after rounds. Abd large/round,
hypoactive bowel sounds. Becker with Nepro at goal. FMS draining liquid barrios stool. Pt anuric. CRRT continuing at bedside without issue, adjusted to keep pt net loss 50ml/hr per orders. Pt repositioned. RLE wound dressing CDI. PerChole drain dressing
CDI.
--- NOTE | 2024-06-07 09:00 | W.PN.HOSP.TC ---
Today's Communication/Plan
-
Spontaneous breathing trial
Assessment / Plan
Assessment / Plan
Gen-intubated, sedated, NAD
HEENT-NC, AT, anicteric
Neck-supple
CV-reg, no M, +S1/S2
Lungs-clear B/L
Abd-soft, NT, ND
Ext-right upper extremity diffuse edema, right lower extremity amputation at ankle
Musculoskeletal-no cyanosis, clubbing. Right lower extremity Asael wrap around amputation site
Skin-warm and dry
Septic shock -due to infected right TMA wound, acute calculus emphysematous cholecystitis. WBCs trending down. Remains afebrile.
Remains on 2 vasopressors, Levophed and vasopressin. Wean down as able. Last recorded blood pressure 150/42.
Continue IV meropenem per infectious disease.
Blood cultures negative. Fluid culture from gallbladder and right TMA site both positive for Enterobacter cloacae.
Right TMA gas gangrene
Records from [facility] reviewed. Admitted 03/23/2024, discharged 04/08/2024. Primary discharge diagnosis was ESRD requiring dialysis. Secondary diagnoses included PAD and right foot infection. Primary reason for admission was for
worsening right foot wound in the setting of recent right foot gangrene, right lower extremity tibial/peroneal angioplasty, and right foot fourth metatarsal resection and bone biopsies. Podiatry performed right TMA on 03/27/2024. Postoperatively
developed acute kidney failure requiring initiation of hemodialysis. Discharged to SNF on 04/08/2024.
Status post I&D in OR by podiatry on 05/30
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 VAC applied 06/03
Both aspirin and Plavix were discontinued due to oozing of blood from amputation site.
Vascular surgery planning on right BKA this Thursday.
Acute hypoxic respiratory failure
Remains intubated after his surgery on 05/31
Continue vent management as per data analyst
ESRD - on dialysis at [facility] Thursday/Thursday/Thursday. Currently getting CRRT per nephrology.
High anion gap metabolic acidosis noted, bicarbonate 13 this morning. Anion gap 18. Given 1 amp of IV sodium bicarbonate this morning. Defer to nephrology further management.
Hyponatremia -resolved.
Acute calculus emphysematous cholecystitis -Status post percutaneous cholecystostomy tube by IR on 05/31.
Ultrasound shows distended gallbladder with stones and sludge with mild gallbladder wall thickening
CT abdomen pelvis shows enlarged gallbladder with stones, sludge, air-fluid level, suspicious for emphysematous cholecystitis
Acute on chronic anemia -Acute blood loss anemia from surgery. Has had 6 units of blood transfused so far. Hemoglobin 7.6 this morning. Will monitor. Admission hemoglobin was 8.6. Baseline hemoglobin unknown.
Acute bilateral lower extremity DVT -currently on IV heparin. Plavix discontinued.
Thrush
Nystatin
Essential hypertension -amlodipine and Coreg on hold due to septic shock.
DM2 without hyperglycemia -glucose 141 this morning, 209 last night. Hemoglobin A1c 7.8%. Off insulin drip 06/03. Prior to admission he was on Lantus 10 units at bedtime, NovoLog 4 units AC.
Currently on Lantus 10 units at bedtime, moderate resistance aspart scale. 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
Gastroesophageal reflux disease
Continue PPI
Constipation
Continue laxatives when able
Anxiety/depression
Continue duloxetine 20 mg twice a day
Obesity due to excess calories
DVT prophylaxis�IV heparin
Full code
Anticipated Discharge: > 48 hours
Subjective/Interval History
-
Date of Service: June 07, 2024
Patient seen and examined. Remains intubated, sedated.
Objective Data
-
Labs:
Laboratory Results
06/06/24 06/07/24 06/07/24
23:58 05:31 12:00
WBC 19.0 H
Hgb 7.6 L
Hct 22.2 L
Plt Count 157
APTT 101.8 H 81.4 H Pending
HCO3 26.2
Sodium 138 138 Pending
Potassium 3.9 3.8 Pending
Chloride 106 104 Pending
Carbon Dioxide 20 L 25 Pending
BUN 14 13 Pending
Creatinine 1.0 1.0 Pending
Glucose 199 H 141 H Pending
Calcium 8.4 8.5 Pending
Total Bilirubin 0.9
AST 55
ALT 28
Alkaline Phosphatase 599 H
Vital Signs:
Vital Signs
Temp Pulse Resp BP Pulse Ox
97.9 F 65 18 150/42 99
06/07/24 08:00 06/07/24 08:45 06/07/24 08:45 06/06/24 04:50 06/07/24 08:13
I&O
06/06/24 06/07/24 06/08/24
06:59 06:59 06:59
Intake Total 4570.4 / 4620.4 2317.1 / 2375.3 97.4 / 97.4
Output Total 5066 / 5394 3637 / 3766 239 / 239
Balance -495.6 / -773.6 -1319.9 / -1390.7 -141.6 / -141.6
Review of Systems
-
Unable to obtain full review of systems at this time due to: Acuity and Patient Intubation
--- NOTE | 2024-06-07 10:00 | W.PN.ID1 ---
Date of Service
Date of Service: June 07, 2024
Today's Communication
Continue meropenem.
Assessment / Plan
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
s/p I+D 05/30. OR cx: Enterobacter, yeast
s/p guillotine amp 05/31
Eventual formal BKA
# Acute cholecystitis
s/p perc nay 05/31
cx Enterobacter
# Septic shock
Weaned to 1 pressor
Leukocytosis - trending down
# VDRF
# ESRD on HD. On CRRT prn
# Extensive BLE DVT
Plan:
- Blood cx's neg
- Enterobacter resistant to cephalosporins and beta-lactams.
- Continue meropenem (d5), renally adjust by pharmacy.
- Trend vitals/wbc
-Pt remains critically ill, on vent, requiring pressor, in ICU.
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
Type 2 diabetes mellitus
End-stage renal disease on hemodialysis
Hypertension
PAD s/p RLE stent
HLD
Obstructive sleep apnea
Depression
Right foot TMA 03/27/24 [facility]
Chief Complaint
-: Clinical Sepsis
Subjective / Review of Systems
Remains on vent.
Vital Signs / Physical Exam
Vital Signs
Vital Signs
Temp Pulse Resp BP Pulse Ox
97.9 F 65 18 150/42 99
06/07/24 08:00 06/07/24 08:45 06/07/24 08:45 06/06/24 04:50 06/07/24 08:13
Physical Exam
Constitutional: Acutely Ill
Head: Other (ET tube in place.)
Eyes: Sclera Anicteric
Cardiovascular: Regular Rate and S1/S2; Negative S3/S4
Pulmonary: Clear and Other (on vent)
Gastrointestinal: Soft, Tender (now mild RUQ ), Non Distended, Decreased Bowel Sounds and Other (Cholecystostomy tube with brown bile in gravity bag. FMS tube feed color stool. )
Extremities: Negative Edema
Skin: Negative Jaundice
Neurological: Other (Responsive to voice and touch.)
Lines: PICC (no erythema) and HD Cath (no erythema)
Objective Data
Lab Data
Lab Results
06/07/24 05:31
ESR 70 mm/hour (0-20) H 05/31/24 02:57
PT 15.3 Sec (11.4-14.6) H 06/05/24 17:04
INR 1.18 06/05/24 17:04
APTT 81.4 Sec (23.4-35.0) H 06/07/24 05:31
Estimated Creat Clear 85 ml/min 06/07/24 05:31
Lactic Acid < 0.5 mmol/L (0.7-2.0) L 06/06/24 10:54
Total Bilirubin 0.9 mg/dl (0.2-1.3) 06/07/24 05:31
AST 55 U/L (17-59) 06/07/24 05:31
ALT 28 U/L (0-50) 06/07/24 05:31
Alkaline Phosphatase 599 U/L (38-126) H 06/07/24 05:31
C-Reactive Protein > 270.00 mg/L (0.0-10.00) H 05/31/24 02:57
Amylase Cancelled 06/01/24 06:00
Most recent labs reviewed.
Micro Results:
05/30/24 21:41 Wound Culture - Final
Abscess Enterobacter cloacae
Enterobacter cloacae#2
Yeast
Gram Stain - Final
05/30/24 21:41 Anaerobic Culture - Final
Abscess Finegoldia magna
05/30/24 15:42 Blood Culture - Final
Blood/Venous No Growth - Final Report
05/30/24 15:42 Blood Culture - Final
Blood/Venous No Growth - Final Report
06/03/24 11:41 MRSA Screen - Final
Nose No Methicillin Resistant Staphylococcus aureus isolated.
05/30/24 16:52 Wound Culture - Final
Foot - Right Enterobacter cloacae
Diptheroids
Yeast
Gram Stain - Final
05/31/24 18:46 Body Fluid Culture - Final
Bile Enterobacter cloacae
Gram Stain - Final
05/30/24 15:42 Urine Culture - Final
Urine NO GROWTH
05/30/24 15:42 Influenza Types A & B (HOLDEN) - Final
Nasal Swab Negative for Influenza A & B, NAAT
Negative results must be combined with clinical observations
and patient history.
Nucleic Acid Amplification test (NAAT)performed on the
iOculi platform.
05/30/24 CXR: No acute cardiopulmonary process within the limitations of very low lung volumes.
05/30/24 ABD US: The gallbladder is distended and filled with stones and sludge. Mild gallbladder wall thickening raising the possibility for acute cholecystitis. However, no appreciable pericholecystic fluid and a reportedly negative sonographic
Bermeo's sign.
05/30/24 Foot XRAY: Soft tissue gas in the right foot and ankle most suggestive of infection
05/31/24 Periph Vasc US: Extensive bilateral lower extremity deep venous thrombosis
06/07/24 CXR: Mild interstitial prominence, suggestive of mild pulmonary edema. Haziness of each hemidiaphragm, which may represent bibasilar airspace disease and/or small bilateral pleural effusions.
--- NOTE | 2024-06-07 10:16 | W.PN.NEPH.PH ---
Addendum entered and electronically signed by Michelle Mcgarry MD 06/07/24 11:49:
If CRRT has any issues ok to stop it
likely convert him to IHD in next 1-2days
Original Note:
Today's Communication / Plan
-
cont CRRT, increase UF goal
Assessment/Plan
-
Impression:
ESRD MWF ([facility])
Sepsis/leukocytosis with hemodynamic compromise
Hypoxic Respiratory failure
Diabetes
History of right TMA with purulent drainage from site, status post ankle amputation 05/31/2024
History of hypertension
Anemia
PAD
Plan:
CRRT continues
cont replacement rate at 2L/h , increased for met acidosis -improved now
increase u/f at 100cc/hr, increase as needed
CXR Noted mild pulm edema
abx per primary team (renally dosed)
supportive care at this time
wean pressors as able
continues on heparin gtt fro bilateral DVT, also helping CRRT
prognosis remains guarded
Bicarb PT
Patient critically ill on ventilator and pressor support on CRRT
critical care time 31 minutes
d/w nursing
-
-
Date of Service: June 07, 2024
CC / HPI / ROS
-
Chief Complaint:
ESRD
History of Present Illness:
remains hypotense on 1 pressors in ICU
on vent O2 requirements better = 40%
s/p right foot amputation 05/31
s/p cholecystotomy tube 05/31
Hgb stable low 7.6
improved acidosis
wt is down but CXR shows mild edema
Review of Systems:
no fevers
intubated on stable fio2 40%.
Labs
-
Labs:
WBC 19.0 10^3/uL (4.8-10.8) H 06/07/24 05:31
RBC 2.59 10^6/uL (4.70-6.10) L 06/07/24 05:31
Hgb 7.6 g/dL (13.0-18.0) L 06/07/24 05:31
Hct 22.2 % (39.0-52.0) L 06/07/24 05:31
Plt Count 157 10^3/uL (130-400) 06/07/24 05:31
eGFR > 60.00 06/07/24 05:31
Rzr-R-Ebccjhsulxp Pept 4060 pg/ml 05/30/24 15:31
Albumin 2.5 g/dl (3.5-5.0) L 06/07/24 05:31
Physical Exam
-
Vital Signs:
Vital Signs
Temp Pulse Resp BP Pulse Ox
97.9 F 71 17 150/42 100
06/07/24 08:00 06/07/24 10:00 06/07/24 10:00 06/06/24 04:50 06/07/24 10:00
Cardiovascular:: Regular rate and rhythm
Respiratory:: Bilateral: Coarse
Lung Excursion:: Normal
Abdomen:: Nontender and Soft
Bowel Sounds:: Decreased
Extremity Edema:: +2: Right:
Holcomb Catheter: No
[2024-06-07 10:26] VITALS: BP_SYST 129
[2024-06-07 10:38] VITALS: BP_SYST 128
--- NOTE | 2024-06-07 11:41 | W.PN.INTV ---
Today's Communication / Plan
Recommendations
As above
Assessment
-
64-year-old male with past medical history of PAD, diabetes, hypertension, CKD on HD, hyperlipidemia, GERD presented with septic shock secondary to right foot infected wound requiring pressors, intubation and mechanical ventilation.
#Septic shock secondary to right foot infected wound
- Patient had recent right TMA in March 2024 complicated by wound dehiscence requiring several debridements since then. In the ED, he was found to have purulent drainage from the TMA site. Right foot x-ray showed soft tissue gas in the foot and
ankle. He was taken to the OR for I&D, infection extended along the extensor tendons proximally as well as laterally across the tarsometatarsal joint was noted. Patient is critically ill requiring pressors (levo 8 mcg/min) for hemodynamic
stability.
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 Will decide on timing for formal below-knee amputation -- likely later this week/next week depending on clinical status.
- wbc downtrending today, 22 --> 19, AB.47/36/88/26.2 mildly alkalotic, lactic acid <0.5
- Patient is currently on meropenem, I&D culture: Finegoldia magna, wound culture: Enterobacter cloacae multidrug-resistant resistant, blood culture negative
- Patient had venous oozing from amputation site yesterday afternoon, vascular surgery applied silver nitrate and surgicel, no significant drop in hemoglobin and no active bleeding noted today.
#Acute hypoxic respiratory failure
- No wheezing on auscultation. Decreased breath sounds bilaterally at the lung bases.
- Patient was intubated in the OR. Day 8 on ventilator. Ventilator settings (CMV): 16/450/5/40%. Satting at > 99%
- Chest x-ray 06/07/2024: Mild pulmonary edema, low lung volumes with small bilateral pleural effusion and/or likely bibasilar atelectasis.
#RAISSA on CKD
- Likely prerenal in the setting of sepsis
- Creatinine continues to downtrend, 1.1 today
- Status post hemodialysis, continue CRRT given hemodynamic instability
#Lower extremity pitting edema, right greater than left
- Bedside ultrasound showed a noncompressible vein superior to the right common femoral vein and a noncompressible right popliteal vein concerning for DVT
- Lower extremity ultrasound showed bilateral extensive DVT. Patient was started on heparin drip after OR on 05/31/2024.
#Right upper extremity swelling
- Continue to monitor
- Patient is on heparin drip for bilateral LE DVT
# Metabolic alkalosis, mild
#Elevated liver enzymes, emphysematous cholecystitis
- Abdominal ultrasound showed distended gallbladder, filled with stones and sludge, mild gallbladder wall thickening concerning for acute cholecystitis, negative sonographic Bermeo sign and no pericholecystic fluid.
- Abdomen diffusely tender on exam (more pronounced on the right upper quadrant), without guarding/tenderness.
- Patient is afebrile, not complaining of nausea, vomiting, abdominal pain.
- Likely due to septic shock and acute cholecystitis.
- Abdomen pelvis CT (05/31/2024) was concerning for emphysematous cholecystitis. IR was consulted, placed percutaneous nay tube. Bile Cx Enterobacter cloacae multidrug-resistant resistant. Low output from the nay tube since last night. Will
need eventual outpatient follow-up with surgery for cholecystectomy.
#Leukocytosis
- Likely secondary to sepsis
- wbc trended up over the weekend, downtrending today, 23 --> 19
#Asymptomatic urinary tract infection
- UA showed moderate bacteria, esterase 1+, wbc 3-5
- Urine culture negative
- Blood cultures negative
#Hyperglycemia
- Blood sugars elevated (>200), patient was started on insulin drip. Will continue to monitor Accu-Cheks and transition off insulin infusion as needed.
- Patient is on 12 units insulin glargine at bedtime and 4 units aspart every 6 hours
- Hemoglobin A1c 7.8
#Anemia
- Likely multifactorial, in the setting of chronic kidney disease and bleeding from amputation site
- On chart review, bleeding from amputation site was noted overnight from 06/04/24 - 06/05/24, hemoglobin dropped to 6.8, s/p 6 units PRBC total
- Patient had venous oozing from amputation site yesterday afternoon, vascular surgery applied silver nitrate and surgicel, no significant drop in hemoglobin and no active bleeding noted today.
- Hemoglobin stable at 7.6 today
#Abnormal thyroid function
- TSH low, T4 within normal limits
- No history of thyroid disease
- Likely in the setting of acute infection, sick euthyroid syndrome
#Hypoalbuminemia
- s/p albumin infusion
Conditions present prior to admission
Hypertension -- Home meds currently on hold
Hyperlipidemia -- statin held due to elevated LFTs
Diabetes -- on insulin
GERD -- continue Protonix --> transition to IV Protonix
PAD s/p right lower extremity stent
CKD -- on hemodialysis
Neuropathy -- patient takes gabapentin and oxycodone 15mg every 12h at home, continue gabapentin
Depression -- on duloxetine
Obesity due to excess calories
Plan:
RASS score -1, opens eyes spontaneously, arousable to voice and follows commands. Sedated on fentanyl (50), wean as able. Continue Tylenol as needed and gabapentin. Continue SAT today.
Patient remains critically ill, was on 1 pressor this a.m., Levophed 8 mcg/min. Systolic pressures 130s, diastolic pressures in the 40s -- wide pulse pressure likely in the setting of sepsis and PAD. Echo 06/06/24: EF 60 to 65%, mild to moderate
ventricular hypertrophy (septum 1.4 cm), trace TR, possibly mildly dilated and hypokinetic right ventriculum. Wean pressors as able. Maintain MAP>60 or SBP>90.
Continue to hold home meds (Coreg and Norvasc).
Patient is day 8 on ventilator. Nonlabored breathing. Ventilator settings adjusted. Try SBT later today if hemodynamically stable and if able, consider extubation. Maintain SpO2 > 92-94%
Chest x-ray today shows mild pulmonary edema, and small bilateral pleural effusions and/or bibasilar atelectasis. Will repeat chest x-ray tomorrow morning. Consider increasing UF goal (100 cc/hr) given pulmonary edema on chest x-ray.
s/p percutaneous nay tube, minimal abdominal tenderness on right upper quadrant and epigastric without rebound/guarding on exam. Minimal output on nay tube (10 cc). Outpatient follow-up for eventual cholecystectomy. Bile culture Enterobacter
cloacae multidrug-resistant resistant was noted.
History of GERD. Continue IV Protonix.
Continue tube feeds for nutrition at goal rate.
Continue CRRT. Replete lytes as needed. Mild alkalotic, repeat ABG tomorrow morning. Continue to monitor closely.
I&D culture Finegoldia magna. Wound culture and bile culture Enterobacter cloacae multidrug-resistant resistant, continue meropenem 500 mg every 6h (dose renally adjusted)
Vascular surgery is on board, s/p guillotine of the right lower extremity above the ankle. Vascular surgery to decide on timing of formal below-knee amputation -- likely later this week/next week depending on clinical status. Surgical dressings
changed today. No active bleeding on exam. Continue to hold Plavix and aspirin.
Bilateral lower extremity DVT, continue heparin drip. PTT in therapeutic range, continue to monitor closely.
Hemoglobin 7.6 today s/p 6 units PRBC total. No evidence of active bleeding from amputation site/IV lines. Trend H&H and transfuse if needed for Hb<7g/dL or plt<20k, unless there is concern for bleeding. Continue to hold aspirin and consider
lowering PTT target if concern for rebleeding and further hemoglobin drop.
Trend wbc and monitor for fevers.
Continue insulin aspart every 6 and Lantus at bedtime. Maintain euglycemia with goal BG 140�180, avoid hypoglycemia.
Subjective Dataa
Subjective Data
Date of Service:
Date of Service: June 07, 2024
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
Review of Systems
General: Fever (n) and Pain (n)
GI: Tube Feeding
Objective Data
Data Reviewed
Vital Signs / I&O / Oxygen:
Vital Signs
Temp Pulse Resp BP Pulse Ox
97.9 F 73 13 150/42 99
06/07/24 08:00 06/07/24 11:00 06/07/24 11:00 06/06/24 04:50 06/07/24 10:54
Intake and Output
06/06/24 06/07/24 06/08/24
06:59 06:59 06:59
Intake Total 4570.4 / 4620.4 2317.1 / 2438.3 395.5 / 395.5
Output Total 5066 / 5394 3637 / 3766 586 / 586
Balance -495.6 / -773.6 -1319.9 / -1327.7 -190.5 / -190.5
SaO2 [CPAP/PSV] 98
SaO2 [A/C] 99
SaO2 99
Nasal Cannula flow liters per 8
minute
Physical Exam
General: Respiratory Distress (n), Comfortable and Fever (n)
HEENT: Normocephalic and Anicteric
Cardiovascular: Peripheral Edema (+2 left lower extremity edema, trace edema on right lower extremity, right upper extremity swelling) and Other (Heart sounds are difficult to hear, bradycardia)
Respiratory: Wheeze (n), Crackles (bilateral), Rhonchi (n), Non-Labored Respirations, Accessory Resp Muscle Use (n), Stridor (n), ET Tube (Mechanical breath sounds heard bilaterally) and Other (Decreased breath sounds on bilateral lung bases)
GI: Soft, Distended (Abdominal obesity), Tender (RUQ and epigastric tenderness without guarding/rebound), Normal Bowel Sounds and NG Tube
Neurology: Awake, Tremors (n) and Other (Sedated, opens eyes spontaneously, arousable to voice and follows all commands)
Skin: Warm, Dry, Cyanosis (n), Jaundice (n) and Other (Guillotine amputation of the right lower extremity above the ankle with operative site covered with bandage --> surgical dressing intact. No signs of active bleeding.)
Labs/Micro/Reports
Lab Data
06/07/24 05:31
Laboratory Results
06/06/24 06/06/24 06/07/24
17:58 23:58 05:31
APTT 100.0 H 101.8 H 81.4 H
pH 7.47 H
pCO2 36
pO2 88
HCO3 26.2
O2 Delivery Level
Microbiology
05/30/24 21:41 Abscess Wound Culture - Final
Enterobacter cloacae
Enterobacter cloacae#2
Yeast
05/30/24 21:41 Abscess Gram Stain - Final
05/30/24 21:41 Abscess Anaerobic Culture - Final
Finegoldia magna
05/30/24 15:42 Blood/Venous Blood Culture - Final
No Growth - Final Report
05/30/24 15:42 Blood/Venous Blood Culture - Final
No Growth - Final Report
06/03/24 11:41 Nose MRSA Screen - Final
No Methicillin Resistant Staphylococcus aureus isolated.
--- NOTE | 2024-06-07 11:41 | W.PN.UPDATE ---
Update Note
Progress Note Update
CRRT notes:
pt seen during CRRT
bld flow 250-300cc/min
UF 100cc/hr net neg, titrate up as needed
cont pressors for MAP >65
[2024-06-07 11:56] LABS: B.E. 1.8 mmol/L; HCO3 25.5 mmol/L (21-28); O2 Saturation % 99.8 % (94-98); PCO2 35 mmHg (35-48); PO2 156 mmHg (83-108); pH 7.47 (7.35-7.45)
[2024-06-07] MEDS: NOVOLOG FLEXPEN-MODERATE RESISTANCE 1 UNITS SC (11:58)
[2024-06-07 11:59] LABS: Ionized Calcium 1.18 mMOL/L (1.15-1.33)
[2024-06-07 12:02] LABS: Glucose - Point of Care 198 mg/dl (70-99)
[2024-06-07 12:05] LABS: APTT 60.9 Sec (23.4-35.0)
[2024-06-07 12:25] VITALS: PULSE 2; PULSE 84
--- NOTE | 2024-06-07 12:31 | RESPNOTE ---
Respiratory: patient extubated @ 1220 without incident, no stridor no wheezes. SpO2 94% on 5 LPM will transition to [place] per Physician.
[2024-06-07 12:42] LABS: Blood Urea Nitrogen 14 mg/dl (9-20); Calcium 8.4 mg/dl (8.4-10.2); Carbon Dioxide 25 mmol/L (22-30); Chloride 106 mmol/L (98-107); Estimated Creatinine Clearance 85 ml/min; Glucose 204 mg/dl (70-99); Magnesium 2.3 mg/dl (1.6-2.3); Phosphorus 2.9 mg/dl (2.5-4.5); Sodium 136 mmol/L (135-145); eGFR > 60.00
--- NOTE | 2024-06-07 12:45 | PTCARENOTE ---
Pt extubated at 1220 to bipap 12/5/5L. Pt confused and agitated, pulling at mask, nay drain, covers, and stated he wanted to go home. Believes to be in [place]. Bipap removed and 4L NC applied. NGT removed with extubation as instructed by
laborer stores. Restraints continued. Heparin subtherapeutic, dose increased.
[2024-06-07] MEDS: CALCIUM GLUCONATE 130 MG IV (13:26)
--- NOTE | 2024-06-07 15:03 | CM ---
CM following re: discharge planning.
Discussed in rounds, reviewed pt's chart, met with pt. Pt's family at bedside.
Pt extubated today to Bi-pap and after to 4L NC of O2, continue supportive care.
Pt admitted from [facility] and family does not want pt returns back there. Pt is on HD.
Options of SNFs discussed with pt's spouse and daughter. Pt does not have secured outpatient HD treatment center and family requested [facility] area. At this point, CM will make a referral to [facility] when pt is medically stable to secure an
outpatient HD treatment in [facility] area. Also, CM will make a referral to a preferred SNF with HD treatment onsite when pt is medically stable. Pt's spouse has a list of SNFs with HD onsite.
D/C plan: uncertain at this time and will depend on pt's progress.
CM will follow to assist pt with discharge to a new preferred SNF.
[2024-06-07] MEDS: SODIUM BICARBONATE TUBE (17:19)
[2024-06-07] MEDS: NEURONTIN TUBE (17:19)
--- NOTE | 2024-06-07 17:24 | PTOTSP ---
ST Acute Care Evaluation
Pt currently presents with clinical signs of mild oropharyngeal and esophageal dysphagia characterized by prolonged mastication and reduced bolus formation with solids, occasional anterior spillage from inadequate labial seal with liquids as well as
occasional coughing with thin liquid consumption. Eructation noted fairly consistently s/p ingestion of thin liquids.
Recommendations:
- Initiate PO diet of SOFT BITE SIZED SOLIDS with THIN LIQUIDS (SINGLE SIPS ONLY) with meds whole in puree.
- Aspiration and reflux precautions: HOB upright for all PO intake and for at least 60 minutes after all meals; small bites/sips; one sip at a time; slow intake rate; alternate solid/liquids; only feed when fully awake/alert.
- BRAILLE AND TALKING BOOKS CLERK to f/u re: diet tolerance, use of compensatory strategies, and to determine it pt would benefit from an instrumental swallow study.
[2024-06-07] MEDS: ROXICODONE 5 MG PO ×2 (17:26→23:08)
[2024-06-07] MEDS: SODIUM BICARBONATE 650 MG PO ×2 (17:26→21:27)
[2024-06-07] MEDS: NEURONTIN 100 MG PO ×2 (17:26→21:28)
[2024-06-07] MEDS: NOVOLOG FLEXPEN 3 UNITS SC (17:42)
[2024-06-07 17:51] LABS: Ionized Calcium 1.29 mMOL/L (1.15-1.33)
[2024-06-07 17:54] LABS: Glucose - Point of Care 128 mg/dl (70-99)
--- NOTE | 2024-06-07 18:04 | PTCARENOTE ---
Passed swallow eval-ST will follow. Able to take PO meds whole in applesauce. Gave half dose basal insulin due to no TF and small amt PO intake.
[2024-06-07 19:00] LABS: Blood Urea Nitrogen 13 mg/dl (9-20); Calcium 8.9 mg/dl (8.4-10.2); Carbon Dioxide 25 mmol/L (22-30); Chloride 103 mmol/L (98-107); Estimated Creatinine Clearance 95 ml/min; Glucose 133 mg/dl (70-99); Magnesium 2.2 mg/dl (1.6-2.3); Potassium 4.3 mmol/L (3.5-5.1); Sodium 135 mmol/L (135-145); eGFR > 60.00
--- NOTE | 2024-06-07 19:38 | PTCARENOTE ---
rec'd patient. oriented x2, forgetful, disoriented to place. SB on monitor with BBB and 1st degree HB. pt on 4L NC, denies SOB or CP. oral care provided. perc nay intact. anuric. R BKA dressing with no drainage. CRRT ongoing, 4k bath, TFR 2.0,
running net neg 100. levo and heparin gtts continue. family at bedside, updated and questions answered. call goetz in reach. care continues
[2024-06-07 20:28] LABS: APTT 134.6 Sec (23.4-35.0)
[2024-06-07] MEDS: LANTUS 0.12 UNITS SC (21:23)
[2024-06-07] MEDS: SENOKOT 17.2 MG PO (21:27)
[2024-06-07] MEDS: CYMBALTA DELAYED RELEASE 20 MG PO (21:27)
[2024-06-07] MEDS: COLACE 200 MG PO (21:28)
[2024-06-07 21:32] LABS: Glucose - Point of Care 118 mg/dl (70-99)
[2024-06-08] MEDS: RFP-401 HD Soln (K+ 4 mEq/L) 15000 ML CRRT-IRR ×2 (00:01→05:25)
[2024-06-08] MEDS: NOVOLOG FLEXPEN-MODERATE RESISTANCE SC ×2 (00:06→05:37)
[2024-06-08 00:09] LABS: Glucose - Point of Care 120 mg/dl (70-99)
--- NOTE | 2024-06-08 00:11 | PTCARENOTE ---
CRRT labs sent. full bed bath given. down to 2L NC. denies pain. otherwise assessment unchanged. care continues
[2024-06-08 00:38] LABS: Blood Urea Nitrogen 11 mg/dl (9-20); Calcium 8.5 mg/dl (8.4-10.2); Carbon Dioxide 28 mmol/L (22-30); Chloride 103 mmol/L (98-107); Estimated Creatinine Clearance 95 ml/min; Glucose 119 mg/dl (70-99); Magnesium 2.1 mg/dl (1.6-2.3); Phosphorus 2.7 mg/dl (2.5-4.5); Sodium 134 mmol/L (135-145); eGFR > 60.00
[2024-06-08 04:17] VITALS: BMI 36.3
[2024-06-08] MEDS: STERILE WATER FOR INJECTION 10 ML IV ×3 (05:26→22:04)
[2024-06-08] MEDS: MERREM 500 MG IV ×3 (05:26→22:05)
[2024-06-08 05:43] LABS: B.E. 3.9 mmol/L; HCO3 27.3 mmol/L (21-28); O2 Saturation % 98.3 % (94-98); PCO2 35 mmHg (35-48); PO2 73 mmHg (83-108)
[2024-06-08 05:44] LABS: Ionized Calcium 1.31 mMOL/L (1.15-1.33)
[2024-06-08] MEDS: TYLENOL 650 MG PO (05:46)
[2024-06-08 05:48] LABS: Glucose - Point of Care 102 mg/dl (70-99)
[2024-06-08 05:59] LABS: Hematocrit 22.8 % (39.0-52.0); Hemoglobin 7.6 g/dL (13.0-18.0); Mean Corp Hgb Conc. 33.3 g/dL (33.0-37.0); Mean Platelet Volume 9.7 fL (7.4-10.4); Platelet Count 116 10^3/uL (130-400); Red Blood Cell Count 2.62 10^6/uL (4.70-6.10); Red Cell Dist. Width 15.8 % (11.5-14.5); White Blood Cell Count 16.6 10^3/uL (4.8-10.8)
[2024-06-08 06:05] LABS: APTT 75.8 Sec (23.4-35.0)
--- NOTE | 2024-06-08 06:06 | PTCARENOTE ---
AM labs sent, CXR done. FMS removed, pt c/o pain at sacrum, PRN tylenol given, air cushion placed underneath sacrum and pt repositioned onto side. CRRT continues w/ no issue. levo gtt currently off. care ongoing
[2024-06-08 06:28] LABS: ALT (SGPT) 23 U/L (0-50); AST (SGOT) 44 U/L (17-59); Albumin 2.4 g/dl (3.5-5.0); Alkaline Phosphatase 466 U/L (38-126); Blood Urea Nitrogen 11 mg/dl (9-20); Calcium 8.7 mg/dl (8.4-10.2); Carbon Dioxide 26 mmol/L (22-30); Chloride 103 mmol/L (98-107); Estimated Creatinine Clearance 94 ml/min; Glucose 103 mg/dl (70-99); Magnesium 1.9 mg/dl (1.6-2.3); Phosphorus 2.3 mg/dl (2.5-4.5); Potassium 4.1 mmol/L (3.5-5.1); Sodium 136 mmol/L (135-145); Total Protein 5.3 g/dl (6.3-8.2); eGFR > 60.00
[2024-06-08] MEDS: MAGNESIUM SULFATE 100 IV (06:34)
[2024-06-08] MEDS: SODIUM PHOSPHATE 260 MEQ IV (07:15)
--- NOTE | 2024-06-08 07:45 | PTCARENOTE ---
Assumed care of pt. approx 0700.
Remains on CVVHD. 4K bath, 2L TF, net -100 pull. No issues w. circuit or access, alarms/codes.
Maintaining MAP goal via 2mcg Norepi, All titration metrics based upon arterial monitoring. Zerod/Calibrated.
Confused potential delirium present, medical team aware.
Normocephalic, Anicteric, follows simple commands, confused pulling at lines, restraints maintained will attempt to trial off when family is present for involvement support.
Circadian rhythm maintained via natural sunlight in room.
Normothermic, Normotensive on minimal vasopressor support. NSR w. Ectopy.
[2024-06-08] MEDS: ROXICODONE 5 MG PO ×3 (08:01→22:05)
[2024-06-08] MEDS: NEURONTIN 100 MG PO ×3 (08:01→22:08)
[2024-06-08] MEDS: SODIUM BICARBONATE 650 MG PO ×2 (08:01→16:54)
[2024-06-08] MEDS: PROTONIX IV 40 MG IV (08:01)
[2024-06-08] MEDS: NSS (PRESERVATIVE FREE) 10 ML IV (08:01)
[2024-06-08] MEDS: CYMBALTA DELAYED RELEASE 20 MG PO ×2 (08:02→22:05)
--- NOTE | 2024-06-08 08:09 | PN.DE.MGMTRT ---
Insulin Management
- -
06/08/2024: Diabetes Management follow up
Patient admitted 05/30 with change in level of consciousness. PMH PVD, asthma, GERD, HTN, HCL, diabetes, renal failure (HD 3 x per week). Patient found to have severe sepsis with R foot wound with purulent drainage most likely source. Patient has
since gone to OR for amputation of R foot 05/31.
Prior to admission was taking 4 units NovoLog AC with Lantus 10 units @ hs. A1C 7.8%, cr 1.1, eGFR>60
Patient remains intubated, critically ill, unable to interview at this time. All information obtained from chart and patient nurse.
He is POD #8 s/p Guillotine amputation of the right lower extremity above the ankle
Was transitioned off insulin infusion on 06/03. Glucose stable and in range 118 to 198. FBG 102 this AM.
Tube feeds stopped and tube discontinued. Dysphagia diet ordered. Nurse reports appetite poor to fair.
Will change novolog from Q 6 hours to AC and reduce dose to 2 units due to poor appetite. AC corrective changed from moderate to low. Will continue Lantus 12 units daily @ HS.
Will cont to follow and make further adjustments if necessary
Discussed with nurse.
Diabetes History
- -
Type of Diabetes: 2 requiring insulin
Pre-Admission Diabetes Regimen
06/07/24 06/07/24 06/07/24
11:46 17:37 23:57
Creatinine 1.0 0.9 0.9
06/08/24
05:36
Creatinine 0.9
Lab Results
Hemoglobin A1c 7.8 % (4.0-5.6) H 05/31/24 02:57
Insulin Pump Settings
IP Diabetes Regimen
06/07/24 06/07/24 06/07/24
11:46 11:50 17:37
Glucose 204 H 133 H
POC Glucose 198 H
06/07/24 06/07/24 06/07/24
17:41 21:21 23:57
Glucose 119 H
POC Glucose 128 H 118 H 120 H
06/08/24 06/08/24
05:35 05:36
Glucose 103 H
POC Glucose 102 H
Patient Education
--- NOTE | 2024-06-08 08:23 | W.PN.NEPH.PH ---
Today's Communication / Plan
-
Maintain CRRT for next 7-1/2 hours until filter life completed
Will provide conventional dialysis tomorrow
Assessment/Plan
-
Impression:
ESRD MWF ([facility])
Sepsis/leukocytosis with hemodynamic compromise
Hypoxic Respiratory failure
Diabetes
History of right TMA with purulent drainage from site, status post ankle amputation 05/31/2024
History of hypertension
Anemia
PAD
Plan:
CRRT continues
cont replacement rate at 2L/h , increased for met acidosis -improved now
Electrolytes reviewed and all within normal limits
increase u/f at 100cc/hr, increase as needed
Blood gas reviewed alkalemia noted with pH of 7.5 pCO2 35 HCO3 27 pO2 70
CXR Notes : Notes right hemidiaphragm elevation and pulmonary edema
abx per primary team (renally dosed)
supportive care at this time
wean pressors as able
continues on heparin gtt fro bilateral DVT, also helping CRRT
prognosis remains guarded
Patient critically ill on ventilator and pressor support on CRRT
We will discontinue CRRT following lifecycle of current dialysis filter and proceed towards conventional hemodialysis tomorrow
critical care time 31 minutes
d/w nursing
-
-
Date of Service: June 08, 2024
CC / HPI / ROS
-
Chief Complaint:
ESRD
History of Present Illness:
remains hypotense on 1 pressors in ICU
Patient now extubated
s/p right foot amputation 05/31
s/p cholecystotomy tube 05/31
Hgb stable low 7.6
improved acidosis
wt is down but CXR shows mild edema
Review of Systems:
no fevers
Extubate
Weights down
Labs
-
Labs:
WBC 16.6 10^3/uL (4.8-10.8) H 06/08/24 05:36
RBC 2.62 10^6/uL (4.70-6.10) L 06/08/24 05:36
Hgb 7.6 g/dL (13.0-18.0) L 06/08/24 05:36
Hct 22.8 % (39.0-52.0) L 06/08/24 05:36
Plt Count 116 10^3/uL (130-400) L D 06/08/24 05:36
eGFR > 60.00 06/08/24 05:36
Tyi-Y-Klqfqoevzms Pept 4060 pg/ml 05/30/24 15:31
Albumin 2.4 g/dl (3.5-5.0) L 06/08/24 05:36
Physical Exam
-
Vital Signs:
Vital Signs
Temp Pulse Resp BP Pulse Ox
98.6 F 74 20 150/42 98
06/08/24 07:40 06/08/24 06:45 06/08/24 06:45 06/06/24 04:50 06/08/24 07:40
Cardiovascular:: Regular rate and rhythm
Respiratory:: Bilateral: Coarse
Lung Excursion:: Normal
Abdomen:: Nontender and Soft
Bowel Sounds:: Normal
Extremity Edema:: +1: Bilateral:
[place] Catheter: No
--- NOTE | 2024-06-08 08:34 | W.PN.UPDATE ---
Update Note
Progress Note Update
CRRT note
Systolic blood pressure around 100 on pressor support
Treatment QB 250 cc/h
Replacement rate at 2 L per 4K bath
UF set to 100 cc/h negative
--- NOTE | 2024-06-08 08:48 | W.PN.HOSP.TC ---
Today's Communication/Plan
-
Continue current care
Assessment / Plan
Assessment / Plan
Gen-looks chronically ill, no acute distress
HEENT-NC, AT, anicteric
Neck-supple
CV-reg, no M, +S1/S2
Lungs-clear B/L
Abd-soft, NT, ND
Ext-right upper extremity diffuse edema, right lower extremity amputation at ankle
Musculoskeletal-no cyanosis, clubbing. Right lower extremity Asael wrap around amputation site
Skin-warm and dry
Septic shock -due to infected right TMA wound, acute calculus emphysematous cholecystitis. WBCs trending down. Remains afebrile.
Remains on Levophed, wean down as able.
Continue IV meropenem per infectious disease.
Blood cultures negative. Fluid culture from gallbladder and right TMA site both positive for Enterobacter cloacae.
Right TMA gas gangrene
Records from [facility] reviewed. Admitted 03/23/2024, discharged 04/08/2024. Primary discharge diagnosis was ESRD requiring dialysis. Secondary diagnoses included PAD and right foot infection. Primary reason for admission was for
worsening right foot wound in the setting of recent right foot gangrene, right lower extremity tibial/peroneal angioplasty, and right foot fourth metatarsal resection and bone biopsies. Podiatry performed right TMA on 03/27/2024. Postoperatively
developed acute kidney failure requiring initiation of hemodialysis. Discharged to SNF on 04/08/2024.
Status post I&D in OR by podiatry on 05/30
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 VAC applied 06/03
Both aspirin and Plavix were discontinued due to oozing of blood from amputation site.
Vascular surgery planning on right BKA this Thursday.
Acute hypoxic respiratory failure -extubated 06/07. Currently on 6 L nasal cannula, wean down as able. Chest x-ray from today shows probable small right and possible trace left pleural effusion. Very low lung volumes. No pneumothorax or
consolidation.
ESRD - on dialysis at [facility] Thursday/Thursday/Thursday. Currently getting CRRT per nephrology.
Metabolic acidosis resolved.
Hyponatremia -resolved.
Acute calculus emphysematous cholecystitis -Status post percutaneous cholecystostomy tube by IR on 05/31.
Ultrasound shows distended gallbladder with stones and sludge with mild gallbladder wall thickening
CT abdomen pelvis shows enlarged gallbladder with stones, sludge, air-fluid level, suspicious for emphysematous cholecystitis
Acute on chronic anemia -Acute blood loss anemia from surgery. Has had 6 units of blood transfused so far. Hemoglobin stable at 7.6 this morning. Will monitor. Admission hemoglobin was 8.6. Baseline hemoglobin unknown.
Acute bilateral lower extremity DVT -currently on IV heparin. Aspirin and Plavix discontinued.
Thrush
Nystatin
Essential hypertension -amlodipine and Coreg on hold due to septic shock.
DM2 without hyperglycemia -glucose 141 this morning, 209 last night. Hemoglobin A1c 7.8%. Off insulin drip 06/03. Prior to admission he was on Lantus 10 units at bedtime, NovoLog 4 units AC.
Currently on Lantus 10 units at bedtime, moderate resistance aspart scale. Diabetes [employer] managing glucoses.
Gastroesophageal reflux disease
Continue PPI
Constipation
Continue laxatives when able
Anxiety/depression
Continue duloxetine 20 mg twice a day
Obesity due to excess calories
DVT prophylaxis�IV heparin
Full code
Anticipated Discharge: > 48 hours
Subjective/Interval History
-
Date of Service: June 08, 2024
Patient seen and examined. No complaints.
Objective Data
-
Labs:
Laboratory Results
06/07/24 06/08/24 06/08/24
23:57 05:36 12:00
WBC 16.6 H
Hgb 7.6 L
Hct 22.8 L
Plt Count 116 L D
APTT 75.8 H Pending
HCO3 27.3
Sodium 134 L 136 Pending
Potassium 4.0 4.1 Pending
Chloride 103 103 Pending
Carbon Dioxide 28 26 Pending
BUN 11 11 Pending
Creatinine 0.9 0.9 Pending
Glucose 119 H 103 H Pending
Calcium 8.5 8.7 Pending
Total Bilirubin 1.0
AST 44
ALT 23
Alkaline Phosphatase 466 H
Vital Signs:
Vital Signs
Temp Pulse Resp BP Pulse Ox
98.6 F 74 20 150/42 98
06/08/24 07:40 06/08/24 06:45 06/08/24 06:45 06/06/24 04:50 06/08/24 07:40
I&O
06/07/24 06/08/24 06/09/24
06:59 06:59 06:59
Intake Total 2317.1 / 2438.3 876.1 / 913.5 168.6 / 168.6
Output Total 3637 / 3766 2744 / 2855 240 / 240
Balance -1319.9 / -1327.7 -1867.9 / -1941.5 -71.4 / -71.4
Review of Systems
-
History Source: Patient
All other systems: Reviewed and negative
--- NOTE | 2024-06-08 08:54 | PTOTSP ---
Received order for PT from night coverage. S/w RN this AM who reports that although pt is now extubated, he remains on continuous dialysis at this time and not appropriate for PT evaluation yet. Pt is scheduled to come off continuous dialysis this
afternoon and could be appropriate after that. Will follow. Needs OT orders as well, as pt has new LE amputation.
--- NOTE | 2024-06-08 08:59 | W.PN.INTV ---
Today's Communication / Plan
Recommendations
As above
Assessment
-
64-year-old male with past medical history of PAD, diabetes, hypertension, CKD on HD, hyperlipidemia, GERD presented with septic shock secondary to right foot infected wound requiring pressors, intubation and mechanical ventilation.
#Septic shock secondary to right foot infected wound
- Patient had recent right TMA in March 2024 complicated by wound dehiscence requiring several debridements since then. In the ED, he was found to have purulent drainage from the TMA site. Right foot x-ray showed soft tissue gas in the foot and
ankle. He was taken to the OR for I&D, infection extended along the extensor tendons proximally as well as laterally across the tarsometatarsal joint was noted. Patient is improving clinically requiring 1 pressor (levo 2 mcg/min) for hemodynamic
stability.
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 Tentative plan for formal below-knee amputation on 06/10/2024
- wbc downtrending today, 22 --> 19, AB.47/36/88/26.2 mildly alkalotic, lactic acid <0.5
- Patient is currently on meropenem, I&D culture: Finegoldia magna, wound culture: Enterobacter cloacae multidrug-resistant resistant, blood culture negative
- Patient had mild venous oozing from amputation site this morning, vascular surgery applied wet-to-dry dressing, hemoglobin is stable and no active monitor bleeding was noted.
#Acute hypoxic respiratory failure
- No wheezing on auscultation. Decreased breath sounds and crackles bilaterally at the lung bases.
- Patient was extubated on 06/07/2024. Tolerating well, currently on 6 L oxygen via nasal cannula. Satting at > 94%
- Chest x-ray 06/08/2024: Low lung volumes with small bilateral pleural effusion and/or likely bibasilar atelectasis. No significant change from yesterday.
#RAISSA on CKD
- Creatinine continues to downtrend, 0.9 today
- Currently on CRRT, can consider transitioning to HD given patient is hemodynamic stable on minimal pressor support
#Lower extremity pitting edema, right greater than left
- Bedside ultrasound showed a noncompressible vein superior to the right common femoral vein and a noncompressible right popliteal vein concerning for DVT
- Lower extremity ultrasound showed bilateral extensive DVT. Patient was started on heparin drip after OR on 05/31/2024.
#Right upper extremity swelling
- Continue to monitor
- Patient is on heparin drip for bilateral LE DVT
#Respiratory alkalosis, mild
#Elevated liver enzymes, emphysematous cholecystitis
- Abdominal ultrasound showed distended gallbladder, filled with stones and sludge, mild gallbladder wall thickening concerning for acute cholecystitis, negative sonographic Bermeo sign and no pericholecystic fluid.
- Abdomen diffusely tender on exam (more pronounced on the right upper quadrant), without guarding/tenderness.
- Patient is afebrile, not complaining of nausea, vomiting, abdominal pain.
- Likely due to septic shock and acute cholecystitis.
- Abdomen pelvis CT (05/31/2024) was concerning for emphysematous cholecystitis. IR was consulted, placed percutaneous nay tube. Bile Cx Enterobacter cloacae multidrug-resistant resistant. Low output from the nay tube since last night. Will
need eventual outpatient follow-up with surgery for cholecystectomy.
#Leukocytosis
- Likely secondary to sepsis
- wbc trended up over the weekend, downtrending today, 19 --> 16.6
#Asymptomatic urinary tract infection
- UA showed moderate bacteria, esterase 1+, wbc 3-5
- Urine culture negative
- Blood cultures negative
#Hyperglycemia
- Patient is on 12 units insulin glargine at bedtime and 4 units aspart every 6 hours
- Hemoglobin A1c 7.8
#Anemia
- Likely multifactorial, in the setting of chronic kidney disease and bleeding from amputation site
- s/p 6 units PRBC total
- Patient had mild venous oozing from amputation site this morning, vascular surgery applied wet-to-dry dressing, hemoglobin is stable at 7.6 and no active monitor bleeding was noted.
#Abnormal thyroid function
- TSH low, T4 within normal limits
- No history of thyroid disease
- Likely in the setting of acute infection, sick euthyroid syndrome
#Hypoalbuminemia
- s/p albumin infusion
Conditions present prior to admission
Hypertension -- Home meds currently on hold
Hyperlipidemia -- statin held due to elevated LFTs
Diabetes -- on insulin
GERD -- continue Protonix --> transition to IV Protonix
PAD s/p right lower extremity stent
CKD -- on hemodialysis
Neuropathy -- patient takes gabapentin and oxycodone 15mg every 12h at home, continue gabapentin
Depression -- on duloxetine
Obesity due to excess calories
Plan:
RASS score 0, patient is delirious. OT PT consult ordered. Continue Tylenol as needed and gabapentin.
Patient is currently on 1 pressor, Levophed 2 mcg/min. Systolic pressures 130s, diastolic pressures in the 40s -- wide pulse pressure likely in the setting of sepsis and PAD. Echo 06/06/24: EF 60 to 65%, mild to moderate ventricular hypertrophy
(septum 1.4 cm), trace TR, possibly mildly dilated and hypokinetic right ventriculum. Wean pressors as able. Maintain MAP>65.
Continue to hold home meds (Coreg and Norvasc).
Patient is tolerating extubation well. Nonlabored breathing. Is currently on 6 L oxygen via nasal cannula. Maintain SpO2 > 92-94%
Chest x-ray today shows low lung volumes and small bilateral pleural effusions and/or bibasilar atelectasis. Consider incentive spirometry and OOB to help resolve atelectasis.
s/p percutaneous nay tube, no abdominal tenderness/rebound/guarding on exam. Minimal output on nay tube (10 cc). Outpatient follow-up for eventual cholecystectomy. Bile culture Enterobacter cloacae multidrug-resistant resistant was noted.
History of GERD. Can consider transitioning to p.o. Protonix.
Speech eval yesterday recommended p.o. diet of soft and bite-size solids with thin liquids. Aspiration precautions. Continue diet and advance as able.
Continue CRRT. Consider transitioning to HD.
Replete lytes as needed.
I&D culture Finegoldia magna. Wound culture and bile culture Enterobacter cloacae multidrug-resistant resistant, continue meropenem 500 mg every 6h (dose renally adjusted)
Vascular surgery is on board, s/p guillotine of the right lower extremity above the ankle. Tentative plan for below-knee amputation on 06/10/2024. Surgical dressings changed today. No active arterial bleeding on exam. Continue to hold Plavix and
aspirin.
Bilateral lower extremity DVT, continue heparin drip. PTT in therapeutic range, continue to monitor closely.
Hemoglobin 7.6 today s/p 6 units PRBC total. No evidence of active arterial bleeding from amputation site/IV lines. Trend H&H and transfuse if needed for Hb<7g/dL or plt<20k, unless there is concern for bleeding. Continue to hold aspirin and
consider lowering PTT target if concern for rebleeding and further hemoglobin drop.
Trend wbc and monitor for fevers.
Continue insulin aspart 2 units AC and Lantus 12 units at bedtime. Maintain euglycemia with goal BG 140�180, avoid hypoglycemia.
Subjective Dataa
Subjective Data
Date of Service:
Date of Service: June 08, 2024
Chief Complaint: Review Coordinator Follow Up
Review of Systems
General: Fever (n) and Pain (n)
HEENT: Choking (n)
Cardiopulmonary: Dyspnea (n), Cough (n) and Chest Pain (n)
GI: Abdominal Pain (n), Nausea (n), Diarrhea (n) and Constipation (n)
Neuro: Headache (n)
Objective Data
Data Reviewed
Vital Signs / I&O / Oxygen:
Vital Signs
Temp Pulse Resp BP Pulse Ox
98.6 F 74 20 150/42 98
06/08/24 07:40 03/05/25 06:45 06/08/24 06:45 06/06/24 04:50 06/08/24 07:40
Intake and Output
06/07/24 06/08/24 06/09/24
06:59 06:59 06:59
Intake Total 2317.1 / 2438.3 876.1 / 913.5 168.6 / 168.6
Output Total 3637 / 3766 2744 / 2855 240 / 240
Balance -1319.9 / -1327.7 -1867.9 / -1941.5 -71.4 / -71.4
SaO2 [CPAP/PSV] 98
SaO2 [A/C] 99
SaO2 98
Nasal Cannula flow liters per 6
minute
Physical Exam
General: Respiratory Distress (negative ), Comfortable and Fever (n)
HEENT: Normocephalic and Anicteric
Cardiovascular: S1-S2, Regular Rhythm and Peripheral Edema (+2 left lower extremity edema, trace edema on right lower extremity, right upper extremity swelling)
Respiratory: Wheeze (n), Crackles (bilateral bases), Rhonchi (n), Non-Labored Respirations, Accessory Resp Muscle Use (n), Stridor (n) and Other (Decreased breath sounds on bilateral lung bases)
GI: Soft, Non Distended and Non Tender
Neurology: Awake, Alert, Tremors (n) and Other (Patient knows the time of the day, but is disoriented to place. Delirious but calm.)
Skin: Warm, Cyanosis (n), Jaundice (n) and Other (Guillotine amputation of the right lower extremity above the ankle with operative site covered with bandage. Mild venous oozing from amputation site, no signs of active arterial bleeding.)
Labs/Micro/Reports
Lab Data
06/08/24 05:36
Laboratory Results
06/07/24 06/07/24 06/07/24
11:45 11:46 20:09
APTT 60.9 H 134.6 H
pH 7.47 H
pCO2 35
pO2 156 H
HCO3 25.5
O2 Delivery Level
06/08/24
05:36
APTT 75.8 H
pH 7.50 H
pCO2 35
pO2 73 L
HCO3 27.3
O2 Delivery Level 93%
Microbiology
05/30/24 21:41 Abscess Wound Culture - Final
Enterobacter cloacae
Enterobacter cloacae#2
Yeast
05/30/24 21:41 Abscess Gram Stain - Final
05/30/24 21:41 Abscess Anaerobic Culture - Final
Finegoldia magna
--- NOTE | 2024-06-08 09:07 | W.PN.VS ---
Today's Communication / Plan
-
See below.
Assessment/Plan
-
Assessment: 64-year-old male POD # 8 Guillotine amputation of the right lower extremity above the ankle
Plan:
Continue wet-to-dry dressing to right lower extremity
Tentative plan for OR on 06/10/24 for right lower extremity BKA
Subjective Data
-
Date of Service: June 08, 2024
Patient seen and examined at bedside, extubated and off sedation. Reports adequate pain management to right amp site.
Objective Data
-
Vital Signs
Temp Pulse Resp BP Pulse Ox
98.6 F 74 20 150/42 98
06/08/24 07:40 06/08/24 06:45 06/08/24 06:45 06/06/24 04:50 06/08/24 07:40
Intake and Output
06/07/24 06/08/24 06/09/24
06:59 06:59 06:59
Intake Total 2317.1 / 2438.3 876.1 / 913.5 168.6 / 168.6
Output Total 3637 / 3766 2744 / 2855 240 / 240
Balance -1319.9 / -1327.7 -1867.9 / -1941.5 -71.4 / -71.4
Intake:
Oral fluids 50 / 50 20 / 20
IV fluids (Total) 1130.5 / 1188.7 479.1 / 490.9 23.0 / 23.0
Levophed 540.4 / 567.5 229.0 / 231.3 5.9 / 5.9
fent 355.8 / 377.0 49.7 / 49.7
heparin 201.9 / 211.8 200.4 / 209.9 17.1 / 17.1
vasopressin 32.4 / 32.4
IV piggybacks 573.6 / 573.6 103 / 128.6 125.6 / 125.6
Tube feeding 383 / 446 224 / 224
Feeding tube flush amount 110 / 110
Amount instilled into Drain (
Total)
Right Abdomen
Fecal management system 60 / 60 60 / 60
irrigation (mL)
Rectum 60 / 60 60 / 60
Output:
Drain Output (Total) 0 0
Right Abdomen 0 0
Urine, Voided 0 0 0
CRRT - Actual ultrafiltration 3627 / 3756 2744 / 2855 240 / 240
volume
Lab Results
06/08/24 05:36
Calcium 8.7 mg/dl (8.4-10.2) 06/08/24 05:36
Phosphorus 2.3 mg/dl (2.5-4.5) L 06/08/24 05:36
Magnesium 1.9 mg/dl (1.6-2.3) 06/08/24 05:36
Total Bilirubin 1.0 mg/dl (0.2-1.3) 06/08/24 05:36
Direct Bilirubin 0.6 mg/dl (0.0-0.4) H 06/06/24 04:31
AST 44 U/L (17-59) 06/08/24 05:36
ALT 23 U/L (0-50) 06/08/24 05:36
Alkaline Phosphatase 466 U/L (38-126) H 06/08/24 05:36
Total Protein 5.3 g/dl (6.3-8.2) L 06/08/24 05:36
Albumin 2.4 g/dl (3.5-5.0) L 06/08/24 05:36
Physical Exam
-
No apparent distress, resting in bed comfortably
No tachycardia
No dyspnea on supplemental oxygen via nasal cannula
Right lower extremity guillotine ankle amputation dressing CDI, changed by this provider, site CDI
[2024-06-08 11:35] LABS: Ionized Calcium 1.24 mMOL/L (1.15-1.33)
--- NOTE | 2024-06-08 11:44 | PTCARENOTE ---
CVVHD D/C. per nephro transition to HD therapy in AM.
RX off, pt. becoming more oriented.
No further change in assessment.
[2024-06-08 11:45] LABS: Glucose - Point of Care 132 mg/dl (70-99)
[2024-06-08 11:50] LABS: Blood Urea Nitrogen 10 mg/dl (9-20); Calcium 8.5 mg/dl (8.4-10.2); Carbon Dioxide 25 mmol/L (22-30); Chloride 104 mmol/L (98-107); Estimated Creatinine Clearance 94 ml/min; Glucose 142 mg/dl (70-99); Magnesium 2.5 mg/dl (1.6-2.3); Phosphorus 4.2 mg/dl (2.5-4.5); Potassium 4.2 mmol/L (3.5-5.1); Sodium 136 mmol/L (135-145); eGFR > 60.00
[2024-06-08 11:55] LABS: APTT 80.7 Sec (23.4-35.0)
[2024-06-08] MEDS: NOVOLOG FLEXPEN 2 UNITS SC ×2 (11:56→17:58)
[2024-06-08] MEDS: NOVOLOG FLEXPEN-LOW RESISTANCE SC (11:56)
[2024-06-08] MEDS: HEPARIN 1800 UNITS INTRACATH (13:16)
--- NOTE | 2024-06-08 13:16 | W.PN.ID1 ---
Date of Service
Date of Service: June 08, 2024
Today's Communication
Continue meropenem.
Assessment / Plan
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
s/p I+D 05/30. OR cx: Enterobacter, yeast
s/p guillotine amp 05/31
Eventual formal BKA
# Acute cholecystitis
s/p perc nay 05/31
cx Enterobacter
# Septic shock
weaning 1 pressor
Leukocytosis - trending down
# s/p VDRF
# ESRD on HD. On CRRT prn
# Extensive BLE DVT
Plan:
- Continue meropenem (d6), renally adjust by pharmacy.
- Trend wbc
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
Type 2 diabetes mellitus
End-stage renal disease on hemodialysis
Hypertension
PAD s/p RLE stent
HLD
Obstructive sleep apnea
Depression
Right foot TMA 03/27/24 [facility]
Chief Complaint
-: Clinical Sepsis
Subjective / Review of Systems
Extubated.
Vital Signs / Physical Exam
Vital Signs
Vital Signs
Temp Pulse Resp BP Pulse Ox
97.7 F 72 24 150/42 92
06/08/24 11:02 06/08/24 11:30 06/08/24 11:30 06/06/24 04:50 06/08/24 11:30
Physical Exam
Constitutional: Comfortable and Acutely Ill
Cardiovascular: Regular Rate and S1/S2; Negative S3/S4
Pulmonary: Clear (anterior lungs) and Other
Gastrointestinal: Soft, Non Tender, Non Distended, Normal Bowel Sounds and Other (Cholecystostomy tube with brown bile in gravity bag. FMS tube feed color stool. )
Extremities: Negative Edema
Wound: Other
Lines: PICC (no erythema) and HD Cath (no erythema)
Objective Data
Lab Data
Lab Results
06/08/24 05:36
06/08/24 11:20
ESR 70 mm/hour (0-20) H 05/31/24 02:57
PT 15.3 Sec (11.4-14.6) H 06/05/24 17:04
INR 1.18 06/05/24 17:04
APTT 80.7 Sec (23.4-35.0) H 06/08/24 11:20
Estimated Creat Clear 94 ml/min 06/08/24 11:20
Lactic Acid < 0.5 mmol/L (0.7-2.0) L 06/06/24 10:54
Total Bilirubin 1.0 mg/dl (0.2-1.3) 06/08/24 05:36
AST 44 U/L (17-59) 06/08/24 05:36
ALT 23 U/L (0-50) 06/08/24 05:36
Alkaline Phosphatase 466 U/L (38-126) H 06/08/24 05:36
C-Reactive Protein > 270.00 mg/L (0.0-10.00) H 05/31/24 02:57
Amylase Cancelled 06/01/24 06:00
Most recent labs reviewed.
Micro Results:
05/30/24 21:41 Wound Culture - Final
Abscess Enterobacter cloacae
Enterobacter cloacae#2
Yeast
Gram Stain - Final
05/30/24 21:41 Anaerobic Culture - Final
Abscess Finegoldia magna
05/30/24 15:42 Blood Culture - Final
Blood/Venous No Growth - Final Report
05/30/24 15:42 Blood Culture - Final
Blood/Venous No Growth - Final Report
06/03/24 11:41 MRSA Screen - Final
Nose No Methicillin Resistant Staphylococcus aureus isolated.
05/30/24 16:52 Wound Culture - Final
Foot - Right Enterobacter cloacae
Diptheroids
Yeast
Gram Stain - Final
05/31/24 18:46 Body Fluid Culture - Final
Bile Enterobacter cloacae
Gram Stain - Final
05/30/24 15:42 Urine Culture - Final
Urine NO GROWTH
05/30/24 15:42 Influenza Types A & B (HOLDEN) - Final
Nasal Swab Negative for Influenza A & B, NAAT
Negative results must be combined with clinical observations
and patient history.
Nucleic Acid Amplification test (NAAT)performed on the
[employer] platform.
05/30/24 CXR: No acute cardiopulmonary process within the limitations of very low lung volumes.
05/30/24 ABD US: The gallbladder is distended and filled with stones and sludge. Mild gallbladder wall thickening raising the possibility for acute cholecystitis. However, no appreciable pericholecystic fluid and a reportedly negative sonographic
Bermeo's sign.
05/30/24 Foot XRAY: Soft tissue gas in the right foot and ankle most suggestive of infection
05/31/24 Periph Vasc US: Extensive bilateral lower extremity deep venous thrombosis
06/07/24 CXR: Mild interstitial prominence, suggestive of mild pulmonary edema. Haziness of each hemidiaphragm, which may represent bibasilar airspace disease and/or small bilateral pleural effusions.
[2024-06-08] MEDS: HEPARIN 1900 UNITS INTRACATH (13:17)
--- NOTE | 2024-06-08 13:22 | PTCARENOTE ---
CVVHD rinsed back w.o issue.
Lines flushed w. Heparin per order/ per cath grinder chipper recommended dwell amount as noted on permacath. Of note, dialysis caps not present, exhausted all means of retrieving new caps, sterile Red caps placed on venous/Arterial ports.
Heparin now therapeutic x2 transition to AM labs.
Norepinephrine titrated off, maintaining maida per second time worker for now.
--- NOTE | 2024-06-08 13:53 | CM ---
CM following re: discharge planning.
Discussed in rounds, reviewed pt's chart, met with pt. Pt's spouse, daughter Sonia and son Gm at bedside.
Pt is POD # 8 Guillotine amputation of the right lower extremity above the ankle, extubated yesterday, tentative plan for OR on 06/10/24 for right lower extremity BKA, continue supportive care.
Pt admitted from [facility] and family does not want pt returns back there. Pt is on HD.
Per Nephrology, CRRT will stop today and dance hall hostess requested to start securing outpatient HD treatment tomorrow. Pt's spouse requested [facility] center. CM will make a referral to [facility] center tomorrow to set up outpatient HD treatment
at [facility] center in [facility].
Pt's spouse requested acuter rehab level of care upon the discharge and she is requested [facility] in [place]. CM discussed pt's case with [facility] physician and per liaison, pt is appropriate for acute rehab level of care. Pt
failed SNF level of care twice. A referral to [facility] made.
Pt will need PM&R consult closer to discharge.
D/C plan: [facility]
CM will follow to assist pt with discharge to [facility].
--- NOTE | 2024-06-08 15:04 | PTCARENOTE ---
Pt made large quantity of urine post CVVHD approx 2L worth.
No further changes in assessment.
[2024-06-08 17:21] LABS: Glucose - Point of Care 210 mg/dl (70-99)
[2024-06-08] MEDS: NOVOLOG FLEXPEN-LOW RESISTANCE 2 UNITS SC (17:59)
[2024-06-08] MEDS: COLACE 200 MG PO (22:05)
[2024-06-08] MEDS: ProAmatine 5 MG PO (22:05)
[2024-06-08] MEDS: SENOKOT 17.2 MG PO (22:05)
[2024-06-08] MEDS: LANTUS 0.12 UNITS SC (22:06)
[2024-06-08] MEDS: HEPARIN 25000 UNITS/250 ML IV ×2 (22:06)
--- NOTE | 2024-06-09 | PTCARENOTE ---
assessment unchanged, pt bathed, oral care provided, remains on levo and heparin gtts, 4L NC, extremities elevated, no drainage noted from R BKA site. care continues
[2024-06-09 03:59] LABS: APTT 76.5 Sec (23.4-35.0)
[2024-06-09 04:07] LABS: Hematocrit 20.6 % (39.0-52.0); Hemoglobin 6.7 g/dL (13.0-18.0); Mean Corp Hgb Conc. 32.5 g/dL (33.0-37.0); Mean Corpuscular Hgb 28.9 pg (27.0-31.0); Mean Corpuscular Volume 88.8 fL (80.0-94.0); Mean Platelet Volume 9.9 fL (7.4-10.4); Platelet Count 125 10^3/uL (130-400); Red Blood Cell Count 2.32 10^6/uL (4.70-6.10); White Blood Cell Count 15.5 10^3/uL (4.8-10.8)
--- NOTE | 2024-06-09 04:17 | PTCARENOTE ---
AM Hgb 6.7, 1u PRBC ordered
[2024-06-09 04:47] LABS: ALT (SGPT) 50 U/L (0-50); AST (SGOT) 128 U/L (17-59); Albumin 2.2 g/dl (3.5-5.0); Alkaline Phosphatase 807 U/L (38-126); Blood Urea Nitrogen 15 mg/dl (9-20); Calcium 8.1 mg/dl (8.4-10.2); Carbon Dioxide 27 mmol/L (22-30); Chloride 104 mmol/L (98-107); Estimated Creatinine Clearance 56 ml/min; Glucose 112 mg/dl (70-99); Magnesium 2.4 mg/dl (1.6-2.3); Potassium 4.1 mmol/L (3.5-5.1); Sodium 136 mmol/L (135-145); Total Bilirubin 0.6 mg/dl (0.2-1.3); Total Protein 4.9 g/dl (6.3-8.2); eGFR 51.99
[2024-06-09 04:51] VITALS: BP 133/49
[2024-06-09 05:12] VITALS: BP 114/43
[2024-06-09 06:00] VITALS: BMI 35.6
[2024-06-09 07:01] VITALS: BP 124/48
--- NOTE | 2024-06-09 07:34 | W.PN.VS ---
Today's Communication / Plan
-
See plan below for today 06/09/2024.
Assessment/Plan
-
Assessment: 64-year-old male POD # 8 Guillotine amputation of the right lower extremity above the ankle
Plan:
Continue wet-to-dry dressing to right lower extremity
Tentative plan for OR on 06/10/24 for right lower extremity BKA
Medical optimization, transfuse packed red blood cells in anticipation of surgery for tomorrow given hemoglobin 6.7 this morning.
-
Total Time Spent with Patient (in minutes): 10
Subjective Data
-
Date of Service: June 09, 2024
Seen and evaluated. No new events noted.
Objective Data
-
Vital Signs
Temp Pulse Resp BP Pulse Ox
98.6 F 63 14 124/48 96
06/09/24 07:01 06/09/24 07:01 06/09/24 07:01 06/09/24 07:01 06/09/24 07:01
Intake and Output
06/08/24 06/09/24 06/10/24
06:59 06:59 06:59
Intake Total 876.1 / 913.5 916.7 / 1166.7 250 / 250
Output Total 2744 / 2855 1031 / 1031
Balance -1867.9 / -1941.5 -114.3 / 135.7 250 / 250
Intake:
Oral fluids 40 / 40
IV fluids (Total) 479.1 / 490.9 294.1 / 294.1
Levophed 229.0 / 231.3 108.6 / 108.6
fent 49.7 / 49.7
heparin 200.4 / 209.9 185.5 / 185.5
IV piggybacks 103 / 128.6 332.6 / 332.6
Tube feeding 224 / 224
Amount instilled into Drain (
Total)
Right Abdomen
Fecal management system 60 60
irrigation (mL)
Rectum 60 / 60
Blood Products 250 / 250
Packed red blood cells 250 / 250
Blood Product Amount Infused ( 0 / 250 250 / 250
mL)
Packed Rbc Leukoreduced Unit 0 / 250 250 / 250
[id number]
Output:
Drain Output (Total) 80 / 80
Right Abdomen 80 / 80
Urine, Voided 0 / 0
CRRT - Actual ultrafiltration 2744 / 2855 951 / 951
volume
Other:
How many times incontinent 1
SATURATED amount urine
Lab Results
06/09/24 03:27
06/09/24 03:27
Calcium 8.1 mg/dl (8.4-10.2) L 06/09/24 03:27
Phosphorus 4.2 mg/dl (2.5-4.5) 06/08/24 11:20
Magnesium 2.4 mg/dl (1.6-2.3) H 06/09/24 03:27
Total Bilirubin 0.6 mg/dl (0.2-1.3) 06/09/24 03:27
Direct Bilirubin 0.6 mg/dl (0.0-0.4) H 06/06/24 04:31
AST 128 U/L (17-59) H 06/09/24 03:27
ALT 50 U/L (0-50) 06/09/24 03:27
Alkaline Phosphatase 807 U/L (38-126) H 06/09/24 03:27
Total Protein 4.9 g/dl (6.3-8.2) L 06/09/24 03:27
Albumin 2.2 g/dl (3.5-5.0) L 06/09/24 03:27
Physical Exam
-
Afebrile.
No acute distress.
Rhonchorous cough.
Right lower extremity dressing clean dry and intact (wound care findings reviewed with BUFFER MACHINE from dressing change yesterday afternoon, wound clean).
--- NOTE | 2024-06-09 08:00 | PN.DE.MGMTRT ---
Insulin Management
- -
06/09/2024: Diabetes Management follow up
Patient admitted 05/30 with change in level of consciousness. PMH PVD, asthma, GERD, HTN, HCL, diabetes, renal failure (HD 3 x per week). Patient found to have severe sepsis with R foot wound with purulent drainage most likely source. Patient has
since gone to OR for amputation of R foot 05/31.
Prior to admission was taking 4 units NovoLog AC with Lantus 10 units @ hs. A1C 7.8%, cr 1.1, eGFR>60
Patient more awake, extubated, taking PO foods with assistance. He remains extremely tired, and forgetful.
He is POD #9 s/p Guillotine amputation of the right lower extremity above the ankle. Patient possibly for OR 06/10 for R BKA.
Was transitioned off insulin infusion on 06/03. Glucose stable and in range 102 to 210. FBG 112 this AM.
Dysphagia diet ordered appetite improving taking up to 65% of meals but patient must be fed.
Will increase novolog from 2 units to 4 units AC (please HOLD if patient does not eat) with low corrective. Will continue Lantus 12 units @ HS.
Will cont to follow and make further adjustments if necessary
Discussed with nurse.
Diabetes History
- -
Type of Diabetes: 2 requiring insulin
Pre-Admission Diabetes Regimen
06/08/24 06/09/24
11:20 03:27
Creatinine 0.9 1.5 H
Lab Results
Hemoglobin A1c 7.8 % (4.0-5.6) H 05/31/24 02:57
Insulin Pump Settings
IP Diabetes Regimen
06/08/24 06/08/24 06/08/24
11:20 11:33 17:10
Glucose 142 H
POC Glucose 132 H 210 H
06/09/24
03:27
Glucose 112 H
POC Glucose
Meal type: Lunch
Amount consumed: 65%
Patient Education
[2024-06-09 08:16] LABS: Glucose - Point of Care 88 mg/dl (70-99)
--- NOTE | 2024-06-09 08:28 | W.PN.HOSP.TC ---
Addendum entered and electronically signed by Dario Deleon DO 06/09/24 13:43:
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 HIT Hollie sent.
Currently on IV argatroban.
Consult IR for IVC filter placement given acute anemia in the setting of anticoagulation, bilateral lower extremity DVT, need for surgery tomorrow, and concern over HIT.
Updated patient's on the phone and she agrees to proceed with IVC filter placement. We discussed that it can come out in a couple months or sooner if the need no longer exists.
Discussed with hematology, vascular, intensive care services.
Original Note:
Today's Communication/Plan
-
Consult hematology
Assessment / Plan
Assessment / Plan
Gen-looks chronically ill, no acute distress
HEENT-NC, AT, anicteric
Neck-supple
CV-reg, no M, +S1/S2
Lungs-clear B/L
Abd-soft, NT, ND
Ext-right upper extremity diffuse edema, right lower extremity amputation at ankle
Musculoskeletal-no cyanosis, clubbing. Right lower extremity Asael wrap around amputation site
Skin-warm and dry
Septic shock -due to infected right TMA wound, acute calculus emphysematous cholecystitis. WBCs trending down. Remains afebrile.
Off Levophed, midodrine resumed.
Continue IV meropenem per infectious disease.
Blood cultures negative. Fluid culture from gallbladder and right TMA site both positive for Enterobacter cloacae.
Right TMA gas gangrene
Records from [facility] reviewed. Admitted 03/23/2024, discharged 04/08/2024. Primary discharge diagnosis was ESRD requiring dialysis. Secondary diagnoses included PAD and right foot infection. Primary reason for admission was for
worsening right foot wound in the setting of recent right foot gangrene, right lower extremity tibial/peroneal angioplasty, and right foot fourth metatarsal resection and bone biopsies. Podiatry performed right TMA on 03/27/2024. Postoperatively
developed acute kidney failure requiring initiation of hemodialysis. Discharged to [facility] on 04/08/2024.
Status post I&D in OR by podiatry on 05/30
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 VAC applied 06/03
Both aspirin and Plavix were discontinued due to oozing of blood from amputation site.
Vascular surgery planning on right BKA this Thursday.
Acute hypoxic respiratory failure -extubated 06/07. Currently on 6 L nasal cannula, wean down as able. Chest x-ray from today shows probable small right and possible trace left pleural effusion. Very low lung volumes. No pneumothorax or
consolidation.
ESRD - on dialysis at [facility] Thursday/Thursday/Thursday. Nephrology planning to switch to regular dialysis.
Metabolic acidosis resolved.
Hyponatremia -resolved.
Acute calculus emphysematous cholecystitis -Status post percutaneous cholecystostomy tube by IR on 05/31.
Ultrasound shows distended gallbladder with stones and sludge with mild gallbladder wall thickening
CT abdomen pelvis shows enlarged gallbladder with stones, sludge, air-fluid level, suspicious for emphysematous cholecystitis
Acute on chronic anemia -Acute blood loss anemia from surgery. Hemoglobin 6.7 this morning, transfused. Unclear why his hemoglobin is down again this morning but IV heparin and thrombocytopenia is not helping. Has had 7 units of blood transfused
so far. Will monitor. Admission hemoglobin was 8.6. Baseline hemoglobin unknown.
Acute thrombocytopenia -unknown etiology. Onset on June 06, which is 7 days after admission. Concern for HIT. 4T score of 5. Will consult hematology.
Acute bilateral lower extremity DVT -currently on IV heparin. Aspirin and Plavix discontinued.
Thrush
Nystatin
Essential hypertension -amlodipine and Coreg on hold due to septic shock.
DM2 without hyperglycemia -glucose 141 this morning, 209 last night. Hemoglobin A1c 7.8%. Off insulin drip 06/03. Prior to admission he was on Lantus 10 units at bedtime, NovoLog 4 units AC.
Currently on Lantus 10 units at bedtime, moderate resistance aspart scale. Diabetes SANDER MACHINE managing glucoses.
Gastroesophageal reflux disease
Continue PPI
Constipation
Continue laxatives when able
Anxiety/depression
Continue duloxetine 20 mg twice a day
Obesity due to excess calories
DVT prophylaxis�IV heparin
Full code
Anticipated Discharge: > 48 hours
Subjective/Interval History
-
Date of Service: June 09, 2024
Patient seen and examined. No complaints.
Objective Data
-
Labs:
Laboratory Results
06/09/24
03:27
WBC 15.5 H
Hgb 6.7 L*
Hct 20.6 L*
Plt Count 125 L
APTT 76.5 H
Sodium 136
Potassium 4.1
Chloride 104
Carbon Dioxide 27
BUN 15
Creatinine 1.5 H
Glucose 112 H
Calcium 8.1 L
Total Bilirubin 0.6
AST 128 H
ALT 50
Alkaline Phosphatase 807 H
Vital Signs:
Vital Signs
Temp Pulse Resp BP Pulse Ox
97.8 F 63 14 124/48 96
06/09/24 08:08 06/09/24 07:01 06/09/24 07:01 06/09/24 07:01 06/09/24 07:01
I&O
06/08/24 06/09/24 06/10/24
06:59 06:59 06:59
Intake Total 876.1 / 913.5 916.7 / 1166.7 250 / 250
Output Total 2744 / 2855 1031 / 1031
Balance -1867.9 / -1941.5 -114.3 / 135.7 250 / 250
Review of Systems
-
History Source: Patient
All other systems: Reviewed and negative
--- NOTE | 2024-06-09 08:30 | W.PN.NEPH.HD ---
Assessment
-
Patient seen on hemodialysis
Last CRRT treatment was on 06/08/2024
Systolic blood pressure around 120 at current UF, off pressors but remains on midodrine TID
Received 1 unit of blood prior to dialysis this morning
For BKA surgery tomorrow
Remains on heparin for bilateral extremity DVT
Progress Note - Hemodialysis
-
Date of Service: June 09, 2024
Duration: 30 minutes and 3 hours
Potassium Bath: 3
Calcium Bath: 2.5
Opti-Dialyzer: 160
Ultrafiltration: Other (2 kg as hemodynamically)
Dialysate Flow: 600
Heparin: none
EPO: 10,000
[2024-06-09] MEDS: NEURONTIN 100 MG PO ×3 (08:31→21:44)
[2024-06-09] MEDS: CYMBALTA DELAYED RELEASE 20 MG PO ×2 (08:31→21:44)
[2024-06-09] MEDS: ProAmatine 5 MG PO ×3 (08:31→21:44)
[2024-06-09] MEDS: ROXICODONE 5 MG PO ×2 (08:31→18:06)
[2024-06-09] MEDS: NOVOLOG FLEXPEN-LOW RESISTANCE SC ×3 (08:38→18:24)
[2024-06-09] MEDS: NSS (PRESERVATIVE FREE) 10 ML IV (09:01)
[2024-06-09] MEDS: PROTONIX IV 40 MG IV (09:02)
[2024-06-09] MEDS: NOVOLOG FLEXPEN SC ×3 (09:17→18:24)
--- NOTE | 2024-06-09 09:24 | CON.ONC ---
Impression
Impression
thrombocytopenia with juan 125,000. doubt acute DIC with normal fibrinogen. Infection and antibiotics could certainly be contributing to mild thrombocytopenia. Pt has heparin exposure prior hospitalizations, dvt ppx on admission, and on therapeutic
heparin gtt for acute DVT since 05/31. 4T score 7
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
Acute cholecystitis s/p perc nay 05/31
ESRD on HD
chronic aockd, on epo w HD
b/l acute DVT on heparin gtt
ABLA from R foot surgical site s/p 7 unit prbc during hospitalization
Plan
Plan
check HIT, LEODAN. argatroban per hospital protocol for management of acute VTE until HIT excluded. Heparin discontinued. Fondaparinux is not used with crcl <30ml/min
check B12, folate
check APLS panel
would consider IVC filter if anticoagulation needs to be held for bleeding and/or procedures
Tentative plan for OR on 06/10/24 for right lower extremity BKA with vascular surgery
daily CBC
Patient History
History of Present Illness
64yo M with ESRD on HD, PAD w stent RLE, DM2 presented 05/30/2024 with SOB, hallucinations, and confusion. He was fatigued, weak, and with poor appetite leading up to ER evaluation. He follows at [facility] for digit removal November 2023 with
complications requiring transmetatarsal amputation March 2024 followed by wound vac, abx, and debridement May 2024. He underwent percutaneous cholecystostomy tube via IR 05/31 for acute calculus cholecystitis, cx positive for Enterobacter cloaca.
He was admitted for septic shock due to right foot wound, culture positive for Enterobacter, diphtheroids, yeast, finegoldia, and acute respiratory failure, VDRF. Hospital course c/b b/l LE DVT for which he was started on a heparin gtt 05/31 and
acute blood loss anemia from surgical site requiring 7 unit prbc during hospitalization thus far. He has been treated with IV abx, now narrowed to meropenem.
Hematology is consulted for evaluation of thrombocytopenia.
WBC has trended down from 42 to 18.1, Hgb 6.7g/dL, and platelet count has trended from 404,000 to 125,000 today. CMP notable for creatinine 1.5, AST 128, ALT 50, Alk phos 807, T bili 0.6.
Afebrile, normotensive, 3L NC
Past-Medical/Surgical History
Past Medical History:
Depression
Obstructive sleep apnea
End-stage renal disease
Type 2 diabetes
Right foot wound
GERD
Hypertension
Past Surgical History: Transmetatarsal amputation
Social History
Tobacco: Non-smoker
Alcohol: None
Drug: None
Personal:
Family History noncontributory Not pertinent
Patient Medication
�Medication �Instructions �Recorded �Confirmed �Last Taken �Type
acetaminophen 325 mg tablet 650 mg PO Q6HPRN PRN mild pain 05/13/24 05/30/24 Unknown History
(Tylenol)
acetaminophen 500 mg tablet 1,000 mg PO Q8HPRN PRN moderate 05/13/24 05/30/24 Unknown History
(Tylenol Extra Strength) pain
amlodipine 10 mg tablet (Norvasc) 10 mg PO DAILY Blood Pressure 05/13/24 05/30/24 Unknown History
aspirin 81 mg tablet,delayed 81 mg PO DAILY Blood Clot 05/13/24 05/30/24 Unknown History
release Prevention/Tx
atorvastatin 40 mg tablet (Lipitor) 40 mg PO HS High Cholesterol 05/13/24 05/30/24 Unknown History
bisacodyl 10 mg rectal suppository 10 mg MN DAILYPRN PRN if no bm 05/13/24 05/30/24 Unknown History
(Dulcolax (bisacodyl)) aftr mom
carvedilol 12.5 mg tablet (Coreg) 12.5 mg PO BID Heart 05/13/24 05/30/24 Unknown History
Disease/Condition
clopidogrel 75 mg tablet (Plavix) 75 mg PO DAILY Blood Clot 05/13/24 05/30/24 Unknown History
Prevention/Tx
cyanocobalamin (vitamin B-12) 1,000 mcg PO DAILY Supplement 05/13/24 05/30/24 Unknown History
1,000 mcg tablet
duloxetine 20 mg capsule,delayed 20 mg PO BID Mental Health/Anxiety 05/13/24 05/30/24 Unknown History
release sprinkle
fluticasone propionate 50 2 spray intranasal DAILY Allergies 05/13/24 05/30/24 Unknown History
mcg/actuation nasal
spray,suspension
gabapentin 100 mg capsule 100 mg PO TID Pain 05/13/24 05/30/24 Unknown History
insulin aspart U-100 100 unit/mL 4 unit SC AC Diabetes 05/13/24 05/30/24 Unknown History
(3 mL) subcutaneous pen (Novolog
FlexPen U-100 Insulin aspart)
insulin glargine 100 unit/mL (3 10 unit SC HS Diabetes 05/13/24 05/30/24 Unknown History
mL) subcutaneous pen (Lantus
Solostar U-100 Insulin)
omeprazole 20 mg capsule,delayed 20 mg PO DAILY Gastrointestinal 05/13/24 05/30/24 Unknown History
release Issue
oxycodone 15 mg tablet 15 mg PO Q12H Pain 05/13/24 05/30/24 Unknown History
polyethylene glycol 3350 17 gram 17 g PO DAILY Constipation 05/13/24 05/30/24 Unknown History
oral powder packet (Miralax)
sennosides 8.6 mg-docusate sodium 2 tab-cap PO HS Constipation 05/13/24 05/30/24 Unknown History
50 mg tablet (Senna-S)
sevelamer carbonate 800 mg tablet 800 mg PO MEALS Kidney Disease 05/13/24 05/30/24 Unknown History
simethicone 80 mg chewable tablet 160 mg PO Q6HPRN PRN flatulence 05/13/24 05/30/24 Unknown History
ondansetron HCl 4 mg tablet 4 mg PO Q6HPRN PRN nausea 05/30/24 05/30/24 Unknown History
oxycodone 5 mg tablet 5 mg PO Q8HPRN PRN breakthrough 05/30/24 05/30/24 Unknown History
pain
Active Medications
Generic Name Dose Route Start Last Admin
Trade Name Freq PRN Reason Stop Dose Admin
Acetaminophen 650 mg 05/30/24 20:39
Acetaminophen 650 Mg Rectal Suppository RECTAL 06/27/24 20:38
Q4HPRN PRN
mild pain/ temp > 100.4F
Acetaminophen 650 mg 06/07/24 16:59 06/08/24 05:46
Acetaminophen 325 Mg Tablet PO 07/05/24 16:58 650 mg
Q4HPRN PRN Administration
mild pain or temp > 100.4 F
Bisacodyl 10 mg 05/31/24 19:45
Bisacodyl 10 Mg Rectal Suppository RECTAL 06/28/24 19:44
DAILYPRN PRN
no BM within 72 hours
Dextrose 12.5 grams 06/03/24 10:47
Dextrose 50% (0.5 Grams/Ml) 50 Ml Syringe IV 07/01/24 10:46
[id number] PRN
BLOOD GLUCOSE < 70
Docusate Sodium 200 mg 06/07/24 22:00 06/08/24 22:05
Docusate Sodium 100 Mg Capsule PO 07/05/24 21:59 200 mg
HS JENNIFER Administration
Duloxetine HCl 20 mg 06/07/24 20:00 06/09/24 08:31
Duloxetine Delayed Release 20 Mg Capsule PO 07/05/24 19:59 20 mg
BID JENNIFER Administration
Gabapentin 100 mg 06/07/24 16:00 06/09/24 08:31
Gabapentin 100 Mg Capsule PO 07/05/24 15:59 100 mg
TID JENNIFER Administration
Glucagon 1 mg 06/03/24 10:47
Glucagon 1 Mg Vial IM 07/01/24 10:46
PRN PRN
hypoglycemia
Protocol
Heparin Sodium 0 units 06/08/24 13:00 06/08/24 13:16
Arterial Port Heparin (1000 Units/Ml) 10,000 Units/10 Ml Vial INTRACATH 07/06/24 12:59 1,800 units
PRN PRN Administration
disconnect from dialysis
Heparin Sodium 0 units 06/08/24 13:00 06/08/24 13:17
Venous Port Heparin (1000 Units/Ml) 10,000 Units/10 Ml Vial INTRACATH 07/06/24 12:59 1,900 units
PRN PRN Administration
disconnect from dialysis
Insulin Glargine 12 units/ 0.12 mls @ 0 mls/hr 06/06/24 12:28 06/08/24 22:06
Device SC 07/01/24 17:59 0.12 mls
HS JENNIFER Administration
As Directed
Heparin Sodium 25,000 units in 250 mls @ 0 mls/hr 06/06/24 13:00 06/08/24 22:06
Heparin 49286 Units/250 Ml IV 250 mls
PER PROTOCOL JENNIFER Administration
Protocol
Per Protocol
Norepinephrine Bitartrate 4 mg in 250 mls @ 0 mls/hr 06/08/24 17:15
Levophed IV
PER PROTOCOL JENNIFER
Protocol
Per Protocol
Insulin Aspart 0 units 06/08/24 11:30 06/09/24 08:38
Insulin Aspart Low Resistance 300 Units/3 Ml Pen.Injctr SC 07/06/24 11:29 Not Given
AC JENNIFER
Protocol
Insulin Aspart 4 units 06/09/24 08:00
Insulin Aspart (100 Units/Ml) 3 Ml Flexpen SC 07/07/24 07:59
AC JENNIFER
Mannitol 12.5 grams 06/09/24 08:00
Mannitol 25% (12.5 Grams/50 Ml) Vial IV 06/09/24 23:59
HD-Q1HPRN PRN
SBP < 90 mmHg
Meropenem 500 mg 06/08/24 22:00 06/08/24 22:05
Meropenem 500 Mg/10 Ml Vial IV 500 mg
QPM JENNIFER Administration
Midodrine 5 mg 06/08/24 22:00 06/09/24 08:31
Midodrine 5 Mg Tablet PO 07/06/24 21:59 5 mg
TID JENNIFER Administration
Oxycodone HCl 5 mg 06/07/24 16:00 06/09/24 08:31
Oxycodone 5 Mg Regular Release Tablet PO 06/21/24 15:59 5 mg
Q8 JENNIFER Administration
Pantoprazole Sodium 40 mg 06/01/24 13:00 06/09/24 09:02
Protonix 40 Mg Iv Push IV 06/29/24 12:59 40 mg
DAILY JENNIFER Administration
Sennosides 17.2 mg 06/07/24 22:00 06/08/24 22:05
Sennosides (Senokot) 8.6 Mg Tablet PO 07/05/24 21:59 17.2 mg
HS JENNIFER Administration
Sodium Chloride 0 flush 05/30/24 19:00
Sodium Chloride 0.9% (Flush) Syringe IV 06/27/24 18:59
PER PROTOCOL JENNIFER
Sodium Chloride 0 flush 06/01/24 08:09
Sodium Chloride 0.9% (Flush) Syringe IV 06/29/24 08:08
PRN PRN
disconnect from dialysis
Sodium Chloride 10 ml 06/01/24 13:00 06/09/24 09:01
Sodium Chloride 0.9% (Preservative Free) 10 Ml Vial IV 06/29/24 12:59 10 ml
DAILY JENNIFER Administration
Sodium Chloride 10 ml 06/09/24 08:00
Sodium Chloride (4 Meq/Ml) 30 Ml Vial *For Hemodialysis* IV 06/09/24 23:59
HD-Q1HPRN PRN
cramps
Sterile Water 10 ml 06/08/24 22:00 06/08/24 22:04
Sterile Water For Injection 10 Ml Vial IV 07/06/24 21:59 10 ml
QPM JENNIFER Administration
Physical Exam
-
Pulmonary: Other (diminished b/l lower lobes)
GI: Other (percutaneous cholecystostomy tube RUQ)
Skin: IV Access / Catheter Site (Right dual-lumen central venous catheter and the left PICC)
Labs
Lab Results
WBC 15.5 10^3/uL (4.8-10.8) H 06/09/24 03:27
RBC 2.32 10^6/uL (4.70-6.10) L 06/09/24 03:27
Hgb 6.7 g/dL (13.0-18.0) L* 06/09/24 03:27
Hct 20.6 % (39.0-52.0) L* 06/09/24 03:27
MCV 88.8 fL (80.0-94.0) 06/09/24 03:27
MCH 28.9 pg (27.0-31.0) 06/09/24 03:27
MCHC 32.5 g/dL (33.0-37.0) L 06/09/24 03:27
RDW 16.0 % (11.5-14.5) H 06/09/24 03:27
Plt Count 125 10^3/uL (130-400) L 06/09/24 03:27
MPV 9.9 fL (7.4-10.4) 06/09/24 03:27
Abs Immat Gran (auto) 0.5 10^3/uL (0-0.05) H 05/30/24 15:31
Absolute Neuts (auto) 25.6 10^3/uL (1.4-6.5) H 05/30/24 15:31
Absolute Lymphs (auto) 0.7 10^3/uL (1.2-3.4) L 05/30/24 15:31
Absolute Monos (auto) 0.6 10^3/uL (0.1-0.6) 05/30/24 15:31
Absolute Eos (auto) 0.0 10^3/uL (0-0.7) 05/30/24 15:31
Absolute Basos (auto) 0.1 10^3/uL (0-0.2) 05/30/24 15:31
Immature Gran % 2.0 % (0-0.5) H 05/30/24 15:31
Neutrophils % 93.0 % (42.2-75.2) H 05/30/24 15:31
Lymphocytes % 2.7 % (20.5-51.1) L 05/30/24 15:31
Monocytes % 2.1 % (1.7-9.3) 05/30/24 15:31
Eosinophils % 0.0 % (0-6) 05/30/24 15:31
Basophils % 0.2 % (0-2) 05/30/24 15:31
Creatinine 1.5 mg/dL (0.7-1.3) H 06/09/24 03:27
Vital Signs
Vital Signs
Temp Pulse Resp BP Pulse Ox
97.8 F 70 19 124/48 93
06/09/24 08:08 06/09/24 09:00 06/09/24 09:00 06/09/24 07:01 06/09/24 09:00
--- NOTE | 2024-06-09 09:48 | W.PN.ID1 ---
Date of Service
Date of Service: June 09, 2024
Today's Communication
Continue meropenem.
Assessment / Plan
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
s/p I+D 05/30. OR cx: Enterobacter, yeast
s/p guillotine amp 05/31
Eventual formal BKA 06/10
# Acute cholecystitis
s/p perc nay 05/31
cx Enterobacter
# Leukocytosis - trending down
# s/p Septic shock
# s/p VDRF
# ESRD on HD. off CRRT
# Extensive BLE DVT
Plan:
- Continue meropenem (d7)
- Trend wbc
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
Type 2 diabetes mellitus
End-stage renal disease on hemodialysis
Hypertension
PAD s/p RLE stent
HLD
Obstructive sleep apnea
Depression
Right foot TMA 03/27/24 [facility]
Chief Complaint
-: Other (Cholecystitis, gas gangrene foot)
Subjective / Review of Systems
No new complaints. Feels weak overall.
Vital Signs / Physical Exam
Vital Signs
Vital Signs
Temp Pulse Resp BP Pulse Ox
97.8 F 70 19 124/48 93
06/09/24 08:08 06/09/24 09:00 06/09/24 09:00 06/09/24 07:01 06/09/24 09:00
Physical Exam
Constitutional: Comfortable
Cardiovascular: Regular Rate and S1/S2
Pulmonary: Clear (anterior lungs)
Gastrointestinal: Soft, Non Tender, Non Distended, Normal Bowel Sounds and Other (Cholecystostomy tube with brown bile in gravity bag. )
Extremities: Negative Edema
Neurological: AO x 3
Lines: PICC (no erythema) and HD Cath (no erythema)
Objective Data
Lab Data
Lab Results
06/09/24 03:27
06/09/24 03:27
ESR 70 mm/hour (0-20) H 05/31/24 02:57
PT 15.3 Sec (11.4-14.6) H 06/05/24 17:04
INR 1.18 06/05/24 17:04
APTT 76.5 Sec (23.4-35.0) H 06/09/24 03:27
Estimated Creat Clear 56 ml/min 06/09/24 03:27
Lactic Acid < 0.5 mmol/L (0.7-2.0) L 06/06/24 10:54
Total Bilirubin 0.6 mg/dl (0.2-1.3) 06/09/24 03:27
AST 128 U/L (17-59) H 06/09/24 03:27
ALT 50 U/L (0-50) 06/09/24 03:27
Alkaline Phosphatase 807 U/L (38-126) H 06/09/24 03:27
C-Reactive Protein > 270.00 mg/L (0.0-10.00) H 05/31/24 02:57
Amylase Cancelled 06/01/24 06:00
Most recent labs reviewed.
Micro Results:
05/30/24 21:41 Wound Culture - Final
Abscess Enterobacter cloacae
Enterobacter cloacae#2
Yeast
Gram Stain - Final
05/30/24 21:41 Anaerobic Culture - Final
Abscess Finegoldia magna
05/30/24 15:42 Blood Culture - Final
Blood/Venous No Growth - Final Report
05/30/24 15:42 Blood Culture - Final
Blood/Venous No Growth - Final Report
06/03/24 11:41 MRSA Screen - Final
Nose No Methicillin Resistant Staphylococcus aureus isolated.
05/30/24 16:52 Wound Culture - Final
Foot - Right Enterobacter cloacae
Diptheroids
Yeast
Gram Stain - Final
05/31/24 18:46 Body Fluid Culture - Final
Bile Enterobacter cloacae
Gram Stain - Final
05/30/24 15:42 Urine Culture - Final
Urine NO GROWTH
05/30/24 15:42 Influenza Types A & B (HOLDEN) - Final
Nasal Swab Negative for Influenza A & B, NAAT
Negative results must be combined with clinical observations
and patient history.
Nucleic Acid Amplification test (NAAT)performed on the
[employer] platform.
05/30/24 CXR: No acute cardiopulmonary process within the limitations of very low lung volumes.
05/30/24 ABD US: The gallbladder is distended and filled with stones and sludge. Mild gallbladder wall thickening raising the possibility for acute cholecystitis. However, no appreciable pericholecystic fluid and a reportedly negative sonographic
Bermeo's sign.
05/30/24 Foot XRAY: Soft tissue gas in the right foot and ankle most suggestive of infection
05/31/24 Periph Vasc US: Extensive bilateral lower extremity deep venous thrombosis
06/07/24 CXR: Mild interstitial prominence, suggestive of mild pulmonary edema. Haziness of each hemidiaphragm, which may represent bibasilar airspace disease and/or small bilateral pleural effusions.
--- NOTE | 2024-06-09 10:03 | PTCARENOTE ---
Assumed care of pt. Assessment as noted. VSS with levophed currently off. HD RN to bedside to begin scheduled HD. Pt without c/o pain.
[2024-06-09] MEDS: RETACRIT 10000 UNITS IV (10:36)
--- NOTE | 2024-06-09 11:09 | W.PN.INTV ---
Today's Communication / Plan
Recommendations
As above
Assessment
-
64-year-old male with past medical history of PAD, diabetes, hypertension, CKD on HD, hyperlipidemia, GERD presented with septic shock secondary to right foot infected wound requiring pressors, intubation and mechanical ventilation.
#Septic shock secondary to right foot infected wound
- Patient had recent right TMA in March 2024 complicated by wound dehiscence requiring several debridements since then. In the ED, he was found to have purulent drainage from the TMA site. Right foot x-ray showed soft tissue gas in the foot and
ankle. He was taken to the OR for I&D, infection extended along the extensor tendons proximally as well as laterally across the tarsometatarsal joint was noted.
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 Tentative plan for formal below-knee amputation on 06/10/2024
- Patient seems to be clinically improving off pressors since 4 AM this morning, on midodrine 5 mg 3 times daily for hemodynamic stability.
- wbc continues to downtrend, 15.5 today
- Patient is currently on meropenem (day 7), I&D culture: Finegoldia magna, wound culture: Enterobacter cloacae multidrug-resistant resistant, blood culture negative
- Hemoglobin dropped to 6.7 this morning, s/p 1 unit PRBC transfusion (7 total). Patient appeared to have wet dressings this morning, no active arterial bleeding was noted.
#Acute hypoxic respiratory failure
- No wheezing on auscultation. Decreased breath sounds and crackles bilaterally at lung bases.
- Patient was extubated on 06/07/2024. Tolerating well, currently on 3 L oxygen via nasal cannula. Satting at > 96%
- Chest x-ray 06/08/2024: Low lung volumes with small bilateral pleural effusion and/or likely bibasilar atelectasis. No significant change from prior day.
#CKD
- Creatinine 1.5 today
- Transitioned to HD today given patient is hemodynamic stable
#Lower extremity pitting edema, right greater than left
- Bedside ultrasound showed a noncompressible vein superior to the right common femoral vein and a noncompressible right popliteal vein concerning for DVT
- Lower extremity ultrasound showed bilateral extensive DVT. Patient was started on heparin drip after OR on 05/31/2024 --> now transitioned to argatroban by hematology due to concern for HIT
#Right upper extremity swelling
- Continue to monitor
- Patient is on heparin drip for bilateral LE DVT --> now transitioned to argatroban by hematology due to concern for HIT
#Respiratory alkalosis, mild
#Elevated liver enzymes, emphysematous cholecystitis
- Abdominal ultrasound showed distended gallbladder, filled with stones and sludge, mild gallbladder wall thickening concerning for acute cholecystitis, negative sonographic Bermeo sign and no pericholecystic fluid.
- Abdomen diffusely tender on exam (more pronounced on the right upper quadrant), without guarding/tenderness.
- Patient is afebrile, not complaining of nausea, vomiting, abdominal pain.
- Likely due to septic shock and acute cholecystitis.
- Abdomen pelvis CT (05/31/2024) was concerning for emphysematous cholecystitis. IR was consulted, placed percutaneous nay tube. Bile Cx Enterobacter cloacae multidrug-resistant resistant. Low output from the nay tube since last night. Will
need eventual outpatient follow-up with surgery for cholecystectomy.
#Leukocytosis
- Likely secondary to sepsis
- wbc continues to downtrend, 15.5 today
#Asymptomatic urinary tract infection
- UA showed moderate bacteria, esterase 1+, wbc 3-5
- Urine culture negative
- Blood cultures negative
#Hyperglycemia
- Patient is on 12 units insulin glargine at bedtime and 4 units aspart every 6 hours
- Hemoglobin A1c 7.8
-Blood glucose was 88 this morning
#Anemia
- Likely multifactorial, in the setting of chronic kidney disease and bleeding from amputation site
- s/p 7 units PRBC total
- Hemoglobin dropped to 6.7 this morning, s/p 1 unit PRBC transfusion (7 total). Patient appeared to have wet dressings this morning, no active arterial bleeding was noted.
#Thrombocytopenia
- Platelets have been in the range of 120-150 since 06/06/2024
- Concern for HIT
- Heparin GTT discontinued, now transitioned to argatroban
#Abnormal thyroid function
- TSH low, T4 within normal limits
- No history of thyroid disease
- Likely in the setting of acute infection, sick euthyroid syndrome
#Hypoalbuminemia
- s/p albumin infusion
Conditions present prior to admission
Hypertension -- Home meds currently on hold
Hyperlipidemia -- statin held due to elevated LFTs
Diabetes -- on insulin
GERD -- continue Protonix
PAD s/p right lower extremity stent
CKD -- on hemodialysis
Neuropathy -- patient takes gabapentin and oxycodone 15mg every 12h at home, continue gabapentin
Depression -- on duloxetine
Obesity due to excess calories
Plan:
RASS score 0, patient is delirious. OT PT consulted. Continue Tylenol as needed and gabapentin.
Patient is currently off pressors, on midodrine 5 mg 3 times daily. Systolic pressures 130s, diastolic pressures in the 40s -- wide pulse pressure likely in the setting of sepsis and PAD. Echo 06/06/24: EF 60 to 65%, mild to moderate ventricular
hypertrophy (septum 1.4 cm), trace TR, possibly mildly dilated and hypokinetic right ventriculum. Maintain MAP>65.
Continue to hold home meds (Coreg and Norvasc).
Patient is currently on 3 L oxygen via nasal cannula. Nonlabored breathing. Maintain SpO2 > 92-94%
Continue incentive spirometry and OOB to help resolve atelectasis.
s/p percutaneous nay tube, no abdominal tenderness/rebound/guarding on exam. Minimal output on nay tube (10 cc). Outpatient follow-up for eventual cholecystectomy.
History of GERD. Consider transitioning to p.o. Protonix.
Speech eval yesterday recommended p.o. diet of soft and bite-size solids with thin liquids. Aspiration precautions. Patient to be n.p.o after midnight for BKA tomorrow.
Transition to HD today.
Replete lytes as needed.
I&D culture Finegoldia magna. Wound culture and bile culture Enterobacter cloacae multidrug-resistant resistant, continue meropenem 500 mg as scheduled (dose renally adjusted) (day 7)
Vascular surgery is on board, s/p guillotine of the right lower extremity above the ankle. Tentative plan for below-knee amputation on 06/10/2024. Surgical dressings changed today. No active arterial bleeding on exam. Continue to hold Plavix and
aspirin.
Hemoglobin 6.7 today s/p 1 unit PRBC today (7 total). No evidence of active arterial bleeding from amputation site/IV lines. Trend H&H and transfuse if needed for Hb<7g/dL or plt<20k, unless there is concern for bleeding.
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 Hematology consulted, ordered HIT, LEODAN, APLS panel. PTT in therapeutic range, continue to monitor closely.
IR consulted for IVC filter.
Continue to hold aspirin and consider lowering PTT target if concern for rebleeding and further hemoglobin drop.
Trend wbc, platelets and monitor for fevers.
Consider lowering insulin Lantus to 10 units at bedtime, increase insulin aspart to 4 units AC. Maintain euglycemia with goal BG 140�180, avoid hypoglycemia.
Subjective Dataa
Subjective Data
Date of Service:
Date of Service: June 09, 2024
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
Review of Systems
General: Fever (n) and Pain (n)
Cardiopulmonary: Dyspnea (n), Cough (n), Wheezing (n) and Chest Pain (n)
GI: Abdominal Pain (n), Nausea (n), Vomiting (n) and Diarrhea (n)
Objective Data
Data Reviewed
Vital Signs / I&O / Oxygen:
Vital Signs
Temp Pulse Resp BP Pulse Ox
97.8 F 70 19 124/48 93
06/09/24 08:08 06/09/24 09:00 06/09/24 09:00 06/09/24 07:01 06/09/24 09:00
Intake and Output
06/08/24 06/09/24 06/10/24
06:59 06:59 06:59
Intake Total 876.1 / 913.5 916.7 / 1174.7 274 / 274
Output Total 2744 / 2855 1031 / 1031
Balance -1867.9 / -1941.5 -114.3 / 143.7 274 / 274
SaO2 [CPAP/PSV] 98
SaO2 [A/C] 99
SaO2 93
Nasal Cannula flow liters per 3
minute
Physical Exam
General: Respiratory Distress (negative ), Comfortable and Fever (n)
HEENT: Normocephalic and Anicteric
Cardiovascular: S1-S2, Regular Rhythm and Peripheral Edema (+1 left lower extremity edema, trace edema on right lower extremity, right upper extremity swelling)
Respiratory: Wheeze (n), Crackles (bilateral bases), Rhonchi (n), Non-Labored Respirations, Accessory Resp Muscle Use (n), Stridor (n) and Other (Decreased breath sounds on bilateral lung bases)
GI: Soft, Non Distended and Tender (Mild RUQ tenderness without guarding/rebound)
Neurology: Awake, Alert, Tremors (n) and Other (Delirious but calm, no change from yesterday.)
Skin: Warm, Cyanosis (n), Jaundice (n) and Other (Guillotine amputation of the right lower extremity above the ankle with operative site covered with bandage. Dressing appears to be mildly wet on the posterior surface. No signs of active arterial
bleeding.)
Labs/Micro/Reports
Lab Data
06/09/24 03:27
06/09/24 03:27
Laboratory Results
06/08/24 06/09/24
11:20 03:27
APTT 80.7 H 76.5 H
[2024-06-09 11:56] LABS: Glucose - Point of Care 76 mg/dl (70-99)
[2024-06-09] MEDS: ARGATROBAN 252.5 MG IV (12:36)
[2024-06-09 12:48] LABS: Folate 2.1 ng/ml (2.76-20); Vitamin B12 > 1000 pg/ml (239-931)
--- NOTE | 2024-06-09 13:30 | CM ---
Addendum entered by Corey Soto 06/09/24 15:50:
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 Her phone number: [phone] x [phone].
CM requested Hepatitis panel order.
Original Note:
CM following re: discharge planning.
Discussed in rounds, reviewed pt's chart, met with pt. Pt's spouse, daughter Sonia and son Gm at bedside.
Pt is POD # 9 Guillotine amputation of the right lower extremity above the ankle, extubated yesterday, tentative plan for OR tomorrow 06/10/24 for right lower extremity BKA, continue supportive care.
Pt admitted from [facility] and family does not want pt returns back there. Pt is on HD. Outpatient HD treatment center was not set up.
CM faxed a referral to [facility] to set up outpatient HD treatment at [facility] in [facility] and [facility] areas.
[facility] liaison following.
Pt will need PM&R consult closer to discharge.
D/C plan: [facility]. Setting up outpatient HD treatment at [facility] in [place] or [facility] areas.
CM will follow to assist pt with discharge to [facility] and to follow up with [facility].
--- NOTE | 2024-06-09 13:46 | PTCARENOTE ---
HD complete with 1.5L off. Pt tolerated well without requiring vasopressors. Family at bedside assisting with meal. Small amt serosang drainage noted from RLE. Assessment unchanged.
[2024-06-09 15:09] LABS: APTT 82.3 Sec (23.4-35.0)
[2024-06-09 15:15] LABS: Hematocrit 23.8 % (39.0-52.0)
[2024-06-09 16:52] VITALS: BP 115/47; BP_SYST 69
--- NOTE | 2024-06-09 17:20 | PTCARENOTE ---
pt to IR for IVC filter placement.
[2024-06-09] MEDS: STERILE WATER FOR INJECTION 10 ML IV (18:06)
[2024-06-09] MEDS: MERREM 500 MG IV (18:07)
[2024-06-09 18:33] LABS: Glucose - Point of Care 107 mg/dl (70-99)
[2024-06-09 19:22] LABS: APTT 89.8 Sec (23.4-35.0)
--- NOTE | 2024-06-09 20:00 | PTCARENOTE ---
Assumed care of patient at 1900, nursing assessment completed and as documented. Medications given in applesauce without difficulty. Ox3, drowsy but arouses to verbal stimuli, able to FSC and RAM. On 3L NC sats 94%-96% lung sounds diminished
throughout. NSR with first degree AV block and BBB on monitor, rates 70's. +2 to RUE, and +1 generalized anasarca. Left DP doppler pulse present, palpable right popliteal pulse present. Abdomen soft, nontender, round with hypoactive bowel sounds.
Right abdomen perc nay drain in place draining brown fluid, dressing CDI. Patient oliguric on HD. Mepilex on sacrum with DTI, noted stage 2 breakdown on lip s/p ETT, RLE dressing CDI with CASE wrap, s/p IVC filter via R IJ - bandaid intact. L T/L
PICC in place and patent, L radial arterial line patent and in place, R tunneled HD cath patent and in place. Argatroban gtt remains infusing, see worklist for titration. PTT drawn and sent, A line WNL and zeroed. Family at bedside, patient resting
comfortably, call goetz within reach, care ongoing.
[2024-06-09 21:41] LABS: Glucose - Point of Care 129 mg/dl (70-99)
[2024-06-09] MEDS: SENOKOT 17.2 MG PO (21:43)
[2024-06-09] MEDS: COLACE 200 MG PO (21:44)
[2024-06-09] MEDS: LANTUS 0.1 UNITS SC (21:55)
--- NOTE | 2024-06-10 | PTCARENOTE ---
No changes to physical assessment. Repositioned for comfort, hygiene care provided. L arterial line WNL. Remains on argatroban gtt, daily PTT ordered per protocol, see worklist.
--- NOTE | 2024-06-10 05:00 | PTCARENOTE ---
CHG bath done and linens changed. NPO for OR. Patient orthopneic and anxious when laying flat, provided education on breathing techniques. Patient oliguric and bladder scanned for 215, unable to urinate at this time. Repositioned, call goetz within
reach, care ongoing.
[2024-06-10 05:16] LABS: % Basophils 0.1 % (0-2); % Eosinophils 0.6 % (0-6); % Immature Granulocytes 3.9 % (0-0.5); % Lymphocytes 12.2 % (20.5-51.1); % Monocytes 5.7 % (1.7-9.3); % Neutrophils 77.5 % (42.2-75.2); Absolute Eosinophils 0.1 10^3/uL (0-0.7); Absolute Immature Granulocytes 0.6 10^3/uL (0-0.05); Absolute Lymphocytes 1.8 10^3/uL (1.2-3.4); Absolute Monocytes 0.8 10^3/uL (0.1-0.6); Absolute Neutrophils 11.2 10^3/uL (1.4-6.5); Hematocrit 22.8 % (39.0-52.0); Hemoglobin 7.8 g/dL (13.0-18.0); Mean Corp Hgb Conc. 34.2 g/dL (33.0-37.0); Mean Corpuscular Hgb 29.9 pg (27.0-31.0); Mean Corpuscular Volume 87.4 fL (80.0-94.0); Mean Platelet Volume 9.4 fL (7.4-10.4); Nucleated Red Blood Cells % 0 % (-); Platelet Count 109 10^3/uL (130-400); Red Blood Cell Count 2.61 10^6/uL (4.70-6.10); Red Cell Dist. Width 16.9 % (11.5-14.5); White Blood Cell Count 14.5 10^3/uL (4.8-10.8)
[2024-06-10 05:24] VITALS: BMI 34.7
[2024-06-10 05:35] LABS: ALT (SGPT) 30 U/L (0-50); AST (SGOT) 56 U/L (17-59); Albumin 2.3 g/dl (3.5-5.0); Alkaline Phosphatase 586 U/L (38-126); Blood Urea Nitrogen 13 mg/dl (9-20); Calcium 7.6 mg/dl (8.4-10.2); Carbon Dioxide 30 mmol/L (22-30); Chloride 101 mmol/L (98-107); Estimated Creatinine Clearance 52 ml/min; Glucose 89 mg/dl (70-99); Potassium 3.8 mmol/L (3.5-5.1); Sodium 135 mmol/L (135-145); Total Bilirubin 0.7 mg/dl (0.2-1.3); eGFR 48.11
[2024-06-10 05:56] LABS: Glucose - Point of Care 92 mg/dl (70-99)
[2024-06-10 06:00] VITALS: BMI 34.7
--- NOTE | 2024-06-10 07:33 | PTCARENOTE ---
Assumed care of pt. approx 0700.
Resting in bed, Hemodynamically stable. Maintaining own airway at this time sp02 97%.
Plan is to go to OR today for BKA revision, hold Argatroban at 0800.
--- NOTE | 2024-06-10 07:39 | W.PN.INTV ---
Today's Communication / Plan
Recommendations
As above
Assessment
-
64-year-old male with past medical history of PAD, diabetes, hypertension, CKD on HD, hyperlipidemia, GERD presented with septic shock secondary to right foot infected wound requiring pressors, intubation and mechanical ventilation.
#Septic shock secondary to right foot infected wound
- Patient had recent right TMA in March 2024 complicated by wound dehiscence requiring several debridements since then. In the ED, he was found to have purulent drainage from the TMA site. Right foot x-ray showed soft tissue gas in the foot and
ankle. He was taken to the OR for I&D, infection extended along the extensor tendons proximally as well as laterally across the tarsometatarsal joint was noted.
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 Tentative plan for formal below-knee amputation this afternoon.
- Patient seems to be clinically improving off pressors, on midodrine 5 mg 3 times daily for hemodynamic stability.
- wbc continues to downtrend, 14.5 today
- Patient is currently on meropenem (day 8), I&D culture: Finegoldia magna, wound culture: Enterobacter cloacae multidrug-resistant resistant, blood culture negative
- Hemoglobin stable at 7.8 today, s/p 7 units PRBC total. Dressings intact this morning, no active bleeding was noted.
#Acute hypoxic respiratory failure
- No wheezing on auscultation. Decreased breath sounds and crackles bilaterally at lung bases. Advised patient to use incentive spirometry more frequently to help resolve atelectasis.
- Patient was extubated on 06/07/2024. Tolerating well, currently on 3 L oxygen via nasal cannula. Satting at > 96%
- Chest x-ray 06/08/2024: Low lung volumes with small bilateral pleural effusion and/or likely bibasilar atelectasis. No significant change from prior day.
#CKD
- Creatinine 1.6 today
- Plan for hemodialysis tomorrow.
#Lower extremity pitting edema, right greater than left
- Bedside ultrasound showed a noncompressible vein superior to the right common femoral vein and a noncompressible right popliteal vein concerning for DVT
- Lower extremity ultrasound showed bilateral extensive DVT. Patient was started on heparin drip after OR on 05/31/2024 --> now transitioned to argatroban by hematology due to concern for HIT. Argatroban is currently on hold for surgery this
afternoon.
- PTT 98.9, in the therapeutic range
#Right upper extremity swelling
- Continue to monitor
- Patient is on heparin drip for bilateral LE DVT --> now transitioned to argatroban by hematology due to concern for HIT. Argatroban is currently on hold for surgery this afternoon.
#Elevated liver enzymes, emphysematous cholecystitis
- Abdominal ultrasound showed distended gallbladder, filled with stones and sludge, mild gallbladder wall thickening concerning for acute cholecystitis, negative sonographic Bermeo sign and no pericholecystic fluid.
- Abdomen diffusely tender on exam (more pronounced on the right upper quadrant), without guarding/tenderness.
- Patient is afebrile, not complaining of nausea, vomiting, abdominal pain.
- Likely due to septic shock and acute cholecystitis.
- Abdomen pelvis CT (05/31/2024) was concerning for emphysematous cholecystitis. IR was consulted, placed percutaneous nay tube. Bile Cx Enterobacter cloacae multidrug-resistant resistant. Low output from the nay tube since last night. Will
need eventual outpatient follow-up with surgery for cholecystectomy.
#Leukocytosis
- Likely secondary to sepsis
- wbc continues to downtrend, 14.5 today
#Asymptomatic urinary tract infection
- UA showed moderate bacteria, esterase 1+, wbc 3-5
- Urine culture negative
- Blood cultures negative
#Hyperglycemia
- Patient is on 12 units insulin glargine at bedtime and 4 units aspart every 6 hours
- Hemoglobin A1c 7.8
- Blood glucose was 89 this morning despite decreasing Lantus to 10 units at bedtime. Plan for surgery this afternoon, if patient remains n.p.o. will hold Lantus tonight. If patient is not n.p.o. after surgery, can give 5 units Lantus tonight.
#Anemia
- Likely multifactorial, in the setting of chronic kidney disease and bleeding from amputation site
- s/p 7 units PRBC total
- Hemoglobin stable at 7.8 today. Dressings intact this morning, no active bleeding was noted.
#Thrombocytopenia
- Platelets have been in the range of 120-150 since 06/06/2024
- plt count 109 today
- Oncology is concerned about possible HIT -- HIT panel pending, APLS panel pending
- Transitioned to argatroban yesterday, Argatroban is currently on hold for surgery this afternoon.
#Abnormal thyroid function
- TSH low, T4 within normal limits
- No history of thyroid disease
- Likely in the setting of acute infection, sick euthyroid syndrome
#Hypoalbuminemia
- s/p albumin infusion
Conditions present prior to admission
Hypertension -- Home meds currently on hold
Hyperlipidemia -- statin held due to elevated LFTs
Diabetes -- on insulin
GERD -- continue Protonix
PAD s/p right lower extremity stent
CKD -- on hemodialysis
Neuropathy -- patient takes gabapentin and oxycodone 15mg every 12h at home, continue gabapentin
Depression -- on duloxetine
Obesity due to excess calories
Plan:
RASS score 0, patient is oriented today. Continue Tylenol as needed and gabapentin.
Blood pressures are stable, currently on midodrine 5 mg 3 times daily. Systolic pressures 130s, diastolic pressures in the high 50s -- wide pulse pressure likely in the setting of sepsis and PAD, decreasing. Maintain MAP>65.
Continue to hold home meds (Coreg and Norvasc).
Patient is currently on 3 L oxygen via nasal cannula. Nonlabored breathing. Maintain SpO2 > 92-94%
Continue incentive spirometry and OOB to help resolve atelectasis.
s/p percutaneous nay tube, no abdominal tenderness/rebound/guarding on exam. Minimal output on nay tube (15 cc). Outpatient follow-up for eventual cholecystectomy.
History of GERD. Continue p.o. Protonix.
Patient is currently n.p.o. for surgery later today.
Plan for HD tomorrow.
Replete lytes as needed.
I&D culture Finegoldia magna. Wound culture and bile culture Enterobacter cloacae multidrug-resistant resistant, continue meropenem 500 mg as scheduled (dose renally adjusted) (day 11/13)
Vascular surgery is on board, s/p guillotine of the right lower extremity above the ankle. Tentative plan for below-knee amputation this afternoon. No active bleeding on exam. Continue to hold Plavix and aspirin.
Hemoglobin stable today s/p 7 units PRBC total. No evidence of active bleeding from amputation site/IV lines. Trend H&H and transfuse if needed for Hb<7g/dL or plt<20k, unless there is concern for bleeding.
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 HIT, LEODAN, APLS panel pending. PTT in therapeutic range, continue to monitor closely. Argatroban currently on hold for
surgery today.
Trend wbc, platelets and monitor for fevers.
Consider holding insulin Lantus to 10 units at bedtime if n.p.o. after surgery, otherwise can give 5 units Lantus at bedtime. Maintain euglycemia with goal BG 140�180, avoid hypoglycemia.
Subjective Dataa
Subjective Data
Date of Service:
Date of Service: June 10, 2024
Chief Complaint: Public Health Worker Follow Up
Review of Systems
General: Pain (n)
Cardiopulmonary: Dyspnea (n) and Chest Pain (n)
GI: Abdominal Pain (n), Nausea (n), Vomiting (n), Diarrhea (n) and Constipation (n)
Neuro: Headache (n)
Objective Data
Data Reviewed
Vital Signs / I&O / Oxygen:
Vital Signs
Temp Pulse Resp BP Pulse Ox
99.9 F 76 20 115/47 96
06/10/24 03:30 06/10/24 06:00 06/10/24 06:00 06/09/24 16:52 06/10/24 06:00
Intake and Output
06/09/24 06/10/24 06/11/24
06:59 06:59 06:59
Intake Total 916.7 / 1174.7 907 / 907
Output Total 1031 / 1031 425 / 425
Balance -114.3 / 143.7 482 / 482
SaO2 [CPAP/PSV] 98
SaO2 [A/C] 99
SaO2 96
Nasal Cannula flow liters per 3
minute
Physical Exam
General: Respiratory Distress (negative ), Comfortable and Fever (n)
HEENT: Normocephalic and Anicteric
Cardiovascular: S1-S2, Regular Rhythm and Peripheral Edema (+1 left lower extremity edema, trace edema on right lower extremity, right upper extremity swelling)
Respiratory: Wheeze (n), Crackles (bilateral bases), Rhonchi (n), Non-Labored Respirations, Accessory Resp Muscle Use (n), Stridor (n) and Other (Decreased breath sounds on bilateral lung bases)
GI: Soft, Non Distended and Tender (Mild RUQ tenderness without guarding/rebound)
Neurology: Awake, Alert, Oriented and Tremors (n)
Skin: Warm, Cyanosis (n), Jaundice (n) and Other (Guillotine amputation of the right lower extremity above the ankle with operative site covered with bandage. Dressing intact. No signs of active bleeding.)
Labs/Micro/Reports
Lab Data
06/10/24 04:59
06/10/24 04:59
Laboratory Results
06/09/24 06/09/24 06/10/24
14:50 19:02 06:00
APTT 82.3 H 89.8 H Cancelled
--- NOTE | 2024-06-10 07:59 | PTOTSP ---
Pt for OR today for BKA. Will need new orders for PT and OT post-op, when stable to begin therapy activities.
[2024-06-10 08:11] LABS: APTT 98.9 Sec (23.4-35.0)
--- NOTE | 2024-06-10 08:19 | PN.DE.MGMTRT ---
Insulin Management
- -
06/10/2024: Diabetes Management follow up
Patient admitted 05/30 with change in level of consciousness. PMH PVD, asthma, GERD, HTN, HCL, diabetes, renal failure (HD 3 x per week). Patient found to have severe sepsis with R foot wound with purulent drainage most likely source. Patient has
since gone to OR for amputation of R foot 05/31.
Prior to admission was taking 4 units NovoLog AC with Lantus 10 units @ hs. A1C 7.8%, Cr 1.1, eGFR>60-->1.6, eGFR 48.11 today.
Patient was extubated on 06/07/2024. He is very sleepy and lethargic, unable to interview at this time. All information obtained from chart and patient nurse.
POD # 10 s/p Guillotine amputation of the right lower extremity above the ankle. Currently NPO. Plan for OR today for RLE BKA
06/03 Pt was transitioned off insulin infusion. 3/ Tube feeds discontinued, Dysphagia diet ordered. Pt noted for poor appetite poor.
Glucose stable and in range 76 to 107. HS glucose 129, received Lantus 10 units. FBG 89(V), 92 POC this AM
Will make no changes to current regimen: Lantus 10 units, AC NovoLog 4 units low corrective AC.
Discussed with Nurse, will hold AC NovoLog and uses corrective insulin if needed while NPO. Will cont to follow and make further adjustments if necessary
Diabetes History
- -
Type of Diabetes: 2 requiring insulin
Pre-Admission Diabetes Regimen
06/10/24
04:59
Creatinine 1.6 H
Lab Results
Hemoglobin A1c 7.8 % (4.0-5.6) H 05/31/24 02:57
Insulin Pump Settings
IP Diabetes Regimen
06/09/24 06/09/24 06/09/24
11:45 18:22 21:30
Glucose
POC Glucose 76 107 H 129 H
06/10/24 06/10/24
04:59 05:45
Glucose 89
POC Glucose 92
Meal type: Lunch
Amount consumed: 65%
Patient Education
--- NOTE | 2024-06-10 09:02 | W.PN.HOSP.TC ---
Today's Communication/Plan
-
Await surgery
Assessment / Plan
Assessment / Plan
Gen-looks chronically ill, no acute distress
HEENT-NC, AT, anicteric
Neck-supple
CV-reg, no M, +S1/S2
Lungs-clear B/L
Abd-soft, NT, ND
Ext-right upper extremity diffuse edema, right lower extremity amputation at ankle
Musculoskeletal-no cyanosis, clubbing. Right lower extremity Asael wrap around amputation site
Skin-warm and dry
Septic shock -due to infected right TMA wound, acute calculus emphysematous cholecystitis. WBCs trending down. Remains afebrile.
Off Levophed, midodrine resumed.
Continue IV meropenem per infectious disease.
Blood cultures negative. Fluid culture from gallbladder and right TMA site both positive for Enterobacter cloacae.
Right TMA gas gangrene
Records from [facility] reviewed. Admitted 03/23/2024, discharged 04/08/2024. Primary discharge diagnosis was ESRD requiring dialysis. Secondary diagnoses included PAD and right foot infection. Primary reason for admission was for
worsening right foot wound in the setting of recent right foot gangrene, right lower extremity tibial/peroneal angioplasty, and right foot fourth metatarsal resection and bone biopsies. Podiatry performed right TMA on 03/27/2024. Postoperatively
developed acute kidney failure requiring initiation of hemodialysis. Discharged to SNF on 04/08/2024.
Status post I&D in OR by podiatry on 05/30
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 VAC applied 06/03
Both aspirin and Plavix were discontinued due to oozing of blood from amputation site.
Vascular surgery planning on right BKA June 10.
Acute hypoxic respiratory failure -extubated 06/07. Currently on 3L nasal cannula, wean down as able. Chest x-ray from today shows probable small right and possible trace left pleural effusion. Very low lung volumes. No pneumothorax or
consolidation.
ESRD - on dialysis at [facility] Thursday/Thursday/Thursday. Nephrology planning to switch to regular dialysis.
Metabolic acidosis resolved.
Hyponatremia -resolved.
Acute calculus emphysematous cholecystitis -Status post percutaneous cholecystostomy tube by IR on 05/31.
Ultrasound shows distended gallbladder with stones and sludge with mild gallbladder wall thickening
CT abdomen/pelvis shows enlarged gallbladder with stones, sludge, air-fluid level, suspicious for emphysematous cholecystitis
Acute on chronic anemia -Acute blood loss anemia from surgery. Hemoglobin 7.8 this morning. Unclear why his hemoglobin is down again this morning but IV heparin and thrombocytopenia is not helping. Has had 7 units of blood transfused so far. Will
monitor. Admission hemoglobin was 8.6. Baseline hemoglobin unknown.
Acute thrombocytopenia -concern for possible HIT. HIT panel sent. Hematology input noted. Started argatroban 06/09, now on hold for surgery today. Platelet count 109k today.
Heparin removed from dialysis lines, discussed with nephrology.
Acute bilateral lower extremity DVT -noted on ultrasound 05/31.
Thrush -treated.
Essential hypertension -amlodipine and Coreg on hold due to septic shock.
DM2 without hyperglycemia -glucose 92 this morning, 129 last night. Hemoglobin A1c 7.8%. Off insulin drip 06/03. Prior to admission he was on Lantus 10 units at bedtime, NovoLog 4 units AC.
Currently on Lantus 10 units at bedtime, 4 units of aspart AC, low resistance aspart scale. 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
Gastroesophageal reflux disease
Continue PPI
Constipation
Continue laxatives when able
Anxiety/depression
Continue duloxetine 20 mg twice a day
Obesity due to excess calories
Full code
Anticipated Discharge: > 48 hours
Subjective/Interval History
-
Date of Service: June 10, 2024
Patient seen and examined. No complaints. Looks comfortable.
Objective Data
-
Labs:
Laboratory Results
03/07/25 03/07/25 03/07/25
04:59 06:00 07:21
WBC 14.5 H
Hgb 7.8 L
Hct 22.8 L
Plt Count 109 L
APTT Cancelled 98.9 H
Sodium 135
Potassium 3.8
Chloride 101
Carbon Dioxide 30
BUN 13
Creatinine 1.6 H
Glucose 89
Calcium 7.6 L
Total Bilirubin 0.7
AST 56
ALT 30
Alkaline Phosphatase 586 H
Vital Signs:
Vital Signs
Temp Pulse Resp BP Pulse Ox
98.3 F 76 20 115/47 96
06/10/24 07:49 06/10/24 06:00 06/10/24 06:00 06/09/24 16:52 06/10/24 06:00
I&O
06/09/24 06/10/24 06/11/24
06:59 06:59 06:59
Intake Total 916.7 / 1174.7 907 / 907
Output Total 1031 / 1031 425 / 425
Balance -114.3 / 143.7 482 / 482
Review of Systems
-
History Source: Patient
All other systems: Reviewed and negative
--- NOTE | 2024-06-10 09:07 | W.PN.ONC2 ---
Today's Communication / Plan
-
.
Impression
Impression
thrombocytopenia with juan 109,000. no evidence of acute DIC with normal fibrinogen. No b12 deficency. Infection and antibiotics could certainly be contributing to thrombocytopenia. Pt has heparin exposure prior hospitalizations, dvt ppx on
admission, and on therapeutic heparin gtt for acute DVT since 05/31 which raises concern for HIT. 4T score 7
folate deficiency
Gas gangrene of right foot TMA site s/p Right foot TMA 03/27/24 [facility], s/p I&D 05/30, s/p right guillotine ankle amputation 05/31
Acute cholecystitis s/p perc nay 05/31
ESRD on HD
chronic aockd, on epo w HD
b/l acute DVT heparin gtt 05/31-06/09 then transitioned to argatroban, s/p retrievable IVC filter 06/09
ABLA from R foot surgical site s/p 7 unit prbc during hospitalization
Plan
Plan
check HIT, LEODAN. argatroban per protocol for management of acute VTE until HIT excluded. Fondaparinux is not used with crcl <30ml/min
start folic acid 1mg daily and continue at discharge. repeat level 12 weeks.
f/u APLS panel
Tentative plan for OR on 06/10/24 for right lower extremity BKA with vascular surgery
daily CBC
Subjective/Objective
Subjective
no new complaints
Vital Signs:
Vital Signs
Temp Pulse Resp BP Pulse Ox
98.3 F 76 20 115/47 96
06/10/24 07:49 06/10/24 06:00 06/10/24 06:00 06/09/24 16:52 06/10/24 06:00
Lab Results:
Laboratory Data
WBC 14.5 10^3/uL (4.8-10.8) H 06/10/24 04:59
Hgb 7.8 g/dL (13.0-18.0) L 06/10/24 04:59
Plt Count 109 10^3/uL (130-400) L 06/10/24 04:59
PT 15.3 Sec (11.4-14.6) H 06/05/24 17:04
INR 1.18 06/05/24 17:04
APTT 98.9 Sec (23.4-35.0) H 06/10/24 07:21
eGFR 48.11 06/10/24 04:59
Physical Exam
Gen appears chronically ill
CV S1S2
Pulmonary: Other (diminished b/l lower lobes)
GI: Other (percutaneous cholecystostomy tube RUQ)
Skin: IV Access / Catheter Site (Right dual-lumen central venous catheter and the left PICC)
Orders
Orders
Orders From Last 24 Hours
06/09/24 10:22
B12 [Vitamin B12] Routine
Folate Routine
HIT [Heparin Associated Platelet Ab] [S] Routine
06/09/24 10:35
Consult Interventional Radiology [IRAD CONSULT] Routine
06/09/24 10:45
Argatroban 250 mg 0.9% Sodium Chloride 250 ml [Nss] 250 ml IV PER PROTOCOL
06/10/24 04:59
[id number] Panel [S] IN AM
Cardiolipin Ab Panel [S] IN AM
Lupus Anticoagulant Panel Refl [S] IN AM
[2024-06-10] MEDS: PROTONIX PO (09:38)
[2024-06-10] MEDS: NEURONTIN PO ×2 (09:38→15:53)
[2024-06-10] MEDS: CYMBALTA DELAYED RELEASE PO (09:38)
[2024-06-10] MEDS: ProAmatine PO ×2 (09:38→15:53)
[2024-06-10] MEDS: NOVOLOG FLEXPEN SC ×3 (09:39→17:40)
--- NOTE | 2024-06-10 10:27 | WOUNDNOTE ---
[facility] RN note: Patient seen for HAPI report for a sacral DTI. Patient has small scattered ulcers pink and purple suspect deep dermal stage 2 ulcers from friction and pressure. 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
contributed to pressure injuries. CRRT machine alarms occlusion or air in line when patient is aggressively turned as per BONNIE Caro. Patient on a turning schedule. BONNIE Caro to try comfort glide air repositioning system. Sacral shaped silicone border
foam dressing changed. Upper lip mucosal breakdown without drainage and appears dry. Patient was extubated 06/07/24. Patient is on a [facility] air bed. Skin on L heel intact without redness. He has a multipodis splint in his room. L heel off bed
with pillow. Protective foam applied to L heel. Will update hospitalist. Care plan to be updated. Will follow as needed.
--- NOTE | 2024-06-10 10:39 | WOUNDNOTE ---
[facility] RN note: Patient seen for HAPI report for a sacral DTI. Patient's sacral/buttocks with small scattered ulcers, pink and purple suspect deep dermal stage 2 ulcers from friction and pressure. Suspect history of CRRT (CRRT machine alarms occlusion
or air in line when patient is aggressively turned as per BONNIE Caro), history of multiple vasopressors, thrombocytopenia, and complicated hospital course contributed to pressure injuries. Patient was tube feed then recently put on a IDDSI 6 diet and
is currently NPO for R BKA surgery today. Patient is on a turning schedule. BONNIE Caro to try comfort glide air repositioning system. Sacral shaped silicone border foam dressing changed. Upper lip mucosal breakdown without drainage and appears dry.
Patient extubated 06/07/24. Patient is on a [employer] [facility] air bed. Skin on L heel intact without redness. Multipodis splint in his room. L heel off bed with pillow. Protective foam applied to L heel. Updated JACKSON Rutledge re: sacral skin
breakdown. Will update hospitalist. Care plan to be updated. Will follow as needed.
--- NOTE | 2024-06-10 11:00 | WOUNDNOTE ---
[facility] RN note: Updated Dr. Deleon re: patient developed multiple small sacral/buttocks pressure injuries (deep dermal stage 2 appearing). Hospitalist approved local wound care. Patient at high risk for worsening or additional skin breakdown despite
preventative measures in place d/t overall medial condition.
--- NOTE | 2024-06-10 11:15 | W.PN.ID1 ---
Date of Service
Date of Service: June 10, 2024
Today's Communication
Continue meropenem
Assessment / Plan
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
s/p I+D 05/30. OR cx: Enterobacter, yeast
s/p guillotine amp 05/31
Eventual formal BKA 06/10
# Acute cholecystitis
s/p perc nay 05/31
cx Enterobacter
# Leukocytosis - trending down
# s/p Septic shock
# s/p VDRF
# ESRD on HD. off CRRT
# Extensive BLE DVT
Plan:
- Continue meropenem ()
- Trend wbc
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
Type 2 diabetes mellitus
End-stage renal disease on hemodialysis
Hypertension
PAD s/p RLE stent
HLD
Obstructive sleep apnea
Depression
Right foot TMA 03/27/24 [facility]
Chief Complaint
-: Other (Cholecystitis, gas gangrene foot)
Subjective / Review of Systems
No issues today.
Vital Signs / Physical Exam
Vital Signs
Vital Signs
Temp Pulse Resp BP Pulse Ox
98.3 F 74 18 115/47 96
06/10/24 07:49 06/10/24 09:00 06/10/24 09:00 06/09/24 16:52 06/10/24 09:46
Physical Exam
Constitutional: Comfortable and Chronically Ill
Cardiovascular: Regular Rate and S1/S2
Pulmonary: Clear (anterior lungs)
Gastrointestinal: Soft, Non Tender, Non Distended, Normal Bowel Sounds and Other (Cholecystostomy tube with brown bile.)
Extremities: Edema
Neurological: AO x 3
Lines: PICC (no erythema) and HD Cath (no erythema)
Objective Data
Lab Data
Lab Results
06/10/24 04:59
06/10/24 04:59
ESR 70 mm/hour (0-20) H 05/31/24 02:57
PT 15.3 Sec (11.4-14.6) H 06/05/24 17:04
INR 1.18 06/05/24 17:04
APTT 98.9 Sec (23.4-35.0) H 06/10/24 07:21
Estimated Creat Clear 52 ml/min 06/10/24 04:59
Lactic Acid < 0.5 mmol/L (0.7-2.0) L 06/06/24 10:54
Total Bilirubin 0.7 mg/dl (0.2-1.3) 06/10/24 04:59
AST 56 U/L (17-59) 06/10/24 04:59
ALT 30 U/L (0-50) 06/10/24 04:59
Alkaline Phosphatase 586 U/L (38-126) H 06/10/24 04:59
C-Reactive Protein > 270.00 mg/L (0.0-10.00) H 05/31/24 02:57
Amylase Cancelled 06/01/24 06:00
Most recent labs reviewed.
Micro Results:
05/30/24 21:41 Wound Culture - Final
Abscess Enterobacter cloacae
Enterobacter cloacae#2
Yeast
Gram Stain - Final
05/30/24 21:41 Anaerobic Culture - Final
Abscess Finegoldia magna
05/30/24 15:42 Blood Culture - Final
Blood/Venous No Growth - Final Report
05/30/24 15:42 Blood Culture - Final
Blood/Venous No Growth - Final Report
06/03/24 11:41 MRSA Screen - Final
Nose No Methicillin Resistant Staphylococcus aureus isolated.
05/30/24 16:52 Wound Culture - Final
Foot - Right Enterobacter cloacae
Diptheroids
Yeast
Gram Stain - Final
05/31/24 18:46 Body Fluid Culture - Final
Bile Enterobacter cloacae
Gram Stain - Final
05/30/24 15:42 Urine Culture - Final
Urine NO GROWTH
05/30/24 15:42 Influenza Types A & B (HOLDEN) - Final
Nasal Swab Negative for Influenza A & B, NAAT
Negative results must be combined with clinical observations
and patient history.
Nucleic Acid Amplification test (NAAT)performed on the
[employer] platform.
05/30/24 CXR: No acute cardiopulmonary process within the limitations of very low lung volumes.
05/30/24 ABD US: The gallbladder is distended and filled with stones and sludge. Mild gallbladder wall thickening raising the possibility for acute cholecystitis. However, no appreciable pericholecystic fluid and a reportedly negative sonographic
Bermeo's sign.
05/30/24 Foot XRAY: Soft tissue gas in the right foot and ankle most suggestive of infection
05/31/24 Periph Vasc US: Extensive bilateral lower extremity deep venous thrombosis
06/07/24 CXR: Mild interstitial prominence, suggestive of mild pulmonary edema. Haziness of each hemidiaphragm, which may represent bibasilar airspace disease and/or small bilateral pleural effusions.
[2024-06-10 11:51] LABS: Glucose - Point of Care 99 mg/dl (70-99)
--- NOTE | 2024-06-10 12:00 | W.PN.NEPH.PH ---
Today's Communication / Plan
-
HD tomorrow
Assessment/Plan
-
Impression:
ESRD MWF ([place] [facility])
Sepsis/leukocytosis with hemodynamic compromise
Hypoxic Respiratory failure
Diabetes
History of right TMA with purulent drainage from site, status post ankle amputation 05/31/2024
History of hypertension
Anemia
PAD
Plan:
tolerated IHD yesterday, next one tomorrow
On agatroban gtt per heme, bilat DVT
abx per primary team (renally dosed)
supportive care at this time
BP stable off pressors
prognosis remains poor
-
-
Date of Service: June 10, 2024
CC / HPI / ROS
-
Chief Complaint:
ESRD
History of Present Illness:
Bp stable off pressors in ICU
s/p right foot amputation 05/31
s/p cholecystotomy tube 05/31
Hgb stable low 7.8
he is nPO
Review of Systems:
no fevers
Weights down
no cp or sob at rest
Labs
-
Labs:
WBC 14.5 10^3/uL (4.8-10.8) H 06/10/24 04:59
RBC 2.61 10^6/uL (4.70-6.10) L 06/10/24 04:59
Hgb 7.8 g/dL (13.0-18.0) L 06/10/24 04:59
Hct 22.8 % (39.0-52.0) L 06/10/24 04:59
Plt Count 109 10^3/uL (130-400) L 06/10/24 04:59
Sodium 135 mmol/L (135-145) 06/10/24 04:59
Potassium 3.8 mmol/L (3.5-5.1) 06/10/24 04:59
Chloride 101 mmol/L (98-107) 06/10/24 04:59
Carbon Dioxide 30 mmol/L (22-30) 06/10/24 04:59
BUN 13 mg/dl (9-20) 06/10/24 04:59
Creatinine 1.6 mg/dL (0.7-1.3) H 06/10/24 04:59
eGFR 48.11 06/10/24 04:59
Glucose 89 mg/dl (70-99) 06/10/24 04:59
Calcium 7.6 mg/dl (8.4-10.2) L 06/10/24 04:59
Phosphorus 4.2 mg/dl (2.5-4.5) 06/08/24 11:20
Vzu-[id number]-[id number] Pept 4060 pg/ml 05/30/24 15:31
Albumin 2.3 g/dl (3.5-5.0) L 06/10/24 04:59
Physical Exam
-
Vital Signs:
Vital Signs
Temp Pulse Resp BP Pulse Ox
98.3 F 78 17 115/47 95
06/10/24 07:49 06/10/24 11:00 06/10/24 11:00 06/09/24 16:52 06/10/24 11:00
Cardiovascular:: Regular rate and rhythm
Lung Excursion:: Normal (decreased)
Abdomen:: Nontender and Soft
Bowel Sounds:: Normal
Extremity Edema:: +1: Bilateral:
Holcomb Catheter: No
[2024-06-10] MEDS: FOLVITE PO (12:59)
--- NOTE | 2024-06-10 13:05 | PTCARENOTE ---
No change in pt. assessment.
Family updated bedside.
[2024-06-10] MEDS: FOLVITE 50.2 MG IV (13:56)
[2024-06-10] MEDS: PERIDEX 0.12% ORAL RINSE 15 ML PO (13:56)
[2024-06-10] MEDS: BACTROBAN 2% OINTMENT 1 APPLIC NASAL (13:56)
--- NOTE | 2024-06-10 14:25 | CM ---
CM following re: discharge planning.
Discussed in rounds, reviewed pt's chart, met with pt. Pt's spouse, daughter Sonia at bedside.
Pt to OR today for right lower extremity BKA, continue supportive care. PT and OT to re-evaluate.
Pt admitted from [facility] and family does not want pt returns back there. Pt is on HD. Outpatient HD treatment center was not set up.
CM faxed a referral to [facility] to set up outpatient HD treatment at [facility] in [facility]. [facility] packaging sales representative Lauren [phone] following to set up outpatient HD treatment at [facility] in [place]
and [place] areas.
[facility] acute rehabilitation assistant following.
Pt will need PM&R consult closer to discharge.
D/C plan: [facility]. Setting up outpatient HD treatment at [facility] in [place] or [facility].
CM will follow to assist pt with discharge to [facility] acute [facility] and to follow up with [facility] corporate.
--- NOTE | 2024-06-10 16:26 | PTCARENOTE ---
BKA delayed until thursday.
Restarting Argatroban gtt at previous rate, next ptt in 2 hours.
No further changes in assessment.
Nursing Project Coordinator notified of cancellation.
[2024-06-10 17:39] LABS: Glucose - Point of Care 85 mg/dl (70-99)
[2024-06-10 18:41] LABS: APTT 78.2 Sec (23.4-35.0)
[2024-06-10] MEDS: MERREM 500 MG IV (18:41)
[2024-06-10] MEDS: STERILE WATER FOR INJECTION 10 ML IV (18:41)
--- NOTE | 2024-06-10 20:20 | PTCARENOTE ---
On assessment pt drowsy but alert to voice, alert but slow speech, nods appropriately, SR on monitor, 3L NC 97%, oliguric, sacral and R BKA wound see flow sheet, L PICC, L radial Oma and HD catheter, denies pain and SOB at this time, call goetz in
reach
[2024-06-10 21:25] LABS: Glucose - Point of Care 79 mg/dl (70-99)
[2024-06-10] MEDS: NEURONTIN 100 MG PO (21:41)
[2024-06-10] MEDS: COLACE 200 MG PO (21:41)
[2024-06-10] MEDS: SENOKOT 17.2 MG PO (21:41)
[2024-06-10] MEDS: CYMBALTA DELAYED RELEASE 20 MG PO (21:41)
[2024-06-10] MEDS: LANTUS 0.1 UNITS SC (21:43)
[2024-06-10] MEDS: ProAmatine 5 MG PO (21:43)
[2024-06-10 23:00] LABS: APTT 101.8 Sec (23.4-35.0)
--- NOTE | 2024-06-11 00:43 | PTCARENOTE ---
pt bladder scanned for 603cc, VENUE MANAGER made aware and straight cathed for 520cc. pt tolerated well
[2024-06-11 01:01] LABS: Glucose - Point of Care 94 mg/dl (70-99)
[2024-06-11 03:46] LABS: % Basophils 0.2 % (0-2); % Eosinophils 0.5 % (0-6); % Immature Granulocytes 2.7 % (0-0.5); % Lymphocytes 9.5 % (20.5-51.1); % Monocytes 6.1 % (1.7-9.3); Absolute Eosinophils 0.1 10^3/uL (0-0.7); Absolute Immature Granulocytes 0.4 10^3/uL (0-0.05); Absolute Lymphocytes 1.3 10^3/uL (1.2-3.4); Absolute Monocytes 0.9 10^3/uL (0.1-0.6); Absolute Neutrophils 11.3 10^3/uL (1.4-6.5); Hematocrit 23.4 % (39.0-52.0); Hemoglobin 7.8 g/dL (13.0-18.0); Mean Corp Hgb Conc. 33.3 g/dL (33.0-37.0); Mean Corpuscular Hgb 30.5 pg (27.0-31.0); Mean Corpuscular Volume 91.4 fL (80.0-94.0); Mean Platelet Volume 9.3 fL (7.4-10.4); Nucleated Red Blood Cells % 0 % (-); Platelet Count 112 10^3/uL (130-400); Red Blood Cell Count 2.56 10^6/uL (4.70-6.10); Red Cell Dist. Width 17.3 % (11.5-14.5)
[2024-06-11 04:10] LABS: Blood Urea Nitrogen 18 mg/dl (9-20); Calcium 7.6 mg/dl (8.4-10.2); Carbon Dioxide 27 mmol/L (22-30); Chloride 103 mmol/L (98-107); Estimated Creatinine Clearance 38 ml/min; Glucose 87 mg/dl (70-99); Potassium 3.9 mmol/L (3.5-5.1); Sodium 136 mmol/L (135-145); eGFR 32.83
--- NOTE | 2024-06-11 04:18 | PTCARENOTE ---
no changes from prior assessment, call goetz in reach
[2024-06-11 04:25] LABS: APTT 97.3 Sec (23.4-35.0)
[2024-06-11 05:38] VITALS: BMI 34.9
--- NOTE | 2024-06-11 07:05 | W.PN.INTV ---
Today's Communication / Plan
Recommendations
-Continue argatroban for DVT
-Await surgery for definitive treatment of foot infection
-Patient to be transferred out of ICU
-Sales Ledger Administrator service will sign off, please consult as needed
Assessment
-
64-year-old male with past medical history of PAD, diabetes, hypertension, CKD on HD, hyperlipidemia, GERD presented with septic shock secondary to right foot infected wound requiring pressors. In view of severe septic shock, patient required
intubation and mechanical ventilation. 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 In addition patient was noted to have emphysematous cholecystitis which was managed with IR guided cholecystostomy tube
placement. Patient noted to have resistant Enterobacter sepsis with shock and has been on meropenem. Patient has required frequent blood transfusions in view of oozing/bleeding from surgical site. On 06/06, aspirin was discontinued and heparin
was continued to decrease oozing from surgical site and need for blood transfusion.
06/11:
-Fluid balance, -392 mL
-Hemoglobin stable at 7.8
-Electrolytes unremarkable
#1. Septic shock due to gas gangrene of right foot & acute emphysematous cholecystitis
-Off all pressors, hemodynamically stable
-Echo unremarkable
#2. 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 Patient had I&D on 05/30 and subsequent guillotine amputation on 05/2024.
-Wound cultures growing Enterobacter (resistant to cephalosporins and beta-lactam's )and yeast, currently on meropenem. ID service on case
-Intermittent bleeding from surgical site, improved since aspirin was stopped and lower target PTT for heparin was opted
-Hemoglobin stable this morning
-Await below-knee amputation
#3. Emphysematous acute cholecystitis, status post percutaneous cholecystostomy 05/31. Also contributing to septic shock
-c/s Enterobacter, continue meropenem
#4. Acute hypoxic respiratory failure, related to severe septic shock. Patient was intubated and mechanically ventilated up until 06/07.
-Successfully extubated on 06/07
-PT/OT evaluation
-Speech therapy evaluation.
#5. End-stage renal disease, on chronic hemodialysis.
-Transitioned from CRRT to HD now, tolerating well
-Access, permacath right upper chest
-Continue Bicitra
#4. Bilateral DVT, mild thrombocytopenia
-Patient has been on heparin drip with recurrent oozing/bleeding from surgical site, currently s/p IVC filter placement on 06/09
-Heparin was switched to argatroban for concern of HIT, however clinically seems less likely
#5. Pyuria.
-Final urine culture did not show any growth
#6. Anemia
-Anemia multifactorial with ongoing intermittent bleeding/oozing from surgical site, acute critical illness, underlying end-stage renal disease on renal replacement therapy. Patient also has been on aspirin and heparin with supratherapeutic PTT
-Status post 7 units during this hospitalization. Hemoglobin stable, 7.8 this morning
-Continue to monitor
-Fibrinogen 398 on 06/05
#7. Diabetes mellitus
-Blood sugars below 100 currently, continue Lantus 10 nightly and sliding scale insulin, continue to hold Premeal lispro
IV access: PICC line
Critical care statement: A total of 35 minutes of critical care time was provided for this patient today. This includes management of unstable vital signs, evaluation of the patient at bedside, reviewing the patient's pertinent medical records
including radiographs, microbiology, laboratory evaluations, and discussion with primary team, consultants, pharmacy, nutrition, physical therapy, case management, charge nurse, critical care nursing, and respiratory therapy.
Data:
CXR 06/06/2024:
P unchanged with small bilateral pleural effusions and likely bibasilar atelectasis.
Subjective Dataa
Subjective Data
Date of Service:
Date of Service: June 07, 2024
Chief Complaint: Sales Ledger Administrator Follow Up
Subjective:
Patient comfortably lying in bed in no acute distress, lying flat without any distress currently in the process of being hooked to hemodialysis
Review of Systems
Genitourinary: Other (All 14 systems reviewed and negative except as stated above in the history of present illness.)
Objective Data
Data Reviewed
Vital Signs / I&O / Oxygen:
Vital Signs
Temp Pulse Resp BP Pulse Ox
98 F 62 20 150/42 99
06/07/24 04:30 06/07/24 06:45 06/07/24 06:45 06/06/24 04:50 06/07/24 06:30
Intake and Output
06/06/24 06/07/24 06/08/24
06:59 06:59 06:59
Intake Total 4570.4 / 4620.4 2317.1 / 2317.1
Output Total 5066 / 5394 3637 / 3637
Balance -495.6 / -773.6 -1319.9 / -1319.9
SaO2 [CPAP/PSV] 98
SaO2 [A/C] 98
SaO2 99
Nasal Cannula flow liters per 8
minute
Physical Exam
General: Respiratory Distress (negative ), Comfortable and Fever (n)
HEENT: Normocephalic, Anicteric and Thrush
Cardiovascular: Peripheral Edema (+2 left lower extremity edema, trace edema on right lower extremity, right upper extremity swelling (new)) and Other (Heart sounds are difficult to hear)
Respiratory: Wheeze (n), Crackles (bilateral), Rhonchi (n), Non-Labored Respirations, Accessory Resp Muscle Use (n), Stridor (n), ET Tube (Mechanical breath sounds heard bilaterally) and Other (Decreased breath sounds on bilateral lung bases)
GI: Soft, Non Distended, Non Tender and NG Tube
Neurology: Awake, Tremors (n) and Other (Sedated, opens eyes spontaneously, arousable to voice and follows all commands)
Skin: Warm, Dry, Cyanosis (n), Jaundice (n) and Other (Guillotine amputation of the right lower extremity above the ankle with operative site covered with bandage --> surgical dressing intact. No signs of active bleeding.)
Labs/Micro/Reports
Lab Data
06/07/24 05:31
Laboratory Results
06/06/24 06/06/24 06/07/24
17:58 23:58 05:31
APTT 100.0 H 101.8 H 81.4 H
pH 7.47 H
pCO2 36
pO2 88
HCO3 26.2
O2 Delivery Level
Microbiology
05/30/24 21:41 Abscess Wound Culture - Final
Enterobacter cloacae
Enterobacter cloacae#2
Yeast
05/30/24 21:41 Abscess Gram Stain - Final
05/30/24 21:41 Abscess Anaerobic Culture - Final
Finegoldia magna
05/30/24 15:42 Blood/Venous Blood Culture - Final
No Growth - Final Report
05/30/24 15:42 Blood/Venous Blood Culture - Final
No Growth - Final Report
06/03/24 11:41 Nose MRSA Screen - Final
No Methicillin Resistant Staphylococcus aureus isolated.
--- NOTE | 2024-06-11 07:10 | PTCARENOTE ---
Assumed care of pt. approx 0700.
HD nurse here now to begin dialysis.
Remains on argatroban gtt, trending PTT per protocol.
Normocephalic/Anicteric, somnolent but arousable to verbal tone.
NSR w.o ectopy noted, Normotensive, Normothermic.
Straight cath per night team.
Care explained and plan of care discussed.
--- NOTE | 2024-06-11 08:13 | W.PN.HOSP.TC ---
Today's Communication/Plan
-
Transfer to telemetry
Assessment / Plan
Assessment / Plan
Gen-looks chronically ill, no acute distress
HEENT-NC, AT, anicteric
Neck-supple
CV-reg, no M, +S1/S2
Lungs-clear B/L
Abd-soft, NT, ND
Ext-right upper extremity diffuse edema, right lower extremity amputation at ankle
Musculoskeletal-no cyanosis, clubbing. Right lower extremity Asael wrap around amputation site
Skin-warm and dry
Septic shock -due to infected right TMA wound, acute calculus emphysematous cholecystitis. WBCs trending down. Remains afebrile.
Off Levophed, midodrine resumed.
Continue IV meropenem per infectious disease.
Blood cultures negative. Fluid culture from gallbladder and right TMA site both positive for Enterobacter cloacae.
Right TMA gas gangrene
Records from [facility] reviewed. Admitted 03/23/2024, discharged 04/08/2024. Primary discharge diagnosis was ESRD requiring dialysis. Secondary diagnoses included PAD and right foot infection. Primary reason for admission was for
worsening right foot wound in the setting of recent right foot gangrene, right lower extremity tibial/peroneal angioplasty, and right foot fourth metatarsal resection and bone biopsies. Podiatry performed right TMA on 03/27/2024. Postoperatively
developed acute kidney failure requiring initiation of hemodialysis. Discharged to SNF on 04/08/2024.
Status post I&D in OR by podiatry on 05/30
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 VAC applied 06/03
Both aspirin and Plavix were discontinued due to oozing of blood from amputation site.
Vascular surgery planning on right BKA Tuesday 06/13.
Acute hypoxic respiratory failure -extubated 06/07. Currently on 3L nasal cannula, wean down as able. Chest x-ray from today shows probable small right and possible trace left pleural effusion. Very low lung volumes. No pneumothorax or
consolidation.
ESRD - on dialysis at [facility] Thursday/Thursday/Thursday. Off CRRT, now on standard dialysis.
Metabolic acidosis resolved.
Hyponatremia -resolved.
Acute calculus emphysematous cholecystitis -Status post percutaneous cholecystostomy tube by IR on 05/31.
Ultrasound shows distended gallbladder with stones and sludge with mild gallbladder wall thickening
CT abdomen/pelvis shows enlarged gallbladder with stones, sludge, air-fluid level, suspicious for emphysematous cholecystitis
Acute on chronic anemia -Acute blood loss anemia from surgery. Hemoglobin stable at 7.8 this morning. Unclear why his hemoglobin is down again this morning but IV anticoagulation and thrombocytopenia is not helping. Has had 7 units of blood
transfused so far. Will monitor. Admission hemoglobin was 8.6. Baseline hemoglobin unknown.
Acute thrombocytopenia -concern for possible HIT. HIT panel sent. Hematology input noted. Started argatroban 06/09, now on hold for surgery today. Platelet count 112k today.
Heparin removed from dialysis lines, discussed with nephrology.
Acute bilateral lower extremity DVT -noted on ultrasound 05/31.
Thrush -treated.
Essential hypertension -amlodipine and Coreg on hold due to septic shock.
DM2 without hyperglycemia -glucose 87 this morning, 79 last night. Hemoglobin A1c 7.8%. Off insulin drip 06/03. Prior to admission he was on Lantus 10 units at bedtime, NovoLog 4 units AC.
Currently on Lantus 10 units at bedtime, 4 units of aspart AC, low resistance aspart scale. Diabetes MANAGER QUALITY SYSTEMS managing glucoses.
Gastroesophageal reflux disease
Continue PPI
Constipation
Continue laxatives when able
Anxiety/depression
Continue duloxetine 20 mg twice a day
Obesity due to excess calories
Full code
Anticipated Discharge: > 48 hours
Subjective/Interval History
-
Date of Service: June 11, 2024
Patient seen and examined. No complaints. Getting dialysis.
Objective Data
-
Labs:
Laboratory Results
06/10/24 06/11/24 06/11/24
22:25 03:33 03:50
WBC 14.0 H
Hgb 7.8 L
Hct 23.4 L
Plt Count 112 L
APTT 101.8 H 97.3 H
Sodium 136
Potassium 3.9
Chloride 103
Carbon Dioxide 27
BUN 18
Creatinine 2.2 H
Glucose 87
Calcium 7.6 L
06/11/24
09:00
WBC
Hgb
Hct
Plt Count
APTT Pending
Sodium
Potassium
Chloride
Carbon Dioxide
BUN
Creatinine
Glucose
Calcium
Vital Signs:
Vital Signs
Temp Pulse Resp BP Pulse Ox
98.0 F 71 14 121/52 97
06/11/24 07:36 06/11/24 06:00 06/11/24 06:00 06/10/24 21:43 06/11/24 06:00
I&O
06/10/24 06/11/24 06/12/24
06:59 06:59 07:59
Intake Total 907 / 913 133.3 / 136.7 3.4 / 3.4
Output Total 425 / 425 520 / 520 0 / 0
Balance 482 / 488 -386.7 / -383.3 3.4 / 3.4
Review of Systems
-
History Source: Patient
All other systems: Reviewed and negative
[2024-06-11] MEDS: FLEXBUMIN 25% FOR HEMODIALYSIS 12.5 GRAMS IV ×2 (08:15→09:55)
--- NOTE | 2024-06-11 08:18 | PTCARENOTE ---
Rounded w. knife finisher/Vasc surg.
Okay from all standpoints to downgrade.
Relayed to knife finisher, pt. to be downgraded to telemetry.
[2024-06-11] MEDS: MANNITOL 25% 12.5 GRAMS IV ×2 (08:20→10:01)
[2024-06-11] MEDS: RETACRIT 10000 UNITS IV (08:22)
--- NOTE | 2024-06-11 08:32 | W.PN.UPDATE ---
Update Note
Progress Note Update
Seen and evaluated. Overall exam stable. Plan for definitive below the knee amputation Thursday.
[2024-06-11 08:41] LABS: Glucose - Point of Care 83 mg/dl (70-99)
[2024-06-11 09:12] LABS: APTT 85.1 Sec (23.4-35.0)
--- NOTE | 2024-06-11 09:18 | PTCARENOTE ---
Bilateral lower Extem DVTs.
Right arm limb restricted due to preservation on arm for future AV fistula graft.
Left arm 3L picc line.
Nursing communication orders placed for BP use in arm with PICC line.
[2024-06-11] MEDS: NOVOLOG FLEXPEN SC ×2 (09:25→13:35)
[2024-06-11] MEDS: NOVOLOG FLEXPEN-LOW RESISTANCE SC ×2 (09:25→13:35)
--- NOTE | 2024-06-11 10:01 | W.PN.ID1 ---
Date of Service
Date of Service: June 11, 2024
Today's Communication
Continue meropenem (d9) through BKA on Thursday.
Assessment / Plan
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
s/p I+D 05/30. OR cx: Enterobacter, yeast
s/p guillotine amp 05/31
formal BKA Thursday
# Acute cholecystitis
s/p perc nay 05/31
cx Enterobacter
# Leukocytosis - trending down
# s/p Septic shock
# s/p VDRF
# ESRD on HD. off CRRT
# Extensive BLE DVT s/p IVC filter
Plan:
- Continue meropenem (d9) through BKA on Thursday.
- Trend wbc
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
Type 2 diabetes mellitus
End-stage renal disease on hemodialysis
Hypertension
PAD s/p RLE stent
HLD
Obstructive sleep apnea
Depression
Right foot TMA 03/27/24 [facility]
Chief Complaint
-: Other (Cholecystitis, gas gangrene foot)
Vital Signs / Physical Exam
Vital Signs
Vital Signs
Temp Pulse Resp BP Pulse Ox
98.0 F 85 16 121/52 95
06/11/24 07:36 06/11/24 09:00 06/11/24 09:00 06/10/24 21:43 06/11/24 09:00
Physical Exam
Constitutional: Comfortable and Chronically Ill
Cardiovascular: Regular Rate and S1/S2
Pulmonary: Clear (anterior lungs)
Gastrointestinal: Soft, Non Tender, Non Distended, Normal Bowel Sounds and Other (Cholecystostomy tube with brown bile.)
Extremities: Edema
Neurological: AO x 3
Lines: PICC (no erythema) and HD Cath (no erythema)
Objective Data
Lab Data
Lab Results
06/11/24 03:33
06/11/24 03:33
ESR 70 mm/hour (0-20) H 05/31/24 02:57
PT 15.3 Sec (11.4-14.6) H 06/05/24 17:04
INR 1.18 06/05/24 17:04
APTT 85.1 Sec (23.4-35.0) H 06/11/24 08:44
Estimated Creat Clear 38 ml/min 06/11/24 03:33
Lactic Acid < 0.5 mmol/L (0.7-2.0) L 06/06/24 10:54
Total Bilirubin 0.7 mg/dl (0.2-1.3) 06/10/24 04:59
AST 56 U/L (17-59) 06/10/24 04:59
ALT 30 U/L (0-50) 06/10/24 04:59
Alkaline Phosphatase 586 U/L (38-126) H 06/10/24 04:59
C-Reactive Protein > 270.00 mg/L (0.0-10.00) H 05/31/24 02:57
Amylase Cancelled 06/01/24 06:00
Most recent labs reviewed.
Micro Results:
05/30/24 21:41 Wound Culture - Final
Abscess Enterobacter cloacae
Enterobacter cloacae#2
Yeast
Gram Stain - Final
05/30/24 21:41 Anaerobic Culture - Final
Abscess Finegoldia magna
05/30/24 15:42 Blood Culture - Final
Blood/Venous No Growth - Final Report
05/30/24 15:42 Blood Culture - Final
Blood/Venous No Growth - Final Report
06/03/24 11:41 MRSA Screen - Final
Nose No Methicillin Resistant Staphylococcus aureus isolated.
05/30/24 16:52 Wound Culture - Final
Foot - Right Enterobacter cloacae
Diptheroids
Yeast
Gram Stain - Final
05/31/24 18:46 Body Fluid Culture - Final
Bile Enterobacter cloacae
Gram Stain - Final
05/30/24 15:42 Urine Culture - Final
Urine NO GROWTH
05/30/24 15:42 Influenza Types A & B (HOLDEN) - Final
Nasal Swab Negative for Influenza A & B, NAAT
Negative results must be combined with clinical observations
and patient history.
Nucleic Acid Amplification test (NAAT)performed on the
[employer] platform.
05/30/24 CXR: No acute cardiopulmonary process within the limitations of very low lung volumes.
05/30/24 ABD US: The gallbladder is distended and filled with stones and sludge. Mild gallbladder wall thickening raising the possibility for acute cholecystitis. However, no appreciable pericholecystic fluid and a reportedly negative sonographic
Bermeo's sign.
05/30/24 Foot XRAY: Soft tissue gas in the right foot and ankle most suggestive of infection
05/31/24 Periph Vasc US: Extensive bilateral lower extremity deep venous thrombosis
06/07/24 CXR: Mild interstitial prominence, suggestive of mild pulmonary edema. Haziness of each hemidiaphragm, which may represent bibasilar airspace disease and/or small bilateral pleural effusions.
[2024-06-11] MEDS: NEURONTIN 100 MG PO ×3 (10:40→19:50)
[2024-06-11] MEDS: PROTONIX 40 MG PO (10:41)
[2024-06-11] MEDS: ProAmatine 5 MG PO ×3 (10:41→19:50)
[2024-06-11] MEDS: CYMBALTA DELAYED RELEASE 20 MG PO ×2 (10:41→19:45)
[2024-06-11] MEDS: FOLVITE 50.2 MG IV (10:41)
[2024-06-11] MEDS: ARGATROBAN 252.5 MG IV (10:41)
--- NOTE | 2024-06-11 11:51 | PTCARENOTE ---
Art line removed, Straight cath 460, HD finished, 2K pull.
--- NOTE | 2024-06-11 11:53 | W.PN.NEPH.HD ---
Assessment
-
pt seen during HD
vitals stable
UF as tolerates
CVC functions well
no heparin
for BKA on Thursday
Progress Note - Hemodialysis
-
Date of Service: June 11, 2024
Duration: 30 minutes and 3 hours
Potassium Bath: 3
Calcium Bath: 2.5
Opti-Dialyzer: 160
Ultrafiltration: Other (1.5-2kg)
Blood Flow: 400
Dialysate Flow: 600
Heparin: no
EPO: [id number]
[2024-06-11 12:57] LABS: APTT 82.2 Sec (23.4-35.0)
--- NOTE | 2024-06-11 13:15 | PTCARENOTE ---
Pt. handoff completed with floor RN, orders reviewed, Gtt verified bedside.
[2024-06-11 13:27] LABS: Glucose - Point of Care 68 mg/dl (70-99)
[2024-06-11 14:07] VITALS: BP 124/42
[2024-06-11 14:08] VITALS: BMI 34.6
[2024-06-11 16:22] VITALS: BP 101/45
[2024-06-11 16:35] LABS: Glucose - Point of Care 177 mg/dl (70-99)
[2024-06-11] MEDS: NOVOLOG FLEXPEN 4 UNITS SC (16:43)
[2024-06-11] MEDS: NOVOLOG FLEXPEN-LOW RESISTANCE 1 UNITS SC (16:44)
[2024-06-11] MEDS: STERILE WATER FOR INJECTION 10 ML IV (16:46)
[2024-06-11] MEDS: MERREM 500 MG IV (16:47)
[2024-06-11 19:00] VITALS: BP 111/31
[2024-06-11] MEDS: SENOKOT PO (19:49)
[2024-06-11] MEDS: COLACE PO (19:49)
[2024-06-11 21:29] LABS: Glucose - Point of Care 214 mg/dl (70-99)
[2024-06-11] MEDS: LANTUS 0.1 UNITS SC (21:50)
[2024-06-11 23:47] VITALS: BP 119/41
[2024-06-12] VITALS (8 sets, daily range): BP systolic 109–130; BP diastolic 40–70; BMI 33.8
[2024-06-12 01:06] LABS: APTT 84.5 Sec (23.4-35.0)
[2024-06-12 03:09] LABS: Beta-2-Glycoprotein I Ab. IgG <10 SGU (<=20); Beta-2-Glycoprotein I Ab. IgM <10 SMU (<=20)
[2024-06-12 03:36] LABS: Cardiolipin IgA Antibody <10 APL (<=11); Cardiolipin IgM Antibody 12 MPL (<=12); Cardiolipin Igg Antibody <10 GPL (<=14)
[2024-06-12 07:44] LABS: Glucose - Point of Care 167 mg/dl (70-99)
[2024-06-12 07:58] LABS: APTT 86.8 Sec (23.4-35.0)
[2024-06-12 08:02] LABS: % Basophils 0.2 % (0-2); % Eosinophils 0.2 % (0-6); % Immature Granulocytes 1.8 % (0-0.5); % Lymphocytes 7.9 % (20.5-51.1); % Monocytes 7.4 % (1.7-9.3); % Neutrophils 82.5 % (42.2-75.2); Absolute Immature Granulocytes 0.2 10^3/uL (0-0.05); Absolute Monocytes 0.9 10^3/uL (0.1-0.6); Absolute Neutrophils 10.2 10^3/uL (1.4-6.5); Hematocrit 23.4 % (39.0-52.0); Hemoglobin 7.5 g/dL (13.0-18.0); Mean Corp Hgb Conc. 32.1 g/dL (33.0-37.0); Mean Corpuscular Hgb 29.3 pg (27.0-31.0); Mean Corpuscular Volume 91.4 fL (80.0-94.0); Mean Platelet Volume 9.3 fL (7.4-10.4); Nucleated Red Blood Cells % 0 % (-); Platelet Count 137 10^3/uL (130-400); Red Blood Cell Count 2.56 10^6/uL (4.70-6.10); Red Cell Dist. Width 17.6 % (11.5-14.5); White Blood Cell Count 12.4 10^3/uL (4.8-10.8)
[2024-06-12] MEDS: NOVOLOG FLEXPEN 4 UNITS SC ×3 (08:44→17:12)
[2024-06-12] MEDS: CYMBALTA DELAYED RELEASE 20 MG PO ×2 (08:45→22:22)
[2024-06-12] MEDS: PROTONIX 40 MG PO (08:45)
[2024-06-12] MEDS: NOVOLOG FLEXPEN-LOW RESISTANCE 1 UNITS SC ×2 (08:45→17:12)
[2024-06-12] MEDS: NEURONTIN 100 MG PO ×3 (08:45→22:23)
[2024-06-12] MEDS: ProAmatine 5 MG PO ×3 (08:45→23:57)
[2024-06-12] MEDS: FOLVITE 50.2 MG IV (09:08)
--- NOTE | 2024-06-12 09:46 | W.PN.ID1 ---
Date of Service
Date of Service: June 12, 2024
Today's Communication
Continue meropenem (d10) through BKA tomorrow.
Assessment / Plan
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
s/p I+D 05/30. OR cx: Enterobacter, yeast
s/p guillotine amp 05/31
formal BKA tomorrow
# Acute cholecystitis
s/p perc nay 05/31
cx Enterobacter
# Leukocytosis - trending down
# s/p Septic shock
# s/p VDRF
# ESRD on HD. off CRRT
# Extensive BLE DVT s/p IVC filter
Plan:
- Continue meropenem (d10) through BKA tomorrow.
- Trend wbc
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
Type 2 diabetes mellitus
End-stage renal disease on hemodialysis
Hypertension
PAD s/p RLE stent
HLD
Obstructive sleep apnea
Depression
Right foot TMA 03/27/24 [facility]
Chief Complaint
-: Other (Cholecystitis, gas gangrene foot)
Subjective / Review of Systems
Doing OK.
Vital Signs / Physical Exam
Vital Signs
Vital Signs
Temp Pulse Resp BP Pulse Ox
98.1 F 76 15 109/40 99
06/12/24 07:51 06/12/24 07:51 06/12/24 07:51 06/12/24 07:51 06/12/24 07:51
Physical Exam
Constitutional: No Acute Distress
Cardiovascular: Regular Rate and S1/S2
Pulmonary: Clear (anterior lungs)
Gastrointestinal: Soft, Non Tender, Non Distended, Normal Bowel Sounds and Other (Cholecystostomy tube with brown bile.)
Lines: PICC (no erythema) and HD Cath (no erythema)
Objective Data
Lab Data
Lab Results
06/12/24 07:38
06/11/24 03:33
ESR 70 mm/hour (0-20) H 05/31/24 02:57
PT 15.3 Sec (11.4-14.6) H 06/05/24 17:04
INR 1.18 06/05/24 17:04
APTT 86.8 Sec (23.4-35.0) H 06/12/24 07:38
Estimated Creat Clear 38 ml/min 06/11/24 03:33
Lactic Acid < 0.5 mmol/L (0.7-2.0) L 06/06/24 10:54
Total Bilirubin 0.7 mg/dl (0.2-1.3) 06/10/24 04:59
AST 56 U/L (17-59) 06/10/24 04:59
ALT 30 U/L (0-50) 06/10/24 04:59
Alkaline Phosphatase 586 U/L (38-126) H 06/10/24 04:59
C-Reactive Protein > 270.00 mg/L (0.0-10.00) H 05/31/24 02:57
Amylase Cancelled 06/01/24 06:00
Most recent labs reviewed.
Micro Results:
05/30/24 21:41 Wound Culture - Final
Abscess Enterobacter cloacae
Enterobacter cloacae#2
Yeast
Gram Stain - Final
05/30/24 21:41 Anaerobic Culture - Final
Abscess Finegoldia magna
05/30/24 15:42 Blood Culture - Final
Blood/Venous No Growth - Final Report
05/30/24 15:42 Blood Culture - Final
Blood/Venous No Growth - Final Report
06/03/24 11:41 MRSA Screen - Final
Nose No Methicillin Resistant Staphylococcus aureus isolated.
05/30/24 16:52 Wound Culture - Final
Foot - Right Enterobacter cloacae
Diptheroids
Yeast
Gram Stain - Final
05/31/24 18:46 Body Fluid Culture - Final
Bile Enterobacter cloacae
Gram Stain - Final
05/30/24 15:42 Urine Culture - Final
Urine NO GROWTH
05/30/24 15:42 Influenza Types A & B (HOLDEN) - Final
Nasal Swab Negative for Influenza A & B, NAAT
Negative results must be combined with clinical observations
and patient history.
Nucleic Acid Amplification test (NAAT)performed on the
[employer] platform.
05/30/24 CXR: No acute cardiopulmonary process within the limitations of very low lung volumes.
05/30/24 ABD US: The gallbladder is distended and filled with stones and sludge. Mild gallbladder wall thickening raising the possibility for acute cholecystitis. However, no appreciable pericholecystic fluid and a reportedly negative sonographic
Bermeo's sign.
05/30/24 Foot XRAY: Soft tissue gas in the right foot and ankle most suggestive of infection
05/31/24 Periph Vasc US: Extensive bilateral lower extremity deep venous thrombosis
06/07/24 CXR: Mild interstitial prominence, suggestive of mild pulmonary edema. Haziness of each hemidiaphragm, which may represent bibasilar airspace disease and/or small bilateral pleural effusions.
[2024-06-12 11:40] LABS: Glucose - Point of Care 136 mg/dl (70-99)
[2024-06-12] MEDS: NOVOLOG FLEXPEN-LOW RESISTANCE SC (12:09)
--- NOTE | 2024-06-12 13:21 | W.PN.HOSP.TC ---
Today's Communication/Plan
-
Transfuse
N.p.o. after midnight
Assessment / Plan
Assessment / Plan
Gen-looks chronically ill, no acute distress
HEENT-NC, AT, anicteric
Neck-supple
CV-reg, no M, +S1/S2
Lungs-clear B/L
Abd-soft, NT, ND
Ext-right upper extremity diffuse edema, right lower extremity amputation at ankle
Musculoskeletal-no cyanosis, clubbing. Right lower extremity Asael wrap around amputation site
Skin-warm and dry
Septic shock -due to infected right TMA wound, acute calculus emphysematous cholecystitis. WBCs trending down. Remains afebrile.
Off Levophed, midodrine resumed.
Continue IV meropenem per infectious disease.
Blood cultures negative. Fluid culture from gallbladder and right TMA site both positive for Enterobacter cloacae.
Right TMA gas gangrene
Records from [facility] reviewed. Admitted 03/23/2024, discharged 04/08/2024. Primary discharge diagnosis was ESRD requiring dialysis. Secondary diagnoses included PAD and right foot infection. Primary reason for admission was for
worsening right foot wound in the setting of recent right foot gangrene, right lower extremity tibial/peroneal angioplasty, and right foot fourth metatarsal resection and bone biopsies. Podiatry performed right TMA on 03/27/2024. Postoperatively
developed acute kidney failure requiring initiation of hemodialysis. Discharged to SNF on 04/08/2024.
Status post I&D in OR by podiatry on 05/30
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 VAC applied 06/03
Both aspirin and Plavix were discontinued due to oozing of blood from amputation site.
Vascular surgery planning on right BKA Tuesday 06/13.
Acute hypoxic respiratory failure -extubated 06/07. Currently on 4L nasal cannula, wean down as able. Chest x-ray from today shows probable small right and possible trace left pleural effusion. Very low lung volumes. No pneumothorax or
consolidation.
ESRD - on dialysis at [facility] Thursday/Thursday/Thursday. Off CRRT, now on standard dialysis.
Metabolic acidosis resolved.
Hyponatremia -resolved.
Acute calculus emphysematous cholecystitis -Status post percutaneous cholecystostomy tube by IR on 05/31.
Ultrasound shows distended gallbladder with stones and sludge with mild gallbladder wall thickening
CT abdomen/pelvis shows enlarged gallbladder with stones, sludge, air-fluid level, suspicious for emphysematous cholecystitis
Acute on chronic anemia -Acute blood loss anemia from surgery. Hemoglobin down to 7.5 this morning. Unclear why his hemoglobin is down again this morning but IV anticoagulation and thrombocytopenia is not helping. Last bowel movement was
yesterday, rikki.
Has had 7 units of blood transfused so far. Will transfuse 1 unit of blood today in preparation for amputation tomorrow. Discussed with vascular surgery and nursing.
Admission hemoglobin was 8.6. Baseline hemoglobin unknown.
Acute thrombocytopenia -concern for possible HIT. HIT panel sent. Hematology input noted. Started argatroban 06/09, now on hold for surgery today. Platelet count improving, 137k today.
Heparin removed from dialysis lines, discussed with nephrology.
Acute bilateral lower extremity DVT -noted on ultrasound 05/31. DVT occurred prior to onset of thrombocytopenia.
Thrush -treated.
Essential hypertension -amlodipine and Coreg on hold due to septic shock.
DM2 without hyperglycemia -glucose 167 this morning, 214 last night. Hemoglobin A1c 7.8%. Off insulin drip 06/03. Prior to admission he was on Lantus 10 units at bedtime, NovoLog 4 units AC.
Currently on Lantus 10 units at bedtime, 4 units of aspart AC, low resistance aspart scale. Diabetes LODGE OFFICER managing glucoses.
Gastroesophageal reflux disease
Continue PPI
Constipation
Continue laxatives when able
Anxiety/depression
Continue duloxetine 20 mg twice a day
Obesity due to excess calories
Full code
Anticipated Discharge: > 48 hours
Subjective/Interval History
-
Date of Service: June 12, 2024
Patient seen and examined. Complaining of fatigue.
Objective Data
-
Labs:
Laboratory Results
06/12/24 06/12/24 06/12/24
00:39 07:38 18:00
WBC 12.4 H
Hgb 7.5 L
Hct 23.4 L
Plt Count 137 D
APTT 84.5 H 86.8 H Pending
Vital Signs:
Vital Signs
Temp Pulse Resp BP Pulse Ox
97.7 F 71 15 119/41 99
06/12/24 11:42 06/12/24 11:42 06/12/24 11:42 06/12/24 11:42 06/12/24 11:42
I&O
06/11/24 06/12/24 06/13/24
05:59 06:59 06:59
Intake Total
Output Total
Balance
Review of Systems
-
History Source: Patient
All other systems: Reviewed and negative
--- NOTE | 2024-06-12 14:16 | W.PN.NEPH.PH ---
Today's Communication / Plan
-
HD Thursday
Assessment/Plan
-
Impression:
ESRD MWF ([facility])
Sepsis/leukocytosis with hemodynamic compromise
Hypoxic Respiratory failure
Diabetes
History of right TMA with purulent drainage from site, status post ankle amputation 05/31/2024
History of hypertension
Anemia
PAD
Plan:
Next HD on Thursday
noted plan of BKA tomorrow
On agatroban gtt per heme, bilat DVT
abx per ID (renally dosed)
supportive care at this time
for transfusion today per primary pre op
BP stable
d/w pt
-
-
Date of Service: June 12, 2024
CC / HPI / ROS
-
Chief Complaint:
ESRD
History of Present Illness:
Bp stable
s/p right foot amputation 05/31
s/p cholecystotomy tube 05/31
Hgb stable low 7.5
WBC improving to 12.4
Review of Systems:
no fevers
Weights down
no cp or sob at rest
Labs
-
Labs:
WBC 12.4 10^3/uL (4.8-10.8) H 06/12/24 07:38
RBC 2.56 10^6/uL (4.70-6.10) L 06/12/24 07:38
Hgb 7.5 g/dL (13.0-18.0) L 06/12/24 07:38
Hct 23.4 % (39.0-52.0) L 06/12/24 07:38
Plt Count 137 10^3/uL (130-400) D 06/12/24 07:38
Sodium 136 mmol/L (135-145) 06/11/24 03:33
Potassium 3.9 mmol/L (3.5-5.1) 06/11/24 03:33
Chloride 103 mmol/L (98-107) 06/11/24 03:33
Carbon Dioxide 27 mmol/L (22-30) 06/11/24 03:33
BUN 18 mg/dl (9-20) 06/11/24 03:33
Creatinine 2.2 mg/dL (0.7-1.3) H 06/11/24 03:33
eGFR 32.83 06/11/24 03:33
Glucose 87 mg/dl (70-99) 06/11/24 03:33
Calcium 7.6 mg/dl (8.4-10.2) L 06/11/24 03:33
Phosphorus 4.2 mg/dl (2.5-4.5) 06/08/24 11:20
Krp-I-Lhoiuzacxqi Pept 4060 pg/ml 05/30/24 15:31
Albumin 2.3 g/dl (3.5-5.0) L 06/10/24 04:59
Physical Exam
-
Vital Signs:
Vital Signs
Temp Pulse Resp BP Pulse Ox
97.7 F 71 15 119/41 99
06/12/24 11:42 06/12/24 11:42 06/12/24 11:42 06/12/24 11:42 06/12/24 11:42
Cardiovascular:: Regular rate and rhythm
Respiratory:: Bilateral: CTA (anteriorly)
Lung Excursion:: Normal (decreased)
Abdomen:: Nontender and Soft
Bowel Sounds:: Normal
Extremity Edema:: +1: Bilateral:
Holcomb Catheter: No
Other Findings::
mild right UE edema
--- NOTE | 2024-06-12 14:37 | CM ---
CM reviewed chart, patient scheduled for BKA Tuesday 06/13. Previous CM faxed a referral to [facility] to set up outpatient HD treatment at [facility] center [facility] [place], [place]. [facility] community engagement representative Lauren [phone]
following to set up outpatient HD treatment at [facility] in [place] and [facility] when medically stable. CM will continue to follow for all discharge planning needs. [facility] acute clinical liaison following.
D/C plan: [facility], will need re-evals from PT/OT when stable, outpatient HD
[2024-06-12 16:59] LABS: Glucose - Point of Care 175 mg/dl (70-99)
[2024-06-12] MEDS: STERILE WATER FOR INJECTION 10 ML IV (17:13)
[2024-06-12] MEDS: MERREM 500 MG IV (17:13)
[2024-06-12 18:18] LABS: APTT 86.2 Sec (23.4-35.0)
[2024-06-12 21:24] LABS: Glucose - Point of Care 119 mg/dl (70-99)
[2024-06-12] MEDS: LANTUS 0.05 UNITS SC (22:22)
[2024-06-12] MEDS: COLACE PO (22:23)
[2024-06-12] MEDS: SENOKOT PO (22:24)
[2024-06-13] VITALS (15 sets, daily range): BP systolic 0–154; BP diastolic 24–73; BMI 33.9
[2024-06-13 04:53] LABS: % Basophils 0.2 % (0-2); % Eosinophils 0.4 % (0-6); % Immature Granulocytes 1.4 % (0-0.5); % Lymphocytes 11.3 % (20.5-51.1); % Monocytes 8.3 % (1.7-9.3); % Neutrophils 78.4 % (42.2-75.2); Absolute Eosinophils 0.1 10^3/uL (0-0.7); Absolute Immature Granulocytes 0.2 10^3/uL (0-0.05); Absolute Lymphocytes 1.4 10^3/uL (1.2-3.4); Absolute Neutrophils 9.8 10^3/uL (1.4-6.5); Hematocrit 26.7 % (39.0-52.0); Hemoglobin 8.8 g/dL (13.0-18.0); Mean Corpuscular Hgb 30.3 pg (27.0-31.0); Mean Corpuscular Volume 92.1 fL (80.0-94.0); Mean Platelet Volume 9.7 fL (7.4-10.4); Nucleated Red Blood Cells % 0 % (-); Platelet Count 141 10^3/uL (130-400); Red Cell Dist. Width 17.1 % (11.5-14.5); White Blood Cell Count 12.5 10^3/uL (4.8-10.8)
[2024-06-13 05:04] LABS: INR 1.99; PT 22.7 Sec (11.4-14.6)
[2024-06-13 05:06] LABS: APTT 70.7 Sec (23.4-35.0)
[2024-06-13 05:16] LABS: Blood Urea Nitrogen 19 mg/dl (9-20); Calcium 8.2 mg/dl (8.4-10.2); Carbon Dioxide 33 mmol/L (22-30); Chloride 97 mmol/L (98-107); Estimated Creatinine Clearance 37 ml/min; Glucose 112 mg/dl (70-99); Potassium 4.2 mmol/L (3.5-5.1); Sodium 136 mmol/L (135-145); eGFR 32.83
[2024-06-13 05:45] LABS: Glucose - Point of Care 121 mg/dl (70-99)
--- NOTE | 2024-06-13 08:16 | PN.DE.MGMTRT ---
Insulin Management
- -
06/13/2024: Diabetes Management follow up
Patient admitted 05/30 with change in level of consciousness. PMH PVD, asthma, GERD, HTN, HCL, diabetes, renal failure (HD 3 x per week). Patient found to have severe sepsis with R foot wound with purulent drainage most likely source. Patient has
since gone to OR for amputation of R foot 05/31.
Prior to admission was taking 4 units NovoLog AC with Lantus 10 units @ hs. A1C 7.8%, Cr 1.1, eGFR>60-->1.6, eGFR 48.11-->2.2, eGFR 32.83 today.
06/03 Pt was transitioned off insulin infusion. 3 Tube feeds discontinued, Dysphagia diet ordered. Pt noted for poor appetite poor.
Patient was extubated on 06/07/2024. He is resting with eyes closed, unable to interview at this time. All information obtained from chart and patient nurse.
POD # 13 s/p Guillotine amputation of the right lower extremity above the ankle. POD#3 s/p RLE BKA revision.
Noted for an episode of hypoglycemia on 06/11 and Lantus was reduced to 5 units.
Glucose has remained stable and in range, 06/12 premeal 136 to 175, HS glucose 119, FBG 112(V), 121 POC this AM
Will make no changes to current regimen: Lantus 5 units, AC NovoLog 4 units low corrective AC.
Will cont to follow and make further adjustments if necessary
Diabetes History
- -
Type of Diabetes: 2 requiring insulin
Pre-Admission Diabetes Regimen
06/13/24
04:25
Creatinine 2.2 H
Lab Results
Hemoglobin A1c 7.8 % (4.0-5.6) H 05/31/24 02:57
Insulin Pump Settings
IP Diabetes Regimen
06/12/24 06/12/24 06/12/24
11:38 16:57 21:22
Glucose
POC Glucose 136 H 175 H 119 H
06/13/24 06/13/24
04: 05:43
Glucose 112 H
POC Glucose 121 H
Meal type: Dinner
Meal type: Lunch
Meal type: Lunch
Meal type: Breakfast
Amount consumed: 10%
Amount consumed: 90%
Amount consumed: 95%
Amount consumed: 20%
Patient Education
[2024-06-13] MEDS: CYMBALTA DELAYED RELEASE 20 MG PO ×2 (09:00→20:59)
[2024-06-13] MEDS: NEURONTIN 100 MG PO ×2 (09:00→21:00)
[2024-06-13] MEDS: FOLVITE 50.2 MG IV (09:01)
[2024-06-13] MEDS: ProAmatine 5 MG PO ×2 (09:01→20:59)
[2024-06-13] MEDS: PROTONIX 40 MG PO (09:01)
[2024-06-13] MEDS: NOVOLOG FLEXPEN SC ×3 (09:02→19:27)
[2024-06-13] MEDS: NOVOLOG FLEXPEN-LOW RESISTANCE SC (09:23)
--- NOTE | 2024-06-13 09:54 | W.PN.HOSP.TC ---
Today's Communication/Plan
-
For right BKA today
Assessment / Plan
Assessment / Plan
Septic shock -due to infected right TMA wound, acute calculus emphysematous cholecystitis. WBCs trending down. Remains afebrile.
Off Levophed, midodrine resumed.
Continue IV meropenem per infectious disease.
Blood cultures negative. Fluid culture from gallbladder and right TMA site both positive for Enterobacter cloacae.
Right TMA gas gangrene
Records from [facility] reviewed. Admitted 03/23/2024, discharged 04/08/2024. Primary discharge diagnosis was ESRD requiring dialysis. Secondary diagnoses included PAD and right foot infection. Primary reason for admission was for
worsening right foot wound in the setting of recent right foot gangrene, right lower extremity tibial/peroneal angioplasty, and right foot fourth metatarsal resection and bone biopsies. Podiatry performed right TMA on 03/27/2024. Postoperatively
developed acute kidney failure requiring initiation of hemodialysis. Discharged to SNF on 04/08/2024.
Status post I&D in OR by podiatry on 05/30
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 VAC applied 06/03
Both aspirin and Plavix were discontinued due to oozing of blood from amputation site.
Vascular surgery planning on right BKA Tuesday 06/13.
Acute hypoxic respiratory failure -extubated 06/07. Currently on 3L nasal cannula, wean down as able. Chest x-ray from today shows probable small right and possible trace left pleural effusion. Very low lung volumes. No pneumothorax or
consolidation.
ESRD - on dialysis at [facility] Thursday/Thursday/Thursday. Off CRRT, now on standard dialysis. Continue dialysis as per nephrology
Metabolic acidosis resolved.
Hyponatremia -resolved.
Acute calculus emphysematous cholecystitis -Status post percutaneous cholecystostomy tube by IR on 05/31.
Ultrasound shows distended gallbladder with stones and sludge with mild gallbladder wall thickening
CT abdomen/pelvis shows enlarged gallbladder with stones, sludge, air-fluid level, suspicious for emphysematous cholecystitis
Acute on chronic anemia -Acute blood loss anemia from surgery. Hemoglobin down. Unclear why his hemoglobin is down again this morning but IV anticoagulation and thrombocytopenia is not helping.
Has had 8 units of blood transfused so far. Discussed with vascular surgery and nursing. Continue to trend, transfuse as needed
Acute thrombocytopenia -concern for possible HIT. HIT panel sent. Hematology input noted. Started argatroban 06/09, now on hold for surgery 06/13. Platelets normalized.
Heparin removed from dialysis lines, discussed with nephrology.
Acute bilateral lower extremity DVT -noted on ultrasound 05/31. DVT occurred prior to onset of thrombocytopenia. Continue anticoagulation as per hematology.
Thrush -treated.
Essential hypertension -amlodipine and Coreg on hold due to septic shock.
DM2 without hyperglycemia -glucose 167 this morning, 214 last night. Hemoglobin A1c 7.8%. Off insulin drip 06/03. Prior to admission he was on Lantus 10 units at bedtime, NovoLog 4 units AC.
Currently on Lantus 10 units at bedtime, 4 units of aspart AC, low resistance aspart scale. Diabetes ASSISTANT COUNTY ATTORNEY managing glucoses.
Gastroesophageal reflux disease
Continue PPI
Constipation
Continue laxatives when able
Anxiety/depression
Continue duloxetine 20 mg twice a day
Obesity due to excess calories
DVT prophylaxis�argatroban drip
Full code
Total time spent to see the patient on the floor, examine the patient, review data and lab results, discuss treatment plan with patient, nursing staff around 42 minutes.
Physical exam
Gen-obese, looks chronically ill, no acute distress
HEENT-NC, AT, anicteric
Neck-supple
CV-reg, no M, +S1/S2
Lungs-clear B/L
Abd-soft, NT, ND
Ext-right upper extremity diffuse edema, right lower extremity amputation at ankle
Musculoskeletal-no cyanosis, clubbing. Right lower extremity Asael wrap around amputation site
Skin-warm and dry
Anticipated Discharge: > 48 hours
Subjective/Interval History
-
Date of Service: June 13, 2024
Patient denies pain. No chest pain, no shortness of breath. No fever, no vomiting.
Objective Data
-
Labs:
Laboratory Results
06/13/24
04:25
WBC 12.5 H
Hgb 8.8 L
Hct 26.7 L
Plt Count 141
PT 22.7 H
INR 1.99
APTT 70.7 H
Sodium 136
Potassium 4.2
Chloride 97 L
Carbon Dioxide 33 H
BUN 19
Creatinine 2.2 H
Glucose 112 H
Calcium 8.2 L
Vital Signs:
Vital Signs
Temp Pulse Resp BP Pulse Ox
97.6 F 73 18 124/63 98
06/13/24 07:59 06/13/24 07:59 06/13/24 07:59 06/13/24 07:59 06/13/24 07:59
I&O
06/12/24 06/13/24 06/14/24
06:59 06:59 06:59
Intake Total 780.8 / 780.8
Output Total
Balance 775.8 / 775.8
--- NOTE | 2024-06-13 10:08 | W.PN.ONC2 ---
Today's Communication / Plan
-
.
Impression
Impression
thrombocytopenia with juan 109,000. no evidence of acute DIC with normal fibrinogen. No b12 deficiency. Infection and antibiotics could certainly be contributing to thrombocytopenia. HIT negative. anticardiolipin & beta2 glycoprotein negative.
Platelets normal x 2 days
folate deficiency
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
Acute cholecystitis s/p perc nya 05/31
ESRD on HD
chronic aockd, on epo w HD
b/l acute DVT heparin gtt 05/31-06/09 then transitioned to argatroban, s/p retrievable IVC filter 06/09
ABLA from R foot surgical site s/p 8 unit prbc during hospitalization
Plan
Plan
Could transition back to heparin gtt with a negative HIT
start folic acid 1mg daily and continue at discharge. repeat folate level 12 weeks.
f/u Lupus anticoagulant
Tentative plan for OR on 06/13/24 for right lower extremity BKA with vascular surgery
daily CBC
Subjective/Objective
Subjective
no new complaints
Vital Signs:
Vital Signs
Temp Pulse Resp BP Pulse Ox
97.6 F 73 18 124/63 98
06/13/24 07:59 06/13/24 07:59 06/13/24 07:59 06/13/24 07:59 06/13/24 07:59
Lab Results:
Laboratory Data
WBC 12.5 10^3/uL (4.8-10.8) H 06/13/24 04:25
Hgb 8.8 g/dL (13.0-18.0) L 06/13/24 04:25
Plt Count 141 10^3/uL (130-400) 06/13/24 04:25
PT 22.7 Sec (11.4-14.6) H 06/13/24 04:25
INR 1.99 06/13/24 04:25
APTT 70.7 Sec (23.4-35.0) H 06/13/24 04:25
eGFR 32.83 06/13/24 04:25
[2024-06-13 11:18] LABS: Glucose - Point of Care 115 mg/dl (70-99)
[2024-06-13] MEDS: PERIDEX 0.12% ORAL RINSE 15 ML PO (11:30)
[2024-06-13] MEDS: BACTROBAN 2% OINTMENT 1 APPLIC NASAL (11:31)
--- NOTE | 2024-06-13 11:32 | W.PN.NEPH.PH ---
Today's Communication / Plan
-
HD tomorrow
Assessment/Plan
-
Impression:
ESRD MWF ([place] [facility])
Sepsis/leukocytosis with hemodynamic compromise
Hypoxic Respiratory failure
Diabetes
History of right TMA with purulent drainage from site, status post ankle amputation 05/31/2024
History of hypertension
Anemia
PAD
Plan:
Next HD tomorrow
R BKA today
abx per ID (renally dosed)
supportive care at this time
-
-
Date of Service: June 13, 2024
CC / HPI / ROS
-
Chief Complaint:
ESRD
History of Present Illness:
Bp stable
s/p right foot amputation 05/31
s/p cholecystotomy tube 05/31
Hgb stable low
Review of Systems:
no fevers
Weights down
no cp or sob at rest
Labs
-
Labs:
WBC 12.5 10^3/uL (4.8-10.8) H 06/13/24 04:25
RBC 2.90 10^6/uL (4.70-6.10) L 06/13/24 04:25
Hgb 8.8 g/dL (13.0-18.0) L 06/13/24 04:25
Hct 26.7 % (39.0-52.0) L 06/13/24 04:25
Plt Count 141 10^3/uL (130-400) 06/13/24 04:25
Sodium 136 mmol/L (135-145) 06/13/24 04:25
Potassium 4.2 mmol/L (3.5-5.1) 06/13/24 04:25
Chloride 97 mmol/L (98-107) L 06/13/24 04:25
Carbon Dioxide 33 mmol/L (22-30) H 06/13/24 04:25
BUN 19 mg/dl (9-20) 06/13/24 04:25
Creatinine 2.2 mg/dL (0.7-1.3) H 06/13/24 04:25
eGFR 32.83 06/13/24 04:25
Glucose 112 mg/dl (70-99) H 06/13/24 04:25
Calcium 8.2 mg/dl (8.4-10.2) L 06/13/24 04:25
Phosphorus 4.2 mg/dl (2.5-4.5) 06/08/24 11:20
Xqc-B-Denvsrjgcyw Pept 4060 pg/ml 05/30/24 15:31
Albumin 2.3 g/dl (3.5-5.0) L 06/10/24 04:59
Physical Exam
-
Vital Signs:
Vital Signs
Temp Pulse Resp BP Pulse Ox
98.2 F 77 18 142/73 98
06/13/24 11:03 06/13/24 11:03 06/13/24 11:03 06/13/24 11:03 06/13/24 11:03
Cardiovascular:: Regular rate and rhythm
Respiratory:: Bilateral: Coarse
Lung Excursion:: Normal
Abdomen:: Nontender and Soft
Bowel Sounds:: Normal
Extremity Edema:: +1: Bilateral:
--- NOTE | 2024-06-13 13:06 | CM ---
Chart reviewed and referral sent to [facility], patient is for possible OR today, needs PT/OT and PM&R evaluations, referral sent to [facility] for outpatient HD, Donovan Conte, keycase assembler reached out to patient's spouse and provided contact
information to assist with discharge planning for patient.
Plan: Acute rehab at [facility], needs auth, outpatient HD through [facility].
--- NOTE | 2024-06-13 13:43 | W.PN.ID1 ---
Date of Service
Date of Service: June 13, 2024
Today's Communication
Continue meropenem (d11) through BKA today
Assessment / Plan
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
s/p I+D 05/30. OR cx: Enterobacter, yeast
s/p guillotine amp 05/31
formal BKA today
# Acute cholecystitis
s/p perc nya 05/31
cx Enterobacter
# Leukocytosis - trending down
# s/p Septic shock
# s/p VDRF
# ESRD on HD. off CRRT
# Extensive BLE DVT s/p IVC filter
Plan:
- Continue meropenem (d11) through BKA today
- Trend wbc
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
Type 2 diabetes mellitus
End-stage renal disease on hemodialysis
Hypertension
PAD s/p RLE stent
HLD
Obstructive sleep apnea
Depression
Right foot TMA 03/27/24 [facility]
Chief Complaint
-: Other (Cholecystitis, gas gangrene foot)
Subjective / Review of Systems
No complaints today.
Vital Signs / Physical Exam
Vital Signs
Vital Signs
Temp Pulse Resp BP Pulse Ox
98.2 F 77 18 142/73 98
06/13/24 11:03 06/13/24 11:03 06/13/24 11:03 06/13/24 11:03 06/13/24 11:03
Physical Exam
Constitutional: No Acute Distress
Cardiovascular: Regular Rate and S1/S2
Pulmonary: Clear (anterior lungs)
Gastrointestinal: Soft, Non Tender, Non Distended, Normal Bowel Sounds and Other (Cholecystostomy tube with brown bile.)
Extremities: Negative Edema
Lines: PICC (no erythema) and HD Cath (no erythema)
Objective Data
Lab Data
Lab Results
06/13/24 04:25
06/13/24 04:25
ESR 70 mm/hour (0-20) H 05/31/24 02:57
PT 22.7 Sec (11.4-14.6) H 06/13/24 04:25
INR 1.99 06/13/24 04:25
APTT 70.7 Sec (23.4-35.0) H 06/13/24 04:25
Estimated Creat Clear 37 ml/min 06/13/24 04:25
Lactic Acid < 0.5 mmol/L (0.7-2.0) L 06/06/24 10:54
Total Bilirubin 0.7 mg/dl (0.2-1.3) 06/10/24 04:59
AST 56 U/L (17-59) 06/10/24 04:59
ALT 30 U/L (0-50) 06/10/24 04:59
Alkaline Phosphatase 586 U/L (38-126) H 06/10/24 04:59
C-Reactive Protein > 270.00 mg/L (0.0-10.00) H 05/31/24 02:57
Amylase Cancelled 06/01/24 06:00
Most recent labs reviewed.
Micro Results:
05/30/24 21:41 Wound Culture - Final
Abscess Enterobacter cloacae
Enterobacter cloacae#2
Yeast
Gram Stain - Final
05/30/24 21:41 Anaerobic Culture - Final
Abscess Finegoldia magna
05/30/24 15:42 Blood Culture - Final
Blood/Venous No Growth - Final Report
05/30/24 15:42 Blood Culture - Final
Blood/Venous No Growth - Final Report
06/03/24 11:41 MRSA Screen - Final
Nose No Methicillin Resistant Staphylococcus aureus isolated.
05/30/24 16:52 Wound Culture - Final
Foot - Right Enterobacter cloacae
Diptheroids
Yeast
Gram Stain - Final
05/31/24 18:46 Body Fluid Culture - Final
Bile Enterobacter cloacae
Gram Stain - Final
05/30/24 15:42 Urine Culture - Final
Urine NO GROWTH
05/30/24 15:42 Influenza Types A & B (HOLDEN) - Final
Nasal Swab Negative for Influenza A & B, NAAT
Negative results must be combined with clinical observations
and patient history.
Nucleic Acid Amplification test (NAAT)performed on the
[employer] platform.
05/30/24 CXR: No acute cardiopulmonary process within the limitations of very low lung volumes.
05/30/24 ABD US: The gallbladder is distended and filled with stones and sludge. Mild gallbladder wall thickening raising the possibility for acute cholecystitis. However, no appreciable pericholecystic fluid and a reportedly negative sonographic
Bermeo's sign.
05/30/24 Foot XRAY: Soft tissue gas in the right foot and ankle most suggestive of infection
05/31/24 Periph Vasc US: Extensive bilateral lower extremity deep venous thrombosis
06/07/24 CXR: Mild interstitial prominence, suggestive of mild pulmonary edema. Haziness of each hemidiaphragm, which may represent bibasilar airspace disease and/or small bilateral pleural effusions.
--- NOTE | 2024-06-13 15:12 | PN.CDI ---
CDI
- -
CDI:
Physician Documentation Request
Admit Date: 05/30/24 18:22
Dear Doctor Do,
Please review the following and provide your response in the progress notes.
Clinical Indicators:
- RN skin assessments indicate:
- Stage 2 sacrum/buttocks pressure injury
- Stage 2 right lip pressure injury
Physician documentation of the type and location of wounds is required for compliant documentation. Based on the above clinical findings and your assessment, please provide the following in your progress note:
1. Location of the ulcer/wound, including laterality.
2. Type (etiology) of ulcer/wound:
- Diabetic ulcer
- Arterial (ischemic) ulcer
- Traumatic wound
- Venous stasis ulcer
- Pressure (decubitus) ulcer
- Non-healing surgical wound
- Other
Use of terms such as suspected, likely, concern for, or probable (associated with a specific diagnosis that is being evaluated, monitored, or treated as if it exists) are acceptable and can be coded in the inpatient setting, when documented at the
time of discharge.
Thank you,
Bhargav Gallagher RN
CDI Specialist
Please use your independent medical judgment in providing your response.
*Source: National Pressure Ulcer Advisory Panel (NPUAP)
--- NOTE | 2024-06-13 15:24 | PTOTSP ---
Please re-order PT and OT s/p BKA this admission. Thank you.
[2024-06-13 17:27] LABS: Glucose - Point of Care 77 mg/dl (70-99)
--- NOTE | 2024-06-13 18:32 | OR.RPT ---
Operative Report
Operative Report
Date of Operation: 06/13/2024
Pre Op Diagnosis:
1. 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
2. Wet gangrene of the right foot with sepsis
Post Op Diagnosis:
1. 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
2. Wet gangrene of the right foot with sepsis
Procedure: RIGHT lower extremity amputation below the knee
Surgeon: Juanpablo Holcomb III, MD
Utilization Manager: Misael Gaona MD, PGY4
Anesthesia: General
Complications: None
Estimated Blood Loss: 100 cc
History and Indications for Procedure: 64-year-old male admitted recently with sepsis and wet gangrene of his right foot. He had a guillotine amputation at the ankle at that point. He has clinically improved and we brought him back to the
operating room today for formal below the knee amputation
Procedure in Detail: Samir Eason was correctly identified and placed supine on the operating table. After adequate induction of anesthesia the left leg was prepped and draped in the usual sterile fashion. The guillotine margin at the ankle was
excluded with a sterile glove. Preoperative antibiotics were administered. A timeout procedure was performed with the nursing and anesthesia staff confirming the patient's identity as well as the nature and laterality of the procedure. A
transverse incision was made approximately 1 hands-breadth below the tibial tuberosity and carried medially and laterally to the senior living points on the calf. The incision was then turned along the long axis of the calf and carried down towards the
ankle to create the posterior flap. Electrocautery was used on the subcutaneous tissue and muscle of the anterior and lateral tissue. The anterior tibial artery and vein were identified and then ligated and divided between silk ties. There was a
small pocket of murky appearing fluid encountered adjacent to the tibia laterally in the anterior compartment. This was sent for aerobic and anaerobic culture. The tibia and fibula were each circumferentially exposed. A periosteal elevator was
used on each to elevate the periosteum more proximally. The tibia was then divided with a saw. The anterior surface was beveled and smoothed with the saw and a rasp. The fibula was then divided more proximally than the tibia and all edges were
smoothed with the assistance of a rasp. The amputation was then completed using an amputation knife along the posterior flap. The leg was then passed off to the back table to be sent to pathology. Hemostasis was achieved along the posterior flap
using a combination of electrocautery and interrupted silk suture ligatures. Once hemostasis was achieved the wound was irrigated with 3 L of warm saline solution. A large Con drain was brought out through a separate stab incision at the skin and
secured in place with a nylon suture. This was left deep within the wound adjacent to the bone margins. The wound was then closed in multiple layers. Sterile dressings were applied.
The patient tolerated the procedure well and was taken to the PACU in stable condition.
Attestation: I was present and responsible for the entire procedure
Signed:
Juanpablo Holcomb III, MD
[facility]
[phone] (tsvu)
--- NOTE | 2024-06-13 18:36 | W.SUR.POST ---
Surgical Immediate Post Op
Note
Pre Op Diagnosis: gangrene s/p guillotine amputation
Post Op Diagnosis: gangrene s/p guillotine amputation
Procedure Performed: right below knee amputation
Primary Surgeon: Juanpablo Holcomb
Secondary Surgeons: Misael Gaona
Anesthesia: see anesthesia flowsheet
Estimated Blood Loss: 200cc
Fluids: see anesthesia flowsheet
Drains/Shunts: one gregory drain in surgical bed
Specimens/Cultures: prior guillotine site, culture swab
Doppler/Duplex/Angio (Y/N): n
Complications: none
Operative Findings: formalization of prior R BKA. Pus tracking up lateral fascial plane, sent culture swab. Gregory in surgical bed.
[2024-06-13 18:42] LABS: Glucose - Point of Care 98 mg/dl (70-99)
[2024-06-13] MEDS: MERREM IV (19:26)
[2024-06-13 19:31] LABS: Hematocrit 27.9 % (39.0-52.0); Hemoglobin 8.8 g/dL (13.0-18.0); Mean Corp Hgb Conc. 31.5 g/dL (33.0-37.0); Mean Corpuscular Hgb 29.3 pg (27.0-31.0); Mean Platelet Volume 9.4 fL (7.4-10.4); Platelet Count 146 10^3/uL (130-400); Red Cell Dist. Width 17.2 % (11.5-14.5); White Blood Cell Count 17.6 10^3/uL (4.8-10.8)
[2024-06-13 19:47] LABS: Blood Urea Nitrogen 23 mg/dl (9-20); Calcium 8.1 mg/dl (8.4-10.2); Carbon Dioxide 30 mmol/L (22-30); Chloride 97 mmol/L (98-107); Estimated Creatinine Clearance 34 ml/min; Glucose 113 mg/dl (70-99); Potassium 4.5 mmol/L (3.5-5.1); Sodium 135 mmol/L (135-145); eGFR 29.58
[2024-06-13] MEDS: DILAUDID 0.25 MG IV (20:24)
[2024-06-13 20:27] LABS: Glucose - Point of Care 129 mg/dl (70-99)
[2024-06-13] MEDS: SENOKOT 17.2 MG PO (20:59)
[2024-06-13] MEDS: STERILE WATER FOR INJECTION IV (21:00)
[2024-06-13] MEDS: DILAUDID 0.5 MG IV ×2 (21:00→23:36)
[2024-06-13] MEDS: COLACE 200 MG PO (21:01)
[2024-06-13 22:24] LABS: Glucose - Point of Care 166 mg/dl (70-99)
[2024-06-13] MEDS: LANTUS 0.1 UNITS SC (22:25)
[2024-06-13] MEDS: ProAmatine PO (22:30)
[2024-06-13] MEDS: NEURONTIN PO (22:30)
--- NOTE | 2024-06-14 01:40 | PTCARENOTE ---
Pt. received from PACU. Pt. has an order to have a trapeze attached to his bed. This nurse attempted to get a trapeze from housekeeping, however the trapeze that was brought to the floor was not compatible with the ICU bed that the pt. is in.
Housekeeping contacted again and they told this nurse that the trapeze they brought up was the only one available and that the pt. would have to be moved to a different bed in order for the trapeze to be attached. Pt. stated that he did not want to
move and would prefer to stay in ICU bed. Nursing resident services supervisor notified; no compatible trapeze is available at this time. Plan of care continues.
[2024-06-14] MEDS: DILAUDID 0.5 MG IV ×2 (03:16→14:47)
[2024-06-14 03:51] VITALS: BP 111/45
[2024-06-14 05:43] VITALS: BMI 33.5
[2024-06-14 07:01] LABS: INR 1.16; PT 15.1 Sec (11.4-14.6)
[2024-06-14 07:02] LABS: APTT 37.2 Sec (23.4-35.0)
--- NOTE | 2024-06-14 07:36 | PN.DE.MGMTRT ---
Insulin Management
- -
06/14/2024: Diabetes Management follow up
Patient admitted 05/30 with change in level of consciousness. PMH PVD, asthma, GERD, HTN, HCL, diabetes, renal failure (HD 3 x per week). Patient found to have severe sepsis with R foot wound with purulent drainage most likely source. Patient has
since gone to OR for amputation of R foot 05/31.
Prior to admission was taking 4 units NovoLog AC with Lantus 10 units @ hs. A1C 7.8%, Cr 1.1, eGFR>60-->1.6, eGFR 48.11-->2.2, eGFR 32.83 today.
06/03 Pt was transitioned off insulin infusion. 06/08 Tube feeds discontinued, Dysphagia diet ordered. Pt noted for poor appetite poor.
POD 14 s/p R foot amputation
POD#1 s/p RLE BKA.
Patient is awake and alert, states he is not hungry, ate no breakfast.
Glucose has remained stable and in range, 06/13 98 to 166, fasting today 164.
Will make no changes to current regimen: Lantus 10 units, AC NovoLog 4 units low corrective AC. Please HOLD 4 units AC novolog if patient does not eat and continue corrective insulin.
Discussed with nurse.
Will cont to follow and make further adjustments if necessary
Diabetes History
- -
Type of Diabetes: 2 requiring insulin
Pre-Admission Diabetes Regimen
06/13/24
19:25
Creatinine 2.4 H
Lab Results
Hemoglobin A1c 7.8 % (4.0-5.6) H 05/31/24 02:57
Insulin Pump Settings
IP Diabetes Regimen
06/13/24 06/13/24 06/13/24
11:17 17:15 18:41
Glucose
POC Glucose 115 H 77 98
06/13/24 06/13/24 06/13/24
19:25 20:15 22:22
Glucose 113 H
POC Glucose 129 H 166 H
Patient Education
[2024-06-14 07:37] VITALS: BP 108/66
[2024-06-14 07:50] LABS: Glucose - Point of Care 164 mg/dl (70-99)
[2024-06-14] MEDS: NOVOLOG FLEXPEN SC ×3 (08:15→15:53)
[2024-06-14] MEDS: NOVOLOG FLEXPEN-LOW RESISTANCE 1 UNITS SC (08:16)
[2024-06-14] MEDS: ProAmatine 5 MG PO ×3 (08:17→20:23)
[2024-06-14 08:41] LABS: Hematocrit 27.9 % (39.0-52.0); Hemoglobin 8.7 g/dL (13.0-18.0); Mean Corp Hgb Conc. 31.2 g/dL (33.0-37.0); Mean Corpuscular Hgb 29.5 pg (27.0-31.0); Mean Corpuscular Volume 94.6 fL (80.0-94.0); Mean Platelet Volume 9.5 fL (7.4-10.4); Platelet Count 174 10^3/uL (130-400); Red Blood Cell Count 2.95 10^6/uL (4.70-6.10); Red Cell Dist. Width 17.4 % (11.5-14.5); White Blood Cell Count 15.8 10^3/uL (4.8-10.8)
[2024-06-14 08:53] LABS: Blood Urea Nitrogen 29 mg/dl (9-20); Calcium 8.3 mg/dl (8.4-10.2); Carbon Dioxide 30 mmol/L (22-30); Chloride 97 mmol/L (98-107); Estimated Creatinine Clearance 28 ml/min; Glucose 148 mg/dl (70-99); Potassium 5.2 mmol/L (3.5-5.1); Sodium 136 mmol/L (135-145); eGFR 23.57
--- NOTE | 2024-06-14 09:06 | W.PN.HOSP.TC ---
Today's Communication/Plan
-
see bold
Assessment / Plan
Assessment / Plan
Septic shock -due to infected right TMA wound, acute calculus emphysematous cholecystitis. WBCs trending down. Remains afebrile.
Off Levophed, midodrine resumed.
Continue IV meropenem per infectious disease.
Blood cultures negative. Fluid culture from gallbladder and right TMA site both positive for Enterobacter cloacae.
Right TMA gas gangrene
Records from [facility] reviewed. Admitted 03/23/2024, discharged 04/08/2024. Primary discharge diagnosis was ESRD requiring dialysis. Secondary diagnoses included PAD and right foot infection. Primary reason for admission was for
worsening right foot wound in the setting of recent right foot gangrene, right lower extremity tibial/peroneal angioplasty, and right foot fourth metatarsal resection and bone biopsies. Podiatry performed right TMA on 03/27/2024. Postoperatively
developed acute kidney failure requiring initiation of hemodialysis. Discharged to SNF on 04/08/2024.
Status post I&D in OR by podiatry on 05/30
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 VAC applied 06/03
Both aspirin and Plavix were discontinued due to oozing of blood from amputation site.
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 Resumed Eliquis 10 mg twice a day for 5 days per nephrology, then 5 mg twice a day
Acute hypoxic respiratory failure -extubated 06/07. Currently on 3L nasal cannula, wean down as able. Chest x-ray from today shows probable small right and possible trace left pleural effusion. Very low lung volumes. No pneumothorax or
consolidation.
ESRD - on dialysis at [place] [facility] Thursday/Thursday/Thursday. Off CRRT, now on standard dialysis. Continue dialysis as per nephrology
Metabolic acidosis resolved.
Hyponatremia -resolved.
Acute calculus emphysematous cholecystitis -Status post percutaneous cholecystostomy tube by IR on 05/31.
Ultrasound shows distended gallbladder with stones and sludge with mild gallbladder wall thickening
CT abdomen/pelvis shows enlarged gallbladder with stones, sludge, air-fluid level, suspicious for emphysematous cholecystitis
Acute on chronic anemia -Acute blood loss anemia from surgery. Hemoglobin down. Unclear why his hemoglobin is down again this morning but IV anticoagulation and thrombocytopenia is not helping.
Has had 8 units of blood transfused so far. Discussed with vascular surgery and nursing. Continue to trend, transfuse as needed
Acute thrombocytopenia -concern for possible HIT. HIT panel neg. Hematology input noted. Platelets normalized. Status post argatroban drip.
Acute bilateral lower extremity DVT -noted on ultrasound 05/31. DVT occurred prior to onset of thrombocytopenia. Resumed Eliquis 10 mg twice a day for 5 days per nephrology, then 5 mg twice a day
Thrush -treated.
Essential hypertension -amlodipine and Coreg on hold due to septic shock.
DM2 without hyperglycemia -glucose 167 this morning, 214 last night. Hemoglobin A1c 7.8%. Off insulin drip 06/03. Prior to admission he was on Lantus 10 units at bedtime, NovoLog 4 units AC.
Currently on Lantus 10 units at bedtime, 4 units of aspart AC, low resistance aspart scale. Diabetes RETOUCHER managing glucoses.
Gastroesophageal reflux disease
Continue PPI
Constipation
Continue laxatives
Anxiety/depression
Continue duloxetine 20 mg twice a day
Stage 2 sacrum/buttocks pressure injury
Stage 2 right lip pressure injury
Wound care, off loading
Obesity due to excess calories
DVT prophylaxis�eliquis
Full code
Total time spent to see the patient on the floor, examine the patient, review data and lab results, discuss treatment plan with patient, nursing staff around 51 minutes.
Physical exam
Gen-obese, looks chronically ill, no acute distress
HEENT-NC, AT, anicteric
Neck-supple
CV-reg, no M, +S1/S2
Lungs-clear B/L
Abd-soft, NT, ND
Ext-right upper extremity diffuse edema, right lower extremity amputation site dressed
Anticipated Discharge: > 48 hours
Subjective/Interval History
-
Date of Service: June 14, 2024
Patient seen during dialysis. He complains of pain at his right BKA site. No chest pain, no shortness of breath. No fever, no vomiting.
Objective Data
-
Labs:
Laboratory Results
06/14/24 06/14/24
05:19 08:33
WBC 15.8 H
Hgb 8.7 L
Hct 27.9 L
Plt Count 174
PT 15.1 H
INR 1.16
APTT 37.2 H
Sodium 136
Potassium 5.2 H
Chloride 97 L
Carbon Dioxide 30
BUN 29 H
Creatinine 2.9 H
Glucose 148 H
Calcium 8.3 L
Vital Signs:
Vital Signs
Temp Pulse Resp BP Pulse Ox
98.9 F 89 20 133/72 100
06/14/24 07:37 06/14/24 08:17 06/14/24 07:37 06/14/24 08:17 06/14/24 07:37
I&O
06/13/24 06/14/24 06/15/24
06:59 06:59 06:59
Intake Total 780.8 / 780.8 50 / 50
Output Total 588 / 588
Balance 775.8 / 775.8 -538 / -538
[2024-06-14] MEDS: RETACRIT 10000 UNITS IV (09:38)
--- NOTE | 2024-06-14 10:14 | W.PN.ONC ---
Today's Communication / Plan
-
Could transition back to heparin gtt with a negative HIT
Would resume systemic a/c today, okay'd by surgery
long goods drier anticoagulation for joaquina LE DVT TBD, Eliquis vs warfarin
IVC filter removal once recovers from acute issues
started folic acid 1mg daily and continue at discharge.
f/u Lupus anticoagulant
daily CBC
Impression
Impression
thrombocytopenia, resolved. no evidence of acute DIC with normal fibrinogen. No b12 deficiency. Infection and antibiotics could certainly be contributing to thrombocytopenia. HIT negative. anticardiolipin & beta2 glycoprotein negative. Platelets
normal x 2 days
folate deficiency
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
Acute cholecystitis s/p perc nay 05/31
ESRD on HD
chronic aockd, on epo w HD
b/l acute DVT heparin gtt 05/31-06/09 then transitioned to argatroban, s/p retrievable IVC filter 06/09
ABLA from R foot surgical site s/p 8 unit prbc during hospitalization
Plan
Plan
Could transition back to heparin gtt with a negative HIT
Would resume systemic a/c today, okay'd by surgery
long goods drier anticoagulation for joaquina LE DVT TBD, Eliquis vs warfarin
IVC filter removal once recovers from acute issues
started folic acid 1mg daily and continue at discharge.
f/u Lupus anticoagulant
daily CBC
Subjective/Objective
Subjective/Objective
no new complaints, surgery went well yesterday, notes some pain
Vital Signs:
Vital Signs
Temp Pulse Resp BP Pulse Ox
98.9 F 89 20 133/72 100
06/14/24 07:37 06/14/24 08:17 06/14/24 07:37 06/14/24 08:17 06/14/24 07:37
Lab Results:
Laboratory Data
WBC 15.8 10^3/uL (4.8-10.8) H 06/14/24 08:33
Hgb 8.7 g/dL (13.0-18.0) L 06/14/24 08:33
Plt Count 174 10^3/uL (130-400) 06/14/24 08:33
PT 15.1 Sec (11.4-14.6) H 06/14/24 05:19
INR 1.16 06/14/24 05:19
APTT 37.2 Sec (23.4-35.0) H 06/14/24 05:19
eGFR 23.57 06/14/24 08:33
--- NOTE | 2024-06-14 10:23 | W.PN.VS ---
Today's Communication / Plan
-
See below.
Assessment/Plan
-
Assessment: 64-year-old male POD #1 right BKA, POD # 9 Guillotine amputation of the right lower extremity above the ankle
Plan:
Will return tomorrow to change right BKA dressing
Vascular surgical perspective okay to reinitiate anticoagulation, okay with p.o. anticoagulation if primary team would rather reinstate p.o. instead of infusion
Overhead trapeze
PT/OT
Continue already ordered gabapentin for intermittent nerve discomfort
Subjective Data
-
Date of Service: June 14, 2024
Patient seen and examined at bedside, reports adequate postoperative pain management. However, does note intermittent burning sensation on top of knee area at BKA site. Denies nausea, vomiting, fever, and chills. Patient currently on HD circuit.
Objective Data
-
Vital Signs
Temp Pulse Resp BP Pulse Ox
98.9 F 89 20 133/72 100
06/14/24 07:37 06/14/24 08:17 06/14/24 07:37 06/14/24 08:17 06/14/24 07:37
Intake and Output
06/13/24 06/14/24 06/15/24
06:59 06:59 06:59
Intake Total 780.8 / 780.8 50 / 50
Output Total 5 588 / 588
Balance 775.8 / 775.8 -538 / -538
Intake:
Oral fluids 480 / 480
IV fluids (Total) 50 / 50
NSS 50 / 50
IV piggybacks 40.8 / 40.8
Amount instilled into Drain (
Total)
Right Abdomen
Blood Product Amount Infused ( 250 / 250
mL)
Packed Rbc Leukoreduced Unit 250 / 250
[id number]
Output:
Drain Output (Total)
Right Abdomen
Right Upper Leg Ced-Yates
Urine, Holcomb 550 / 550
Other:
How many times incontinent 1 3
SATURATED amount urine
Lab Results
06/14/24 08:33
06/14/24 08:33
Calcium 8.3 mg/dl (8.4-10.2) L 06/14/24 08:33
Phosphorus 4.2 mg/dl (2.5-4.5) 06/08/24 11:20
Magnesium 2.4 mg/dl (1.6-2.3) H 06/09/24 03:27
Total Bilirubin 0.7 mg/dl (0.2-1.3) 06/10/24 04:59
Direct Bilirubin 0.6 mg/dl (0.0-0.4) H 06/06/24 04:31
AST 56 U/L (17-59) 06/10/24 04:59
ALT 30 U/L (0-50) 06/10/24 04:59
Alkaline Phosphatase 586 U/L (38-126) H 06/10/24 04:59
Total Protein 5.0 g/dl (6.3-8.2) L 06/10/24 04:59
Albumin 2.3 g/dl (3.5-5.0) L 06/10/24 04:59
Physical Exam
-
Afebrile.
No acute distress.
Rhonchorous cough.
Right lower extremity BKA dressing clean dry and intact. ABIGAIL drain with serosanguineous output.
--- NOTE | 2024-06-14 10:42 | PTCARENOTE ---
Per the vascular SOCIAL WORKER CLINICAL, we will change his R BKA stump dressing on on post op day 2 and not today.
[2024-06-14] MEDS: ELIQUIS 10 MG PO ×2 (10:56→20:22)
[2024-06-14] MEDS: ProAmatine 10 MG PO (10:57)
[2024-06-14 11:16] LABS: Glucose - Point of Care 105 mg/dl (70-99)
[2024-06-14] MEDS: NOVOLOG FLEXPEN-LOW RESISTANCE SC ×2 (11:38→15:52)
--- NOTE | 2024-06-14 11:42 | W.PN.NEPH.HD ---
Assessment
-
Seen on HD. no complaints. s/p Right BKA.
VSS, access ok
can use heparin
Progress Note - Hemodialysis
-
Date of Service: June 14, 2024
Duration: 30 minutes and 3 hours
Potassium Bath: 3
Calcium Bath: 2.5
Opti-Dialyzer: 160
Ultrafiltration: Other (no)
Blood Flow: 400
Dialysate Flow: 600
Heparin: no
EPO: [id number] units
[2024-06-14] MEDS: NEURONTIN 100 MG PO ×3 (12:13→20:23)
[2024-06-14] MEDS: CYMBALTA DELAYED RELEASE 20 MG PO ×2 (12:13→20:22)
[2024-06-14] MEDS: PROTONIX 40 MG PO (12:13)
[2024-06-14] MEDS: FOLVITE 50.2 MG IV (12:14)
[2024-06-14] MEDS: FLUSH (NSS) 1 FLUSH INTRACATH (12:28)
--- NOTE | 2024-06-14 13:43 | W.PN.ID1 ---
Date of Service
Date of Service: June 14, 2024
Today's Communication
Extend meropenem
Assessment / Plan
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
s/p I+D 05/30. OR cx: Enterobacter, yeast
s/p guillotine amp 05/31
s/p formal BKA today 06/13/24. Per Vascular -pus tracking up fascia plane and bone - > not surgical cure, cx pending
# Acute cholecystitis
s/p perc nay 05/31
cx Enterobacter
# Leukocytosis - trending down
# s/p Septic shock
# s/p VDRF
# ESRD on HD.
# Extensive BLE DVT s/p IVC filter
Plan:
- Extend meropenem 500 mg IV qPM (d12) x 6 weeks through 07/14/24.
- Infusion sheet submitted to onsite case manager.
- Trend wbc
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
Type 2 diabetes mellitus
End-stage renal disease on hemodialysis
Hypertension
PAD s/p RLE stent
HLD
Obstructive sleep apnea
Depression
Right foot TMA 03/27/24 [facility]
Chief Complaint
-: Other (Cholecystitis, gas gangrene foot)
Subjective / Review of Systems
Some post-op pain.
Vital Signs / Physical Exam
Vital Signs
Vital Signs
Temp Pulse Resp BP Pulse Ox
98.9 F 89 20 101/64 100
06/14/24 07:37 06/14/24 08:17 06/14/24 07:37 06/14/24 10:57 06/14/24 07:37
Physical Exam
Constitutional: No Acute Distress
Cardiovascular: Regular Rate and S1/S2
Pulmonary: Clear (anterior lungs)
Gastrointestinal: Soft, Non Tender, Non Distended, Normal Bowel Sounds and Other (Cholecystostomy tube with brown bile.)
Extremities: Negative Edema (LLE)
Wound: Other (R BKA dressing dry)
Lines: PICC (no erythema) and HD Cath (no erythema)
Objective Data
Lab Data
Lab Results
06/14/24 08:33
06/14/24 08:33
ESR 70 mm/hour (0-20) H 05/31/24 02:57
PT 15.1 Sec (11.4-14.6) H 06/14/24 05:19
INR 1.16 06/14/24 05:19
APTT 37.2 Sec (23.4-35.0) H 06/14/24 05:19
Estimated Creat Clear 28 ml/min 06/14/24 08:33
Lactic Acid < 0.5 mmol/L (0.7-2.0) L 06/06/24 10:54
Total Bilirubin 0.7 mg/dl (0.2-1.3) 06/10/24 04:59
AST 56 U/L (17-59) 06/10/24 04:59
ALT 30 U/L (0-50) 06/10/24 04:59
Alkaline Phosphatase 586 U/L (38-126) H 06/10/24 04:59
C-Reactive Protein > 270.00 mg/L (0.0-10.00) H 05/31/24 02:57
Amylase Cancelled 06/01/24 06:00
Most recent labs reviewed.
Micro Results:
06/13/24 17:30 Wound Culture - Pending
Leg - Right Gram Stain - Preliminary
06/13/24 17:30 Anaerobic Culture - Pending
Leg - Right
05/30/24 21:41 Wound Culture - Final
Abscess Enterobacter cloacae
Enterobacter cloacae#2
Yeast
Gram Stain - Final
05/30/24 21:41 Anaerobic Culture - Final
Abscess Finegoldia magna
05/30/24 15:42 Blood Culture - Final
Blood/Venous No Growth - Final Report
05/30/24 15:42 Blood Culture - Final
Blood/Venous No Growth - Final Report
06/03/24 11:41 MRSA Screen - Final
Nose No Methicillin Resistant Staphylococcus aureus isolated.
05/30/24 16:52 Wound Culture - Final
Foot - Right Enterobacter cloacae
Diptheroids
Yeast
Gram Stain - Final
05/31/24 18:46 Body Fluid Culture - Final
Bile Enterobacter cloacae
Gram Stain - Final
05/30/24 15:42 Urine Culture - Final
Urine NO GROWTH
05/30/24 15:42 Influenza Types A & B (HOLDEN) - Final
Nasal Swab Negative for Influenza A & B, NAAT
Negative results must be combined with clinical observations
and patient history.
Nucleic Acid Amplification test (NAAT)performed on the
[email or web address] platform.
05/30/24 CXR: No acute cardiopulmonary process within the limitations of very low lung volumes.
05/30/24 ABD US: The gallbladder is distended and filled with stones and sludge. Mild gallbladder wall thickening raising the possibility for acute cholecystitis. However, no appreciable pericholecystic fluid and a reportedly negative sonographic
Bermeo's sign.
05/30/24 Foot XRAY: Soft tissue gas in the right foot and ankle most suggestive of infection
05/31/24 Periph Vasc US: Extensive bilateral lower extremity deep venous thrombosis
06/07/24 CXR: Mild interstitial prominence, suggestive of mild pulmonary edema. Haziness of each hemidiaphragm, which may represent bibasilar airspace disease and/or small bilateral pleural effusions.
Care Review
Plan reviewed with: Other Provider (Melissa Wylie)
--- NOTE | 2024-06-14 13:44 | CM ---
manager sas reviewed patient's chart and met with patient this am, patient is currently receiving HD, Patient had right BKA 06/13/24. manager sas reached out to Lauren at [facility] [phone] Ext [phone] and updated her on patint progress, [facility] at
[facility] will need to reach out to patient for chair time.
Plan; [facility] acute re[facility] when stable.
[2024-06-14 15:25] VITALS: BP 108/35; BP 109/74; PULSE 87; O2SAT 97
[2024-06-14] MEDS: STERILE WATER FOR INJECTION 10 ML IV (15:26)
[2024-06-14] MEDS: MERREM 500 MG IV (15:27)
[2024-06-14 15:37] LABS: Glucose - Point of Care 125 mg/dl (70-99)
[2024-06-14 20:11] VITALS: BP 114/40
[2024-06-14] MEDS: SENOKOT 17.2 MG PO (20:22)
[2024-06-14] MEDS: COLACE 200 MG PO (20:22)
[2024-06-14 21:39] LABS: Glucose - Point of Care 165 mg/dl (70-99)
[2024-06-14] MEDS: LANTUS 0.1 UNITS SC (22:37)
[2024-06-14 23:34] VITALS: BP 106/44
[2024-06-15] VITALS (8 sets, daily range): BP systolic 110–143; BP diastolic 56–69; PULSE 67; O2SAT 97; BMI 32.5
[2024-06-15 04:38] LABS: Hemoglobin 7.6 g/dL (13.0-18.0); Mean Corp Hgb Conc. 31.7 g/dL (33.0-37.0); Mean Corpuscular Hgb 29.1 pg (27.0-31.0); Mean Platelet Volume 9.7 fL (7.4-10.4); Platelet Count 145 10^3/uL (130-400); Red Blood Cell Count 2.61 10^6/uL (4.70-6.10); Red Cell Dist. Width 17.3 % (11.5-14.5); White Blood Cell Count 12.6 10^3/uL (4.8-10.8)
[2024-06-15 05:06] LABS: Blood Urea Nitrogen 19 mg/dl (9-20); Calcium 8.1 mg/dl (8.4-10.2); Carbon Dioxide 35 mmol/L (22-30); Chloride 95 mmol/L (98-107); Estimated Creatinine Clearance 41 ml/min; Glucose 145 mg/dl (70-99); Magnesium 1.7 mg/dl (1.6-2.3); Phosphorus 3.8 mg/dl (2.5-4.5); Potassium 3.8 mmol/L (3.5-5.1); Sodium 135 mmol/L (135-145); eGFR 36.81
--- NOTE | 2024-06-15 07:39 | PN.DE.MGMTRT ---
Insulin Management
- -
06/15/2024: Diabetes Management follow up
Patient admitted 05/30 with change in level of consciousness. PMH PVD, asthma, GERD, HTN, HCL, diabetes, renal failure (HD 3 x per week). Patient found to have severe sepsis with R foot wound with purulent drainage most likely source. Patient has
since gone to OR for amputation of R foot 05/31.
Prior to admission was taking 4 units NovoLog AC with Lantus 10 units @ hs. A1C 7.8%, Cr 1.1, eGFR>60-->1.6, eGFR 48.11-->2.2, eGFR 32.83 today.
06/03 Pt was transitioned off insulin infusion. 06/08 Tube feeds discontinued, Dysphagia diet ordered. Pt noted for poor appetite poor.
POD 15 s/p R foot amputation
POD#2 s/p RLE BKA.
Patient is awake and alert, able to discuss diabetes care, nursing reports he has been depressed, no appetite, ate only small pudding and jello.
Glucose has remained stable and in range, 06/14 105 to 165, fasting today 145, required no corrective insulin. AC insulin held due to poor appetite.
Will make no changes to current regimen: Lantus 10 units, AC NovoLog 4 units low corrective AC. Please HOLD 4 units AC novolog if patient does not eat and continue corrective insulin.
Discussed with nurse.
Will cont to follow and make further adjustments if necessary
Diabetes History
- -
Type of Diabetes: 2 requiring insulin
Pre-Admission Diabetes Regimen
06/14/24 06/15/24
08:33 03:55
Creatinine 2.9 H 2.0 H
Lab Results
Hemoglobin A1c 7.8 % (4.0-5.6) H 05/31/24 02:57
Insulin Pump Settings
IP Diabetes Regimen
06/14/24 06/14/24 06/14/24
07:49 08:33 11:14
Glucose 148 H
POC Glucose 164 H 105 H
06/14/24 06/14/24 06/15/24
15:36 21:37 03:55
Glucose 145 H
POC Glucose 125 H 165 H
Patient Education
[2024-06-15 07:57] LABS: Glucose - Point of Care 157 mg/dl (70-99)
--- NOTE | 2024-06-15 08:02 | W.PN.ONC2 ---
Today's Communication / Plan
-
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 Resumed Eliquis 10 mg twice a day for 5 days, then 5 mg twice a day.
If lupus AB negative, continue Eliquis at least 3-6 mo possibly indefinitely. TBD.
Impression
Impression
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
RLE gas gangrene of right foot
thrombocytopenia, resolved.
Acute cholecystitis s/p perc nay 05/31
ESRD on HD
chronic aockd, on epo w HD
b/l acute DVT heparin gtt 05/31-06/09 then transitioned to argatroban, s/p retrievable IVC filter 06/09. Now on Eliquis 06/14
ABLA from R foot surgical site s/p 8 unit prbc during hospitalization
Plan
Plan
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
Resumed Eliquis 10 mg twice a day for 5 days, then 5 mg twice a day
Could transition back to heparin gtt with a negative HIT if needed.
IVC filter removal once recovers from acute issues
started folic acid 1mg daily and continue at discharge.
f/u Lupus anticoagulant. ACL Ab NEG
Subjective/Objective
Chief Complaint
ACS Heme
Subjective
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 Resting. Lethargic but arousable.
Vital Signs:
Vital Signs
Temp Pulse Resp BP Pulse Ox
98.3 F 74 20 143/69 97
06/15/24 07:48 06/15/24 07:48 06/15/24 07:48 06/15/24 07:48 06/15/24 03:45
Lab Results:
Laboratory Data
WBC 12.6 10^3/uL (4.8-10.8) H 06/15/24 03:55
Hgb 7.6 g/dL (13.0-18.0) L 06/15/24 03:55
Plt Count 145 10^3/uL (130-400) 06/15/24 03:55
PT 15.1 Sec (11.4-14.6) H 06/14/24 05:19
INR 1.16 06/14/24 05:19
APTT 37.2 Sec (23.4-35.0) H 06/14/24 05:19
eGFR 36.81 06/15/24 03:55
[2024-06-15] MEDS: FOLVITE 50.2 MG IV (08:07)
[2024-06-15] MEDS: CYMBALTA DELAYED RELEASE 20 MG PO ×2 (08:08→20:40)
[2024-06-15] MEDS: NEURONTIN 100 MG PO ×3 (08:08→21:40)
[2024-06-15] MEDS: PROTONIX 40 MG PO (08:08)
[2024-06-15] MEDS: ProAmatine 5 MG PO ×2 (08:09→15:43)
[2024-06-15] MEDS: ELIQUIS 10 MG PO ×2 (08:09→20:40)
[2024-06-15] MEDS: NOVOLOG FLEXPEN-LOW RESISTANCE 1 UNITS SC ×2 (08:10→11:49)
[2024-06-15] MEDS: NOVOLOG FLEXPEN 4 UNITS SC ×3 (08:11→15:45)
--- NOTE | 2024-06-15 09:35 | W.PN.HOSP.TC ---
Today's Communication/Plan
-
Consult physiatry
Assessment / Plan
Assessment / Plan
Septic shock -due to infected right TMA wound, acute calculus emphysematous cholecystitis. WBCs trending down. Remains afebrile.
Off Levophed, midodrine resumed.
Continue IV meropenem per infectious disease.
Blood cultures negative. Fluid culture from gallbladder and right TMA site both positive for Enterobacter cloacae.
Right TMA gas gangrene
Records from [facility] reviewed. Admitted 03/23/2024, discharged 04/08/2024. Primary discharge diagnosis was ESRD requiring dialysis. Secondary diagnoses included PAD and right foot infection. Primary reason for admission was for
worsening right foot wound in the setting of recent right foot gangrene, right lower extremity tibial/peroneal angioplasty, and right foot fourth metatarsal resection and bone biopsies. Podiatry performed right TMA on 03/27/2024. Postoperatively
developed acute kidney failure requiring initiation of hemodialysis. Discharged to SNF on 04/08/2024.
Status post I&D in OR by podiatry on 05/30
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 VAC applied 06/03
Both aspirin and Plavix were discontinued due to oozing of blood from amputation site.
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 Resumed Eliquis 10 mg twice a day for 5 days per nephrology, then 5 mg twice a day
Acute hypoxic respiratory failure -extubated 06/07. Currently on 3L nasal cannula, wean down as able. Chest x-ray from today shows probable small right and possible trace left pleural effusion. Very low lung volumes. No pneumothorax or
consolidation.
ESRD - on dialysis at [facility] Thursday/Thursday/Thursday. Off CRRT, now on standard dialysis. Continue dialysis as per nephrology
Metabolic acidosis resolved.
Hyponatremia -resolved.
Acute calculus emphysematous cholecystitis -Status post percutaneous cholecystostomy tube by IR on 05/31.
Ultrasound shows distended gallbladder with stones and sludge with mild gallbladder wall thickening
CT abdomen/pelvis shows enlarged gallbladder with stones, sludge, air-fluid level, suspicious for emphysematous cholecystitis
Acute on chronic anemia -Acute blood loss anemia from surgery. Hemoglobin down. Unclear why his hemoglobin is down again this morning but IV anticoagulation and thrombocytopenia is not helping.
Has had 8 units of blood transfused so far. Discussed with vascular surgery and nursing. Continue to trend, transfuse as needed
Acute thrombocytopenia -concern for possible HIT. HIT panel neg. Hematology input noted. Platelets normalized. Status post argatroban drip.
Acute bilateral lower extremity DVT -noted on ultrasound 05/31. DVT occurred prior to onset of thrombocytopenia. Resumed Eliquis 10 mg twice a day for 5 days per nephrology, then 5 mg twice a day. Needs anticoagulation for at least 3-6 months,
possibly indefinitely as per hematology
Thrush -treated.
Essential hypertension -amlodipine and Coreg on hold due to septic shock.
DM2 without hyperglycemia - Hemoglobin A1c 7.8%. Off insulin drip 06/03. Currently on Lantus 10 units at bedtime, 4 units of aspart AC, low resistance aspart scale. 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
Gastroesophageal reflux disease
Continue PPI
Constipation
Continue laxatives
Anxiety/depression
Continue duloxetine 20 mg twice a day
Stage 2 sacrum/buttocks pressure injury
Stage 2 right lip pressure injury
Wound care, off loading
Obesity due to excess calories
DVT prophylaxis�eliquis
Full code
Total time spent to see the patient on the floor, examine the patient, review data and lab results, discuss treatment plan with patient, nursing staff around 41 minutes.
Physical exam
Gen-obese, looks chronically ill, no acute distress
HEENT-NC, AT, anicteric
Neck-supple
CV-reg, no M, +S1/S2
Lungs-clear B/L
Abd-soft, NT, ND
Ext-right upper extremity diffuse edema, right lower extremity amputation site dressed
Anticipated Discharge: 24 - 48 hours
Subjective/Interval History
-
Date of Service: June 15, 2024
Patient states his right BKA pain is mild. No fever, no vomiting. No chest pain, no shortness of breath.
Objective Data
-
Labs:
Laboratory Results
06/15/24
03:55
WBC 12.6 H
Hgb 7.6 L
Hct 24.0 L
Plt Count 145
Sodium 135
Potassium 3.8 D
Chloride 95 L
Carbon Dioxide 35 H
BUN 19
Creatinine 2.0 H
Glucose 145 H
Calcium 8.1 L
Vital Signs:
Vital Signs
Temp Pulse Resp BP Pulse Ox
98.3 F 74 20 143/69 97
06/15/24 07:48 06/15/24 07:48 06/15/24 07:48 06/15/24 08:09 06/15/24 03:45
I&O
06/14/24 06/15/24 06/16/24
06:59 06:59 06:59
Intake Total 50 / 50 730 / 730
Output Total 588 / 588
Balance -538 / -538 720 / 720
--- NOTE | 2024-06-15 10:20 | WOUNDNOTE ---
WOC RN note: Patient's sacral/buttocks dressing changed. Scattered stage 2 appearing ulcers mostly pink with scant yellow fibrin. Suspect mostly moisture and friction related. Patient is on a [facility] air bed. Patient turned to L semi side
lying position with help from HAKEEM Wisdom. Skin on L heel intact without redness. Protective foam change on L heel. Multipodis splint reapplied. Pillow under R BKA. Will follow as needed.
--- NOTE | 2024-06-15 10:41 | PTCARENOTE ---
Waiting for Surgeon to come up and change the dressing on pt's R stump since this would be the first dressing change post op day 2.
--- NOTE | 2024-06-15 11:05 | CM ---
manager surgery reached out to [place] [facility] and reviewed patient's chart and patient will need physiatry evaluation, physical therapy and occupational therapy in order to obtain Auth for acute rehab. Referral sent to Shane at [facility],
patient will also need HD outpatient after acute rehab. manager surgery spoke with Lauren at [facility] [phone] Ext [phone] and referral sent.
Plan; Await physiatry evaluation.
[2024-06-15 11:18] LABS: Glucose - Point of Care 157 mg/dl (70-99)
[2024-06-15] MEDS: DILAUDID 0.5 MG IV ×3 (11:47→17:47)
--- NOTE | 2024-06-15 11:50 | PTOTSP ---
Dysphagia Therapy
Impression: Suspected mild oral/pharyngeal dysphagia. Known history of GERD. Pt c/o stasis with chopped solids, requested diet downgrade, declined video swallow at present.
Mild-moderate dysphonia likely exacerbated by prolonged/multiple intubations.
Recommendations:
1. IDDSI Level 5 Minced and Moist, Thin Liquids
2. Supervision; partial assistance
3. Strategies: upright to 90 degrees, PO only when awake/alert, single sips/bites, slow rate, alternate sips/bites, reflux precautions
4. Dysphagia tx at the acute care level to determine if/when appropriate for diet advancement and/or instrumental swallowing assessment
--- NOTE | 2024-06-15 15:04 | W.PN.NEPH.PH ---
Today's Communication / Plan
-
HD tomorrow
Assessment/Plan
-
Impression:
ESRD MWF ([place] [facility])
Sepsis/leukocytosis with hemodynamic compromise
Hypoxic Respiratory failure
Diabetes
History of right TMA with purulent drainage from site, status post ankle amputation 05/31/2024
History of hypertension
Anemia
PAD
Plan:
Next HD tomorrow
R BKA -pain control
follow h/h at 7.6, prn transfusion
back on Eliquis, neg HIT, plt 145
abx per ID (renally dosed)
BP stable on midodrine -may start wean after HD
supportive care at this time
CM working on placement
-
-
Date of Service: June 15, 2024
CC / HPI / ROS
-
Chief Complaint:
ESRD
History of Present Illness:
Bp stable
s/p right foot amputation 05/31, Rt BKA 06/13
s/p cholecystotomy tube 05/31
Hgb stable low 7.6
Review of Systems:
no fevers
Weights down
no cp or sob at rest
Labs
-
Labs:
WBC 12.6 10^3/uL (4.8-10.8) H 06/15/24 03:55
RBC 2.61 10^6/uL (4.70-6.10) L 06/15/24 03:55
Hgb 7.6 g/dL (13.0-18.0) L 06/15/24 03:55
Hct 24.0 % (39.0-52.0) L 06/15/24 03:55
Plt Count 145 10^3/uL (130-400) 06/15/24 03:55
Sodium 135 mmol/L (135-145) 06/15/24 03:55
Potassium 3.8 mmol/L (3.5-5.1) D 06/15/24 03:55
Chloride 95 mmol/L (98-107) L 06/15/24 03:55
Carbon Dioxide 35 mmol/L (22-30) H 06/15/24 03:55
BUN 19 mg/dl (9-20) 06/15/24 03:55
Creatinine 2.0 mg/dL (0.7-1.3) H 06/15/24 03:55
eGFR 36.81 06/15/24 03:55
Glucose 145 mg/dl (70-99) H 06/15/24 03:55
Calcium 8.1 mg/dl (8.4-10.2) L 06/15/24 03:55
Phosphorus 3.8 mg/dl (2.5-4.5) 06/15/24 03:55
Upx-L-Mwiurakkbid Pept 4060 pg/ml 05/30/24 15:31
Albumin 2.3 g/dl (3.5-5.0) L 06/10/24 04:59
Physical Exam
-
Vital Signs:
Vital Signs
Temp Pulse Resp BP Pulse Ox
98.2 F 85 20 111/66 98
06/15/24 14:56 06/15/24 14:56 06/15/24 14:56 06/15/24 14:56 06/15/24 14:56
Cardiovascular:: Regular rate and rhythm
Respiratory:: Bilateral: CTA (anteriorly)
Lung Excursion:: Normal
Abdomen:: Nontender and Soft
Bowel Sounds:: Normal
Extremity Edema:: +1: Left:
Holcomb Catheter: No
Other Findings::
Rt BKA
--- NOTE | 2024-06-15 15:10 | W.PN.ID1 ---
Date of Service
Date of Service: June 15, 2024
Today's Communication
Continue meropenem 500 mg IV qPM x 6 weeks through 07/14/24.
Assessment / Plan
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
s/p I+D 05/30. OR cx: Enterobacter, yeast
s/p guillotine amp 05/31
s/p formal BKA today 06/13/24. Per Vascular -pus tracking up fascia plane and bone - > not surgical cure, cx neg to date
# Acute cholecystitis
s/p perc nay 05/31
cx Enterobacter
# Leukocytosis - trending down
# s/p Septic shock
# s/p VDRF
# ESRD on HD.
# Extensive BLE DVT s/p IVC filter
Plan:
- Continue meropenem 500 mg IV qPM x 6 weeks through 07/14/24.
- Infusion sheet submitted to high risk case manager.
- Trend wbc
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
Type 2 diabetes mellitus
End-stage renal disease on hemodialysis
Hypertension
PAD s/p RLE stent
HLD
Obstructive sleep apnea
Depression
Right foot TMA 03/27/24 [facility]
Chief Complaint
-: Other (Cholecystitis, gas gangrene foot)
Subjective / Review of Systems
Feeling better.
Vital Signs / Physical Exam
Vital Signs
Vital Signs
Temp Pulse Resp BP Pulse Ox
98.2 F 85 20 111/66 98
06/15/24 14:56 06/15/24 14:56 06/15/24 14:56 06/15/24 14:56 06/15/24 14:56
Physical Exam
Constitutional: No Acute Distress
Cardiovascular: Regular Rate and S1/S2
Pulmonary: Clear
Gastrointestinal: Soft, Non Tender, Non Distended and Other (Nay tube with bile. )
Genito-Urinary: Negative CVA Tenderness
Neurological: AO x 3
Lines: PICC (LUE no erythema) and HD Cath (RCW no erythema)
Objective Data
Lab Data
Lab Results
06/15/24 03:55
06/15/24 03:55
ESR 70 mm/hour (0-20) H 05/31/24 02:57
PT 15.1 Sec (11.4-14.6) H 06/14/24 05:19
INR 1.16 06/14/24 05:19
APTT 37.2 Sec (23.4-35.0) H 06/14/24 05:19
Estimated Creat Clear 41 ml/min 06/15/24 03:55
Lactic Acid < 0.5 mmol/L (0.7-2.0) L 06/06/24 10:54
Total Bilirubin 0.7 mg/dl (0.2-1.3) 06/10/24 04:59
AST 56 U/L (17-59) 06/10/24 04:59
ALT 30 U/L (0-50) 06/10/24 04:59
Alkaline Phosphatase 586 U/L (38-126) H 06/10/24 04:59
C-Reactive Protein > 270.00 mg/L (0.0-10.00) H 05/31/24 02:57
Amylase Cancelled 06/01/24 06:00
Most recent labs reviewed.
Micro Results:
06/13/24 17:30 Anaerobic Culture - Preliminary
Leg - Right Culture pending. Anaerobic cultures are examined after 3
days incubation. Additional information to follow.
06/13/24 17:30 Wound Culture - Preliminary
Leg - Right No growth
Gram Stain - Preliminary
05/30/24 21:41 Wound Culture - Final
Abscess Enterobacter cloacae
Enterobacter cloacae#2
Yeast
Gram Stain - Final
05/30/24 21:41 Anaerobic Culture - Final
Abscess Finegoldia magna
05/30/24 15:42 Blood Culture - Final
Blood/Venous No Growth - Final Report
05/30/24 15:42 Blood Culture - Final
Blood/Venous No Growth - Final Report
06/03/24 11:41 MRSA Screen - Final
Nose No Methicillin Resistant Staphylococcus aureus isolated.
05/30/24 16:52 Wound Culture - Final
Foot - Right Enterobacter cloacae
Diptheroids
Yeast
Gram Stain - Final
05/31/24 18:46 Body Fluid Culture - Final
Bile Enterobacter cloacae
Gram Stain - Final
05/30/24 15:42 Urine Culture - Final
Urine NO GROWTH
05/30/24 15:42 Influenza Types A & B (HOLDEN) - Final
Nasal Swab Negative for Influenza A & B, NAAT
Negative results must be combined with clinical observations
and patient history.
Nucleic Acid Amplification test (NAAT)performed on the
[employer] platform.
05/30/24 CXR: No acute cardiopulmonary process within the limitations of very low lung volumes.
05/30/24 ABD US: The gallbladder is distended and filled with stones and sludge. Mild gallbladder wall thickening raising the possibility for acute cholecystitis. However, no appreciable pericholecystic fluid and a reportedly negative sonographic
Bermeo's sign.
05/30/24 Foot XRAY: Soft tissue gas in the right foot and ankle most suggestive of infection
05/31/24 Periph Vasc US: Extensive bilateral lower extremity deep venous thrombosis
06/07/24 CXR: Mild interstitial prominence, suggestive of mild pulmonary edema. Haziness of each hemidiaphragm, which may represent bibasilar airspace disease and/or small bilateral pleural effusions.
[2024-06-15 15:38] LABS: Glucose - Point of Care 141 mg/dl (70-99)
--- NOTE | 2024-06-15 15:40 | PTCARENOTE ---
SOCIAL MEDIA MANAGER changed dressing today 06/15. Site and dressing dry and intact.
[2024-06-15] MEDS: NOVOLOG FLEXPEN-LOW RESISTANCE SC (15:43)
[2024-06-15] MEDS: STERILE WATER FOR INJECTION 10 ML IV (15:44)
[2024-06-15] MEDS: MERREM 500 MG IV (15:45)
--- NOTE | 2024-06-15 16:09 | W.PN.VS ---
Today's Communication / Plan
-
Patient seen and examined at bedside with Dr. Mike Stratton, below plan reviewed with attending.
Assessment/Plan
-
Assessment: 64-year-old male POD #2 right BKA, POD # 10 Guillotine amputation of the right lower extremity above the ankle
Plan:
Continue PT/OT
Continue ABIGAIL drain
Continue I&O monitoring
Subjective Data
-
Date of Service: June 15, 2024
Patient seen and examined at bedside, reports adequate postoperative pain management.
Objective Data
-
Vital Signs
Temp Pulse Resp BP Pulse Ox
98.2 F 85 20 111/66 98
06/15/24 14:56 06/15/24 14:56 06/15/24 14:56 06/15/24 15:43 06/15/24 14:56
Intake and Output
06/14/24 06/15/24 06/16/24
06:59 06:59 06:59
Intake Total 50 / 50 730 / 730
Output Total 588 / 588
Balance -538 / -538 720 / 720
Intake:
Oral fluids 720 / 720
IV fluids (Total) 50 / 50
NSS 50 / 50
Amount instilled into Drain (
Total)
Right Abdomen
Output:
Drain Output (Total) 38 / 38
Right Abdomen 28 / 28 0 / 0
Right Upper Leg Ced-Yates
Urine, Holcomb 550 / 550
Urine, Voided 0 / 0
Other:
How many times incontinent 3
SATURATED amount urine
Lab Results
06/15/24 03:55
06/15/24 03:55
Calcium 8.1 mg/dl (8.4-10.2) L 06/15/24 03:55
Phosphorus 3.8 mg/dl (2.5-4.5) 06/15/24 03:55
Magnesium 1.7 mg/dl (1.6-2.3) 06/15/24 03:55
Total Bilirubin 0.7 mg/dl (0.2-1.3) 06/10/24 04:59
Direct Bilirubin 0.6 mg/dl (0.0-0.4) H 06/06/24 04:31
AST 56 U/L (17-59) 06/10/24 04:59
ALT 30 U/L (0-50) 06/10/24 04:59
Alkaline Phosphatase 586 U/L (38-126) H 06/10/24 04:59
Total Protein 5.0 g/dl (6.3-8.2) L 06/10/24 04:59
Albumin 2.3 g/dl (3.5-5.0) L 06/10/24 04:59
Physical Exam
-
Afebrile.
No acute distress.
Right lower extremity BKA dressing removed, veronica well-approximated and CDI. ABIGAIL drain with serosanguineous output.
[2024-06-15] MEDS: COLACE 200 MG PO (20:41)
[2024-06-15] MEDS: SENOKOT 17.2 MG PO (20:41)
[2024-06-15 21:05] LABS: Glucose - Point of Care 169 mg/dl (70-99)
[2024-06-15] MEDS: LANTUS 0.1 UNITS SC (21:39)
[2024-06-15] MEDS: ProAmatine PO (21:44)
[2024-06-16 00:12] LABS: Anti-Xa Qualitative Interp Not Present (Not Present); Anticoagulant Med Neutralizati Not Performed (Not Performed); Hexagonal Phospholipid Confirm 14.2 s (<=7.9); Neutralized PTT-LA Ratio Not Performed (<=1.20); Neutralized dRVTT Screen Ratio Not Performed (<=1.20); PTT-LA Ratio 1.23 (<=1.20); Prothrombin Time 15.1 s (12.0-15.5); Thrombin Time 23.7 s (<=19.5); dRVTT 1.1 Mix Ratio Not Performed (<=1.20); dRVTT Confirmation Ratio Not Performed (<=1.20); dRVTT Screen Ratio 1.04 (<=1.20)
[2024-06-16 03:19] VITALS: BP 134/46
[2024-06-16 06:00] VITALS: BMI 33.0
--- NOTE | 2024-06-16 07:23 | W.PN.ONC2 ---
Today's Communication / Plan
-
Lupus anticoagulant testing is positive.
At this time, discontinue Eliquis and transition to either heparin or Lovenox therapeutic dose in preparation to conversion to warfarin anticoagulation.
Warfarin is the better anticoagulation option in antiphospholipid antibody syndromes including lupus anticoagulant.
Will discuss with the hospitalist.
Impression
Impression
Possible lupus anticoagulant/hypercoagulable state
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
RLE gas gangrene of right foot
thrombocytopenia, resolved.
Acute cholecystitis s/p perc nay 05/31
ESRD on HD
chronic aockd, on epo w HD
b/l acute DVT heparin gtt 05/31-06/09 then transitioned to argatroban, s/p retrievable IVC filter 06/09. Now on Eliquis 06/14
ABLA from R foot surgical site s/p 8 unit prbc during hospitalization
Plan
Plan
Lupus anticoagulant testing is positive. 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
HIT testing was negative with Antonina = 0.142 (<0.4).
Platelet count has normalized.
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
Prior to seeing the results regarding LAC positivity, he resumed Eliquis 10 mg twice a day for 5 days, then 5 mg twice a day.
At this time, discontinue Eliquis and transition to either heparin or Lovenox in preparation to conversion to warfarin anticoagulation.
Warfarin is the better anticoagulation option in antiphospholipid antibody syndromes including lupus anticoagulant.
IVC filter removal once recovers from acute issues
started folic acid 1mg daily and continue at discharge.
Subjective/Objective
Chief Complaint
ACS Heme Onc follow up
Subjective
Resting and somewhat lethargic but per the nurse, that is his baseline.
Vital Signs:
Vital Signs
Temp Pulse Resp BP Pulse Ox
98.7 F 84 18 134/46 97
06/16/24 03:19 06/16/24 03:19 06/16/24 03:19 06/16/24 03:19 06/16/24 03:19
Lab Results:
Laboratory Data
WBC 12.6 10^3/uL (4.8-10.8) H 06/15/24 03:55
Hgb 7.6 g/dL (13.0-18.0) L 06/15/24 03:55
Plt Count 145 10^3/uL (130-400) 06/15/24 03:55
PT 15.1 Sec (11.4-14.6) H 06/14/24 05:19
INR 1.16 06/14/24 05:19
APTT 37.2 Sec (23.4-35.0) H 06/14/24 05:19
eGFR 36.81 06/15/24 03:55
[2024-06-16 07:30] VITALS: BP 116/40
--- NOTE | 2024-06-16 07:49 | PN.DE.MGMTRT ---
Insulin Management
- -
06/15/2024: Diabetes Management follow up
Patient admitted 05/30 with change in level of consciousness. PMH PVD, asthma, GERD, HTN, HCL, diabetes, renal failure (HD 3 x per week). Patient found to have severe sepsis with R foot wound with purulent drainage most likely source. Patient has
since gone to OR for amputation of R foot 05/31.
Prior to admission was taking 4 units NovoLog AC with Lantus 10 units @ hs. A1C 7.8%, Cr 1.1, eGFR>60-->1.6, eGFR 48.11-->2.2, eGFR 32.83 today.
06/03 Pt was transitioned off insulin infusion. 06/08 Tube feeds discontinued, Dysphagia diet ordered. Pt noted for poor appetite poor.
POD 16 s/p R foot amputation
POD 3 s/p RLE BKA.
Patient is awake and alert, able to discuss diabetes care, nursing reports he has been depressed, appetite improving slowly.
Glucose has remained stable and in range, 06/15 141 to 169, AC insulin administered, required one unit corrective insulin.
Fasting glucose today 82,
Will make no changes to current regimen: Lantus 10 units, AC NovoLog 4 units low corrective AC. Please HOLD 4 units AC novolog if patient does not eat and continue corrective insulin.
Discussed with nurse.
Will cont to follow and make further adjustments if necessary
Diabetes History
- -
Type of Diabetes: 2 requiring insulin
Pre-Admission Diabetes Regimen
Lab Results
Hemoglobin A1c 7.8 % (4.0-5.6) H 05/31/24 02:57
Insulin Pump Settings
IP Diabetes Regimen
06/15/24 06/15/24 06/15/24
07:55 11:17 15:36
POC Glucose 157 H 157 H 141 H
06/15/24
21:04
POC Glucose 169 H
Patient Education
[2024-06-16] MEDS: ProAmatine 5 MG PO ×2 (07:53→16:13)
[2024-06-16] MEDS: PROTONIX 40 MG PO (07:54)
[2024-06-16] MEDS: NOVOLOG FLEXPEN 4 UNITS SC ×2 (07:55→17:56)
--- NOTE | 2024-06-16 07:55 | PTCARENOTE ---
06/16- Patient is currently receiving HD. Administered Midodrine and Protonix as per HD RN. Other AM meds will wait until after HD for administration as ordered.
[2024-06-16 07:57] LABS: Glucose - Point of Care 82 mg/dl (70-99)
[2024-06-16] MEDS: NOVOLOG FLEXPEN-LOW RESISTANCE SC ×3 (07:57→17:54)
--- NOTE | 2024-06-16 07:57 | W.PN.HOSP.TC ---
Today's Communication/Plan
-
see bold
Assessment / Plan
Assessment / Plan
Septic shock -due to infected right TMA wound, acute calculus emphysematous cholecystitis. WBCs trending down. Remains afebrile.
Off Levophed, midodrine resumed.
Continue meropenem 500 mg IV q 4PM x 6 weeks through 07/14/24 as per infectious disease.
Blood cultures negative. Fluid culture from gallbladder and right TMA site both positive for Enterobacter cloacae.
Right TMA gas gangrene
Records from [facility] reviewed. Admitted 03/23/2024, discharged 04/08/2024. Primary discharge diagnosis was ESRD requiring dialysis. Secondary diagnoses included PAD and right foot infection. Primary reason for admission was for
worsening right foot wound in the setting of recent right foot gangrene, right lower extremity tibial/peroneal angioplasty, and right foot fourth metatarsal resection and bone biopsies. Podiatry performed right TMA on 03/27/2024. Postoperatively
developed acute kidney failure requiring initiation of hemodialysis. Discharged to SNF on 04/08/2024.
Status post I&D in OR by podiatry on 05/30
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 VAC applied 06/03
Both aspirin and Plavix were discontinued due to oozing of blood from amputation site.
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 Cleared by vascular surgery to resume anticoagulation
Acute hypoxic respiratory failure -extubated 06/07. Currently on 3L nasal cannula, wean down as able. Chest x-ray from today shows probable small right and possible trace left pleural effusion. Very low lung volumes. No pneumothorax or
consolidation.
ESRD - on dialysis at [facility] Thursday/Thursday/Thursday. Off CRRT, now on standard dialysis. Continue dialysis as per nephrology
Metabolic acidosis resolved.
Hyponatremia -resolved.
Acute calculus emphysematous cholecystitis -Status post percutaneous cholecystostomy tube by IR on 05/31. Follow-up with general surgery in the office for cholecystectomy.
Ultrasound shows distended gallbladder with stones and sludge with mild gallbladder wall thickening
CT abdomen/pelvis shows enlarged gallbladder with stones, sludge, air-fluid level, suspicious for emphysematous cholecystitis
Acute on chronic anemia -Acute blood loss anemia from surgery. Hemoglobin down. Unclear why his hemoglobin is down again this morning but IV anticoagulation and thrombocytopenia is not helping.
Has had 8 units of blood transfused so far. Discussed with vascular surgery and nursing. Continue to trend, transfuse as needed
Acute thrombocytopenia -concern for possible HIT. HIT panel neg. Hematology input noted. Platelets normalized. Status post argatroban drip.
Acute bilateral lower extremity DVT -noted on ultrasound 05/31. DVT occurred prior to onset of thrombocytopenia. Lupus anticoagulant positive. Hematology recommends Coumadin. 06/16, start heparin drip to bridge to Coumadin
Thrush -treated.
Essential hypertension -amlodipine and Coreg on hold due to septic shock.
DM2 without hyperglycemia - Hemoglobin A1c 7.8%. Off insulin drip 06/03. Currently on Lantus 10 units at bedtime, 4 units of aspart AC, low resistance aspart scale. 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
Gastroesophageal reflux disease
Continue PPI
Constipation
Continue laxatives
Anxiety/depression
Consult psychiatry, continue duloxetine 20 mg twice a day
Stage 2 sacrum/buttocks pressure injury
Stage 2 right lip pressure injury
Wound care, off loading
Obesity due to excess calories
DVT prophylaxis�eliquis
Full code
Total time spent to see the patient on the floor, examine the patient, review data and lab results, discuss treatment plan with patient, nursing staff around 51 minutes.
Physical exam
Gen-obese, looks chronically ill, no acute distress
HEENT-NC, AT, anicteric
Neck-supple
CV-reg, no M, +S1/S2
Lungs-clear B/L
Abd-soft, NT, ND
Ext-right upper extremity diffuse edema, right lower extremity amputation site dressed
Anticipated Discharge: 24 - 48 hours
Subjective/Interval History
-
Date of Service: June 16, 2024
Patient reports his right surgical site pain is mild�moderate. No chest pain, no shortness of breath. No fever, no vomiting.
He is visibly depressed. is requesting psychiatry consult.
Objective Data
-
Labs:
Laboratory Results
06/16/24
06:00
WBC Pending
Hgb Pending
Hct Pending
Plt Count Pending
Sodium Pending
Potassium Pending
Chloride Pending
Carbon Dioxide Pending
BUN Pending
Creatinine Pending
Glucose Pending
Calcium Pending
Vital Signs:
Vital Signs
Temp Pulse Resp BP Pulse Ox
98.7 F 78 18 125/89 97
06/16/24 03:19 06/16/24 07:53 06/16/24 03:19 06/16/24 07:53 06/16/24 03:19
I&O
06/15/24 06/16/24 06/17/24
06:59 06:59 06:59
Intake Total 730 / 730 360 / 360
Output Total
Balance 720 / 720 360 / 360
[2024-06-16 08:17] LABS: Hematocrit 25.1 % (39.0-52.0); Hemoglobin 7.7 g/dL (13.0-18.0); Mean Corp Hgb Conc. 30.7 g/dL (33.0-37.0); Mean Corpuscular Hgb 29.7 pg (27.0-31.0); Mean Corpuscular Volume 96.9 fL (80.0-94.0); Mean Platelet Volume 9.2 fL (7.4-10.4); Platelet Count 153 10^3/uL (130-400); Red Blood Cell Count 2.59 10^6/uL (4.70-6.10); Red Cell Dist. Width 17.2 % (11.5-14.5); White Blood Cell Count 10.5 10^3/uL (4.8-10.8)
[2024-06-16 08:56] LABS: Blood Urea Nitrogen 29 mg/dl (9-20); Calcium 8.1 mg/dl (8.4-10.2); Carbon Dioxide 31 mmol/L (22-30); Chloride 98 mmol/L (98-107); Estimated Creatinine Clearance 24 ml/min; Glucose 77 mg/dl (70-99); Potassium 4.1 mmol/L (3.5-5.1); Sodium 136 mmol/L (135-145); eGFR 19.47
[2024-06-16] MEDS: RETACRIT 10000 UNITS IV (09:12)
--- NOTE | 2024-06-16 09:27 | W.PN.NEPH.HD ---
Assessment
-
pt seen during HD
vitals stable
UF as tolerates
CVC function well
lupus anticoagulant +ve now transition to Coumadin per Heme
Progress Note - Hemodialysis
-
Date of Service: June 16, 2024
Duration: 45 minutes and 3 hours
Potassium Bath: 3
Calcium Bath: 2.5
Opti-Dialyzer: 160
Ultrafiltration: Other (1.5-2kg)
Blood Flow: 400
Dialysate Flow: 600
Heparin: no
EPO: [id number]
[2024-06-16] MEDS: MANNITOL 25% 12.5 GRAMS IV (09:53)
[2024-06-16 11:04] VITALS: BP 119/50
--- NOTE | 2024-06-16 11:25 | CM ---
Chart reviewed and plan is for patient to go to [facility] acute rehab when stable, patient to start heparin bridge today, ESRD on HD, [facility], IV Meropenem QD, patient will need continuous PT/OT, physiatry consult is
pending, patient will need Auth for acute rehab at [facility].
Plan; Will wait on physiatry evaluation and then submit PT/OT, IV Abx and physiatry to insurance for Auth at [facility] acute re[facility] [place].
[2024-06-16] MEDS: FOLVITE 50.2 MG IV (12:05)
[2024-06-16] MEDS: CYMBALTA DELAYED RELEASE 20 MG PO (12:05)
[2024-06-16 12:09] LABS: Glucose - Point of Care 56 mg/dl (70-99)
--- NOTE | 2024-06-16 12:10 | W.PN.ID1 ---
Date of Service
Date of Service: June 16, 2024
Today's Communication
Continue meropenem 500 mg IV q 4PM x 6 weeks through 07/14/24.
Assessment / Plan
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
s/p I+D 05/30. OR cx: Enterobacter, finegoldia
s/p guillotine amp 05/31
s/p formal BKA today 06/13/24. Per Vascular -pus tracking up fascia plane and bone - > not surgical cure, OR CX: GNR
# Acute cholecystitis
s/p perc nay 05/31
cx Enterobacter
# Leukocytosis - resolved
# s/p Septic shock
# s/p VDRF
# ESRD on HD.
# Extensive BLE DVT s/p IVC filter
Plan:
- Continue meropenem 500 mg IV q 4PM x 6 weeks through 07/14/24.
- Follow weekly CBC/diff, CMP while on meropenem.
-Picc in place
- Infusion sheet for Rehab submitted to [facility] sample case.
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
Type 2 diabetes mellitus
End-stage renal disease on hemodialysis
Hypertension
PAD s/p RLE stent
HLD
Obstructive sleep apnea
Depression
Right foot TMA 03/27/24 [facility]
Chief Complaint
-: Other (Cholecystitis, gas gangrene foot)
Subjective / Review of Systems
No complaints today. Getting HD.
Vital Signs / Physical Exam
Vital Signs
Vital Signs
Temp Pulse Resp BP Pulse Ox
97.8 F 72 18 119/50 96
06/16/24 11:04 06/16/24 11:04 06/16/24 11:04 06/16/24 11:04 06/16/24 11:04
Physical Exam
Constitutional: No Acute Distress
Cardiovascular: Regular Rate and S1/S2
Pulmonary: Clear
Gastrointestinal: Soft, Non Tender, Non Distended and Other (Nay tube with bile. )
Genito-Urinary: Negative CVA Tenderness
Extremities: Negative Edema
Neurological: AO x 3
Lines: PICC (LUE no erythema) and HD Cath (RCW no erythema)
Objective Data
Lab Data
Lab Results
06/16/24 06:00
06/16/24 06:00
ESR 70 mm/hour (0-20) H 05/31/24 02:57
PT 15.1 Sec (11.4-14.6) H 06/14/24 05:19
INR 1.16 06/14/24 05:19
APTT 54.0 Sec (23.4-35.0) H 06/16/24 08:29
Estimated Creat Clear 24 ml/min 06/16/24 06:00
Lactic Acid < 0.5 mmol/L (0.7-2.0) L 06/06/24 10:54
Total Bilirubin 0.7 mg/dl (0.2-1.3) 06/10/24 04:59
AST 56 U/L (17-59) 06/10/24 04:59
ALT 30 U/L (0-50) 06/10/24 04:59
Alkaline Phosphatase 586 U/L (38-126) H 06/10/24 04:59
C-Reactive Protein > 270.00 mg/L (0.0-10.00) H 05/31/24 02:57
Amylase Cancelled 06/01/24 06:00
Most recent labs reviewed.
Micro Results:
06/13/24 17:30 Anaerobic Culture - Preliminary
Leg - Right Culture pending. Anaerobic cultures are examined after 3
days incubation. Additional information to follow.
06/13/24 17:30 Wound Culture - Preliminary
Leg - Right Gram negative bacilli
Gram Stain - Preliminary
05/30/24 21:41 Wound Culture - Final
Abscess Enterobacter cloacae
Enterobacter cloacae#2
Yeast
Gram Stain - Final
05/30/24 21:41 Anaerobic Culture - Final
Abscess Finegoldia magna
05/30/24 15:42 Blood Culture - Final
Blood/Venous No Growth - Final Report
05/30/24 15:42 Blood Culture - Final
Blood/Venous No Growth - Final Report
06/03/24 11:41 MRSA Screen - Final
Nose No Methicillin Resistant Staphylococcus aureus isolated.
05/30/24 16:52 Wound Culture - Final
Foot - Right Enterobacter cloacae
Diptheroids
Yeast
Gram Stain - Final
05/31/24 18:46 Body Fluid Culture - Final
Bile Enterobacter cloacae
Gram Stain - Final
05/30/24 15:42 Urine Culture - Final
Urine NO GROWTH
05/30/24 15:42 Influenza Types A & B (HOLDEN) - Final
Nasal Swab Negative for Influenza A & B, NAAT
Negative results must be combined with clinical observations
and patient history.
Nucleic Acid Amplification test (NAAT)performed on the
[employer] platform.
05/30/24 CXR: No acute cardiopulmonary process within the limitations of very low lung volumes.
05/30/24 ABD US: The gallbladder is distended and filled with stones and sludge. Mild gallbladder wall thickening raising the possibility for acute cholecystitis. However, no appreciable pericholecystic fluid and a reportedly negative sonographic
Bermeo's sign.
05/30/24 Foot XRAY: Soft tissue gas in the right foot and ankle most suggestive of infection
05/31/24 Periph Vasc US: Extensive bilateral lower extremity deep venous thrombosis
06/07/24 CXR: Mild interstitial prominence, suggestive of mild pulmonary edema. Haziness of each hemidiaphragm, which may represent bibasilar airspace disease and/or small bilateral pleural effusions.
[2024-06-16] MEDS: NOVOLOG FLEXPEN SC (12:11)
[2024-06-16] MEDS: NEURONTIN PO (12:12)
[2024-06-16] MEDS: ELIQUIS PO (12:12)
[2024-06-16] MEDS: HEPARIN 25000 UNITS/250 ML IV (12:15)
[2024-06-16 13:01] LABS: Glucose - Point of Care 60 mg/dl (70-99)
[2024-06-16 15:25] VITALS: BP 132/46
--- NOTE | 2024-06-16 15:32 | CON.MD ---
Addendum entered and electronically signed by Norm Holman MD 06/16/24 15:51:
b12 folate tsh all checked and are okay.
Original Note:
Consultation - Medical
-
patient seen chart reviewed. discussed with nursing. mr hussein is a 64 year old male admitted originally with dx of sepsis the source being gas gangrene infection of right foot. he underwent amputation of his right ankle but did not do well and
underwent another surgery, bka amputation. he has had many complications since that time including ahrf for which he was intubated, blood loss and he has received transfusion, tcp for which he was seen by oncology, cholelithiasis, dvt for which ivc
filter recommended. he also has esrd and undergoes dialysis. see medical hx below. he admits he is very depressed. he has not been home for many months given hospital stays and rehabs and says 'the last rehab nearly killed me' ([facility] from
which he was referred this admit). patient thinks of giving up but says he is not at the point of suicidality 'yet' although it is hard for him to be optimistic about his future. he says he really has no hx of depression or anxiety but was started
on cymbalta for pain while at [facility]. there is nothing to suggest psychosis. appetite and sleep are disrupted by illness including chronic pain.
past psych hx see above
medical hx see above patient with many comorbidities including asthma gerd htn hld dm ascvd pvd mika overweight anemia tcp bp 119/50 (hypotension has been a recurrent issue given sepsis and other medical) hgb 7.7 na 136 cr 3.4 bun 29 qtc 476
substance abuse denied
family hx denied
social patient is supportive. two kids in their 20's son is in [facility] in [place] but is on leave currently and visiting. d resides in [facility]. he has a good relationship w them and makes it a point to tell them how proud he is of them
which his parents never did for him. his parents were not abusive but it saddens him that he did not hear from them that they were proud of him. 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 has friends but his illness has isolated him.
mse alert ox3 cooperative nl speech and thought process no psychosis affect constricted mood is depressed see above denies suicidality but is dismayed by so many months of painful illness cognition intact above aver intelligence insight judgment ok
dx unspecified depression
recommendations cymbalta is not recommended in renal failure. nor is it recommended in dialysis as it is not dialyzable. will dc at this point. he says he was on it for about a month . will start zoloft 25 mg to begin which i discussed with him.
patient has been extremely stressed by major medical illness and is understandably cowed by the prospect of future treatment/rehab etc. he will need a lot of support and encouragement. would slowly increase zoloft as tolerated and depending on
response. psych will follow
--- NOTE | 2024-06-16 15:53 | CON.GS ---
Medical History
-
Chief Complaint: Cholecystostomy tube
History of Present Illness:
The patient is a 64-year-old male with multiple medical comorbidities who has been hospitalized from 05/30/2024 through today. General surgery consultation requested for recommendations regarding management of cholecystostomy tube in place.
Past medical history notable for PVD, diabetes, hypertension, hyperlipidemia and TMA performed at outside hospital. He was recently transferred to a local half-way facility for ongoing medical care and due to being on hemodialysis. Brought
into [facility] Emergency Department due to change in mental status, lethargy and right TMA infection.
He was found to be in multisystem organ failure, severe sepsis, underwent urgent below-knee amputation guillotine and CT imaging was concerning for emphysematous cholecystitis. A percutaneous cholecystostomy tube was urgently placed 05/31/2024.
He is currently on the medical floors. Tolerating p.o. intake. Patient denies any active abdominal pain. No nausea or vomiting. His main complaint is that he is depressed over his current medical situation and health. Offers no additional
specific concerns or questions.
Past Medical History
Past Medical History: Other (HARMAN, ESRD, type 2 diabetes, GERD, hypertension)
Past Surgical History: Other (Right BKA)
Social History
Tobacco: Non-Smoker
Alcohol: None
Personal:
Living: Detention
Allergies / Home Medications
Allergy/AdvReac Type Severity Reaction Status Date / Time
No Known Allergies Allergy Unverified 05/13/24 05:59
�Medication �Instructions �Recorded �Confirmed �Type
acetaminophen 325 mg tablet 650 mg PO Q6HPRN PRN mild pain 05/13/24 05/30/24 History
(Tylenol)
acetaminophen 500 mg tablet 1,000 mg PO Q8HPRN PRN moderate 05/13/24 05/30/24 History
(Tylenol Extra Strength) pain
amlodipine 10 mg tablet (Norvasc) 10 mg PO DAILY Blood Pressure 05/13/24 05/30/24 History
aspirin 81 mg tablet,delayed 81 mg PO DAILY Blood Clot 05/13/24 05/30/24 History
release Prevention/Tx
atorvastatin 40 mg tablet (Lipitor) 40 mg PO HS High Cholesterol 05/13/24 05/30/24 History
bisacodyl 10 mg rectal suppository 10 mg IA DAILYPRN PRN if no bm 05/13/24 05/30/24 History
(Dulcolax (bisacodyl)) aftr mom
carvedilol 12.5 mg tablet (Coreg) 12.5 mg PO BID Heart 05/13/24 05/30/24 History
Disease/Condition
clopidogrel 75 mg tablet (Plavix) 75 mg PO DAILY Blood Clot 05/13/24 05/30/24 History
Prevention/Tx
cyanocobalamin (vitamin B-12) 1,000 mcg PO DAILY Supplement 05/13/24 05/30/24 History
1,000 mcg tablet
duloxetine 20 mg capsule,delayed 20 mg PO BID Mental Health/Anxiety 05/13/24 05/30/24 History
release sprinkle
fluticasone propionate 50 2 spray intranasal DAILY Allergies 05/13/24 05/30/24 History
mcg/actuation nasal
spray,suspension
gabapentin 100 mg capsule 100 mg PO TID Pain 05/13/24 05/30/24 History
insulin aspart U-100 100 unit/mL 4 unit SC AC Diabetes 05/13/24 05/30/24 History
(3 mL) subcutaneous pen (Novolog
FlexPen U-100 Insulin aspart)
insulin glargine 100 unit/mL (3 10 unit SC HS Diabetes 05/13/24 05/30/24 History
mL) subcutaneous pen (Lantus
Solostar U-100 Insulin)
omeprazole 20 mg capsule,delayed 20 mg PO DAILY Gastrointestinal 05/13/24 05/30/24 History
release Issue
oxycodone 15 mg tablet 15 mg PO Q12H Pain 05/13/24 05/30/24 History
polyethylene glycol 3350 17 gram 17 g PO DAILY Constipation 05/13/24 05/30/24 History
oral powder packet (Miralax)
sennosides 8.6 mg-docusate sodium 2 tab-cap PO HS Constipation 05/13/24 05/30/24 History
50 mg tablet (Senna-S)
sevelamer carbonate 800 mg tablet 800 mg PO MEALS Kidney Disease 05/13/24 05/30/24 History
simethicone 80 mg chewable tablet 160 mg PO Q6HPRN PRN flatulence 05/13/24 05/30/24 History
ondansetron HCl 4 mg tablet 4 mg PO Q6HPRN PRN nausea 05/30/24 05/30/24 History
oxycodone 5 mg tablet 5 mg PO Q8HPRN PRN breakthrough 05/30/24 05/30/24 History
pain
Review of Systems
-
A 10 point review of systems was completed, and was negative except as per HPI.
Physical Exam
Vital Signs
Temp Pulse Resp BP Pulse Ox
97.4 F 77 18 132/46 98
06/16/24 15:25 06/16/24 15:25 06/16/24 15:25 06/16/24 15:25 06/16/24 15:25
06/15/24 06/16/24 06/17/24
06:59 06:59 06:59
Actual Weight 91.399 kg 92.59 kg
Body Mass Index (BMI) 33.0
Lab Results
06/16/24 06:00
06/16/24 06:00
WBC 10.5 10^3/uL (4.8-10.8) 06/16/24 06:00
Hgb 7.7 g/dL (13.0-18.0) L 06/16/24 06:00
Hct 25.1 % (39.0-52.0) L 06/16/24 06:00
Plt Count 153 10^3/uL (130-400) 06/16/24 06:00
Abs Immat Gran (auto) 0.2 10^3/uL (0-0.05) H 06/13/24 04:25
Neutrophils % 78.4 % (42.2-75.2) H 06/13/24 04:25
Physical Exam
General: Well Developed, Comfortable and Other (Chronically ill-appearing, lying in hospital bed)
HEENT: Normocephalic, Anicteric and Moist Mucous Membranes
Respiratory: Non Labored Respirations
GI: Soft, Non Tender, Non Distended and Other (Right sided percutaneous cholecystostomy tube drain in place. [place] bag with bilious contents.)
Data Reviewed
-
CT Scan: Image Personally Visualized and interpreted, Report Reviewed by me, Discussed with Physician, Discussed with Patient and Discussed with Family
Labs: Labs Reviewed by me, Discussed with Physician, Discussed with Patient and Discussed with Family
Assessment / Plan
-
Assessment: 64-year-old male recently status post right BKA, emphysematous cholecystitis managed with percutaneous cholecystostomy tube, bilateral acute DVT and possible lupus anticoagulant/hypercoagulable state. IR filter in place.
Clinically stable with functioning percutaneous cholecystostomy tube.
Plan: Advised patient and his via phone call that percutaneous cholecystostomy tubes are typically allowed to mature in place for at least 6 to 8 weeks prior to consideration of cholecystectomy both to allow for recovery from acute illness and
acute/subacute inflammatory process from cholecystitis. In the setting of the patient's acute bilateral lower extremity DVT during this hospitalization would also typically defer on any acute surgical intervention that would involve discontinuing
therapeutic anticoagulation ideally for 3 to 6 months. Percutaneous cholecystostomy tube can remain in place during this timeframe.
Continue with current local tube care.
Diet as tolerated
Patient is not from the [facility] and unsure which half-way facility he may be discharged to. Advised his subsequent follow-up can either be with myself/our general surgical practice at [facility] or a local general
surgeon in his area.
Please call if can be of further assistance during patient's hospitalization.
[2024-06-16] MEDS: NEURONTIN 100 MG PO ×2 (16:13→22:26)
[2024-06-16] MEDS: STERILE WATER FOR INJECTION 10 ML IV (16:14)
[2024-06-16] MEDS: MERREM 500 MG IV (16:14)
--- NOTE | 2024-06-16 17:13 | PTOTSP ---
ST Follow-Up
Pt currently presenting with clinical signs of fairly mild oropharyngeal dysphagia characterized by prolonged but functional mastication and bolus formation of solids and brief, seldom throat clearing with ingestion of thin liquids.
Recommendations:
- Diet can be upgraded to SOFT BITE SIZED SOLIDS (pt's preference - recommended regular, but he chose L6), and THIN LIQUIDS; meds as tolerated.
- Aspiration and reflux precautions: HOB upright for all PO intake and for 60 minutes after PO intake; small bites/sips; slow intake rate; alternate solids/liquids.
- CLIENT RELATION SPECIALIST to f/u re: diet tolerance, use of compensatory strategies, and to determine if pt would benefit from an instrumental swallow study.
[2024-06-16 17:48] LABS: Glucose - Point of Care 142 mg/dl (70-99)
[2024-06-16] MEDS: COUMADIN 7.5 MG PO (17:54)
[2024-06-16 19:30] VITALS: BP 124/45
[2024-06-16 19:53] LABS: APTT > 200 Sec (23.4-35.0)
[2024-06-16 21:11] LABS: Glucose - Point of Care 89 mg/dl (70-99)
[2024-06-16] MEDS: COLACE 200 MG PO (22:26)
[2024-06-16] MEDS: LANTUS 0.1 UNITS SC (22:26)
[2024-06-16] MEDS: SENOKOT 17.2 MG PO (22:27)
[2024-06-16] MEDS: ProAmatine PO (22:30)
[2024-06-16 23:30] VITALS: BP 150/64
[2024-06-17 03:16] VITALS: BP 139/45
[2024-06-17 04:25] LABS: Hematocrit 23.7 % (39.0-52.0); Hemoglobin 7.5 g/dL (13.0-18.0); Mean Corp Hgb Conc. 31.6 g/dL (33.0-37.0); Mean Corpuscular Hgb 29.8 pg (27.0-31.0); Mean Platelet Volume 9.4 fL (7.4-10.4); Platelet Count 154 10^3/uL (130-400); Red Blood Cell Count 2.52 10^6/uL (4.70-6.10); Red Cell Dist. Width 16.9 % (11.5-14.5); White Blood Cell Count 9.4 10^3/uL (4.8-10.8)
[2024-06-17 05:03] LABS: APTT 152.4 Sec (23.4-35.0)
[2024-06-17 05:52] LABS: Blood Urea Nitrogen 18 mg/dl (9-20); Carbon Dioxide 31 mmol/L (22-30); Chloride 97 mmol/L (98-107); Estimated Creatinine Clearance 38 ml/min; Glucose 90 mg/dl (70-99); Potassium 3.9 mmol/L (3.5-5.1); Sodium 134 mmol/L (135-145); eGFR 34.72
[2024-06-17 06:00] VITALS: BMI 33.2
[2024-06-17 07:48] VITALS: BP 141/63
--- NOTE | 2024-06-17 07:51 | PN.DE.MGMTRT ---
Insulin Management
- -
06/17/2024: Diabetes Management follow up
Patient admitted 05/30 with change in level of consciousness. PMH PVD, asthma, GERD, HTN, HCL, diabetes, renal failure (HD 3 x per week). Patient found to have severe sepsis with R foot wound with purulent drainage most likely source. Patient has
since gone to OR for amputation of R foot 05/31.
Prior to admission was taking 4 units NovoLog AC with Lantus 10 units @ hs. A1C 7.8%, Cr 1.1, eGFR>60-->1.6, eGFR 48.11-->2.1, eGFR 34.72 today.
06/03 Pt was transitioned off insulin infusion. 3/ Tube feeds discontinued, Dysphagia diet ordered. Pt noted for poor appetite poor.
POD # 17 s/p R foot amputation. POD# 4 s/p RLE BKA.
Patient is awake and alert, able to discuss diabetes care, nursing reports he has been depressed, appetite improving slowly.
Glucose has remained low normal with an episode of Hypoglycemia to 56 pre-lunch yesterday. Glucose @HS was 89 and FBG 90 this AM.
Will reduce Lantus dose to 8 units, and reduce AC NovoLog to 3 units. Cont low corrective AC.
Please HOLD 3 units AC NovoLog if patient does not eat and continue corrective insulin.
Discussed with nurse. Will cont to follow and make further adjustments if necessary
Diabetes History
- -
Type of Diabetes: 2 requiring insulin
Pre-Admission Diabetes Regimen
06/16/24 06/17/24
06:00 04:10
Creatinine 3.4 H 2.1 H
Lab Results
Hemoglobin A1c 7.8 % (4.0-5.6) H 05/31/24 02:57
Insulin Pump Settings
IP Diabetes Regimen
06/16/24 06/16/24 06/16/24
06:00 07:56 12:08
Glucose 77
POC Glucose 82 56 L
06/16/24 06/16/24 06/16/24
13:00 17:47 21:09
Glucose
POC Glucose 60 L 142 H 89
06/17/24
04:10
Glucose 90
POC Glucose
Patient Education
[2024-06-17 08:04] LABS: Glucose - Point of Care 99 mg/dl (70-99)
--- NOTE | 2024-06-17 08:18 | CON.MR ---
Documented by User: Angelia Bautista MD, Resident 06/17/24 14:23
Medical History
-
History of Present Illness:
History of Present Illness: 64-year-old male with a past medical history of DM type II, HARMAN, depression, GERD, hypertension, right foot wound, PAD and ESRD on HD who presented from [facility] with altered mental status. Septic shock due to gas
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 Was transferred to the ICU requiring multiple pressors, was
intubated in the OR and extubated after 8 days on ventilation. Patient was found to have bilateral DVT in the ICU, was started on heparin gtt. Patient was initially started on HD, but with hemodynamic instability in the ICU, CRRT was started. Wound
cultures and bowel culture were positive for multi drug resistant Enterobacter cloacae, patient was started on meropenem. Patient had intermittent bleeding from amputation site, developed anemia status post 8 units PRBC. In the meantime, there was
concern for HIT with mild thrombocytopenia and heparin was transitioned to argatroban and IVC filter was placed. However, HIT panel was negative and anticoagulation was switched to Eliquis. Per oncology, in the setting of positive lupus
anticoagulant, warfarin is the better anticoagulation option hence patient is currently on heparin bridge. Psychiatry consulted for patient's depressive mood, advised discontinuing Cymbalta due to dialysis needs and starting Zoloft with up titration
as needed. Surgery consulted regarding management of cholecystostomy tube, advised deferring any acute surgical intervention that would involve discontinuing therapeutic anticoagulation ideally for 3 to 6 months, keeping cholecystotomy tube in place
during this time frame and eventual cholecystectomy after that.
Patient complains of burning pain in right leg. Pain management at this time includes Tylenol as needed, gabapentin 100 mg 3 times daily, Dilaudid 0.25 to 0.5 mg as needed, and oxycodone 5 mg as needed. Antibiotic needs to be continued through
07/14/2024, PICC line in place. PTT this morning 152. Hemoglobin 7.5 today, dropped from 7.7 yesterday.
Past Medical History: DM type II, HARMAN, depression, GERD, hypertension, right foot wound, PAD and ESRD on HD (tunneled catheter)
Procedure History: Transmetatarsal amputation
Family History: Not pertinent
Social History:
Functional Level Premorbidly: Independent with all activities
Functional Level Currently: Maximum assistance with mobility, dependent with toileting and lower extremity self-care, minimal assistance with grooming and upper extremity self-care
Tobacco: Denies
Alcohol: Denies
Drug use: Denies
Lives with:
24-hour assistance available: No
Number of floors: 2
# steps to enter: 2
# steps to second floor: 13
Potential First floor set up: No
Driving: Yes
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
Review of Systems:
Constitutional: (x) Normal _
Eye: (x) Normal _
Ear/Nose/Throat: (x) Normal _
Respiratory: (x) Normal _
Cardiovascular: (x) Normal _
Gastrointestinal: (x) Normal _
Genitourinary: (x) Normal _
Musculoskeletal: (x) Abnormal _ right BKA
Integumentary: (x) Normal _
Neurologic: (x) Normal _
Psychiatric: (x) Abnormal _ depressed, frustrated, anxious
Endocrine: (x) Normal _
Hematologic/Lymphatic: (x) Normal _
Allergic/Immunologic: (x) Normal _
Allergies / Home Medications
Allergy/AdvReac Type Severity Reaction Status Date / Time
No Known Allergies Allergy Unverified 05/13/24 05:59
�Medication �Instructions �Recorded �Confirmed �Last Taken �Type
acetaminophen 325 mg tablet 650 mg PO Q6HPRN PRN mild pain 05/13/24 05/30/24 Unknown History
(Tylenol)
acetaminophen 500 mg tablet 1,000 mg PO Q8HPRN PRN moderate 05/13/24 05/30/24 Unknown History
(Tylenol Extra Strength) pain
amlodipine 10 mg tablet (Norvasc) 10 mg PO DAILY Blood Pressure 05/13/24 05/30/24 Unknown History
aspirin 81 mg tablet,delayed 81 mg PO DAILY Blood Clot 05/13/24 05/30/24 Unknown History
release Prevention/Tx
atorvastatin 40 mg tablet (Lipitor) 40 mg PO HS High Cholesterol 05/13/24 05/30/24 Unknown History
bisacodyl 10 mg rectal suppository 10 mg DC DAILYPRN PRN if no bm 05/13/24 05/30/24 Unknown History
(Dulcolax (bisacodyl)) aftr mom
carvedilol 12.5 mg tablet (Coreg) 12.5 mg PO BID Heart 05/13/24 05/30/24 Unknown History
Disease/Condition
clopidogrel 75 mg tablet (Plavix) 75 mg PO DAILY Blood Clot 05/13/24 05/30/24 Unknown History
Prevention/Tx
cyanocobalamin (vitamin B-12) 1,000 mcg PO DAILY Supplement 05/13/24 05/30/24 Unknown History
1,000 mcg tablet
duloxetine 20 mg capsule,delayed 20 mg PO BID Mental Health/Anxiety 05/13/24 05/30/24 Unknown History
release sprinkle
fluticasone propionate 50 2 spray intranasal DAILY Allergies 05/13/24 05/30/24 Unknown History
mcg/actuation nasal
spray,suspension
gabapentin 100 mg capsule 100 mg PO TID Pain 05/13/24 05/30/24 Unknown History
insulin aspart U-100 100 unit/mL 4 unit SC AC Diabetes 05/13/24 05/30/24 Unknown History
(3 mL) subcutaneous pen (Novolog
FlexPen U-100 Insulin aspart)
insulin glargine 100 unit/mL (3 10 unit SC HS Diabetes 05/13/24 05/30/24 Unknown History
mL) subcutaneous pen (Lantus
Solostar U-100 Insulin)
omeprazole 20 mg capsule,delayed 20 mg PO DAILY Gastrointestinal 05/13/24 05/30/24 Unknown History
release Issue
oxycodone 15 mg tablet 15 mg PO Q12H Pain 05/13/24 05/30/24 Unknown History
polyethylene glycol 3350 17 gram 17 g PO DAILY Constipation 05/13/24 05/30/24 Unknown History
oral powder packet (Miralax)
sennosides 8.6 mg-docusate sodium 2 tab-cap PO HS Constipation 05/13/24 05/30/24 Unknown History
50 mg tablet (Senna-S)
sevelamer carbonate 800 mg tablet 800 mg PO MEALS Kidney Disease 05/13/24 05/30/24 Unknown History
simethicone 80 mg chewable tablet 160 mg PO Q6HPRN PRN flatulence 05/13/24 05/30/24 Unknown History
ondansetron HCl 4 mg tablet 4 mg PO Q6HPRN PRN nausea 05/30/24 05/30/24 Unknown History
oxycodone 5 mg tablet 5 mg PO Q8HPRN PRN breakthrough 05/30/24 05/30/24 Unknown History
pain
Physical Exam
Active Medications
Generic Name Dose Route Start Last Admin
Trade Name Freq PRN Reason Stop Dose Admin
Acetaminophen 650 mg 05/30/24 20:39
Acetaminophen 650 Mg Rectal Suppository RECTAL 06/27/24 20:38
Q4HPRN PRN
mild pain/ temp > 100.4F
Acetaminophen 650 mg 06/07/24 16:59 06/08/24 05:46
Acetaminophen 325 Mg Tablet PO 07/05/24 16:58 650 mg
Q4HPRN PRN Administration
mild pain or temp > 100.4 F
Bisacodyl 10 mg 05/31/24 19:45
Bisacodyl 10 Mg Rectal Suppository RECTAL 06/28/24 19:44
DAILYPRN PRN
no BM within 72 hours
Dextrose 12.5 grams 06/03/24 10:47
Dextrose 50% (0.5 Grams/Ml) 50 Ml Syringe IV 07/01/24 10:46
[id number] PRN
BLOOD GLUCOSE < 70
Docusate Sodium 200 mg 06/07/24 22:00 06/16/24 22:26
Docusate Sodium 100 Mg Capsule PO 07/05/24 21:59 200 mg
HS JENNIFER Administration
Folic Acid 1 mg 06/10/24 10:00 06/10/24 12:59
Folic Acid 1 Mg Tablet PO 07/08/24 09:59 Not Given
DAILY JENNIFER
Gabapentin 100 mg 06/16/24 10:06 06/16/24 22:26
Gabapentin 100 Mg Capsule PO 07/05/24 15:59 100 mg
TID JENNIFRE Administration
Glucagon 1 mg 06/03/24 10:47
Glucagon 1 Mg Vial IM 07/01/24 10:46
PRN PRN
hypoglycemia
Protocol
Heparin Sodium 7,400 units 06/16/24 09:47
Heparin 80 Units/Kg Iv Rebolus IV 07/14/24 09:46
PRN PRN
PTT < OR = 64 seconds
Heparin Sodium 3,700 units 06/16/24 09:48
Heparin 40 Units/Kg Iv Rebolus IV 07/14/24 09:47
PRN PRN
PTT = 64.1 to 72.9 seconds
Hydromorphone HCl 0.25 mg 06/13/24 18:23 06/13/24 20:24
Hydromorphone 0.25 Mg/0.5 Ml Syringe IV 06/27/24 18:22 0.25 mg
Q4HPRN PRN Administration
severe pain
Hydromorphone HCl 0.5 mg 06/13/24 20:46 06/15/24 17:47
Hydromorphone 0.5 Mg/0.5 Ml Syringe IV 06/27/24 20:45 0.5 mg
Q2HPRN PRN Administration
severe pain
Insulin Glargine 10 units/ 0.1 mls @ 0 mls/hr 06/09/24 16:36 06/16/24 22:26
Device SC 07/07/24 16:35 0.1 mls
HS JENNIFER Administration
As Directed
Folic Acid 1 mg/ Sodium 50.2 mls @ 200.8 mls/hr 06/10/24 13:05 06/16/24 12:05
Chloride IV 07/08/24 13:04 50.2 mls
DAILY JENNIFER Administration
Heparin Sodium 25,000 units in 250 mls @ 0 mls/hr 06/16/24 08:30 06/16/24 12:15
Heparin 70970 Units/250 Ml IV 250 mls
PER PROTOCOL JENNIFER Administration
Protocol
Per Protocol
Insulin Aspart 4 units 06/09/24 08:00 06/16/24 17:56
Insulin Aspart (100 Units/Ml) 3 Ml Flexpen SC 07/07/24 07:59 4 units
AC JENNIFER Administration
Insulin Aspart 0 units 06/14/24 07:30 06/16/24 17:54
Insulin Aspart Low Resistance 300 Units/3 Ml Pen.Injctr SC 07/12/24 07:29 Not Given
AC JENNIFER
Protocol
Meropenem 500 mg 06/14/24 16:00 06/16/24 16:14
Meropenem 500 Mg/10 Ml Vial IV 07/14/24 16:01 500 mg
1600 JENNIFER Administration
Midodrine 5 mg 06/08/24 22:00 06/16/24 22:30
Midodrine 5 Mg Tablet PO 07/06/24 21:59 Not Given
TID JENNIFER
Oxycodone HCl 5 mg 06/13/24 20:48
Oxycodone 5 Mg Regular Release Tablet PO 06/23/24 10:27
Q8HPRN PRN
mod pain
Pantoprazole Sodium 40 mg 06/10/24 08:00 06/16/24 07:54
Pantoprazole 40 Mg Delayed Release Tablet PO 07/08/24 07:59 40 mg
DAILY JENNIFER Administration
Sennosides 17.2 mg 06/07/24 22:00 06/16/24 22:27
Sennosides (Senokot) 8.6 Mg Tablet PO 07/05/24 21:59 17.2 mg
HS JENNIFER Administration
Sertraline HCl 25 mg 06/17/24 08:00
Sertraline 25 Mg Tablet PO 07/15/24 07:59
DAILY JENNIFER
Sodium Chloride 0 flush 05/30/24 19:00
Sodium Chloride 0.9% (Flush) Syringe IV 06/27/24 18:59
PER PROTOCOL JENNIFER
Sodium Chloride 0 flush 06/01/24 08:09
Sodium Chloride 0.9% (Flush) Syringe IV 06/29/24 08:08
PRN PRN
disconnect from dialysis
Sterile Water 10 ml 06/08/24 22:00 06/16/24 16:14
Sterile Water For Injection 10 Ml Vial IV 07/06/24 21:59 10 ml
QPM JENNIFER Administration
Warfarin Sodium 7.5 mg 06/16/24 18:00 06/16/24 17:54
Warfarin 7.5 Mg Tablet PO 06/21/24 17:59 7.5 mg
QPM JENNIFER Administration
Vital Signs
Temp Pulse Resp BP Pulse Ox
98.0 F 70 12 141/63 98
06/17/24 07:48 06/17/24 07:48 06/17/24 07:48 06/17/24 07:48 06/17/24 07:48
Height 5 ft 6 in
Actual Weight 93.242 kg
Body Mass Index (BMI) 33.2
Physical Exam
Physical Exam:
General Appearance/Observation: Well-developed, well-nourished individual in no apparent distress.
Pain/Comfort Assessment: Burning pain in right lower extremity (about amputation site).
Mood/Affect: Depressed
Integumentary/Operative Site:
Pressure Ulcer: absent, Multi-Podus splint in place on left lower extremity
Other Type of Wound: Right BKA intact, CASE wrapped, no drainage, redness, swelling
Eyes: Conjunctiva/Lids: normal Pupils: pupils equal round and reactive to light and Accommodation
Ears/Nose/Throat: oral mucosa moist, throat clear. Lips/Teeth/Gums: normal
Neck: No muscle spasm or tenderness
Cardiovascular: Heart: regular, no murmur
Pulses: left lower extremity well-perfused
Respiratory: Respiratory Effort/Chest Expansion: normal Auscultation: Clear to auscultation bilaterally, decreased breath sounds at bases
Gastrointestinal: abdomen not tender, no distension, normal abdominal bowel sounds, cholecystostomy tube in place
Genitourinary: No Holcomb
Rectal Exam: Deferred
Extremities: Edema: None Cyanosis: None Trophic changes: None
Neurology Exam:
Orientation: Alert, Oriented to self, Time, Place
Memory: Intact immediately and at 3 minutes
Higher cortical function
Speech: Intact
Repetition: Intact
Comprehension: Intact
Two step command: Intact
Naming: Intact
Cranial Nerves:
CNII: Pupillary light reflex: Intact Visual Field: Intact
CN III, IV, : Extraocular muscles: Intact
CN V: Facial Sensation at Forehead: Intact , Maxilla: Intact, Mandible: Intact
CN VII: Facial movement: Symmetric
CN VIII: Hearing: Normal
CN IX/X: Speech & swallow: Normal, Position of Uvula: Midline
CN XI: Shoulder shrug: Symmetric
CN XII: Tongue protrusion: Midline
Sensory:
Light touch: Intact in bilateral upper and lower extremities
Reflexes:
Biceps: 2+ bilaterally
Brachioradialis: 2+ bilaterally
Triceps: 2+ bilaterally
Patellar: 2+ left
Achilles: 2+ left
Babinski: Downgoing left
Clonus: None
Zeeshan: Negative bilaterally
Cerebellar: Dysmetria/Ataxia: None
Musculoskeletal:
Motor: (Manual muscle scale 0-5)
Muscle SA EF WE EE FF FA HF KE DF EHL PF
Right 4 4 4+ 4 5 5 3
Left 4 4 4+ 4 5 2 2 1 2
Tone: Normal in all extremities
Range of Motion: Passively within normal limits in all extremities
Lab Results
06/17/24 04:10
06/17/24 04:10
WBC 9.4 10^3/uL (4.8-10.8) 06/17/24 04:10
Hgb 7.5 g/dL (13.0-18.0) L 06/17/24 04:10
Hct 23.7 % (39.0-52.0) L 06/17/24 04:10
MCV 94.0 fL (80.0-94.0) 06/17/24 04:10
Plt Count 154 10^3/uL (130-400) 06/17/24 04:10
ESR 70 mm/hour (0-20) H 05/31/24 02:57
PT 15.1 Sec (11.4-14.6) H 06/14/24 05:19
INR 1.16 06/14/24 05:19
Sodium 134 mmol/L (135-145) L 06/17/24 04:10
Potassium 3.9 mmol/L (3.5-5.1) 06/17/24 04:10
Chloride 97 mmol/L (98-107) L 06/17/24 04:10
Carbon Dioxide 31 mmol/L (22-30) H 06/17/24 04:10
BUN 18 mg/dl (9-20) 06/17/24 04:10
Creatinine 2.1 mg/dL (0.7-1.3) H 06/17/24 04:10
eGFR 34.72 06/17/24 04:10
Glucose 90 mg/dl (70-99) 06/17/24 04:10
Hemoglobin A1c 7.8 % (4.0-5.6) H 05/31/24 02:57
Calcium 8.0 mg/dl (8.4-10.2) L 06/17/24 04:10
Phosphorus 3.8 mg/dl (2.5-4.5) 06/15/24 03:55
Magnesium 1.7 mg/dl (1.6-2.3) 06/15/24 03:55
Total Bilirubin 0.7 mg/dl (0.2-1.3) 06/10/24 04:59
Direct Bilirubin 0.6 mg/dl (0.0-0.4) H 06/06/24 04:31
AST 56 U/L (17-59) 06/10/24 04:59
ALT 30 U/L (0-50) 06/10/24 04:59
Alkaline Phosphatase 586 U/L (38-126) H 06/10/24 04:59
C-Reactive Protein > 270.00 mg/L (0.0-10.00) H 05/31/24 02:57
Total Protein 5.0 g/dl (6.3-8.2) L 06/10/24 04:59
Albumin 2.3 g/dl (3.5-5.0) L 06/10/24 04:59
Diagnostic Results
As per HPI.
Assessment / Plan
Plan
PM&R PT/OT to increase independence with ADLs, improve balance, coordination, endurance, strength, mobility, community reintegration, decreased burden of care on others and family education.
Peripheral polyneuropathy s/p right BKA: Patient has paresthesia about right BKA.
Status post right BKA: Monitor incision, pain control, edema control with CASE wrap, incision care per vascular surgery, may shower. Desensitization, [place]om limb pain education, maintain full ROM at hip and knee.
HTN: home medications currently held, on midodrine, monitor pressures closely
HLD: Statin held due to abnormal LFT
DM II: Accu-Cheks, continue insulin aspart and Lantus.
GERD: Continue PPI
HARMAN: possible CPAP use.
Bacteremia: Continue course of antibiotics.
Acute lower extremity DVT: Continue heparin, with goal of transitioning to Coumadin with goal INR 2-3.
Pressure ulcers: Vitamin C, zinc, multivitamin. Weight shifts in wheelchair and bed. Roho cushion. Pressure-relief boots. Lotrimin to fungal rash over buttocks and inguinal region.
Anemia: Likely multifactorial. Continue to monitor.
Thrombocytopenia: Continue to monitor.
Psych: Psychology on board. Discontinued Cymbalta and started Zoloft. Monitor mood, adjust medications as needed.
Skin: monitor for pressure sores/rashes/lesions.
Pain: Continue gabapentin, acetaminophen or oxycodone as needed.
Bowel: Colace and Senna, PRN bisacodyl.
Bladder: Time void, PVRs, PRN straight cath.
DVT Prophylaxis: Continue heparin, with goal of transitioning to Coumadin with goal INR 2-3.
Pulmonary: Incentive spirometry
Morbid obesity: Continue to student counsellor patient about diet adjustments to control obesity. Body habitus and increased force to move body and extremities causes further difficulty with functional tasks.
Safety: Continue to reinforce assistance with all transfers.
Code Status: Full code
Dispo (date/plan/equipment needs): Acute rehab. Social history reviewed.
Functional and Medical Goals: Modified Independent with ADL�s, ambulation, transfers
Summary
-
Summary of recommendations:
- Discharge Destination: [place] [facility]
Thank you for allowing me to care for your patient. Please contact me with any questions or concerns.
Comments
-
This note was dictated using a voice recognition system. Please excuse any typographical errors from field hockey coach. If you believe there are any discrepancies, please notify our office.

Documented by User: Cornell Hatfield MD 06/17/24 22:18
Consultation
Consultation Request
Requesting Provider: Dr. Luis Alberto De La Torre
Performing Provider: Dr. Hatfield
Reason for Consultation: Below the knee amputation
Medical History
-
History of Present Illness:
History of Present Illness: 64-year-old male with a past medical history of DM type II, HARMAN, depression, GERD, hypertension, right foot wound, PAD and ESRD on HD who presented from [facility] with altered mental status. Septic shock due to gas
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 Was transferred to the ICU requiring multiple pressors, was
intubated in the OR and extubated after 8 days on ventilation. Patient was found to have bilateral DVT in the ICU, was started on heparin gtt. Patient was initially started on HD, but with hemodynamic instability in the ICU, CRRT was started. Wound
cultures and bowel culture were positive for multi drug resistant Enterobacter cloacae, patient was started on meropenem. Patient had intermittent bleeding from amputation site, developed anemia status post 8 units PRBC. In the meantime, there was
concern for HIT with mild thrombocytopenia and heparin was transitioned to argatroban and IVC filter was placed. However, HIT panel was negative and anticoagulation was switched to Eliquis. Per oncology, in the setting of positive lupus
anticoagulant, warfarin is the better anticoagulation option hence patient is currently on heparin bridge. Psychiatry consulted for patient's depressive mood, advised discontinuing Cymbalta due to dialysis needs and starting Zoloft with up titration
as needed. Surgery consulted regarding management of cholecystostomy tube, advised deferring any acute surgical intervention that would involve discontinuing therapeutic anticoagulation ideally for 3 to 6 months, keeping cholecystotomy tube in place
during this time frame and eventual cholecystectomy after that.
Patient complains of burning pain in right leg. Pain management at this time includes Tylenol as needed, gabapentin 100 mg 3 times daily, Dilaudid 0.25 to 0.5 mg as needed, and oxycodone 5 mg as needed. Antibiotic needs to be continued through
07/14/2024, PICC line in place. PTT this morning 152. Hemoglobin 7.5 today, dropped from 7.7 yesterday.
Past Medical History: DM type II, HARMAN, depression, GERD, hypertension, right foot wound, PAD and ESRD on HD (tunneled catheter)
Procedure History: Transmetatarsal amputation
Family History: Not pertinent
Social History:
Functional Level Premorbidly: Independent with all activities
Functional Level Currently: Maximum assistance with mobility, dependent with toileting and lower extremity self-care, minimal assistance with grooming and upper extremity self-care
Tobacco: Denies
Alcohol: Denies
Drug use: Denies
Lives with:
24-hour assistance available: No
Number of floors: 2
# steps to enter: 2
# steps to second floor: 13
Potential First floor set up: No
Driving: Yes
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
Review of Systems:
Constitutional: (x) abNormal _fatigue
Eye: (x) Normal _
Ear/Nose/Throat: (x) Normal _
Respiratory: (x) Normal _
Cardiovascular: (x) Normal _
Gastrointestinal: (x) Normal _
Genitourinary: (x) Normal _
Musculoskeletal: (x) Abnormal _ right BKA
Integumentary: (x) Normal _
Neurologic: (x) abNormal _neuropathic pain
Psychiatric: (x) Abnormal _ depressed, frustrated, anxious
Endocrine: (x) Normal _
Hematologic/Lymphatic: (x) Normal _
Allergic/Immunologic: (x) Normal _
Assessment / Plan
Plan
PM&R PT/OT to increase independence with ADLs, improve balance, coordination, endurance, strength, mobility, community reintegration, decreased burden of care on others and family education.
Peripheral polyneuropathy s/p right BKA: Patient has paresthesia about right BKA.
Status post right BKA: Monitor incision, pain control, edema control with CASE wrap, incision care per vascular surgery, may shower. Desensitization, Phatom limb pain education, maintain full ROM at hip and knee.
HTN: home medications currently held, on midodrine, monitor pressures closely
HLD: Statin held due to abnormal LFT
DM II: Accu-Cheks, continue insulin aspart and Lantus.
GERD: Continue PPI
HARMAN: possible CPAP use.
Bacteremia: Continue course of antibiotics.
Acute lower extremity DVT: Continue heparin, with goal of transitioning to Coumadin with goal INR 2-3.
Pressure ulcers: Vitamin C, zinc, multivitamin. Weight shifts in wheelchair and bed. Roho cushion. Pressure-relief boots. Lotrimin to fungal rash over buttocks and inguinal region.
Anemia: Likely multifactorial. Continue to monitor.
Thrombocytopenia: Continue to monitor.
Psych: Psychology on board. Discontinued Cymbalta and started Zoloft. Monitor mood, adjust medications as needed.
Skin: monitor for pressure sores/rashes/lesions.
Pain: Continue gabapentin, acetaminophen or oxycodone as needed.
Bowel: Colace and Senna, PRN bisacodyl.
Bladder: Time void, PVRs, PRN straight cath.
DVT Prophylaxis: Continue heparin, with goal of transitioning to Coumadin with goal INR 2-3.
Pulmonary: Incentive spirometry
Morbid obesity: Continue to student counsellor patient about diet adjustments to control obesity. Body habitus and increased force to move body and extremities causes further difficulty with functional tasks.
Safety: Continue to reinforce assistance with all transfers.
Code Status: Full code
Dispo (date/plan/equipment needs): Acute rehab. Social history reviewed.
Functional and Medical Goals: Modified Independent with ADL�s, ambulation, transfers
Attending addendum: Patient seen and examined with resident. Agree with above with adjustments as noted below.
Physical Exam:
General Appearance/Observation: Well-developed, well-nourished male in no apparent distress.
Pain/Comfort Assessment: Burning pain in right lower extremity (at amputation site and lower leg that is no longer there).
Mood/Affect: Depressed
Integumentary/Operative Site:
Pressure Ulcer: absent, Multi-Podus splint in place on left lower extremity
Other Type of Wound: Right BKA intact, CASE wrapped, no drainage, redness, swelling
Eyes: Conjunctiva/Lids: normal Pupils: pupils equal round and reactive to light and Accommodation
Ears/Nose/Throat: oral mucosa moist, throat clear. Lips/Teeth/Gums: normal
Cardiovascular: Heart: regular, no murmur
Pulses: left lower extremity well-perfused
Respiratory: Respiratory Effort/Chest Expansion: normal Auscultation: Clear to auscultation bilaterally, decreased breath sounds at bases
Gastrointestinal: abdomen not tender, no distension, normal abdominal bowel sounds, cholecystostomy tube in place
Genitourinary: No Holcomb
Extremities: Edema: None Cyanosis: None Trophic changes: None
Neurology Exam:
Orientation: Alert, Oriented to self, Time, Place
Memory: Intact for recent medical concerns
Comprehension: Intact
Two step command: Intact
Cranial Nerves:
CNII: Pupillary light reflex: Intact
CN VII: Facial movement: Symmetric
CN VIII: Hearing: Normal
CN IX/X: Speech & swallow: Normal, Position of Uvula: Midline
CN XI: Shoulder shrug: Symmetric
CN XII: Tongue protrusion: Midline
Sensory:
Light touch: Intact in bilateral upper and lower extremities
Reflexes:
Biceps: 2+ bilaterally
Brachioradialis: 2+ bilaterally
Triceps: 2+ bilaterally
Patellar: 2+ left, right not tested
Achilles: 0 left
Babinski: Downgoing left
Clonus: None
Zeeshan: Negative bilaterally
Cerebellar: Dysmetria/Ataxia: None
Musculoskeletal: Motor: (Manual muscle scale 0-5)
Muscle SA EF WE EE FF FA HF KE DF EHL PF
Right 4 4 4+ 4 5 5 3 - - -
Left 4 4 4+ 4 5 2 2 1 2
Tone: Normal in all extremities
Range of Motion: Passively within functional limits in all extremities
Assessment
64-year-old male status post right transtibial amputation with ADL and amatory dysfunction.
Plan
PM&R PT/OT to increase independence with ADLs, improve balance, coordination, endurance, strength, mobility, community reintegration, decreased burden of care on others and family education.
Diabetic peripheral polyneuropathy s/p right BKA: Patient has paresthesia about right BKA, gabapentin which can be given at 300 mg after dialysis..
Status post right BKA: Monitor incision, pain control, edema control with CASE wrap, incision care per vascular surgery, may shower. Desensitization, [place] limb pain education, maintain full ROM at hip and knee.
HTN: home medications currently held, on midodrine, monitor pressures closely
HLD: Statin held due to abnormal LFT
Uncontrolled DM II: Accu-Cheks, continue insulin aspart and Lantus.
GERD: PPI
HARMAN: possible CPAP use.
Bacteremia: Continue course of antibiotics.
Acute lower extremity DVT: Continue heparin, with goal of transitioning to Coumadin with goal INR 2-3.
Anemia: Likely multifactorial with end-stage renal disease and postoperative anemia, monitor.
ESRD on HD: Per nephrology
Psych: Psychology on board. Discontinued Cymbalta and started Zoloft. Monitor mood, adjust medications as needed.
Skin: monitor for pressure sores/rashes/lesions.
Pain: Continue gabapentin, acetaminophen or oxycodone as needed.
Bowel: Colace and Senna, PRN bisacodyl.
Bladder: Time void, PVRs, PRN straight cath.
Pulmonary: Incentive spirometry
Obesity: Continue to student counsellor patient about diet adjustments to control obesity. Body habitus and increased force to move body and extremities causes further difficulty with functional tasks.
Safety: Continue to reinforce assistance with all transfers.
Code Status: Full code
Dispo (date/plan/equipment needs): Acute rehab. Social history reviewed.
A total of 60 minutes were spent with the patient preparing for the evaluation, obtaining history, performing examination and evaluation, counseling, data review, case management, care coordination, order tracer, and EMR documentation.
--- NOTE | 2024-06-17 09:41 | W.PN.HOSP.TC ---
Today's Communication/Plan
-
see bold
Assessment / Plan
Assessment / Plan
Septic shock -due to infected right TMA wound, acute calculus emphysematous cholecystitis. WBCs trending down. Remains afebrile.
Off Levophed, midodrine resumed.
Continue meropenem 500 mg IV q 4PM x 6 weeks through 07/14/24 as per infectious disease.
Blood cultures negative. Fluid culture from gallbladder and right TMA site both positive for Enterobacter cloacae.
Right TMA gas gangrene
Records from [facility] reviewed. Admitted 03/23/2024, discharged 04/08/2024. Primary discharge diagnosis was ESRD requiring dialysis. Secondary diagnoses included PAD and right foot infection. Primary reason for admission was for
worsening right foot wound in the setting of recent right foot gangrene, right lower extremity tibial/peroneal angioplasty, and right foot fourth metatarsal resection and bone biopsies. Podiatry performed right TMA on 03/27/2024. Postoperatively
developed acute kidney failure requiring initiation of hemodialysis. Discharged to SNF on 04/08/2024.
Status post I&D in OR by podiatry on 05/30
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 VAC applied 06/03
Both aspirin and Plavix were discontinued due to oozing of blood from amputation site.
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 Cleared by vascular surgery to resume anticoagulation
Acute hypoxic respiratory failure -extubated 06/07. Currently on 3L nasal cannula, wean down as able. Chest x-ray from today shows probable small right and possible trace left pleural effusion. Very low lung volumes. No pneumothorax or
consolidation.
ESRD - on dialysis at [place] [facility] Thursday/Thursday/Thursday. Off CRRT, now on standard dialysis. Continue dialysis as per nephrology
Metabolic acidosis resolved.
Hyponatremia -resolved.
Acute calculus emphysematous cholecystitis -Status post percutaneous cholecystostomy tube by IR on 05/31. Follow-up with general surgery/ Dr. Marcum in the office for cholecystectomy.
Ultrasound shows distended gallbladder with stones and sludge with mild gallbladder wall thickening
CT abdomen/pelvis shows enlarged gallbladder with stones, sludge, air-fluid level, suspicious for emphysematous cholecystitis
Acute on chronic anemia -Acute blood loss anemia from surgery. Hemoglobin down. Unclear why his hemoglobin is down again this morning but IV anticoagulation and thrombocytopenia is not helping.
Has had 8 units of blood transfused so far. Discussed with vascular surgery and nursing. Continue to trend, transfuse as needed
Acute thrombocytopenia -concern for possible HIT. HIT panel neg. Hematology input noted. Platelets normalized. Status post argatroban drip.
Acute bilateral lower extremity DVT -noted on ultrasound 05/31/24, status post IVC filter placement on 06/09/24. DVT occurred prior to onset of thrombocytopenia. Lupus anticoagulant positive. Hematology recommends Coumadin. 06/16, started heparin
drip to bridge to Coumadin
Thrush -treated.
Essential hypertension -amlodipine and Coreg on hold due to septic shock.
DM2 without hyperglycemia - Hemoglobin A1c 7.8%. Off insulin drip 06/03. Currently on Lantus 10 units at bedtime, 4 units of aspart AC, low resistance aspart scale. 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
Gastroesophageal reflux disease
Continue PPI
Constipation
Continue laxatives
Anxiety/depression
Appreciate psychiatry input, Cymbalta discontinued as it is not recommended in dialysis
Psychiatry recommends sertraline 25 mg daily, titrating up as tolerated
Stage 2 sacrum/buttocks pressure injury
Stage 2 right lip pressure injury
Wound care, off loading
Obesity due to excess calories
DVT prophylaxis�heparin drip/coumadin
Full code
Total time spent to see the patient on the floor, examine the patient, review data and lab results, discuss treatment plan with patient, nursing staff around 50 minutes.
Physical exam
Gen-obese, looks chronically ill, no acute distress
HEENT-NC, AT, anicteric
Neck-supple
CV-reg, no M, +S1/S2
Lungs-clear B/L
Abd-soft, NT, ND
Ext-right upper extremity diffuse edema, right lower extremity amputation site dressed
Anticipated Discharge: 24 - 48 hours
Subjective/Interval History
-
Date of Service: June 17, 2024
Patient denies pain. He does admit to feeling depressed. No chest pain, no shortness of breath. No fever, no vomiting.
Objective Data
-
Labs:
Laboratory Results
06/17/24 06/17/24
04:10 12:05
WBC 9.4
Hgb 7.5 L
Hct 23.7 L
Plt Count 154
APTT 152.4 H* Pending
Sodium 134 L
Potassium 3.9
Chloride 97 L
Carbon Dioxide 31 H
BUN 18
Creatinine 2.1 H
Glucose 90
Calcium 8.0 L
Vital Signs:
Vital Signs
Temp Pulse Resp BP Pulse Ox
98.0 F 70 12 141/63 98
06/17/24 07:48 06/17/24 07:48 06/17/24 07:48 06/17/24 07:48 06/17/24 07:48
I&O
06/16/24 06/17/24 06/18/24
06:59 06:59 06:59
Intake Total 360 / 360 240 / 240
Output Total 40 / 40
Balance 360 / 360 200 / 200
[2024-06-17] MEDS: PROTONIX 40 MG PO (09:43)
[2024-06-17] MEDS: ProAmatine PO ×3 (09:43→17:30)
[2024-06-17] MEDS: NOVOLOG FLEXPEN-LOW RESISTANCE SC ×3 (09:44→17:29)
[2024-06-17] MEDS: NEURONTIN 100 MG PO ×3 (09:44→21:48)
[2024-06-17] MEDS: ZOLOFT 25 MG PO (09:44)
[2024-06-17] MEDS: NOVOLOG FLEXPEN SC ×2 (09:45→13:57)
[2024-06-17] MEDS: FOLVITE 50.2 MG IV (10:22)
--- NOTE | 2024-06-17 11:01 | WOUNDNOTE ---
WOC RN note: Ronaldo Chaudhari re: recommend an air mattress for patient at SNF rehab. He has sacral stage 2 pressure injuries.
[2024-06-17] MEDS: HEPARIN 25000 UNITS/250 ML IV (11:16)
--- NOTE | 2024-06-17 11:51 | W.PN.NEPH.PH ---
Today's Communication / Plan
-
HD tomorrow
Assessment/Plan
-
Impression:
ESRD MWF ([place])
Sepsis/leukocytosis with hemodynamic compromise
Hypoxic Respiratory failure
Diabetes
History of right TMA with purulent drainage from site, status post ankle amputation 05/31/2024
History of hypertension
Anemia
PAD
Plan:
Next HD tomorrow
R BKA -pain control
follow h/h
back on Eliquis, neg HIT, +LAC
abx per ID (renally dosed)
decrease midodrine
supportive care at this time
CM working on placement
-
-
Date of Service: June 17, 2024
CC / HPI / ROS
-
Chief Complaint:
ESRD
History of Present Illness:
Bp stable
s/p right foot amputation 05/31, Rt BKA 06/13
s/p cholecystotomy tube 05/31
Hgb stable low 7.5 stable
tolerated HD yesterday
Review of Systems:
no fevers
Weights down
no cp or sob at rest
Labs
-
Labs:
WBC 9.4 10^3/uL (4.8-10.8) 06/17/24 04:10
RBC 2.52 10^6/uL (4.70-6.10) L 06/17/24 04:10
Hgb 7.5 g/dL (13.0-18.0) L 06/17/24 04:10
Hct 23.7 % (39.0-52.0) L 06/17/24 04:10
Plt Count 154 10^3/uL (130-400) 06/17/24 04:10
Sodium 134 mmol/L (135-145) L 06/17/24 04:10
Potassium 3.9 mmol/L (3.5-5.1) 06/17/24 04:10
Chloride 97 mmol/L (98-107) L 06/17/24 04:10
Carbon Dioxide 31 mmol/L (22-30) H 06/17/24 04:10
BUN 18 mg/dl (9-20) 06/17/24 04:10
Creatinine 2.1 mg/dL (0.7-1.3) H 06/17/24 04:10
eGFR 34.72 06/17/24 04:10
Glucose 90 mg/dl (70-99) 06/17/24 04:10
Calcium 8.0 mg/dl (8.4-10.2) L 06/17/24 04:10
Phosphorus 3.8 mg/dl (2.5-4.5) 06/15/24 03:55
Zkz-R-Yynwojdyilv Pept 4060 pg/ml 05/30/24 15:31
Albumin 2.3 g/dl (3.5-5.0) L 06/10/24 04:59
Physical Exam
-
Vital Signs:
Vital Signs
Temp Pulse Resp BP Pulse Ox
98.0 F 70 12 141/63 98
06/17/24 07:48 06/17/24 09:43 06/17/24 07:48 06/17/24 09:43 06/17/24 07:48
Cardiovascular:: Regular rate and rhythm
Respiratory:: Bilateral: Coarse
Lung Excursion:: Normal
Abdomen:: Nontender and Soft
Bowel Sounds:: Normal
Extremity Edema:: None: Bilateral:
[2024-06-17 13:17] LABS: APTT 63.5 Sec (23.4-35.0)
--- NOTE | 2024-06-17 13:35 | W.PN.UPDATE ---
Update Note
Progress Note Update
ATTEMPTED TO TALK TO PATIENT THIS AM. HE SAID HE WANTED TO SLEEP . WILL RETURN LATER TODAY IF POSSIBLE OR TOMORROW.
[2024-06-17 13:57] LABS: Glucose - Point of Care 175 mg/dl (70-99)
[2024-06-17] MEDS: HEPARIN 7400 UNITS IV (15:05)
--- NOTE | 2024-06-17 15:07 | CM ---
Chart reviewed and plan is for [place] [facility] [place] will await physiatry evaluation, patient is on HD for ESRD, IV ABX.
Plan; [place] [facility] [place] if approved.
--- NOTE | 2024-06-17 15:17 | PTOTSP ---
Reviewed chart and attempted to see pt for PT tx. Pt was awake in bed 432 and refusing PT despite encouragement to participate and change position. Pt kept stating he was tired and said 'please stop harrassing me.'
[2024-06-17 15:48] VITALS: BP 131/66
--- NOTE | 2024-06-17 15:55 | W.PN.UPDATE ---
Update Note
Progress Note Update
returned to see patient this afternoon. he was resting quietly at bedside. he did not want talk and said 'maybe tomorrow'
[2024-06-17 17:26] LABS: Glucose - Point of Care 108 mg/dl (70-99)
[2024-06-17] MEDS: COUMADIN 7.5 MG PO (17:31)
[2024-06-17] MEDS: STERILE WATER FOR INJECTION 10 ML IV (17:39)
[2024-06-17] MEDS: MERREM 500 MG IV (17:40)
[2024-06-17] MEDS: NOVOLOG FLEXPEN 3 UNITS SC (18:42)
[2024-06-17] MEDS: MELATONIN 5 MG PO (21:00)
[2024-06-17] MEDS: BENADRYL 25 MG PO (21:48)
[2024-06-17] MEDS: SENOKOT 17.2 MG PO (21:48)
[2024-06-17] MEDS: COLACE 200 MG PO (21:48)
[2024-06-17 22:00] LABS: APTT > 200 Sec (23.4-35.0)
[2024-06-17 22:34] LABS: Glucose - Point of Care 121 mg/dl (70-99)
[2024-06-17] MEDS: LANTUS 0.08 UNITS SC (22:37)
[2024-06-18 00:02] VITALS: BP 121/41
[2024-06-18 06:00] VITALS: BMI 33.0
[2024-06-18 07:00] VITALS: BP 120/35
[2024-06-18 07:08] LABS: Hematocrit 24.6 % (39.0-52.0); Hemoglobin 7.8 g/dL (13.0-18.0); INR 1.71; PT 20.3 Sec (11.4-14.6)
[2024-06-18 07:11] LABS: APTT 144.1 Sec (23.4-35.0)
[2024-06-18 07:22] LABS: Carbon Dioxide 33 mmol/L (22-30); Chloride 98 mmol/L (98-107); Potassium 4.1 mmol/L (3.5-5.1); Sodium 135 mmol/L (135-145)
[2024-06-18] MEDS: ProAmatine 2.5 MG PO ×3 (08:07→18:05)
--- NOTE | 2024-06-18 08:24 | W.PN.HOSP.TC ---
Today's Communication/Plan
-
Discharge planning
Assessment / Plan
Assessment / Plan
Septic shock -due to infected right TMA wound, acute calculus emphysematous cholecystitis. WBCs trending down. Remains afebrile.
Off Levophed, midodrine resumed.
Continue meropenem 500 mg IV q 4PM x 6 weeks through 07/14/24 as per infectious disease.
Blood cultures negative. Fluid culture from gallbladder and right TMA site both positive for Enterobacter cloacae.
Right TMA gas gangrene
Records from [facility] reviewed. Admitted 03/23/2024, discharged 04/08/2024. Primary discharge diagnosis was ESRD requiring dialysis. Secondary diagnoses included PAD and right foot infection. Primary reason for admission was for
worsening right foot wound in the setting of recent right foot gangrene, right lower extremity tibial/peroneal angioplasty, and right foot fourth metatarsal resection and bone biopsies. Podiatry performed right TMA on 03/27/2024. Postoperatively
developed acute kidney failure requiring initiation of hemodialysis. Discharged to SNF on 04/08/2024.
Status post I&D in OR by podiatry on 05/30
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 VAC applied 06/03
Both aspirin and Plavix were discontinued due to oozing of blood from amputation site.
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 Cleared by vascular surgery to resume anticoagulation. Follow-up with vascular surgery in the office
Acute hypoxic respiratory failure -extubated 06/07. Currently on 3L nasal cannula, wean down as able. Chest x-ray from today shows probable small right and possible trace left pleural effusion. Very low lung volumes. No pneumothorax or
consolidation.
ESRD - on dialysis [place] [facility] Thursday/Thursday/Thursday. Off CRRT, now on standard dialysis. Continue dialysis as per nephrology
Metabolic acidosis resolved.
Hyponatremia -resolved.
Acute calculus emphysematous cholecystitis -Status post percutaneous cholecystostomy tube by IR on 05/31. Follow-up with general surgery/ Dr. Marcum in the office for cholecystectomy.
Ultrasound shows distended gallbladder with stones and sludge with mild gallbladder wall thickening
CT abdomen/pelvis shows enlarged gallbladder with stones, sludge, air-fluid level, suspicious for emphysematous cholecystitis
Acute on chronic anemia -Acute blood loss anemia from surgery. Hemoglobin down. Unclear why his hemoglobin is down again this morning but IV anticoagulation and thrombocytopenia is not helping.
Has had 8 units of blood transfused so far. Discussed with vascular surgery and nursing. Continue to trend, transfuse as needed
Acute thrombocytopenia -concern for possible HIT. HIT panel neg. Hematology input noted. Platelets normalized. Status post argatroban drip.
Acute bilateral lower extremity DVT -noted on ultrasound 05/31/24, status post IVC filter placement on 06/09/24. DVT occurred prior to onset of thrombocytopenia. Lupus anticoagulant positive. Hematology recommends Coumadin. 06/16, started heparin
drip to bridge to Coumadin
Thrush -treated.
Essential hypertension -amlodipine and Coreg on hold due to septic shock.
DM2 without hyperglycemia - Hemoglobin A1c 7.8%. Off insulin drip 06/03. Currently on Lantus 10 units at bedtime, 4 units of aspart AC, low resistance aspart scale. 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
Gastroesophageal reflux disease
Continue PPI
Constipation
Continue laxatives
Anxiety/depression
Appreciate psychiatry input, Cymbalta discontinued as it is not recommended in dialysis
Psychiatry recommends sertraline 25 mg daily, titrating up as tolerated
Stage 2 sacrum/buttocks pressure injury
Stage 2 right lip pressure injury
Wound care, off loading
Obesity due to excess calories
DVT prophylaxis�heparin drip/coumadin
Full code
Disposition�acute rehab at [place]
Total time spent to see the patient on the floor, examine the patient, review data and lab results, discuss treatment plan with patient, nursing staff around 40 minutes.
Physical exam
Gen-obese, looks chronically ill, no acute distress
HEENT-NC, AT, anicteric
Neck-supple
CV-reg, no M, +S1/S2
Lungs-clear B/L
Abd-soft, NT, ND
Ext-right upper extremity diffuse edema, right lower extremity amputation site dressed
Anticipated Discharge: 24 - 48 hours
Subjective/Interval History
-
Date of Service: June 18, 2024
Patient reports not sleeping well. Denies right BKA stump pain, chest pain, shortness of breath. No fever, no vomiting.
Objective Data
-
Labs:
Laboratory Results
06/17/24 06/18/24 06/18/24
21:12 06:40 15:00
Hgb 7.8 L
Hct 24.6 L
PT 20.3 H
INR 1.71
APTT > 200 H* 144.1 H Pending
Sodium 135
Potassium 4.1
Chloride 98
Carbon Dioxide 33 H
Vital Signs:
Vital Signs
Temp Pulse Resp BP Pulse Ox
97.9 F 81 16 124/78 100
06/18/24 00:02 06/18/24 08:07 06/18/24 00:02 06/18/24 08:07 06/18/24 00:02
I&O
06/17/24 06/18/24 06/19/24
06:59 06:59 06:59
Intake Total 240 / 240 70 / 70
Output Total 40 / 40 10 / 10
Balance 200 / 200 60 / 60
[2024-06-18] MEDS: RETACRIT 10000 UNITS IV (08:40)
--- NOTE | 2024-06-18 09:07 | W.PN.VS ---
Today's Communication / Plan
-
Plan reviewed with attending Dr. Juanpablo Holcomb III
Assessment/Plan
-
Assessment: 64-year-old male s/p Guillotine amputation of the right lower extremity above the ankle with take back to the OR for revision to right BKA
Plan:
Surgical culture swab obtained in OR on 06/13/2024 finalized positive for Enterobacter cloacae, ID following appreciate recommendations will receive 6-week treatment of IV antibiotics
ABIGAIL drain removed
Surgical staple sites can be left open to air or if edema present can utilize Asael wrap for mild compression, change daily if utilized
Follow-up appointment left in discharge instructions
Vascular surgery will sign off please call with questions or concerns
Subjective Data
-
Date of Service: June 18, 2024
Patient seen and examined at bedside, currently receiving HD session. Offers no complaints.
Objective Data
-
Vital Signs
Temp Pulse Resp BP Pulse Ox
97.9 F 81 16 124/78 100
06/18/24 00:02 06/18/24 08:07 06/18/24 00:02 06/18/24 08:07 06/18/24 00:02
Intake and Output
06/17/24 06/18/24 06/19/24
06:59 06:59 06:59
Intake Total 240 / 240 70 / 70
Output Total 40 40 10 10
Balance 200 / 200 60 / 60
Intake:
Oral fluids 240 / 240
IV piggybacks 70 / 70
Output:
Drain Output (Total)
Right Abdomen 20
Right Upper Leg Ced-Yates 10
Lab Results
06/18/24 06:40
06/18/24 06:40
Calcium 8.0 mg/dl (8.4-10.2) L 06/17/24 04:10
Phosphorus 3.8 mg/dl (2.5-4.5) 06/15/24 03:55
Magnesium 1.7 mg/dl (1.6-2.3) 06/15/24 03:55
Total Bilirubin 0.7 mg/dl (0.2-1.3) 06/10/24 04:59
Direct Bilirubin 0.6 mg/dl (0.0-0.4) H 06/06/24 04:31
AST 56 U/L (17-59) 06/10/24 04:59
ALT 30 U/L (0-50) 06/10/24 04:59
Alkaline Phosphatase 586 U/L (38-126) H 06/10/24 04:59
Total Protein 5.0 g/dl (6.3-8.2) L 06/10/24 04:59
Albumin 2.3 g/dl (3.5-5.0) L 06/10/24 04:59
Physical Exam
-
Afebrile.
No acute distress.
Right lower extremity BKA dressing removed, veronica well-approximated and CDI. ABIGAIL drain removed, site CDI.
--- NOTE | 2024-06-18 09:23 | W.PN.UPDATE ---
Update Note
Progress Note Update
Continue heparin with coumadin until INR in goal 2-3.
Could f/u with hematology as outpatient to determine if indefinite a/c is indicated
Will sign off, pls call w/ questions
[2024-06-18] MEDS: ZOLOFT 25 MG PO (10:04)
[2024-06-18 10:05] LABS: Glucose - Point of Care 91 mg/dl (70-99)
[2024-06-18] MEDS: FOLVITE 50.2 MG IV (10:05)
[2024-06-18] MEDS: NEURONTIN 100 MG PO ×3 (10:05→21:14)
[2024-06-18] MEDS: PROTONIX 40 MG PO (10:05)
[2024-06-18] MEDS: NOVOLOG FLEXPEN SC ×2 (10:06→12:25)
[2024-06-18] MEDS: NOVOLOG FLEXPEN-LOW RESISTANCE SC ×3 (10:06→16:39)
--- NOTE | 2024-06-18 10:35 | W.PN.NEPH.HD ---
Assessment
-
Seen on HD. no complaints. VSS, access ok
await [facility] arrangements
convert to MWF next week
Progress Note - Hemodialysis
-
Date of Service: June 18, 2024
Duration: 45 minutes and 3 hours
Potassium Bath: 3
Calcium Bath: 2.5
Opti-Dialyzer: 160
Ultrafiltration: Other (2kg)
Blood Flow: 400
Dialysate Flow: 600
Heparin: 0
EPO: 20746 units
[2024-06-18] MEDS: HEPARIN 4000 UNITS INTRACATH (11:35)
[2024-06-18 12:14] LABS: Glucose - Point of Care 87 mg/dl (70-99)
--- NOTE | 2024-06-18 14:06 | W.PN.UPDATE ---
Update Note
Progress Note Update
Psychiatry follow up. Patient was started on Zoloft 25mg daily on 06/16 for depression. He reports tolerating it well thus far without side effects. He reports continued depressed mood. He states he did not sleep well last night and appetite is poor.
He denies suicidal ideations. He is goal directed and states he looks forward to getting out of the hospital. We reviewed the potential risks and benefits of zoloft. He understands it takes time to show response to antidepressant medication and that
there is plenty of room for titration as clinically necessary. He is agreeable with continuing it for now.
Plan- continue zoloft at 25mg daily for now. Monitor for SEs. Await clinical response. Can increase slowly over time.
[2024-06-18] MEDS: ROXICODONE 5 MG PO ×2 (14:14→22:14)
[2024-06-18 15:00] VITALS: BP 121/45
[2024-06-18] MEDS: HEPARIN 25000 UNITS/250 ML IV (16:24)
[2024-06-18 16:33] LABS: Glucose - Point of Care 105 mg/dl (70-99)
[2024-06-18] MEDS: COUMADIN 7.5 MG PO (17:53)
[2024-06-18] MEDS: NOVOLOG FLEXPEN 3 UNITS SC (17:55)
[2024-06-18] MEDS: STERILE WATER FOR INJECTION 10 ML IV (18:04)
[2024-06-18] MEDS: MERREM 500 MG IV (18:04)
[2024-06-18] MEDS: MELATONIN 10 MG PO (20:08)
[2024-06-18] MEDS: NOVOLOG FLEXPEN-LOW RESISTANCE 8 UNITS SC (20:09)
[2024-06-18] MEDS: BENADRYL 50 MG PO (20:09)
[2024-06-18] MEDS: COLACE 200 MG PO (20:09)
[2024-06-18] MEDS: SENOKOT 17.2 MG PO (20:09)
[2024-06-18] MEDS: LANTUS 0.08 UNITS SC (20:35)
[2024-06-18 20:50] LABS: APTT 72.3 Sec (23.4-35.0)
[2024-06-18] MEDS: HEPARIN 3700 UNITS IV (21:17)
[2024-06-18 22:42] LABS: Glucose - Point of Care 65 mg/dl (70-99)
[2024-06-18 23:09] LABS: Glucose - Point of Care 61 mg/dl (70-99)
[2024-06-18] MEDS: DEXTROSE 50% SYRINGE 12.5 GRAMS IV (23:10)
[2024-06-18 23:16] LABS: Glucose - Point of Care 67 mg/dl (70-99)
[2024-06-18 23:29] LABS: Glucose - Point of Care 141 mg/dl (70-99)
[2024-06-18 23:30] VITALS: BP 173/74
--- NOTE | 2024-06-18 23:32 | PTCARENOTE ---
Blood sugar, for HS check 65. 4 oz juice administered. second check, blood glucose 61, another 4 oz juice administered. blood glucose at 67. per provider, administer ordered 50% dextrose. post administration of 15 minutes, blood glucose 141. this RN
will recheck in 2 hours, per hypoglycemia protocol.
[2024-06-19] MEDS: DILAUDID 0.5 MG IV (01:07)
[2024-06-19 01:11] LABS: Glucose - Point of Care 116 mg/dl (70-99)
[2024-06-19 03:12] LABS: Glucose - Point of Care 88 mg/dl (70-99)
[2024-06-19 04:16] LABS: INR 1.91
[2024-06-19 04:24] LABS: APTT 192.1 Sec (23.4-35.0)
--- NOTE | 2024-06-19 04:38 | PTCARENOTE ---
Addendum entered by Adela Rai RN 06/19/24 06:00:
PTT redraw 92.3. No change in heparin gtt rate.
Original Note:
PTT resulted abnormally high compared to prior result. Provider notified. Will redraw PTT to ensure accuracy prior to adjusting heparin gtt.
[2024-06-19] MEDS: DILAUDID 0.25 MG IV ×2 (05:29→21:02)
[2024-06-19 05:48] LABS: APTT 92.3 Sec (23.4-35.0)
[2024-06-19 06:41] LABS: Hematocrit 24.4 % (39.0-52.0); Hemoglobin 7.6 g/dL (13.0-18.0); Mean Corp Hgb Conc. 31.1 g/dL (33.0-37.0); Mean Corpuscular Hgb 29.2 pg (27.0-31.0); Mean Corpuscular Volume 93.8 fL (80.0-94.0); Mean Platelet Volume 9.3 fL (7.4-10.4); Platelet Count 165 10^3/uL (130-400); Red Cell Dist. Width 17.3 % (11.5-14.5); White Blood Cell Count 8.2 10^3/uL (4.8-10.8)
[2024-06-19 06:56] LABS: Blood Urea Nitrogen 14 mg/dl (9-20); Calcium 8.4 mg/dl (8.4-10.2); Carbon Dioxide 32 mmol/L (22-30); Chloride 94 mmol/L (98-107); Estimated Creatinine Clearance 37 ml/min; Glucose 112 mg/dl (70-99); Potassium 4.1 mmol/L (3.5-5.1); Sodium 133 mmol/L (135-145); eGFR 32.83
[2024-06-19 07:00] VITALS: BP 145/53
[2024-06-19 07:48] LABS: Glucose - Point of Care 94 mg/dl (70-99)
[2024-06-19] MEDS: NOVOLOG FLEXPEN SC (08:19)
--- NOTE | 2024-06-19 09:08 | W.PN.HOSP.TC ---
Today's Communication/Plan
-
Discharge to [facility] when bed available
Assessment / Plan
Assessment / Plan
Septic shock -due to infected right TMA wound, acute calculus emphysematous cholecystitis. WBCs trending down. Remains afebrile.
Off Levophed, midodrine resumed.
Continue meropenem 500 mg IV q 4PM x 6 weeks through 07/14/24 as per infectious disease.
Blood cultures negative. Fluid culture from gallbladder and right TMA site both positive for Enterobacter cloacae.
Medically stable for discharge to [facility] when bed available, CM informed 06/18
Right TMA gas gangrene
Records from [facility] reviewed. Admitted 03/23/2024, discharged 04/08/2024. Primary discharge diagnosis was ESRD requiring dialysis. Secondary diagnoses included PAD and right foot infection. Primary reason for admission was for
worsening right foot wound in the setting of recent right foot gangrene, right lower extremity tibial/peroneal angioplasty, and right foot fourth metatarsal resection and bone biopsies. Podiatry performed right TMA on 03/27/2024. Postoperatively
developed acute kidney failure requiring initiation of hemodialysis. Discharged to SNF on 04/08/2024.
Status post I&D in OR by podiatry on 05/30
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 VAC applied 06/03
Both aspirin and Plavix were discontinued due to oozing of blood from amputation site.
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 Cleared by vascular surgery to resume anticoagulation. Follow-up with vascular surgery in the office
Acute hypoxic respiratory failure -extubated 06/07. Currently on 3L nasal cannula, wean down as able. Chest x-ray from today shows probable small right and possible trace left pleural effusion. Very low lung volumes. No pneumothorax or
consolidation.
ESRD - on dialysis at [place] [facility] Thursday/Thursday/Thursday. Off CRRT, now on standard dialysis. Continue dialysis as per nephrology
Metabolic acidosis resolved.
Hyponatremia -resolved.
Acute calculus emphysematous cholecystitis -Status post percutaneous cholecystostomy tube by IR on 05/31. Follow-up with general surgery/ Dr. Marcum in the office for cholecystectomy.
Ultrasound shows distended gallbladder with stones and sludge with mild gallbladder wall thickening
CT abdomen/pelvis shows enlarged gallbladder with stones, sludge, air-fluid level, suspicious for emphysematous cholecystitis
Acute on chronic anemia -Acute blood loss anemia from surgery. Hemoglobin down. Unclear why his hemoglobin is down again this morning but IV anticoagulation and thrombocytopenia is not helping.
Has had 8 units of blood transfused so far. Discussed with vascular surgery and nursing. Continue to trend, transfuse as needed
Acute thrombocytopenia -concern for possible HIT. HIT panel neg. Hematology input noted. Platelets normalized. Status post argatroban drip.
Acute bilateral lower extremity DVT -noted on ultrasound 05/31/24, status post IVC filter placement on 06/09/24. DVT occurred prior to onset of thrombocytopenia. Lupus anticoagulant positive. Hematology recommends Coumadin. 06/16, started heparin
drip to bridge to Coumadin
Thrush -treated.
Essential hypertension -amlodipine and Coreg on hold due to septic shock.
DM2 without hyperglycemia - Hemoglobin A1c 7.8%. Off insulin drip 06/03. Currently on Lantus 10 units at bedtime, 4 units of aspart AC, low resistance aspart scale. 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
Gastroesophageal reflux disease
Continue PPI
Constipation
Continue laxatives
Anxiety/depression
Appreciate psychiatry input, Cymbalta discontinued as it is not recommended in dialysis
Psychiatry recommends sertraline 25 mg daily, titrating up as tolerated
Insomnia
Started on melatonin and Benadryl
Stage 2 sacrum/buttocks pressure injury
Stage 2 right lip pressure injury
Wound care, off loading
Obesity due to excess calories
DVT prophylaxis�heparin drip/coumadin
Full code
Disposition�acute rehab at [place]
Total time spent to see the patient on the floor, examine the patient, review data and lab results, discuss treatment plan with patient, nursing staff around 42 minutes.
Physical exam
Gen-obese, looks chronically ill, no acute distress
HEENT-NC, AT, anicteric
Neck-supple
CV-reg, no M, +S1/S2
Lungs-clear B/L
Abd-soft, NT, ND
Ext-right upper extremity diffuse edema, right BKA stump with veronica clean/dry/intact
Anticipated Discharge: 24 - 48 hours
Subjective/Interval History
-
Date of Service: June 18, 2024
Patient denies chest pain, shortness of breath. He reports that his right BKA stump pain is tolerable. No fever, no vomiting.
Objective Data
-
Labs:
Laboratory Results
06/18/24 06/18/24
06:40 15:00
Hgb 7.8 L
Hct 24.6 L
PT 20.3 H
INR 1.71
APTT 144.1 H Pending
Sodium 135
Potassium 4.1
Chloride 98
Carbon Dioxide 33 H
Vital Signs:
Vital Signs
Temp Pulse Resp BP Pulse Ox
97.6 F 81 18 124/78 93
06/18/24 07:00 06/18/24 08:07 06/18/24 07:00 06/18/24 08:07 06/18/24 07:25
I&O
06/17/24 06/18/24 06/19/24
06:59 06:59 06:59
Intake Total 240 / 240 70 / 70
Output Total 40 / 40 10 / 10
Balance 200 / 200 60 / 60
--- NOTE | 2024-06-19 09:28 | W.PN.NEPH.PH ---
Today's Communication / Plan
-
HD tomorrow
Assessment/Plan
-
Impression:
ESRD MWF ([place])
Sepsis/leukocytosis with hemodynamic compromise
Hypoxic Respiratory failure
Diabetes
History of right TMA with purulent drainage from site, status post ankle amputation 05/31/2024
History of hypertension
Anemia
PAD
Plan:
Next HD tomorrow (MWF for rehab)
R BKA -pain control
follow h/h
back on Eliquis, neg HIT, +LAC
abx per ID (renally dosed)
stop midodrine
CM working on placement
-
-
Date of Service: June 19, 2024
CC / HPI / ROS
-
Chief Complaint:
ESRD
History of Present Illness:
Bp stable on lower midodrine
s/p right foot amputation 05/31, Rt BKA 06/13
s/p cholecystotomy tube 05/31
Hgb stable low 7.6 stable
Review of Systems:
no fevers
Weights down
no cp or sob at rest
Labs
-
Labs:
WBC 8.2 10^3/uL (4.8-10.8) 06/19/24 06:21
RBC 2.60 10^6/uL (4.70-6.10) L 06/19/24 06:21
Hgb 7.6 g/dL (13.0-18.0) L 06/19/24 06:21
Hct 24.4 % (39.0-52.0) L 06/19/24 06:21
Plt Count 165 10^3/uL (130-400) 06/19/24 06:21
Sodium 133 mmol/L (135-145) L 06/19/24 06:21
Potassium 4.1 mmol/L (3.5-5.1) 06/19/24 06:21
Chloride 94 mmol/L (98-107) L 06/19/24 06:21
Carbon Dioxide 32 mmol/L (22-30) H 06/19/24 06:21
BUN 14 mg/dl (9-20) 06/19/24 06:21
Creatinine 2.2 mg/dL (0.7-1.3) H 06/19/24 06:21
eGFR 32.83 06/19/24 06:21
Glucose 112 mg/dl (70-99) H 06/19/24 06:21
Calcium 8.4 mg/dl (8.4-10.2) 06/19/24 06:21
Phosphorus 3.8 mg/dl (2.5-4.5) 06/15/24 03:55
Joh-A-Drytlsspjlx Pept 4060 pg/ml 05/30/24 15:31
Albumin 2.3 g/dl (3.5-5.0) L 06/10/24 04:59
Physical Exam
-
Vital Signs:
Vital Signs
Temp Pulse Resp BP Pulse Ox
98.1 F 86 16 145/53 99
06/19/24 07:00 06/19/24 07:00 06/19/24 07:00 06/19/24 07:00 06/19/24 07:00
Cardiovascular:: Regular rate and rhythm
Respiratory:: Bilateral: Coarse
Lung Excursion:: Normal
Abdomen:: Nontender and Soft
Bowel Sounds:: Normal
Extremity Edema:: +1: Bilateral:
[2024-06-19] MEDS: ProAmatine 2.5 MG PO ×3 (09:48→17:55)
[2024-06-19] MEDS: PROTONIX 40 MG PO (09:48)
[2024-06-19] MEDS: ZOLOFT 25 MG PO (09:48)
[2024-06-19] MEDS: NEURONTIN 100 MG PO ×3 (09:48→21:01)
[2024-06-19] MEDS: FOLVITE 50.2 MG IV (09:58)
[2024-06-19 10:32] VITALS: BP 117/50; PULSE 92
[2024-06-19 11:07] LABS: Glucose - Point of Care 192 mg/dl (70-99)
[2024-06-19 12:24] LABS: APTT 85.9 Sec (23.4-35.0)
[2024-06-19] MEDS: NOVOLOG FLEXPEN 3 UNITS SC ×2 (13:02→17:56)
[2024-06-19] MEDS: NOVOLOG FLEXPEN-LOW RESISTANCE 1 UNITS SC (13:02)
[2024-06-19 15:00] VITALS: BP 150/50
[2024-06-19 15:15] LABS: Glucose - Point of Care 130 mg/dl (70-99)
[2024-06-19] MEDS: MERREM 500 MG IV (17:54)
[2024-06-19] MEDS: STERILE WATER FOR INJECTION 10 ML IV (17:54)
[2024-06-19] MEDS: COUMADIN 7.5 MG PO (17:55)
[2024-06-19] MEDS: NOVOLOG FLEXPEN-LOW RESISTANCE SC (17:56)
[2024-06-19 20:02] LABS: Hepatitis B Surface Antigen Negative (Negative)
[2024-06-19] MEDS: MELATONIN 10 MG PO (21:00)
[2024-06-19] MEDS: BENADRYL 50 MG PO (21:01)
[2024-06-19] MEDS: LANTUS 0.08 UNITS SC (21:01)
[2024-06-19] MEDS: COLACE 200 MG PO (21:01)
[2024-06-19] MEDS: SENOKOT 17.2 MG PO (21:01)
[2024-06-19 21:19] LABS: Glucose - Point of Care 176 mg/dl (70-99)
[2024-06-19 21:20] VITALS: BP 134/57
[2024-06-19] MEDS: HEPARIN 25000 UNITS/250 ML IV (23:27)
--- NOTE | 2024-06-20 01:20 | PTCARENOTE ---
AAO x 4 with flat affect. VSS. Heparin gtt running, through left, triple lumen PICC, at 9 ml/hr--next PTT due at 0500. Patient refusing q 2 hour turns.This RN did educate patient on importance of q hour turns for pressure injury reduction and/or
worsening of his sacral, stage 2 pressure injury. Patient still refusing turns. PRN pain medications administered for RLE pain management. [facility] All patient needs met. Contact precautions maintained.
Aspiration precautions maintained. Incontinence care completed. Bed in lowest position. All patient needs met. Call goetz and personal belongings within reach.
[2024-06-20] MEDS: DILAUDID 0.25 MG IV (01:52)
[2024-06-20 06:39] LABS: Hemoglobin 6.8 g/dL (13.0-18.0); Mean Corp Hgb Conc. 30.9 g/dL (33.0-37.0); Mean Corpuscular Hgb 28.9 pg (27.0-31.0); Mean Corpuscular Volume 93.6 fL (80.0-94.0); Mean Platelet Volume 9.2 fL (7.4-10.4); Platelet Count 174 10^3/uL (130-400); Red Blood Cell Count 2.35 10^6/uL (4.70-6.10); Red Cell Dist. Width 16.9 % (11.5-14.5); White Blood Cell Count 6.8 10^3/uL (4.8-10.8)
[2024-06-20 07:00] VITALS: BP 128/51
[2024-06-20 07:08] LABS: Blood Urea Nitrogen 21 mg/dl (9-20); Calcium 8.3 mg/dl (8.4-10.2); Carbon Dioxide 31 mmol/L (22-30); Chloride 97 mmol/L (98-107); Estimated Creatinine Clearance 25 ml/min; Glucose 77 mg/dl (70-99); Potassium 4.6 mmol/L (3.5-5.1); Sodium 133 mmol/L (135-145); eGFR 20.94
[2024-06-20 07:29] LABS: Glucose - Point of Care 82 mg/dl (70-99)
[2024-06-20] MEDS: NOVOLOG FLEXPEN-LOW RESISTANCE SC ×3 (07:52→18:05)
[2024-06-20] MEDS: NOVOLOG FLEXPEN SC ×3 (07:52→18:05)
[2024-06-20] MEDS: NEURONTIN 100 MG PO ×3 (07:53→20:43)
[2024-06-20] MEDS: ZOLOFT 25 MG PO (07:53)
[2024-06-20] MEDS: ProAmatine 2.5 MG PO ×3 (07:53→18:18)
[2024-06-20] MEDS: PROTONIX 40 MG PO (07:53)
[2024-06-20] MEDS: FOLVITE 50.2 MG IV (08:04)
[2024-06-20] MEDS: FLUSH (NSS) 1 FLUSH IV (08:07)
--- NOTE | 2024-06-20 08:34 | PN.DE.MGMTRT ---
Insulin Management
- -
06/20/2024: Diabetes Management follow up
Patient admitted 05/30 with change in level of consciousness. PMH PVD, asthma, GERD, HTN, HCL, diabetes, renal failure (HD 3 x per week). Patient found to have severe sepsis with R foot wound with purulent drainage most likely source. Patient has
since gone to OR for amputation of R foot 05/31.
Prior to admission was taking 4 units NovoLog AC with Lantus 10 units @ hs. A1C 7.8%, Cr 1.1, eGFR>60-->1.6, eGFR 48.11-->2.1-->3.2, eGFR 20.94 today.
06/03 Pt was transitioned off insulin infusion. 06/08 Tube feeds discontinued, Dysphagia diet ordered. Pt noted for poor appetite poor.
POD # 20 s/p R foot amputation. POD# 7 s/p RLE BKA.
Patient is asleep, unable to discuss diabetes care, nursing reports he has been depressed, appetite is very poor and not eating enough.
Glucose remained low normal throughout the weekend with an episode of Hypoglycemia to 61 on 06/18@ HS.
06/19 Glucose range 94 to 192 @HS was 176 and FBG 77 (V) this AM.
Will not make any changes to current regimen: Lantus 8 units, AC NovoLog 3 units and low corrective AC.
Please HOLD 3 units AC NovoLog if patient does not eat and continue corrective insulin.
Discussed with nurse. Will cont to follow and make further adjustments if necessary
Diabetes History
- -
Type of Diabetes: 2 requiring insulin
Pre-Admission Diabetes Regimen
06/20/24
05:53
Creatinine 3.2 H
Lab Results
Hemoglobin A1c 7.8 % (4.0-5.6) H 05/31/24 02:57
Insulin Pump Settings
IP Diabetes Regimen
06/19/24 06/19/24 06/19/24
11:06 15:08 21:17
Glucose
POC Glucose 192 H 130 H 176 H
06/20/24 06/20/24
05:53 07:28
Glucose 77
POC Glucose 82
Meal type: Dinner
Amount consumed: 50%
Patient Education
[2024-06-20 09:32] VITALS: BP 122/70
[2024-06-20 09:33] LABS: INR 2.37
[2024-06-20 09:55] VITALS: BP 126/62
--- NOTE | 2024-06-20 10:25 | W.PN.HOSP.TC ---
Today's Communication/Plan
-
Transfuse
Stop IV heparin
CBC in the morning
Assessment / Plan
Assessment / Plan
Gen-sleepy, NAD
HEENT-NC, AT, anicteric, clear oral mm
Neck-supple
CV-reg, no M, +S1/S2
Lungs-clear B/L
Abd-soft, NT, ND, right upper quadrant drain
Ext-no edema, right below-knee amputation with clean wound
Musculoskeletal-no cyanosis, clubbing
Skin-warm and dry
Neuro-grossly non-focal
Psych-calm, cooperative
Septic shock -due to infected right TMA wound, acute calculus emphysematous cholecystitis. WBCs trending down. Remains afebrile.
Off Levophed, midodrine resumed.
Continue meropenem 500 mg IV q 4PM x 6 weeks through 07/14/24 as per infectious disease.
Blood cultures negative. Fluid culture from gallbladder and right TMA site both positive for Enterobacter cloacae.
Right TMA gas gangrene
Records from [facility] reviewed. Admitted 03/23/2024, discharged 04/08/2024. Primary discharge diagnosis was ESRD requiring dialysis. Secondary diagnoses included PAD and right foot infection. Primary reason for admission was for
worsening right foot wound in the setting of recent right foot gangrene, right lower extremity tibial/peroneal angioplasty, and right foot fourth metatarsal resection and bone biopsies. Podiatry performed right TMA on 03/27/2024. Postoperatively
developed acute kidney failure requiring initiation of hemodialysis. Discharged to SNF on 04/08/2024.
Status post I&D in OR by podiatry on 05/30
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 VAC applied 06/03
Both aspirin and Plavix were discontinued due to oozing of blood from amputation site.
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 Cleared by vascular surgery to resume anticoagulation. Follow-up with vascular surgery in the office
Acute hypoxic respiratory failure -extubated 06/07. Currently on 3L nasal cannula, wean down as able. Chest x-ray from today shows probable small right and possible trace left pleural effusion. Very low lung volumes. No pneumothorax or
consolidation.
ESRD - on dialysis at [place] [facility] Thursday/Thursday/Thursday. Off CRRT, now on standard dialysis. Continue dialysis as per nephrology
Metabolic acidosis resolved.
Hyponatremia -resolved.
Acute calculus emphysematous cholecystitis -Status post percutaneous cholecystostomy tube by IR on 05/31. Follow-up with general surgery/ Dr. Marcum in the office for cholecystectomy.
Ultrasound shows distended gallbladder with stones and sludge with mild gallbladder wall thickening
CT abdomen/pelvis shows enlarged gallbladder with stones, sludge, air-fluid level, suspicious for emphysematous cholecystitis
Acute on chronic anemia -Acute blood loss anemia from surgery. Hemoglobin down to 6.8 today, getting transfused now. Stools have been brown. Unclear why his hemoglobin is down again this morning but IV anticoagulation and thrombocytopenia is not
helping.
Has had 8 units of blood transfused so far.
Acute thrombocytopenia -concern for possible HIT. HIT panel neg. Hematology input noted. Platelets normalized. Status post argatroban drip.
Acute bilateral lower extremity DVT -noted on ultrasound 05/31/24, status post IVC filter placement on 06/09/24. DVT occurred prior to onset of thrombocytopenia. Lupus anticoagulant positive.
INR 2.3 today, continue warfarin. Stop IV heparin.
Thrush -treated.
Essential hypertension -amlodipine and Coreg on hold due to septic shock.
DM2 without hyperglycemia - Hemoglobin A1c 7.8%. Off insulin drip 06/03. Currently on Lantus 10 units at bedtime, 4 units of aspart AC, low resistance aspart scale. 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
Gastroesophageal reflux disease
Continue PPI
Constipation
Continue laxatives
Anxiety/depression
Appreciate psychiatry input, Cymbalta discontinued as it is not recommended in dialysis
Psychiatry recommends sertraline 25 mg daily, titrating up as tolerated
Insomnia
Started on melatonin and Benadryl
Stage 2 sacrum/buttocks pressure injury
Stage 2 right lip pressure injury
Wound care, off loading
Obesity due to excess calories
DVT prophylaxis�heparin drip/coumadin
Full code
Disposition�acute rehab at [place], possibly tomorrow if bed available.
Anticipated Discharge: Within 24 hours
Subjective/Interval History
-
Date of Service: June 20, 2024
Patient seen and examined. No complaints. Sleeping when I walked in.
Objective Data
-
Labs:
Laboratory Results
06/20/24 06/20/24 06/20/24
05:53 09:02 15:45
WBC 6.8
Hgb 6.8 L*
Hct 22.0 L
Plt Count 174
PT Cancelled 26.0 H
INR Cancelled 2.37
APTT Cancelled 129.0 H Cancelled
Sodium 133 L
Potassium 4.6
Chloride 97 L
Carbon Dioxide 31 H
BUN 21 H
Creatinine 3.2 H
Glucose 77
Calcium 8.3 L
Vital Signs:
Vital Signs
Temp Pulse Resp BP Pulse Ox
98.2 F 76 18 126/62 95
06/20/24 09:55 06/20/24 09:55 06/20/24 09:55 06/20/24 09:55 06/20/24 09:32
I&O
06/19/24 06/20/24 06/21/24
06:59 06:59 06:59
Intake Total 240 / 240 120 / 120
Balance 240 / 240 120 / 120
Review of Systems
-
History Source: Patient
All other systems: Reviewed and negative
[2024-06-20 11:27] LABS: Glucose - Point of Care 81 mg/dl (70-99)
[2024-06-20 12:17] VITALS: BP 128/68
--- NOTE | 2024-06-20 12:51 | CM ---
funeral home manager reviewed patient's chart and met with patient and spoke with admissions at [facility], and [facility] admissions are aware that patient will be transfused today, Heparin to be discharged and patient to switch to PO pain medication, patient will be
on IV Meropenem QD, and HD.
Plan; [facility] acute rehab at [place], disease case manager rn will need updated PT/OT notes and then proceed with [facility] for acute rehab.
--- NOTE | 2024-06-20 13:39 | W.PN.ID1 ---
Date of Service
Date of Service: June 20, 2024
Today's Communication
Continue antibiotics.
Assessment / Plan
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
s/p I+D 05/30. OR cx: Enterobacter, finegoldia
s/p guillotine amp 05/31
s/p formal BKA 06/13/24. Per Vascular - pus tracking up fascia plane and bone - > not surgical cure, OR CX: Enterobacter cloacae
# Acute cholecystitis
s/p perc nay 05/31
cx Enterobacter
# Leukocytosis - resolved
# s/p Septic shock
# s/p VDRF
# ESRD on HD.
# Extensive BLE DVT s/p IVC filter
Plan:
- Continue meropenem 500 mg IV q 4PM x 6 weeks through 07/14/24.
- Follow weekly CBC/diff, CMP while on meropenem.
- Picc in place
- Infusion sheet for Rehab previously submitted to case planner.
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
Type 2 diabetes mellitus
End-stage renal disease on hemodialysis
Hypertension
PAD s/p RLE stent
HLD
Obstructive sleep apnea
Depression
Right foot TMA 03/27/24 [facility]
����������������������������������������������������������
Chief Complaint
-: Other (Cholecystitis, gas gangrene foot)
Subjective / Review of Systems
Review of Systems: No Fever
Vital Signs / Physical Exam
Vital Signs
Vital Signs
Temp Pulse Resp BP Pulse Ox
98.1 F 77 18 128/62 96
06/20/24 12:17 06/20/24 12:22 06/20/24 12:17 06/20/24 12:22 06/20/24 12:17
Physical Exam
Constitutional: No Acute Distress and Chronically Ill
Pulmonary: Non Labored
Gastrointestinal: Non Distended
Neurological: Other (Resting comfortably)
Lines: PICC (LUE no erythema) and HD Cath (RCW no erythema)
Objective Data
Lab Data
Lab Results
06/20/24 05:53
06/20/24 05:53
ESR 70 mm/hour (0-20) H 05/31/24 02:57
PT 26.0 Sec (11.4-14.6) H 06/20/24 09:02
INR 2.37 06/20/24 09:02
APTT Cancelled 06/20/24 15:45
Estimated Creat Clear 25 ml/min 06/20/24 05:53
Lactic Acid < 0.5 mmol/L (0.7-2.0) L 06/06/24 10:54
Total Bilirubin 0.7 mg/dl (0.2-1.3) 06/10/24 04:59
AST 56 U/L (17-59) 06/10/24 04:59
ALT 30 U/L (0-50) 06/10/24 04:59
Alkaline Phosphatase 586 U/L (38-126) H 06/10/24 04:59
C-Reactive Protein > 270.00 mg/L (0.0-10.00) H 05/31/24 02:57
Amylase Cancelled 06/01/24 06:00
Most recent labs reviewed.
Micro Results:
06/13/24 17:30 Wound Culture - Final
Leg - Right Enterobacter cloacae
Gram Stain - Final
06/13/24 17:30 Anaerobic Culture - Final
Leg - Right NO ANAEROBES ISOLATED
05/30/24 21:41 Wound Culture - Final
Abscess Enterobacter cloacae
Enterobacter cloacae#2
Yeast
Gram Stain - Final
05/30/24 21:41 Anaerobic Culture - Final
Abscess Finegoldia magna
05/30/24 15:42 Blood Culture - Final
Blood/Venous No Growth - Final Report
05/30/24 15:42 Blood Culture - Final
Blood/Venous No Growth - Final Report
06/03/24 11:41 MRSA Screen - Final
Nose No Methicillin Resistant Staphylococcus aureus isolated.
05/30/24 16:52 Wound Culture - Final
Foot - Right Enterobacter cloacae
Diptheroids
Yeast
Gram Stain - Final
05/31/24 18:46 Body Fluid Culture - Final
Bile Enterobacter cloacae
Gram Stain - Final
05/30/24 15:42 Urine Culture - Final
Urine NO GROWTH
05/30/24 15:42 Influenza Types A & B (HOLDEN) - Final
Nasal Swab Negative for Influenza A & B, NAAT
Negative results must be combined with clinical observations
and patient history.
Nucleic Acid Amplification test (NAAT)performed on the
[employer] platform.
05/30/24 CXR: No acute cardiopulmonary process within the limitations of very low lung volumes.
05/30/24 ABD US: The gallbladder is distended and filled with stones and sludge. Mild gallbladder wall thickening raising the possibility for acute cholecystitis. However, no appreciable pericholecystic fluid and a reportedly negative sonographic
Bermeo's sign.
05/30/24 Foot XRAY: Soft tissue gas in the right foot and ankle most suggestive of infection
05/31/24 Periph Vasc US: Extensive bilateral lower extremity deep venous thrombosis
06/07/24 CXR: Mild interstitial prominence, suggestive of mild pulmonary edema. Haziness of each hemidiaphragm, which may represent bibasilar airspace disease and/or small bilateral pleural effusions.
--- NOTE | 2024-06-20 13:54 | W.PN.NEPH.HD ---
Assessment
-
Stable seen on dialysis
Progress Note - Hemodialysis
-
Date of Service: June 20, 2024
Duration: 45 minutes and 3 hours
Potassium Bath: 3
Calcium Bath: 2.5
Opti-Dialyzer: 160
Ultrafiltration: Other (2kg)
Blood Flow: 400
Dialysate Flow: 600
Heparin: 0
EPO: 74407 units
[2024-06-20 14:58] VITALS: BP 113/75
[2024-06-20] MEDS: RETACRIT 10000 UNITS IV (15:09)
[2024-06-20] MEDS: HEPARIN 3700 UNITS INTRACATH (16:41)
[2024-06-20 16:58] LABS: Glucose - Point of Care 67 mg/dl (70-99)
[2024-06-20 17:52] LABS: Glucose - Point of Care 110 mg/dl (70-99)
[2024-06-20] MEDS: MERREM 500 MG IV (18:18)
[2024-06-20] MEDS: STERILE WATER FOR INJECTION 10 ML IV (18:19)
[2024-06-20] MEDS: FLUSH (NSS) 2 FLUSH IV (18:24)
[2024-06-20] MEDS: COUMADIN 7.5 MG PO (18:34)
[2024-06-20] MEDS: MELATONIN 10 MG PO (20:42)
[2024-06-20] MEDS: SENOKOT 17.2 MG PO (20:42)
[2024-06-20] MEDS: BENADRYL 50 MG PO (20:42)
[2024-06-20] MEDS: LANTUS 0.08 UNITS SC (20:43)
[2024-06-20] MEDS: COLACE 200 MG PO (20:43)
[2024-06-20 22:13] LABS: Glucose - Point of Care 165 mg/dl (70-99)
[2024-06-20 23:00] VITALS: BP 130/55
--- NOTE | 2024-06-20 23:51 | PTCARENOTE ---
AAO x 4. Patient is withdrawn with flat affect but, pleasant. Patient does appear to be in better spirits this evening. VSS. Pain assessed throughout shift. Patient refuses turns during sleeping hours. Incontinent of urine and bowel. Stage 2 on
sacrum/buttocks. Stump incision with veronica intact, edges approximated, no drainage noted. LLE with weakness--Rebecca boot in place. Patient with improved appetite--blood sugar 165 at HS. Plan for discharge to [facility]. Discharge plan
discussed by this RN, with patient.Bed in lowest position. No bed alarm. All patient needs met. Call goetz and personal belongings within reach.
[2024-06-21] MEDS: ROXICODONE 5 MG PO ×3 (01:09→22:16)
[2024-06-21 06:58] LABS: INR 2.35; PT 25.8 Sec (11.4-14.6)
[2024-06-21 06:59] LABS: Hematocrit 25.8 % (39.0-52.0); Hemoglobin 8.2 g/dL (13.0-18.0); Mean Corp Hgb Conc. 31.8 g/dL (33.0-37.0); Mean Corpuscular Hgb 29.1 pg (27.0-31.0); Mean Corpuscular Volume 91.5 fL (80.0-94.0); Mean Platelet Volume 9.8 fL (7.4-10.4); Platelet Count 165 10^3/uL (130-400); Red Blood Cell Count 2.82 10^6/uL (4.70-6.10); Red Cell Dist. Width 16.5 % (11.5-14.5); White Blood Cell Count 6.7 10^3/uL (4.8-10.8)
[2024-06-21 07:00] VITALS: BP 137/42
[2024-06-21 07:16] LABS: Blood Urea Nitrogen 14 mg/dl (9-20); Calcium 8.2 mg/dl (8.4-10.2); Carbon Dioxide 35 mmol/L (22-30); Chloride 94 mmol/L (98-107); Estimated Creatinine Clearance 35 ml/min; Glucose 84 mg/dl (70-99); Potassium 3.7 mmol/L (3.5-5.1); Sodium 134 mmol/L (135-145); eGFR 31.13
[2024-06-21 07:21] LABS: Glucose - Point of Care 86 mg/dl (70-99)
--- NOTE | 2024-06-21 08:28 | PN.DE.MGMTRT ---
Insulin Management
- -
06/21/2024: Diabetes Management follow up
Patient admitted 05/30 with change in level of consciousness. PMH PVD, asthma, GERD, HTN, HCL, diabetes, renal failure (HD 3 x per week). Patient found to have severe sepsis with R foot wound with purulent drainage most likely source. Patient has
since gone to OR for amputation of R foot 05/31.
Prior to admission was taking 4 units NovoLog AC with Lantus 10 units @ hs. A1C 7.8%, Cr 1.1, eGFR>60-->1.6, eGFR 48.11-->2.1-->2.3, eGFR 31.13 today.
06/03 Pt was transitioned off insulin infusion. 06/08 Tube feeds discontinued, Dysphagia diet ordered. Pt noted for poor appetite poor.
POD # 21 s/p R foot amputation. POD# 8 s/p RLE BKA.
Patient is asleep, unable to discuss diabetes care, nursing reports he has been depressed, appetite is very poor and not eating enough.
06/20 Glucose range 81 to 165 FBG 84 (V) this AM.
Will not make any changes to current regimen: Lantus 8 units, AC NovoLog 3 units and low corrective AC.
Please HOLD 3 units AC NovoLog if patient does not eat and continue corrective insulin.
Discussed with nurse. Will cont to follow and make further adjustments if necessary
Diabetes History
- -
Type of Diabetes: 2 requiring insulin
Pre-Admission Diabetes Regimen
06/21/24
06:26
Creatinine 2.3 H
Lab Results
Hemoglobin A1c 7.8 % (4.0-5.6) H 05/31/24 02:57
Insulin Pump Settings
IP Diabetes Regimen
06/20/24 06/20/24 06/20/24
11:27 16:56 17:52
Glucose
POC Glucose 81 67 L 110 H
06/20/24 06/21/2425
22:11 06:26 07:20
Glucose 84
POC Glucose 165 H 86
Meal type: Lunch
Meal type: Breakfast
Amount consumed: 0
Amount consumed: 0
Patient Education
[2024-06-21] MEDS: NOVOLOG FLEXPEN SC (08:46)
[2024-06-21] MEDS: NOVOLOG FLEXPEN-LOW RESISTANCE SC ×2 (08:47→17:30)
[2024-06-21] MEDS: FOLVITE 50.2 MG IV (08:57)
[2024-06-21] MEDS: PROTONIX 40 MG PO (08:58)
[2024-06-21] MEDS: ProAmatine 2.5 MG PO ×3 (08:59→17:34)
[2024-06-21] MEDS: NEURONTIN 100 MG PO ×3 (08:59→21:04)
[2024-06-21] MEDS: ZOLOFT 25 MG PO (09:00)
[2024-06-21 09:53] VITALS: BP 131/42; BP 138/57; PULSE 77; O2SAT 84; O2SAT 88
--- NOTE | 2024-06-21 10:25 | W.PN.HOSP.TC ---
Today's Communication/Plan
-
Discharge planning
Assessment / Plan
Assessment / Plan
Gen-awake, alert, NAD, brighter and more interactive today
HEENT-NC, AT, anicteric, clear oral mm
Neck-supple
CV-reg, no M, +S1/S2
Lungs-clear B/L
Abd-soft, NT, ND, right upper quadrant drain
Ext-no edema, right below-knee amputation with clean wound
Musculoskeletal-no cyanosis, clubbing
Skin-warm and dry
Neuro-grossly non-focal
Psych-calm, cooperative
Septic shock -due to infected right TMA wound, acute calculus emphysematous cholecystitis. WBCs trending down. Remains afebrile.
Off Levophed, midodrine resumed.
Continue meropenem 500 mg IV q 4PM x 6 weeks through 07/14/24 as per infectious disease.
Blood cultures negative. Fluid culture from gallbladder and right TMA site both positive for Enterobacter cloacae.
Right TMA gas gangrene
Records from [facility] reviewed. Admitted 03/23/2024, discharged 04/08/2024. Primary discharge diagnosis was ESRD requiring dialysis. Secondary diagnoses included PAD and right foot infection. Primary reason for admission was for
worsening right foot wound in the setting of recent right foot gangrene, right lower extremity tibial/peroneal angioplasty, and right foot fourth metatarsal resection and bone biopsies. Podiatry performed right TMA on 03/27/2024. Postoperatively
developed acute kidney failure requiring initiation of hemodialysis. Discharged to SNF on 04/08/2024.
Status post I&D in OR by podiatry on 05/30
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 VAC applied 06/03
Both aspirin and Plavix were discontinued due to oozing of blood from amputation site.
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 Cleared by vascular surgery to resume anticoagulation. Follow-up with vascular surgery in the office
Acute hypoxic respiratory failure -extubated 06/07. Currently on 3L nasal cannula, wean down as able. Chest x-ray from today shows probable small right and possible trace left pleural effusion. Very low lung volumes. No pneumothorax or
consolidation.
ESRD - on dialysis at [facility] Thursday/Thursday/Thursday. Off CRRT, now on standard dialysis. Continue dialysis as per nephrology
Metabolic acidosis resolved.
Hyponatremia -resolved.
Acute calculus emphysematous cholecystitis -Status post percutaneous cholecystostomy tube by IR on 05/31. Follow-up with general surgery/ Dr. Marcum in the office for cholecystectomy.
Ultrasound shows distended gallbladder with stones and sludge with mild gallbladder wall thickening
CT abdomen/pelvis shows enlarged gallbladder with stones, sludge, air-fluid level, suspicious for emphysematous cholecystitis
Acute on chronic anemia -Acute blood loss anemia from surgery. Hemoglobin improved to 8.2 today. Transfused again yesterday. Stools have been brown. Unclear why his hemoglobin is down again this morning but IV anticoagulation and
thrombocytopenia is not helping.
Has had 9 units of blood transfused so far.
Acute thrombocytopenia -concern for possible HIT. HIT panel neg. Hematology input noted. Platelets normalized. Status post argatroban drip.
Acute bilateral lower extremity DVT -noted on ultrasound 05/31/24, status post IVC filter placement on 06/09/24. DVT occurred prior to onset of thrombocytopenia. Lupus anticoagulant positive.
INR 2.35 today, continue warfarin.
Thrush -treated.
Essential hypertension -amlodipine and Coreg on hold due to septic shock.
DM2 without hyperglycemia - Hemoglobin A1c 7.8%. Off insulin drip 06/03. Currently on Lantus 10 units at bedtime, 4 units of aspart AC, low resistance aspart scale. 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
Given hypoglycemia we will lower dose of Lantus to 5 units, stop mealtime aspart, continue sliding scale. Appetite is poor.
Gastroesophageal reflux disease
Continue PPI
Constipation
Continue laxatives
Anxiety/depression
Appreciate psychiatry input, Cymbalta discontinued as it is not recommended in dialysis
Psychiatry recommends sertraline 25 mg daily, titrating up as tolerated
Insomnia
Started on melatonin and Benadryl
Stage 2 sacrum/buttocks pressure injury
Stage 2 right lip pressure injury
Wound care, off loading
Obesity due to excess calories
DVT prophylaxis�heparin drip/coumadin
Full code
Disposition�acute rehab at [place], medically stable for discharge. Case management aware. Will need authorization.
Anticipated Discharge: Within 24 hours
Subjective/Interval History
-
Date of Service: June 21, 2024
Patient seen and examined. No complaints.
Objective Data
-
Labs:
Laboratory Results
06/21/24 06/21/24
06:25 06:26
WBC 6.7
Hgb 8.2 L D
Hct 25.8 L
Plt Count 165
PT 25.8 H
INR 2.35
Sodium 134 L
Potassium 3.7
Chloride 94 L
Carbon Dioxide 35 H
BUN 14
Creatinine 2.3 H
Glucose 84
Calcium 8.2 L
Vital Signs:
Vital Signs
Temp Pulse Resp BP Pulse Ox
97.9 F 71 16 137/42 98
06/21/24 07:00 06/21/24 07:00 06/21/24 07:00 06/21/24 07:00 06/21/24 07:00
I&O
06/20/24 06/21/24 06/22/24
06:59 06:59 06:59
Intake Total 850 / 850
Balance 850 / 850
Review of Systems
-
History Source: Patient
All other systems: Reviewed and negative
[2024-06-21 11:32] LABS: Glucose - Point of Care 160 mg/dl (70-99)
[2024-06-21] MEDS: NOVOLOG FLEXPEN-LOW RESISTANCE 1 UNITS SC (12:22)
--- NOTE | 2024-06-21 13:29 | CM ---
manager solar reviewed patient's chart and met with patient this morning casework manager also reached out to [facility] admissions they still need to confirm HD spot for patient, patient has been accepted at [facility] pending HD set up and Auth, case
manager story reached out to patient's insurance and Auth is pending Case # [id number], all clinicals have been faxed to [phone]
Plan; Await Auth for Acute rehab at [facility].
--- NOTE | 2024-06-21 14:30 | W.PN.UPDATE ---
Update Note
Progress Note Update
Pt seen, sitting up in bed after eating some of his lunch. Pt alert, with good eye contact. Affect somewhat dysphoric, flat; states his mood is okay. Pt agrees his appetite is a little better. He denies apparent side effects after starting
Zoloft 25 mg Daily on 06/17. Pt reports he has been hospitalized/not at home for any holidays since Feb 2024. Pt expects to be discharge to rehab tomorrow.
Imp: Unspec depression, appears to be improving slightly
Rec: continue Zoloft 25 mg daily, allow several weeks for response, may need to increase to 50 mg daily
Will follow intermittently
--- NOTE | 2024-06-21 14:44 | W.PN.NEPH.PH ---
Today's Communication / Plan
-
Dialysis tomorrow
Assessment/Plan
-
Impression:
ESRD MWF ([facility])
Sepsis/leukocytosis with hemodynamic compromise
Hypoxic Respiratory failure
Diabetes
History of right TMA with purulent drainage from site, status post ankle amputation 05/31/2024
History of hypertension
Anemia
PAD
Plan:
Next HD tomorrow (MWF for rehab)
R BKA -pain control
follow h/h
back on Eliquis, neg HIT, +LAC
abx per ID (renally dosed)
stop midodrine
CM working on placement
-
-
Date of Service: June 21, 2024
CC / HPI / ROS
-
Chief Complaint:
ESRD
History of Present Illness:
Bp stable on lower midodrine
s/p right foot amputation 05/31, Rt BKA 06/13
s/p cholecystotomy tube 05/31
Hgb stable low 7.6 stable
Review of Systems:
no fevers
Weights down
no cp or sob at rest
Labs
-
Labs:
WBC 6.7 10^3/uL (4.8-10.8) 06/21/24 06:26
RBC 2.82 10^6/uL (4.70-6.10) L 06/21/24 06:26
Hgb 8.2 g/dL (13.0-18.0) L D 06/21/24 06:26
Hct 25.8 % (39.0-52.0) L 06/21/24 06:26
Plt Count 165 10^3/uL (130-400) 06/21/24 06:26
Sodium 134 mmol/L (135-145) L 06/21/24 06:26
Potassium 3.7 mmol/L (3.5-5.1) 06/21/24 06:26
Chloride 94 mmol/L (98-107) L 06/21/24 06:26
Carbon Dioxide 35 mmol/L (22-30) H 06/21/24 06:26
BUN 14 mg/dl (9-20) 06/21/24 06:26
Creatinine 2.3 mg/dL (0.7-1.3) H 06/21/24 06:26
eGFR 31.13 06/21/24 06:26
Glucose 84 mg/dl (70-99) 06/21/24 06:26
Calcium 8.2 mg/dl (8.4-10.2) L 06/21/24 06:26
Phosphorus 3.8 mg/dl (2.5-4.5) 06/15/24 03:55
Bkd-O-Lndjqtheooi Pept 4060 pg/ml 05/30/24 15:31
Albumin 2.3 g/dl (3.5-5.0) L 06/10/24 04:59
Physical Exam
-
Vital Signs:
Vital Signs
Temp Pulse Resp BP Pulse Ox
97.9 F 71 16 137/42 98
06/21/24 07:00 06/21/24 07:00 06/21/24 07:00 06/21/24 07:00 06/21/24 07:00
Cardiovascular:: Regular rate and rhythm
Respiratory:: Bilateral: Coarse
Lung Excursion:: Normal
Abdomen:: Nontender and Soft
Bowel Sounds:: Normal
Extremity Edema:: +1: Bilateral:
[2024-06-21 15:00] VITALS: BP 144/47
--- NOTE | 2024-06-21 16:09 | W.PN.ID1 ---
Date of Service
Date of Service: June 21, 2024
Today's Communication
Continue antibiotics.
Assessment / Plan
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
s/p I+D 05/30. OR cx: Enterobacter, finegoldia
s/p guillotine amp 05/31
s/p formal BKA 06/13/24. Per Vascular - pus tracking up fascia plane and bone - > not surgical cure, OR CX: Enterobacter cloacae
# Acute cholecystitis
s/p perc nay 05/31
cx Enterobacter
# Leukocytosis - resolved
# s/p Septic shock
# s/p VDRF
# ESRD on HD.
# Extensive BLE DVT s/p IVC filter
Plan:
- Continue meropenem 500 mg IV q 4PM x 6 weeks through 07/14/24.
- Follow weekly CBC/diff, CMP while on meropenem.
- Picc in place
- Infusion sheet for Rehab previously submitted to case resource manager.
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
Type 2 diabetes mellitus
End-stage renal disease on hemodialysis
Hypertension
PAD s/p RLE stent
HLD
Obstructive sleep apnea
Depression
Right foot TMA 03/27/24 [facility]
����������������������������������������������������������
Chief Complaint
-: Other (Cholecystitis, gas gangrene foot)
Subjective / Review of Systems
Review of Systems: No Fever
Vital Signs / Physical Exam
Vital Signs
Vital Signs
Temp Pulse Resp BP Pulse Ox
98.7 F 80 16 144/47 98
06/21/24 15:00 06/21/24 15:00 06/21/24 15:00 06/21/24 15:00 06/21/24 15:00
Physical Exam
Constitutional: No Acute Distress and Chronically Ill
Eyes: Sclera Anicteric
Cardiovascular: Regular Rate and S1/S2
Pulmonary: Non Labored
Gastrointestinal: Non Distended
Genito-Urinary: Negative CVA Tenderness
Extremities: Negative Edema
Skin: Negative Jaundice
Wound: Other (R BKA dressing dry)
Neurological: Other (Resting comfortably)
Lines: PICC (LUE no erythema) and HD Cath (RCW no erythema)
Objective Data
Lab Data
Lab Results
06/21/24 06:26
06/21/24 06:26
ESR 70 mm/hour (0-20) H 05/31/24 02:57
PT 25.8 Sec (11.4-14.6) H 06/21/24 06:25
INR 2.35 06/21/24 06:25
APTT Cancelled 06/20/24 15:45
Estimated Creat Clear 35 ml/min 06/21/24 06:26
Lactic Acid < 0.5 mmol/L (0.7-2.0) L 06/06/24 10:54
Total Bilirubin 0.7 mg/dl (0.2-1.3) 06/10/24 04:59
AST 56 U/L (17-59) 06/10/24 04:59
ALT 30 U/L (0-50) 06/10/24 04:59
Alkaline Phosphatase 586 U/L (38-126) H 06/10/24 04:59
C-Reactive Protein > 270.00 mg/L (0.0-10.00) H 05/31/24 02:57
Amylase Cancelled 06/01/24 06:00
Most recent labs reviewed.
Micro Results:
06/13/24 17:30 Wound Culture - Final
Leg - Right Enterobacter cloacae
Gram Stain - Final
06/13/24 17:30 Anaerobic Culture - Final
Leg - Right NO ANAEROBES ISOLATED
05/30/24 21:41 Wound Culture - Final
Abscess Enterobacter cloacae
Enterobacter cloacae#2
Yeast
Gram Stain - Final
05/30/24 21:41 Anaerobic Culture - Final
Abscess Finegoldia magna
05/30/24 15:42 Blood Culture - Final
Blood/Venous No Growth - Final Report
05/30/24 15:42 Blood Culture - Final
Blood/Venous No Growth - Final Report
06/03/24 11:41 MRSA Screen - Final
Nose No Methicillin Resistant Staphylococcus aureus isolated.
05/30/24 16:52 Wound Culture - Final
Foot - Right Enterobacter cloacae
Diptheroids
Yeast
Gram Stain - Final
05/31/24 18:46 Body Fluid Culture - Final
Bile Enterobacter cloacae
Gram Stain - Final
05/30/24 15:42 Urine Culture - Final
Urine NO GROWTH
05/30/24 15:42 Influenza Types A & B (HOLDEN) - Final
Nasal Swab Negative for Influenza A & B, NAAT
Negative results must be combined with clinical observations
and patient history.
Nucleic Acid Amplification test (NAAT)performed on the
[employer] platform.
05/30/24 CXR: No acute cardiopulmonary process within the limitations of very low lung volumes.
05/30/24 ABD US: The gallbladder is distended and filled with stones and sludge. Mild gallbladder wall thickening raising the possibility for acute cholecystitis. However, no appreciable pericholecystic fluid and a reportedly negative sonographic
Bermeo's sign.
05/30/24 Foot XRAY: Soft tissue gas in the right foot and ankle most suggestive of infection
05/31/24 Periph Vasc US: Extensive bilateral lower extremity deep venous thrombosis
06/07/24 CXR: Mild interstitial prominence, suggestive of mild pulmonary edema. Haziness of each hemidiaphragm, which may represent bibasilar airspace disease and/or small bilateral pleural effusions.
[2024-06-21 16:57] LABS: Glucose - Point of Care 136 mg/dl (70-99)
[2024-06-21] MEDS: STERILE WATER FOR INJECTION 10 ML IV (17:34)
[2024-06-21] MEDS: MERREM 500 MG IV (17:34)
[2024-06-21] MEDS: MELATONIN 10 MG PO (20:59)
[2024-06-21] MEDS: BENADRYL 50 MG PO (21:04)
[2024-06-21] MEDS: COLACE 200 MG PO (21:04)
[2024-06-21] MEDS: SENOKOT 17.2 MG PO (21:04)
[2024-06-21 21:34] LABS: Glucose - Point of Care 192 mg/dl (70-99)
[2024-06-21] MEDS: LANTUS 0.05 UNITS SC (21:54)
[2024-06-21] MEDS: TYLENOL 650 MG PO (22:54)
[2024-06-21 23:26] VITALS: BP 123/80
--- NOTE | 2024-06-22 05:01 | DOWNTIME ---
There was a [employer] Downtime on 06/22/2024 from 0100 to 06/23/2023 at 0420 . Downtime documentation of patient's care, including medication administrations, has been reconciled in the electronic record per guidelines. Refer to the
patient's paper chart under the miscellaneous tab to see printed paper medication records and downtime forms.
[2024-06-22 06:00] VITALS: BMI 32.2
[2024-06-22 06:59] LABS: INR 2.72; PT 28.8 Sec (11.4-14.6)
[2024-06-22 07:00] VITALS: BP 155/53
[2024-06-22] MEDS: NOVOLOG FLEXPEN-LOW RESISTANCE SC ×2 (07:29→12:10)
[2024-06-22 07:32] LABS: Glucose - Point of Care 86 mg/dl (70-99)
[2024-06-22] MEDS: RETACRIT 10000 UNITS IV (08:57)
[2024-06-22 09:03] LABS: Hematocrit 25.6 % (39.0-52.0); Hemoglobin 8.1 g/dL (13.0-18.0)
--- NOTE | 2024-06-22 09:09 | PN.DE.MGMTRT ---
Insulin Management
- -
06/22/2024: Diabetes Management follow up
Patient admitted 05/30 with change in level of consciousness. PMH PVD, asthma, GERD, HTN, HCL, diabetes, renal failure (HD 3 x per week). Patient found to have severe sepsis with R foot wound with purulent drainage most likely source. Patient has
since gone to OR for amputation of R foot 05/31.
Prior to admission was taking 4 units NovoLog AC with Lantus 10 units @ hs. A1C 7.8%, Cr 1.1, eGFR>60-->1.6, eGFR 48.11-->2.1-->2.3, eGFR 31.13 today.
06/03 Pt was transitioned off insulin infusion. 06/08 Tube feeds discontinued, Dysphagia diet ordered. Pt noted for poor appetite poor.
POD # 22 s/p R foot amputation. POD# 9 s/p RLE BKA.
Patient is awake alert and oriented, able diabetes care, nursing reports he has been depressed, appetite improving slightly..
06/[address] Glucose range [address] Deleon stopped AC novolog, continued corrective insulin, reduced HS lantus to 5 units fasting glucose 86 this AM.
Will not make any changes to current regimen: Lantus 5 units, low corrective AC.
Discussed with nurse. Will cont to follow and make further adjustments if necessary
Diabetes History
- -
Type of Diabetes: 2 requiring insulin
Pre-Admission Diabetes Regimen
Lab Results
Hemoglobin A1c 7.8 % (4.0-5.6) H 05/31/24 02:57
Insulin Pump Settings
IP Diabetes Regimen
06/21/24 06/21/24 06/21/24
11:31 16:56 21:34
POC Glucose 160 H 136 H 192 H
06/22/24
07:27
POC Glucose 86
Meal type: Lunch
Meal type: Breakfast
Amount consumed: 50%
Amount consumed: 0
Patient Education
[2024-06-22] MEDS: ProAmatine 2.5 MG PO ×3 (09:31→17:39)
[2024-06-22 10:12] LABS: Carbon Dioxide 36 mmol/L (22-30); Chloride 94 mmol/L (98-107); Potassium 3.8 mmol/L (3.5-5.1); Sodium 134 mmol/L (135-145)
--- NOTE | 2024-06-22 10:32 | W.PN.NEPH.HD ---
Assessment
-
Seen on HD. no complaints. VSS, access ok
await rehab
Progress Note - Hemodialysis
-
Date of Service: June 22, 2024
Duration: 45 minutes and 3 hours
Potassium Bath: 3
Calcium Bath: 2.5
Opti-Dialyzer: 160
Ultrafiltration: Other (2kg)
Blood Flow: 400
Dialysate Flow: 600
Heparin: no
EPO: 40148 units
--- NOTE | 2024-06-22 11:27 | W.DS.TRANS ---
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
-
Discharge Instructions:
Discharge Diagnosis/Procedures Septic shock, acute cholecystitis, right below
knee amputation, IVC FILTER PLACEMENT, BILATERAL
DVT OF LEGS
Diet Other diet
Additional Diets soft, bite sized
Activity With assistance,As tolerated
Driving Restrictions No driving
Bathing Restrictions None
Wound Care Flush your cholecystostomy drain every other day
with 10ml of sterile saline. First, turn the
stop cock towards the drainage bag, then wipe
the cap with alcohol wipe then attach the flush.
Gently instill the sterile saline and
disconnect. Turn the stop cock back up towards
the cap. Empty the drainage bag every 12-24
hours. Cover the drain with a dry gauze pad and
change daily after showers.
If the drain becomes dislodged accidentally,
please present to the ER for immediate
management.
Instructions:
Stand-Alone Forms:
Changes to Home Medications: No
Discharge Medications:
DC Medications w/original date entered in [email or web address]
atorvastatin 40 mg tablet (Lipitor) 40 mg PO HS High Cholesterol 05/13/24
bisacodyl 10 mg rectal suppository (Dulcolax (bisacodyl)) 10 mg [place] DAILYPRN PRN if no bm aftr mom 05/13/24
cyanocobalamin (vitamin B-12) 1,000 mcg tablet 1,000 mcg PO DAILY Supplement 05/13/24
fluticasone propionate 50 mcg/actuation nasal spray,suspension 2 spray intranasal DAILY Allergies 05/13/24
omeprazole 20 mg capsule,delayed release 20 mg PO DAILY Gastrointestinal Issue 05/13/24
polyethylene glycol 3350 17 gram oral powder packet (Miralax) 17 g PO DAILY Constipation 05/13/24
simethicone 80 mg chewable tablet 160 mg PO Q6HPRN PRN flatulence 05/13/24
sodium chloride 0.9 % (flush) (Monoject Prefill Advanced 0.9 % Sodium Chloride injection syringe) 10 ml intra-catheter .MWF cholecystitis #300 mL 06/01/24
Insulin Glargine Lantus [Lantus] 5 units As Directed mls/hr SC HS 06/22/24
apixaban 5 mg (74 tabs) tablets in a dose pack ([employer] DVT-PE Treat 30D Start) See Rx Instructions PO .COMPLEX #74 ea 06/22/24
docusate sodium 100 mg capsule 200 mg (2 x 100 mg) PO HS #0 caps 06/22/24
folic acid 1 mg tablet 1 mg PO DAILY #0 tabs 06/22/24
gabapentin 100 mg capsule 100 mg PO TID #0 caps 06/22/24
melatonin 5 mg tablet 10 mg (2 x 5 mg) PO DAILY@2000 #0 tabs 06/22/24
meropenem 500 mg intravenous solution 500 mg IV 1600 #0 ea 06/22/24
midodrine 5 mg tablet 2.5 mg (1/2 x 5 mg) PO TID@0800,1300,1800 #0 tabs 06/22/24
oxycodone 5 mg tablet 5 mg PO Q4HPRN PRN severe pain #5 tabs 06/22/24
sennosides 8.6 mg tablet (Judi-carmelo) 17.2 mg (2 x 8.6 mg) PO HS #0 tabs 06/22/24
sertraline 25 mg tablet 25 mg PO DAILY #0 tabs 06/22/24
Home Medication Changes
Pending Results: No
--- NOTE | 2024-06-22 11:38 | W.PN.UPDATE ---
Update Note
Progress Note Update
patient seen chart reviewed. patient hopefully going to rehab in the very near future. he does remain depressed. we discussed increasing zoloft to 50 mg q day at this point as 25 mg likely to be a very small thus ineffective dose. if he is still
here will return in the am to offer support.
--- NOTE | 2024-06-22 11:45 | W.PN.HOSP.TC ---
Today's Communication/Plan
-
Discharge
Assessment / Plan
Assessment / Plan
Gen-awake, alert, NAD, brighter and more interactive today
HEENT-NC, AT, anicteric, clear oral mm
Neck-supple
CV-reg, no M, +S1/S2
Lungs-clear B/L
Abd-soft, NT, ND, right upper quadrant drain
Ext-no edema, right below-knee amputation with clean wound
Musculoskeletal-no cyanosis, clubbing
Skin-warm and dry
Neuro-grossly non-focal
Psych-calm, cooperative
Septic shock -due to infected right TMA wound, acute calculus emphysematous cholecystitis. WBCs trending down. Remains afebrile.
Off Levophed, midodrine resumed.
Continue meropenem 500 mg IV q 4PM x 6 weeks through 07/14/24 as per infectious disease.
Blood cultures negative. Fluid culture from gallbladder and right TMA site both positive for Enterobacter cloacae.
Right TMA gas gangrene
Records from [facility] reviewed. Admitted 03/23/2024, discharged 04/08/2024. Primary discharge diagnosis was ESRD requiring dialysis. Secondary diagnoses included PAD and right foot infection. Primary reason for admission was for
worsening right foot wound in the setting of recent right foot gangrene, right lower extremity tibial/peroneal angioplasty, and right foot fourth metatarsal resection and bone biopsies. Podiatry performed right TMA on 03/27/2024. Postoperatively
developed acute kidney failure requiring initiation of hemodialysis. Discharged to SNF on 04/08/2024.
Status post I&D in OR by podiatry on 05/30
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 VAC applied 06/03
Both aspirin and Plavix were discontinued due to oozing of blood from amputation site.
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 Cleared by vascular surgery to resume anticoagulation. Follow-up with vascular surgery in the office
Acute hypoxic respiratory failure -extubated 06/07. Currently on 3L nasal cannula, wean down as able. Chest x-ray from today shows probable small right and possible trace left pleural effusion. Very low lung volumes. No pneumothorax or
consolidation.
ESRD - on dialysis at [facility] Thursday/Thursday/Thursday. Off CRRT, now on standard dialysis. Continue dialysis as per nephrology
Metabolic acidosis resolved.
Hyponatremia -resolved.
Acute calculus emphysematous cholecystitis -Status post percutaneous cholecystostomy tube by IR on 05/31. Follow-up with general surgery/ Dr. Marcum in the office for cholecystectomy.
Ultrasound shows distended gallbladder with stones and sludge with mild gallbladder wall thickening
CT abdomen/pelvis shows enlarged gallbladder with stones, sludge, air-fluid level, suspicious for emphysematous cholecystitis
Acute on chronic anemia -Acute blood loss anemia from surgery. Hemoglobin improved to 8.2 today. Transfused again yesterday. Stools have been brown. Unclear why his hemoglobin is down again this morning but IV anticoagulation and
thrombocytopenia is not helping.
Has had 9 units of blood transfused so far.
Acute thrombocytopenia -concern for possible HIT. HIT panel neg. Hematology input noted. Platelets normalized. Status post argatroban drip.
Acute bilateral lower extremity DVT -noted on ultrasound 05/31/24, status post IVC filter placement on 06/09/24. DVT occurred prior to onset of thrombocytopenia. Lupus anticoagulant positive. Suspect this may be a false positive.
Continue warfarin until he follows up with hematology. Spoke with patient regarding IVC filter placement and ability to have it removed in the next few weeks if okay with PCP. Recommend close outpatient follow-up.
Thrush -treated.
Essential hypertension -amlodipine and Coreg on hold due to septic shock.
DM2 without hyperglycemia - Hemoglobin A1c 7.8%. Off insulin drip 06/03. Currently on Lantus 10 units at bedtime, 4 units of aspart AC, low resistance aspart scale. 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
Given hypoglycemia we will lower dose of Lantus to 5 units, stop mealtime aspart, continue sliding scale. Appetite is poor.
Gastroesophageal reflux disease
Continue PPI
Constipation
Continue laxatives
Anxiety/depression
Appreciate psychiatry input, Cymbalta discontinued as it is not recommended in dialysis
Psychiatry recommends sertraline 25 mg daily, titrating up as tolerated
Insomnia
Started on melatonin and Benadryl
Stage 2 sacrum/buttocks pressure injury
Stage 2 right lip pressure injury
Wound care, off loading
Obesity due to excess calories
DVT prophylaxis�heparin drip/coumadin
Full code
Disposition -medically stable for discharge to [facility] for therapy. Updated patient's on the phone. All questions answered. We discussed recommendation to follow-up closely with primary care doctor after discharge.
Recommend discussion with PCP regarding timing of IVC filter removal after discharge.
35 minutes spent in discharge process.
Anticipated Discharge: Today
Subjective/Interval History
-
Date of Service: June 22, 2024
Patient seen and examined. Getting dialysis currently. No complaints.
Objective Data
-
Labs:
Laboratory Results
06/22/24 06/22/24
06:32 08:53
Hgb 8.1 L
Hct 25.6 L
PT 28.8 H
INR 2.72
Sodium 134 L
Potassium 3.8
Chloride 94 L
Carbon Dioxide 36 H
Vital Signs:
Vital Signs
Temp Pulse Resp BP Pulse Ox
98.2 F 85 18 107/54 98
06/22/24 07:00 06/22/24 07:00 06/22/24 07:00 06/22/24 09:31 06/22/24 07:00
I&O
06/21/24 06/22/24 06/23/24
06:59 06:59 06:59
Intake Total 850 / 850 680 / 680 250 / 250
Output Total 350 / 350 20 / 20
Balance 850 / 850 330 / 330 230 / 230
Review of Systems
-
History Source: Patient
All other systems: Reviewed and negative
[2024-06-22 11:52] LABS: Glucose - Point of Care 83 mg/dl (70-99)
--- NOTE | 2024-06-22 12:00 | W.DS.TRANS ---
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
-
Discharge Instructions:
Discharge Diagnosis/Procedures Septic shock, acute cholecystitis, right below
knee amputation, IVC FILTER PLACEMENT, BILATERAL
DVT OF LEGS
Diet Other diet
Additional Diets soft, bite sized
Activity With assistance,As tolerated
Driving Restrictions No driving
Bathing Restrictions None
Blood Work INR on 06/23
Wound Care Flush your cholecystostomy drain every other day
with 10ml of sterile saline. First, turn the
stop cock towards the drainage bag, then wipe
the cap with alcohol wipe then attach the flush.
Gently instill the sterile saline and
disconnect. Turn the stop cock back up towards
the cap. Empty the drainage bag every 12-24
hours. Cover the drain with a dry gauze pad and
change daily after showers.
If the drain becomes dislodged accidentally,
please present to the ER for immediate
management.
Instructions:
Stand-Alone Forms:
Changes to Home Medications: No
Discharge Medications:
DC Medications w/original date entered in [employer]
atorvastatin 40 mg tablet (Lipitor) 40 mg PO HS High Cholesterol 05/13/24
bisacodyl 10 mg rectal suppository (Dulcolax (bisacodyl)) 10 mg [place] DAILYPRN PRN if no bm aftr mom 05/13/24
cyanocobalamin (vitamin B-12) 1,000 mcg tablet 1,000 mcg PO DAILY Supplement 05/13/24
fluticasone propionate 50 mcg/actuation nasal spray,suspension 2 spray intranasal DAILY Allergies 05/13/24
omeprazole 20 mg capsule,delayed release 20 mg PO DAILY Gastrointestinal Issue 05/13/24
polyethylene glycol 3350 17 gram oral powder packet (Miralax) 17 g PO DAILY Constipation 05/13/24
simethicone 80 mg chewable tablet 160 mg PO Q6HPRN PRN flatulence 05/13/24
sodium chloride 0.9 % (flush) (Monoject Prefill Advanced 0.9 % Sodium Chloride injection syringe) 10 ml intra-catheter .MWF cholecystitis #300 mL 06/01/24
Insulin Glargine Lantus [Lantus] 5 units As Directed mls/hr SC HS 06/22/24
docusate sodium 100 mg capsule 200 mg (2 x 100 mg) PO HS #0 caps 06/22/24
folic acid 1 mg tablet 1 mg PO DAILY #0 tabs 06/22/24
gabapentin 100 mg capsule 100 mg PO TID #0 caps 06/22/24
melatonin 5 mg tablet 10 mg (2 x 5 mg) PO DAILY@2000 #0 tabs 06/22/24
meropenem 500 mg intravenous solution 500 mg IV 1600 #0 ea 06/22/24
midodrine 5 mg tablet 2.5 mg (1/2 x 5 mg) PO TID@0800,1300,1800 #0 tabs 06/22/24
oxycodone 5 mg tablet 5 mg PO Q4HPRN PRN severe pain #5 tabs 06/22/24
sennosides 8.6 mg tablet (Judi-carmelo) 17.2 mg (2 x 8.6 mg) PO HS #0 tabs 06/22/24
sertraline 25 mg tablet 25 mg PO DAILY #0 tabs 06/22/24
warfarin 6 mg tablet (Jantoven) 6 mg PO DAILY #30 tabs 06/22/24
Home Medication Changes
Pending Results: No
[2024-06-22] MEDS: PROTONIX 40 MG PO (12:01)
[2024-06-22] MEDS: FOLVITE 1 MG PO (12:01)
[2024-06-22] MEDS: NEURONTIN PO (12:01)
[2024-06-22] MEDS: ZOLOFT PO (12:10)
--- NOTE | 2024-06-22 13:15 | CM ---
Addendum entered by Jackie Chaudhari 06/22/24 17:04:
Per nursing patient did not have a BM discharge on hold for treatment.
Original Note:
Patient has been accepted and approved for 12 days at [facility], [place], 06/22 to 07/04, [id number], Auth provided to admissions at [facility], ambulance will be set up for 5pm today, IV ABX script has been faxed to [facility]
and contact information for [facility].
Plan; Patient to transfer to [facility] today [place]
Report [phone]
[2024-06-22 15:00] VITALS: BP 121/51
--- NOTE | 2024-06-22 15:21 | VATNOTE ---
06/22 left single lumen 4FR midline placed- exchanged from [facility] PICC. Patient on antibiotics till july 14 2024. Maximum sterile barrier applied during procedure. midline catheter exchanged over wire. TCL 18cm ECL0 UAC 27cm. to be redressed next
thursday.
[2024-06-22] MEDS: NEURONTIN 100 MG PO ×2 (15:55→22:04)
[2024-06-22] MEDS: DULCOLAX RECTAL (15:55)
[2024-06-22] MEDS: MERREM 500 MG IV (16:01)
[2024-06-22] MEDS: STERILE WATER FOR INJECTION 10 ML IV (16:01)
--- NOTE | 2024-06-22 16:47 | PTCARENOTE ---
received call from Nurse Peña at [facility], per MD at Rehab, they ar unable to accept patient due to constipation, patient need to have BM before transfer. Patient's LBM 06/18. MD Deleon notified and patient educated on importance of receiving PRN
suppository. Patient agreed to take PRN suppository. will continue to monitor.
[2024-06-22] MEDS: DULCOLAX 10 MG RECTAL (16:57)
[2024-06-22 17:02] LABS: Glucose - Point of Care 196 mg/dl (70-99)
[2024-06-22] MEDS: NOVOLOG FLEXPEN-LOW RESISTANCE 1 UNITS SC (17:39)
[2024-06-22 17:43] VITALS: BP 123/44
[2024-06-22 21:26] LABS: Glucose - Point of Care 194 mg/dl (70-99)
[2024-06-22] MEDS: SENOKOT 17.2 MG PO (22:04)
[2024-06-22] MEDS: COLACE 200 MG PO (22:04)
[2024-06-22] MEDS: BENADRYL 50 MG PO (22:04)
[2024-06-22] MEDS: MELATONIN 10 MG PO (22:04)
[2024-06-22] MEDS: LANTUS 0.05 UNITS SC (22:06)
[2024-06-22 23:00] VITALS: BP 115/60
[2024-06-23 05:47] LABS: PT 27.4 Sec (11.4-14.6)
[2024-06-23 06:00] VITALS: BMI 31.5
[2024-06-23 07:00] VITALS: BP 143/64
[2024-06-23 07:43] LABS: Glucose - Point of Care 102 mg/dl (70-99)
--- NOTE | 2024-06-23 08:01 | PN.DE.MGMTRT ---
Insulin Management
- -
06/23/2024: Diabetes Management follow up
Patient admitted 05/30 with change in level of consciousness. PMH PVD, asthma, GERD, HTN, HCL, diabetes, renal failure (HD 3 x per week). Patient found to have severe sepsis with R foot wound with purulent drainage most likely source. Patient has
since gone to OR for amputation of R foot 05/31.
Prior to admission was taking 4 units NovoLog AC with Lantus 10 units @ hs. A1C 7.8%, Cr 1.1, eGFR>60-->1.6, eGFR 48.11-->2.1-->2.3, eGFR 31.13 today.
06/03 Pt was transitioned off insulin infusion. 06/08 Tube feeds discontinued, Dysphagia diet ordered. Pt noted for poor appetite poor.
POD # 23 s/p R foot amputation. POD# 10 s/p RLE BKA.
Patient is sleeping at the time of my visit, nursing reports he has been depressed, appetite improving slightly.
06/[address] Glucose range [address] Deleon stopped AC novolog, continued corrective insulin, reduced HS lantus to 5 units fasting glucose 102 this AM.
Will not make any changes to current regimen: Lantus 5 units, low corrective AC.
Discussed with nurse. Will cont to follow and make further adjustments if necessary
Diabetes History
- -
Type of Diabetes: 2 requiring insulin
Pre-Admission Diabetes Regimen
Lab Results
Hemoglobin A1c 7.8 % (4.0-5.6) H 05/31/24 02:57
Insulin Pump Settings
IP Diabetes Regimen
06/22/24 06/22/24 06/22/24
11:51 17:00 21:24
POC Glucose 83 196 H 194 H
06/23/24
07:37
POC Glucose 102 H
Patient Education
[2024-06-23] MEDS: NEURONTIN 100 MG PO (08:47)
[2024-06-23] MEDS: NOVOLOG FLEXPEN-LOW RESISTANCE SC ×2 (08:47→12:21)
[2024-06-23] MEDS: FOLVITE 1 MG PO (08:48)
[2024-06-23] MEDS: PROTONIX 40 MG PO (08:48)
[2024-06-23] MEDS: ProAmatine 2.5 MG PO (08:48)
[2024-06-23] MEDS: ZOLOFT 50 MG PO (08:48)
--- NOTE | 2024-06-23 11:53 | W.PN.HOSP.TC ---
Today's Communication/Plan
-
Discharge
Assessment / Plan
Assessment / Plan
Gen-awake, alert, NAD, brighter and more interactive today
HEENT-NC, AT, anicteric, clear oral mm
Neck-supple
CV-reg, no M, +S1/S2
Lungs-clear B/L
Abd-soft, NT, ND, right upper quadrant drain
Ext-no edema, right below-knee amputation with clean wound
Musculoskeletal-no cyanosis, clubbing
Skin-warm and dry
Neuro-grossly non-focal
Psych-calm, cooperative
Septic shock -due to infected right TMA wound, acute calculus emphysematous cholecystitis. WBCs trending down. Remains afebrile.
Off Levophed, midodrine resumed.
Continue meropenem 500 mg IV q 4PM x 6 weeks through 07/14/24 as per infectious disease.
Blood cultures negative. Fluid culture from gallbladder and right TMA site both positive for Enterobacter cloacae.
Right TMA gas gangrene
Records from [facility] reviewed. Admitted 03/23/2024, discharged 04/08/2024. Primary discharge diagnosis was ESRD requiring dialysis. Secondary diagnoses included PAD and right foot infection. Primary reason for admission was for
worsening right foot wound in the setting of recent right foot gangrene, right lower extremity tibial/peroneal angioplasty, and right foot fourth metatarsal resection and bone biopsies. Podiatry performed right TMA on 03/27/2024. Postoperatively
developed acute kidney failure requiring initiation of hemodialysis. Discharged to SNF on 04/08/2024.
Status post I&D in OR by podiatry on 05/30
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 VAC applied 06/03
Both aspirin and Plavix were discontinued due to oozing of blood from amputation site.
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 Cleared by vascular surgery to resume anticoagulation. Follow-up with vascular surgery in the office
Acute hypoxic respiratory failure -extubated 06/07. Currently on 3L nasal cannula, wean down as able. Chest x-ray from today shows probable small right and possible trace left pleural effusion. Very low lung volumes. No pneumothorax or
consolidation.
ESRD - on dialysis at [facility] Thursday/Thursday/Thursday. Off CRRT, now on standard dialysis. Continue dialysis as per nephrology
Metabolic acidosis resolved.
Hyponatremia -resolved.
Acute calculus emphysematous cholecystitis -Status post percutaneous cholecystostomy tube by IR on 05/31. Follow-up with general surgery/ Dr. Marcum in the office for cholecystectomy.
Ultrasound shows distended gallbladder with stones and sludge with mild gallbladder wall thickening
CT abdomen/pelvis shows enlarged gallbladder with stones, sludge, air-fluid level, suspicious for emphysematous cholecystitis
Acute on chronic anemia -Acute blood loss anemia from surgery. Hemoglobin improved to 8.2 today. Transfused again yesterday. Stools have been brown. Unclear why his hemoglobin is down again this morning but IV anticoagulation and
thrombocytopenia is not helping.
Has had 9 units of blood transfused so far.
Acute thrombocytopenia -concern for possible HIT. HIT panel neg. Hematology input noted. Platelets normalized. Status post argatroban drip.
Acute bilateral lower extremity DVT -noted on ultrasound 05/31/24, status post IVC filter placement on 06/09/24. DVT occurred prior to onset of thrombocytopenia. Lupus anticoagulant positive. Suspect this may be a false positive.
Continue warfarin until he follows up with hematology. Spoke with patient regarding IVC filter placement and ability to have it removed in the next few weeks if okay with PCP. Recommend close outpatient follow-up.
Thrush -treated.
Essential hypertension -amlodipine and Coreg on hold due to septic shock.
DM2 without hyperglycemia - Hemoglobin A1c 7.8%. Off insulin drip 06/03. Currently on Lantus 10 units at bedtime, 4 units of aspart AC, low resistance aspart scale. Diabetes [employer] managing glucoses.
Given hypoglycemia we will lower dose of Lantus to 5 units, stop mealtime aspart, continue sliding scale. Appetite is poor.
Gastroesophageal reflux disease
Continue PPI
Constipation
Continue laxatives
Anxiety/depression
Appreciate psychiatry input, Cymbalta discontinued as it is not recommended in dialysis
Psychiatry recommends sertraline 25 mg daily, titrating up as tolerated
Insomnia
Started on melatonin and Benadryl
Stage 2 sacrum/buttocks pressure injury
Stage 2 right lip pressure injury
Wound care, off loading
Obesity due to excess calories
DVT prophylaxis�heparin drip/coumadin
Full code
Disposition -medically stable for discharge to [facility] for therapy. Updated patient's on the phone. All questions answered. We discussed recommendation to follow-up closely with primary care doctor after discharge.
Recommend discussion with PCP regarding timing of IVC filter removal after discharge.
Anticipated Discharge: Today
Subjective/Interval History
-
Date of Service: June 23, 2024
Patient seen and examined. No complaints. Appears sleepy this morning.
Objective Data
-
Labs:
Laboratory Results
06/23/24
04:51
PT 27.4 H
INR 2.50
Vital Signs:
Vital Signs
Temp Pulse Resp BP Pulse Ox
98.1 F 80 17 143/64 98
06/23/24 07:00 06/23/24 07:00 06/23/24 07:00 06/23/24 08:48 06/23/24 07:00
I&O
06/22/24 06/23/24 06/24/24
06:59 06:59 06:59
Intake Total 680 / 680 250 / 250
Output Total 350 / 350
Balance 330 / 330 230 / 230
Review of Systems
-
History Source: Patient
All other systems: Reviewed and negative
--- NOTE | 2024-06-23 12:01 | CM ---
D/c held yesterday, plan is for patient to transfer to [facility] today 1pm by ambulance.
Plan; [facility] today. 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
Report [phone]
--- NOTE | 2024-06-23 12:18 | W.PN.NEPH.PH ---
Today's Communication / Plan
-
dc
Assessment/Plan
-
Impression:
ESRD MWF ([place])
Sepsis/leukocytosis with hemodynamic compromise
Hypoxic Respiratory failure
Diabetes
History of right TMA with purulent drainage from site, status post ankle amputation 05/31/2024
History of hypertension
Anemia
PAD
Plan:
Next HD tomorrow (MWF for rehab)
R BKA -pain control
follow h/h
back on Eliquis, neg HIT, +LAC
abx per ID (renally dosed)
stop midodrine
for rehab today
-
-
Date of Service: June 23, 2024
CC / HPI / ROS
-
Chief Complaint:
ESRD
History of Present Illness:
Bp stable on lower midodrine
s/p right foot amputation 05/31, Rt BKA 06/13
s/p cholecystotomy tube 05/31
Hgb stable low 8.1 stable
Review of Systems:
no fevers
Weights down
no cp or sob at rest
not sleeping well
Labs
-
Labs:
WBC 6.7 10^3/uL (4.8-10.8) 06/21/24 06:26
RBC 2.82 10^6/uL (4.70-6.10) L 06/21/24 06:26
Hgb 8.1 g/dL (13.0-18.0) L 06/22/24 08:53
Hct 25.6 % (39.0-52.0) L 06/22/24 08:53
Plt Count 165 10^3/uL (130-400) 06/21/24 06:26
Sodium 134 mmol/L (135-145) L 06/22/24 08:53
Potassium 3.8 mmol/L (3.5-5.1) 06/22/24 08:53
Chloride 94 mmol/L (98-107) L 06/22/24 08:53
Carbon Dioxide 36 mmol/L (22-30) H 06/22/24 08:53
BUN 14 mg/dl (9-20) 06/21/24 06:26
Creatinine 2.3 mg/dL (0.7-1.3) H 06/21/24 06:26
eGFR 31.13 06/21/24 06:26
Glucose 84 mg/dl (70-99) 06/21/24 06:26
Calcium 8.2 mg/dl (8.4-10.2) L 06/21/24 06:26
Phosphorus 3.8 mg/dl (2.5-4.5) 06/15/24 03:55
Nxk-L-Lxdhtsskevv Pept 4060 pg/ml 05/30/24 15:31
Albumin 2.3 g/dl (3.5-5.0) L 06/10/24 04:59
Physical Exam
-
Vital Signs:
Vital Signs
Temp Pulse Resp BP Pulse Ox
98.1 F 80 17 143/64 98
06/23/24 07:00 06/23/24 07:00 06/23/24 07:00 06/23/24 08:48 06/23/24 07:00
Cardiovascular:: Regular rate and rhythm
Respiratory:: Bilateral: Coarse
Lung Excursion:: Normal
Abdomen:: Nontender and Soft
Bowel Sounds:: Normal
Extremity Edema:: None: Bilateral:
[2024-06-23 12:19] LABS: Glucose - Point of Care 112 mg/dl (70-99)
[2024-06-23 12:23] VITALS: BP 144/62
== END 2024-06-23 13:26 | DRG 853 ==
LOC: 4 WEST ACU 18:22
PROVIDERS: Internal Medicine; Internal Medicine Nephrology; Nurse Practitioner; Nurse Practitioner Acute Care; Nurse Practitioner Family; Nurse Practitioner Primary Care; Radiology Diagnostic Radiology; Radiology Vascular & Interventional Radiology; Registered Nurse; Specialist; ADMITTING PHYSICIAN Family Medicine; ATTENDING PHYSICIAN Hospitalist; CONSULT PHYSICIAN Physical Medicine & Rehabilitation; CONSULT PHYSICIAN Psychiatry & Neurology Psychiatry; CONSULT PHYSICIAN Specialist; CONSULT PHYSICIAN Surgery; EMERGENCY PHYSICIAN Emergency Medicine; FAMILY PHYSICIAN Internal Medicine; OTHER PHYSICIAN Internal Medicine Critical Care Medicine; OTHER PHYSICIAN Internal Medicine Hematology & Oncology; OTHER PHYSICIAN Internal Medicine Infectious Disease; OTHER PHYSICIAN Podiatrist Foot & Ankle Surgery; OTHER PHYSICIAN Surgery Vascular Surgery
PROC: 0Y9M0ZZ Drainage of Right Foot, Open Approach (ICD-10-PCS; 2024-05-30)
PROC: 0BH17EZ Insertion of Endotracheal Airway into Trachea, Via Natural or Artificial Opening (ICD-10-PCS; 2024-05-31)
PROC: B5181ZA Fluoroscopy of Superior Vena Cava using Low Osmolar Contrast, Guidance (ICD-10-PCS; 2024-05-31)
PROC: 02HV33Z Insertion of Infusion Device into Superior Vena Cava, Percutaneous Approach (ICD-10-PCS; 2024-05-31)
PROC: 5A1955Z Respiratory Ventilation, Greater than 96 Consecutive Hours (ICD-10-PCS; 2024-05-31)
PROC: 0Y6H0Z3 Detachment at Right Lower Leg, Low, Open Approach (ICD-10-PCS; 2024-05-31)
PROC: 5A1D70Z Performance of Urinary Filtration, Intermittent, Less than 6 Hours Per Day (ICD-10-PCS; 2024-05-31)
PROC: 5A1D90Z Performance of Urinary Filtration, Continuous, Greater than 18 hours Per Day (ICD-10-PCS; 2024-06-01)
PROC: 0F9430Z Drainage of Gallbladder with Drainage Device, Percutaneous Approach (ICD-10-PCS; 2024-06-01)
PROC: 30243N1 Transfusion of Nonautologous Red Blood Cells into Central Vein, Percutaneous Approach (ICD-10-PCS; 2024-06-02)
PROC: 2W1QX6Z Compression of Right Lower Leg using Pressure Dressing (ICD-10-PCS; 2024-06-03)
PROC: 0BP1XDZ Removal of Intraluminal Device from Trachea, External Approach (ICD-10-PCS; 2024-06-07)
PROC: 06H03DZ Insertion of Intraluminal Device into Inferior Vena Cava, Percutaneous Approach (ICD-10-PCS; 2024-06-09)
PROC: 0Y6H0Z1 Detachment at Right Lower Leg, High, Open Approach (ICD-10-PCS; 2024-06-13)
DX: A41.89 Other specified sepsis (principal); A48.0 Gas gangrene; J96.01 Acute respiratory failure with hypoxia; N18.6 End stage renal disease; R65.21 Severe sepsis with septic shock; T87.43 Infection of amputation stump, right lower extremity; E11.52 Type 2 diabetes mellitus with diabetic peripheral angiopathy with gangrene; I12.0 Hypertensive chronic kidney disease with stage 5 chronic kidney disease or end stage renal disease; E87.1 Hypo-osmolality and hyponatremia; R44.3 Hallucinations, unspecified; N17.9 Acute kidney failure, unspecified; K80.00 Calculus of gallbladder with acute cholecystitis without obstruction; L97.518 Non-pressure chronic ulcer of other part of right foot with other specified severity; I70.261 Atherosclerosis of native arteries of extremities with gangrene, right leg; N39.0 Urinary tract infection, site not specified; I82.403 Acute embolism and thrombosis of unspecified deep veins of lower extremity, bilateral; E87.20 Acidosis, unspecified; Z16.24 Resistance to multiple antibiotics; D62 Acute posthemorrhagic anemia; E87.3 Alkalosis; D68.62 Lupus anticoagulant syndrome; J90 Pleural effusion, not elsewhere classified; Y83.5 Amputation of limb(s) as the cause of abnormal reaction of the patient, or of later complication, without mention of misadventure at the time of the procedure; Y92.9 Unspecified place or not applicable; E11.22 Type 2 diabetes mellitus with diabetic chronic kidney disease; E11.42 Type 2 diabetes mellitus with diabetic polyneuropathy; E11.65 Type 2 diabetes mellitus with hyperglycemia; E78.00 Pure hypercholesterolemia, unspecified; K21.9 Gastro-esophageal reflux disease without esophagitis; J45.909 Unspecified asthma, uncomplicated; R79.89 Other specified abnormal findings of blood chemistry; F32.A Depression, unspecified; K59.00 Constipation, unspecified; F41.9 Anxiety disorder, unspecified; E66.09 Other obesity due to excess calories; G47.33 Obstructive sleep apnea (adult) (pediatric); E87.8 Other disorders of electrolyte and fluid balance, not elsewhere classified; R74.8 Abnormal levels of other serum enzymes; E88.09 Other disorders of plasma-protein metabolism, not elsewhere classified; B96.89 Other specified bacterial agents as the cause of diseases classified elsewhere; D63.1 Anemia in chronic kidney disease; E05.90 Thyrotoxicosis, unspecified without thyrotoxic crisis or storm; E07.81 Sick-euthyroid syndrome; D69.6 Thrombocytopenia, unspecified; L89.152 Pressure ulcer of sacral region, stage 2; L89.812 Pressure ulcer of head, stage 2; G47.00 Insomnia, unspecified; B36.9 Superficial mycosis, unspecified; B37.9 Candidiasis, unspecified; Z99.2 Dependence on renal dialysis; Z89.431 Acquired absence of right foot; Z79.82 Long term (current) use of aspirin; Z79.4 Long term (current) use of insulin; Z11.52 Encounter for screening for COVID-19; Z79.02 Long term (current) use of antithrombotics/antiplatelets; Z68.31 Body mass index [BMI] 31.0-31.9, adult
CPT/HCPCS: 88307; 88311; 27880; 36597; 37191; 47490; 71045; 73630; 74177; 76000; 76700; 80048; 80051; 80053; 80202; 81003; 81015; 82040; 82248; 82330; 82533; 82607; 82746; 82805; 82962; 83036; 83605; 83735; 83880; 83930; 84100; 84439; 84443; 84478; 84484; 85014; 85018; 85025; 85027; 85384; 85520; 85598; 85610; 85613; 85652; 85670; 85730; 86022; 86140; 86146; 86147; 86850; 86900; 86901; 86920; 87015; 87040; 87070; 87075; 87076; 87077; 87086; 87186; 87205; 87340; 87502; 87811; 92526; 92610; 93005; 93306; 93970; 94002; 94003; 94660; 96365; 96368; 97110; 97163; 97167; 97530; 97535; 99285; C1769; C1880; G0257; J0883; P9016; P9047; Q5106; Q9967

== ENCOUNTER → 2024-09-30 10:20 | Outpatient (REF) | payer BC, SELFPAY ==
[2024-09-30 11:02] VITALS: BP 134/78; BP_SYST 78
[2024-09-30 11:37] VITALS: BP 140/78
== END ==
LOC: RADI 10:20
PROVIDERS: ATTENDING PHYSICIAN Surgery; FAMILY PHYSICIAN Family Medicine
DX: Z43.4 Encounter for attention to other artificial openings of digestive tract (principal); K80.00 Calculus of gallbladder with acute cholecystitis without obstruction
CPT/HCPCS: 47531